=== PATIENT | male | born 1980 | race African-American/Black ===

== ENCOUNTER 2017-02-04 10:19 | Inpatient (IN) ==
[2017-02-04] MEDS ORDERED: ASPIRIN PO STA (10:29)
[2017-02-04 10:54] LABS: BASO% 0.1 % (0.0-0.8); EOS# 0.01 X1000 (0.0-0.7); EOS% 0.1 % (0.0-10.0); HEMATOCRIT 31.5 % (42.0-52.0); HEMOGLOBIN 10.9 g/dL (14.0-18.0); IMM GRAN# 0.06 X1000 (0.0-0.04); IMM GRAN% 0.3 % (0.0-0.5); LYMPH# 0.85 X1000 (1.2-3.4); LYMPH% 4.4 % (20.5-51.1); MANUAL DIFF NEEDED? NO; MCH 26.3 PG (27-31); MCHC 34.6 g/dL (33-37); MCV 75.9 FL (81-99); MONO# 1.49 X1000 (0.11-0.59); MONO% 7.7 % (1.7-9.3); MPV 9.5 FL (7.4-10.4); NEUT% 87.4 % (42.2-75.2); PLT 246 X1000 (130-400); RBC 4.15 XMIL (4.7-6.1)
[2017-02-04 10:58] LABS: INR 1.09; PROTIME 11.5 Seconds (9.2-11.7); PTT 38.2 Seconds (22.0-36.0)
[2017-02-04 11:13] LABS: ALBUMIN 1.9 g/dL (3.5-5.0); CALCIUM 7.7 mg/dL (8.8-10.2); MAGNESIUM 1.4 mg/dL (1.5-2.7); TOTAL BILIRUBIN 1.45 mg/dL (0.20-1.00)
[2017-02-04] MEDS ORDERED: NS 1,000 ML IV ONE ×2 (11:28→11:38)
[2017-02-04] MEDS ORDERED: NS 500 ML IV ONE (11:31)
[2017-02-04] MEDS ORDERED: ROCEPHIN 2 GM/NS 2 GM/50 ML IVPB IV ONE (11:39)
[2017-02-04] MEDS ORDERED: ZITHROMAX 500 MG/NS 500 MG/250 ML IVPB IV ONE (11:40)
--- NOTE | 2017-02-04 11:41 | PROVIDER DOCUMENTATION ---
HPI-Chest Pain - General Chief Complaint: Shortness of Breath Stated Complaint: SOB,CP Time Seen by Provider: 02/04/17 11:22 Source: patient Allergies/Adverse Reactions: Patient Allergies Allergy/AdvReac Type Severity Reaction Status Date / Time No Known Allergies Allergy Verified 12/08/16 18:22 Home Medications: Home Medication List Medication Instructions Recorded Confirmed Last Taken Type Aspirin 81 mg PO DAILY #60 chewtab 09/02/16 12/08/16 12/08/16 Rx Carvedilol 6.25 mg PO BID #60 tablet 09/02/16 12/08/16 12/08/16 Rx Digoxin 125 mcg PO QAM #30 tablet 09/02/16 12/08/16 12/08/16 Rx Furosemide [Lasix] 40 mg PO BID #60 tablet 09/02/16 12/08/16 Unknown Rx Insulin Humulin 70/30 [Humulin 8 unit SUBQ QPM@1700 #10 insuln.pen 09/02/16 Unknown Rx 70/30] Insulin Humulin 70/30 [Humulin 14 unit SUBQ QAM@0700 #10 09/02/16 12/08/1612/08 Rx 70/30] insuln.pen LISINOpril [Prinivil] 20 mg PO BID #120 tablet 09/02/16 12/08/16 12/08/16 Rx Spironolactone [Aldactone] 25 mg PO DAILY #120 tablet 09/02/16 12/08/16 Rx Cephalexin [Keflex] 500 mg PO BID #14 capsule 12/08/16 Unknown Rx Hydrocodone/APAP 7.5 mg/325 mg 1 each PO Q6H PRN PRN #5 tablet 12/08/16 Unknown Rx [Altus-7.5] Sulfamethoxazole/Trimethoprim 1 each PO BID #14 tablet 12/08/16 Unknown Rx [Bactrim Ds Tablet] - History of Present Illness-CP Nature of Presenting Problem: 2 days of nasal congestion, increasing cough and congestion. Last nite developed chest pain and SOB. Insulin dependent diabetic, no insulin for several days. Hx CAD, s/p CABG 10/2016 and CHF. Location: reports: central Chest Pain Radiation: reports: no radiation Quality of Pain: reports: aching Severity in ED: moderate Onset/Duration: 2 days ago Timing: still present Modifying Factors: improves with: coughing Associated Symptoms: denies: abdominal pain, back pain, diaphoresis, fatigue Nitro Today/Relief: no nitro taken today Review of Systems - Adult - REVIEW OF SYSTEMS - ADULT Constitutional: reports: see HPI, chills, fever, fatique Eyes: reports: no symptoms reported Ears, Nose, Mouth & Throat: reports: sinus problem Cardiovascular: reports: chest pain Respiratory: reports: cough, shortness of breath Gastrointestinal: reports: no symptoms reported Genitourinary: reports: no symptoms reported Musculoskeletal: reports: no symptoms reported Neurological: reports: no symptoms reported Psychiatric: reports: no symptoms reported Endocrine: reports: other (diabetic, not taking insulin several days) Hematologic/Lymphatic: reports: no symptoms reported Allergic/Immunologic: reports: no symptoms reported Past History - Adult - PAST MEDICAL HISTORY-ADULT Review of Records: reports: Old Records Reviewed, Nursing Assessment Review, Medications Reviewed Major Childhood Illnesses: reports: denies history Cardiovascular: reports: CHF, HTN, [place] Respiratory: reports: COPD Gastrointestinal: reports: GERD Obstetrical/Gynecological: reports: denies history Genitourinary: reports: denies history Musculoskeletal: reports: chronic pain Neurological: reports: denies history Psychiatric: reports: anxiety Endocrine/Immune: reports: Diabetes Other Conditions: reports: MRSA - PRIOR SURGERIES/PROCEDURES Surgical/Procedure History: reports: reviewed, not pertinent, other (abcess) - PRIOR HOSPITALIZATIONS Prior Hospitalizations: reports: none - IMMUNIZATION STATUS Childhood Immunizations: See Nurse Assessment Flu Vaccine: See Nurse Assessment - FAMILY HISTORY Family History: CAD over 55 yo Physical Exam-General - PHYSICAL EXAM-ADULT Initial Vital Signs Reviewed: Yes - CONSTITUTIONAL General Appearance: alert, no apparent distress - EYES Eyes: PERRL/EOMI - HEAD, EARS, NOSE, MOUTH & THROAT HENMT: normocephalic/atraumatic, moist mucous membranes, normal ENT inspection - NECK Neck: non-tender, full range of motion - RESPIRATORY Respiratory: chest non-tender, lungs clear, normal breath sounds - CARDIOVASCULAR Cardiovascular: no gallop, no murmur, tachycardia - GASTROINTESTINAL (ABDOMEN) Abdominal Exam: normal bowel sounds, non tender, soft, no organomegaly - LYMPHATIC Lymphatic: no adenopathy - MUSCULOSKELETAL Back Exam: other (scar from prior abscess) Extremity: non-tender, swelling (R lower leg and foot) - SKIN Integumentary: normal color, normal turgor, warm/dry - NEUROLOGIC Neurologic: grossly normal, no motor/sensory deficits Progress - PLAN OF CARE/RESULTS Progress/Plan/Lab Results: Vital Signs - 8 hr 02/04/17 12:50 02/04/17 14:49 Pulse Rate 115 H 111 H Respiratory Rate 23 Blood Pressure 185/120 150/106 O2 Sat by Pulse Oximetry 99 99 02/04/17 12:41 Influenza Screen - Final Nasopharyngeal Laboratory Results - last 24 hr 02/04/17 02/04/17 02/04/17 10:37 10:37 10:37 WBC 19.30 H RBC 4.15 L Hgb 10.9 L Hct 31.5 L MCV 75.9 L MCH 26.3 L MCHC 34.6 RDW Std Deviation 18.2 H Plt Count 246 MPV 9.5 Immature Gran % (Auto) 0.3 Neut % (Auto) 87.4 H Lymph % (Auto) 4.4 L [place] % (Auto) 7.7 Eos % (Auto) 0.1 Baso % (Auto) 0.1 Immature Gran # (Auto) 0.06 H Neut # (Auto) 16.87 H Lymph # (Auto) 0.85 L [place] # (Auto) 1.49 H Eos # (Auto) 0.01 Baso # (Auto) 0.02 PT INR PTT (Actin FS) D-Dimer 1.77 H Sodium 130 L Potassium 3.0 L Chloride 96 L Carbon Dioxide 18 L Anion Gap 16 BUN 14 Creatinine 1.7 H Estimated GFR/1.73 m2 55 BUN/Creatinine Ratio 8 Glucose 279 H Calculated Osmolality 271 Calcium 7.7 L Magnesium 1.4 L Total Bilirubin 1.45 H AST 16 ALT 7 L Alkaline Phosphatase 92 Creatine Kinase 162 Troponin T Sab-R-Xrvvgrnlqje Pept Total Protein 7.0 Albumin 1.9 L Globulin 5.1 Albumin/Globulin Ratio 0.4 Plasma Lactate 02/04/17 02/04/17 02/04/17 10:37 10:37 10:37 WBC RBC Hgb Hct MCV MCH MCHC RDW Std Deviation Plt Count MPV Immature Gran % (Auto) Neut % (Auto) Lymph % (Auto) [place] % (Auto) Eos % (Auto) Baso % (Auto) Immature Gran # (Auto) Neut # (Auto) Lymph # (Auto) [place] # (Auto) Eos # (Auto) Baso # (Auto) PT 11.5 INR 1.09 PTT (Actin FS) 38.2 H D-Dimer Sodium Potassium Chloride Carbon Dioxide Anion Gap BUN Creatinine Estimated GFR/1.73 m2 BUN/Creatinine Ratio Glucose Calculated Osmolality Calcium Magnesium Total Bilirubin AST ALT Alkaline Phosphatase Creatine Kinase Troponin T 0.090 Gmo-J-Qvddtihmxhg Pept 32962 H Total Protein Albumin Globulin Albumin/Globulin Ratio Plasma Lactate 02/04/17 12:48 WBC RBC Hgb Hct MCV MCH MCHC RDW Std Deviation Plt Count MPV Immature Gran % (Auto) Neut % (Auto) Lymph % (Auto) [place] % (Auto) Eos % (Auto) Baso % (Auto) Immature Gran # (Auto) Neut # (Auto) Lymph # (Auto) [place] # (Auto) Eos # (Auto) Baso # (Auto) PT INR PTT (Actin FS) D-Dimer Sodium Potassium Chloride Carbon Dioxide Anion Gap BUN Creatinine Estimated GFR/1.73 m2 BUN/Creatinine Ratio Glucose Calculated Osmolality Calcium Magnesium Total Bilirubin AST ALT Alkaline Phosphatase Creatine Kinase Troponin T Tde-R-Ktvbyqzkcrv Pept Total Protein Albumin Globulin Albumin/Globulin Ratio Plasma Lactate 1.5 Orders Category Date Time Status Admit - [facility] Routine AdmDCTranf 02/04/17 15:41 Ordered Activity - Up with Assistance ORDERED Care 02/04/17 15:41 Active Cardiac Monitoring DIRECTED Care 02/04/17 10:29 Completed Elevate Head of Bed DIRECTED Care 02/04/17 15:41 Active Encourage Fluids DIRECTED Care 02/04/17 15:41 Active Intake and Output-Strict Q 8-HR ASSESS Care 02/04/17 15:41 Active Nursing- Assist w/ IS as order ORDERED Care 02/04/17 15:41 Active Oxygen Therapy- ED Nursing DIRECTED Care 02/04/17 10:29 Completed Saline Loc NOW Care 02/04/17 10:29 Completed Turn, Cough and Deep Breathe Q2HR Care 02/04/17 15:41 Active Vital Signs Order Q 4-HR ASSESS Care 02/04/17 15:41 Active Diabetic Diet Diet 02/04/17 14:45 Active CHEST-2 VIEWS [RAD] DAILY Exams 02/05/17 06:00 Ordered CHEST-2 VIEWS [RAD] DAILY Exams 02/06/17 06:00 Ordered CHEST-2 VIEWS [RAD] DAILY Exams 02/07/17 06:00 Ordered CHEST-2 VIEWS [RAD] Stat Exams 02/04/17 10:29 Draft A1C HGB W EST AVG GLUCOSE [CHEM] Timed Lab 02/04/17 16:21 Completed BASIC METABOLIC PANEL [CHEM] DAILY Lab 02/05/17 06:00 Ordered BASIC METABOLIC PANEL [CHEM] DAILY Lab 02/06/17 06:00 Ordered BASIC METABOLIC PANEL [CHEM] DAILY Lab 02/07/17 06:00 Ordered BASIC METABOLIC PANEL [CHEM] Timed Lab 02/04/17 16:21 Completed BLOOD CULTURE [BLDCUL] Stat Lab 02/04/17 12:40 Results CBC WITH ELECTRONIC DIFF [HEME] Stat Lab 02/04/17 10:37 Completed CBC WITH NO DIFF [HEME] DAILY Lab 02/05/17 06:00 Ordered CBC WITH NO DIFF [HEME] DAILY Lab 02/06/17 06:00 Ordered CBC WITH NO DIFF [HEME] DAILY Lab 02/07/17 06:00 Ordered CK PROFILE [SP CHEM] Q8H Lab 02/04/17 16:21 Completed CK PROFILE [SP CHEM] Q8H Lab 02/04/17 23:41 Ordered CK PROFILE [SP CHEM] Stat Lab 02/04/17 10:37 Completed COMPREHENSIVE METABOLIC PANEL [CHEM] Stat Lab 02/04/17 10:37 Completed D-DIMER [CHEM] Stat Lab 02/04/17 10:37 Completed FERRITIN Timed Lab 02/04/17 16:21 Completed FOLATE Timed Lab 02/04/17 16:21 Completed FREE T4 Timed Lab 02/04/17 16:21 Completed INFLUENZA SCREEN A/B Stat Lab 02/04/17 12:41 Completed LACTATE, PLASMA [CHEM] Stat Lab 02/04/17 12:48 Completed LIPID PROFILE W/CALC LDL [LIPIDS] Routine Lab 02/05/17 06:00 Ordered MAGNESIUM [CHEM] DAILY Lab 02/06/17 06:00 Ordered MAGNESIUM [CHEM] DAILY Lab 02/07/17 06:00 Ordered MAGNESIUM [CHEM] DAILY Lab 02/08/17 06:00 Ordered MAGNESIUM [CHEM] Stat Lab 02/04/17 10:37 Completed MAGNESIUM [CHEM] Timed Lab 02/04/17 16:21 Completed PHOSPHORUS [CHEM] Timed Lab 02/04/17 16:21 Completed PRO B-NATRIURETIC PEPTIDE Stat Lab 02/04/17 10:37 Completed PROTIME WITH INR [COAG] Stat Lab 02/04/17 10:37 Completed PTT [COAG] Stat Lab 02/04/17 10:37 Completed RETIC COUNT [HEME] Timed Lab 02/04/17 16:21 Completed SPUTUM CULTURE WITH GRAM STAIN [RM] Routine Lab 02/04/17 18:24 Results TROPONIN T Q8HR Lab 02/04/17 21:00 Ordered TROPONIN T Q8HR Lab 02/05/17 05:00 Ordered TROPONIN T Stat Lab 02/04/17 10:37 Completed TSH Timed Lab 02/04/17 16:21 Completed UDS [URINE DRUG SCREEN] Timed Lab 02/04/17 15:41 Ordered UIBC W TOTAL IRON [CHEM] Timed Lab 02/04/17 16:21 Completed URINALYSIS W/POSS RFLX CULT [URINALYSIS] Routine Lab 02/04/17 15:41 Uncollected VITAMIN B12 Timed Lab 02/04/17 16:21 Completed 0.9% Sodium Chloride Inj [Ns] 1,000 ml Med 02/04/17 11:28 Discontinued IV 999 mls/hr 0.9% Sodium Chloride Inj [Ns] 1,000 ml Med 02/04/17 11:38 Discontinued IV 999 mls/hr 0.9% Sodium Chloride Inj [Ns] 500 ml Med 02/04/17 11:31 Discontinued IV 999 mls/hr Albuterol 2.5MG/Ipratrop 0.5MG [Duoneb (A & A)] Med 02/04/17 14:46 Active 3 ml INH Q2H PRN PRN Albuterol 2.5MG/Ipratrop 0.5MG [Duoneb (A & A)] Med 02/04/17 15:30 Active 3 ml INH RTQ4H Aspirin Med 02/04/17 10:29 Discontinued 325 mg PO STAT STA Azithromycin 500 mg/Ns [Zithromax 500 mg/Ns] Med 02/04/17 11:40 Discontinued 500 mg in 250 ml IV NOW Azithromycin 500 mg/Ns [Zithromax 500 mg/Ns] Med 02/05/17 14:00 Active 500 mg in 250 ml IV Q24H CefTRIAXONE 1 GM/NS [Rocephin 1 gm/Ns] Med 02/05/17 13:00 Active 1 gm in 50 ml IV Q24H CefTRIAXONE 2 GM/NS [Rocephin 2 gm/Ns] Med 02/04/17 11:39 Discontinued 2 gm in 50 ml IV NOW Enoxaparin [Lovenox] Med 02/04/17 15:41 Active 30 mg SUBQ Q12H Heparin Med 02/04/17 21:00 Discontinued 5,000 unit SUBQ Q12HR Insulin Lispro [Humalog] Med 02/04/17 16:00 Active See Protocol SUBQ 0700,1100,1600,2100 Piperacil/Tazobact 2.25 gm/Ns [Zosyn 2.25 gm/Ns] Med 02/04/17 15:00 Discontinued 2.25 gm in 50 ml IV Q6H Potassium Chloride E.r. [Klor-Con] Med 02/04/17 11:59 Discontinued 40 meq PO NOW ONE Aerosol Treatments Routine Ot 02/04/17 14:47 Completed Aerosol Treatments Routine Ot 02/04/17 15:41 Completed Aerosol Treatments Stat Oth 02/04/17 14:47 Completed Incentive Spirometer Routine Ot 02/04/17 15:41 Completed Oxygen Device Routine Oth 02/04/17 15:41 Completed Pulse Oximetry Routine Ot 02/04/17 15:41 Completed Telemetry [OM.EQ] Routine Oth 02/04/17 15:41 Active EKG [EKG] Stat Ther 02/04/17 10:29 Draft Transfer/Admit Order [TRANSFER] Routine Transfer 02/04/17 14:05 Completed Result Diagrams: 02/04/17 10:37 02/04/17 16:21 - XRAY 1 XRAY Study: Chest (RLL infiltrate) - CONSULTS/PCP/HOSPITALIST Notification #1 *Consult/PCP/Hospitalist*: Dr Sampson Time Discussed: 12:30 Reason/Comments: pneumonia, hypokalemia, hyperglycemia Consult Disposition: Will see in ED, Admit Departure - Departure Time of Disposition Decision: 12:46 DIAGNOSIS: Pneumonia Disposition: ADMITTED INPATIENT 09 Certified Medical Emergency: Emergent Condition: Serious
[2017-02-04] MEDS ORDERED: KLOR-CON PO ONE (11:59)
--- NOTE | 2017-02-04 12:03 | EKG Report ---
Test Performed on : 02/04/2017 10:24:50 AM Test Reason : Chest Pain Blood Pressure : / mmHG Vent. Rate : 128 BPM Atrial Rate : 128 BPM P-R Int : 140 ms QRS Dur : 098 ms QT Int : 308 ms P-R-T Axes : 053 080 143 degrees QTc Int : 449 ms Sinus tachycardia. with occasional premature ventricular complexes. Left atrial enlargement RSR' or QR pattern in V1 suggests right ventricular conduction delay Anterior infarct (cited on or before 27-MAR-2015) T wave abnormality, consider lateral ischemia Abnormal ECG When compared with ECG of 30-AUG-2016 00:32, premature ventricular complexes. are now present RSR' pattern in V1 is now present Criteria for Inferior infarct are no longer present Questionable change in initial forces of Anterior leads Unconfirmed Result
--- NOTE | 2017-02-04 13:03 | Diag Imaging Result Document ---
PROCEDURE NAME: CHEST-2 VIEWS - 02/04/2017 PA AND LATERAL RADIOGRAPH OF THE CHEST: COMPARISON: 12/08/2016. FINDINGS: There is an infiltrate at the right lower lung zone suggesting edema and/or pneumonia. There is no definite pleural fluid collection. There is stable cardiomegaly. Central vasculature is grossly unremarkable. Median sternotomy wires are stable. IMPRESSION: Right lower lung zone infiltrate as described.
[2017-02-04] MEDS ORDERED: DUONEB (A & A) INH PRN (14:46)
[2017-02-04] MEDS ORDERED: ZOSYN 2.25 GM/NS 2.25 GM/50 ML IVPB IV SCH (15:00)
[2017-02-04] MEDS ORDERED: LASIX IV ONE (15:04)
[2017-02-04] MEDS: DUONEB (A & A) INH SCH ×3 (15:25→22:55)
[2017-02-04 16:45] LABS: RETIC% 3.15 % (0.8-2.1)
[2017-02-04 16:59] LABS: HEMOGLOBIN A1C 8.4 % (4.8-6.0)
--- NOTE | 2017-02-04 16:59 | HISTORY AND PHYSICAL ---
ELECTRIC DISTRIBUTION CHECKER: Dr. Tran. CARDIOTHORACIC SURGEON: Dr. Michelle. CHIEF COMPLAINT: Shortness of breath and chest pain. HISTORY OF PRESENT ILLNESS: Mr. Coats is a 37-year-old male with a history of coronary artery disease status post 3 vessel CABG in October of this year. He also has a history of insulin-dependent diabetes, hypertension, hyperlipidemia, cardiac thrombus, CKD, medical noncompliance. He presents with 2-3 days of shortness of breath with chest pain beginning this morning. Symptoms were mostly cough which was dry in nature followed by some shortness of breath which increased daily over the past 2 days and this morning he started to have some midsternal chest pain which was nonradiating. He denies any fevers or chills. His cough has been dry. He has no lower extremity edema. No orthopnea. No abdominal pain. No nausea or vomiting. No dyspnea with exertion. No diarrhea or constipation. He came to the ER today for evaluation. Lab work shows a white count of almost 20. Chest x-ray is consistent with right lower lobe pneumonia. He has hyponatremia, hypokalemia, renal insufficiency, elevated liver function tests, and a proBNP of almost 14,000. He is also noted to be quite hypoalbuminemic. He denies any diaphoresis, fevers, or chills at home. However, we are now going to admit him for community -acquired pneumonia, as well as early sepsis. PAST MEDICAL HISTORY: 1. Coronary artery disease. 2. Systolic congestive heart failure with known EF of 20%, followed by Dr. Tran. 3. Hypertension. 4. Hyperlipidemia. 5. Diabetes mellitus. 6. Ischemic cardiomyopathy. 7. History of MRSA on his back associated with large abscess. PAST SURGICAL HISTORY: He has had abscess drainage on his back, 3 vessel CABG. SOCIAL HISTORY: Patient denies tobacco, alcohol, or drug use. FAMILY HISTORY: Significant for coronary disease. REVIEW OF SYSTEMS: A 14 point review of systems obtained and found to be negative with the exception of the HPI. ALLERGIES: No known drug allergies. HOME MEDICATIONS: Aspirin 81 mg daily, carvedilol 6.25 mg p.o. daily, digoxin 125 mcg p.o. daily, Lasix 40 mg b.i.d., [place] as needed, 70/30 insulin 14 units subcutaneously daily , 70/30 8 units subcutaneously at bedtime, lisinopril 20 mg b.i.d., Aldactone 25 mg daily. PHYSICAL EXAMINATION: VITAL SIGNS: Blood pressure is 150/106, heart rate 111, respiratory rate 20, O2 saturation 99% on room air, temperature is 98.2 degrees. GENERAL: This is a slightly overweight male, lying in hospital bed. No acute distress. NEUROLOGIC: The patient is awake, alert, oriented. He follows commands without focal deficits. HEENT: Head is atraumatic, normocephalic. His pupils are equal, round, reactive to light. Oral mucosa is moist. Trachea is midline. There is no JVD. CHEST: Diminished at the bases but clear to auscultation bilaterally. CV: Tachy but regular. S1, S2 is noted. GI: Soft, nondistended, nontender. Bowel sounds positive. EXTREMITIES: With trace edema. Pulses palpable but diminished bilaterally. DIAGNOSTIC DATA: EKG shows sinus tach without acute ST or T abnormalities. Chest x-ray shows right lower lung infiltrate. WBC 19.3, hemoglobin 10.9, hematocrit 31.5, platelet count 246,000. INR 1.09. D-dimer 1.77. Sodium 130, potassium 3.0, chloride 196, CO2 18, anion gap 16, BUN 14, creatinine 1.7, glucose 279, calcium 7.7, magnesium 1.4, bilirubin 1.45, ALT 7, alkaline phosphatase 92, CK 162. Troponin 0.090. ProBNP 13,984. Albumin 1.9. ASSESSMENT AND PLAN: 1. Sepsis: Associated with pneumonia. Blood cultures have been obtained. Lactic acid is within normal limits. Antibiotics have been initiated appropriately. We will continue antibiotics. Monitor hemodynamics closely; they are stable for now. 2. Community-acquired pneumonia: Blood cultures have been obtained. We will start Rocephin and azithromycin. Add aggressive pulmonary toilet and breathing treatments around the clock and p.r.n. 3. Elevated D-dimer: We are going to check a V/Q scan to rule out pulmonary embolus. We will also check lower extremity venous Dopplers. 4. Chronic kidney disease stage 2-3. We will continue his home medications and monitor. This is overall stable for now. 5. Hypokalemia and hypomagnesemia: These have been treated in the ER. We will recheck a BMP along with magnesium and phosphorus at 1600. 6. Anemia of chronic disease: We will check iron studies and treat accordingly. 7. Diabetes mellitus: Check a hemoglobin A1c. Add pattern sugars and sliding scale insulin. We will also continue his home insulin. 8. Systolic congestive heart failure: While his proBNP is almost 14,000, he is not overtly overloaded. He denies any significant dyspnea or chest pain. We will go ahead and recheck another echo now and trend enzymes. 9. Coronary artery disease: Chronic and stable. The patient is complaining of some chest pain but it is atypical but given his history, we are going to trend his enzymes and check an echocardiogram. We will continue his home medications which include aspirin. Further recommendations to follow. We are going to add low-dose Lovenox for DVT prophylaxis. Dictated by YFN Nelson for Grabiel Spivey MD cc: YFN Nelson MD MTDD
[2017-02-04 17:01] LABS: CALCIUM 7.6 mg/dL (8.8-10.2); IRON SATURATION 12 %; MAGNESIUM 1.6 mg/dL (1.5-2.7); POTASSIUM 3.4 mmol/L (3.5-5.1); TIBC 138 ug/dL; TOTAL IRON 16 ug/dL (53-167); UNBOUND IRON 122 ug/dL (112-346)
[2017-02-04 17:12] LABS: FREE T4 1.05 ng/dL (0.93-1.70)
--- NOTE | 2017-02-04 18:37 | Diag Imaging Result Document ---
PROCEDURE NAME: LUNG SCAN / VQ - 02/04/2017 PULMONARY VENTILATION PERFUSION SCAN: COMPARISON: Chest x-ray earlier. FINDINGS: 40.4 millicurie of DTPA was used for inhalation. 6.1 mCi of MAA was used for injection. There is normal localization pattern of both radiotracers. IMPRESSION: Negative for pulmonary embolism.
[2017-02-04] MEDS ORDERED: MORPHINE IV ONE (18:43)
[2017-02-04] MEDS ORDERED: ZOFRAN IV PRN (18:44)
[2017-02-04] MEDS: HUMALOG SUBQ SCH ×2 (18:59→21:54)
[2017-02-04] MEDS: LOVENOX SUBQ SCH (18:59)
[2017-02-04] MEDS ORDERED: HEPARIN SUBQ SCH (21:00)
[2017-02-04 21:24] LABS: UR AMPHETAMINES QUAL NONE DETECTED (NONE DETECT); UR BARBITUATES QUAL NONE DETECTED (NONE DETECT); UR BENZODIAZEPIN QUAL NONE DETECTED (NONE DETECT); UR CANNABINOIDS QUAL NONE DETECTED (NONE DETECT); UR COCAINE QUAL NONE DETECTED (NONE DETECT); UR METHADONE QUAL NONE DETECTED (NONE DETECT); UR OPIATES QUAL PRESUMPTIVE POSITIVE (NONE DETECT); UR OXYCODONE QUAL NONE DETECTED (NONE DETECT); UR PCP QUAL NONE DETECTED (NONE DETECT)
[2017-02-05] MEDS: DUONEB (A & A) INH SCH ×6 (04:01→23:11)
--- NOTE | 2017-02-05 05:19 | EKG Report ---
Test Performed on : 02/04/2017 8:06:13 PM Test Reason : c/o chest pain/discomfort Blood Pressure : / mmHG Vent. Rate : 124 BPM Atrial Rate : 124 BPM P-R Int : 112 ms QRS Dur : 094 ms QT Int : 418 ms P-R-T Axes : 000 062 092 degrees QTc Int : 600 ms Sinus tachycardia. Incomplete right bundle branch block Anterior infarct (cited on or before 27-MAR-2015) T wave abnormality, consider lateral ischemia Abnormal ECG When compared with ECG of 04-FEB-2017 10:24, (Unconfirmed) premature ventricular complexes. are no longer present T wave inversion less evident in Lateral leads Confirmed by Ravindra BENNETT, Kristofer Patel ([id number]) on 02/06/2017 2:15:36 PM
[2017-02-05] MEDS: LOVENOX SUBQ SCH ×2 (05:42→16:54)
[2017-02-05] MEDS: HUMALOG SUBQ SCH ×4 (06:27→22:52)
[2017-02-05 07:22] LABS: HEMATOCRIT 28.2 % (42.0-52.0); HEMOGLOBIN 9.6 g/dL (14.0-18.0); MCH 26.2 PG (27-31); MCV 76.8 FL (81-99); MPV 9.6 FL (7.4-10.4); RBC 3.67 XMIL (4.7-6.1)
[2017-02-05 07:48] LABS: AGAP 14; BUN 16 mg/dL (8-22); CALCIUM 7.6 mg/dL (8.8-10.2); CHLORIDE 101 mmol/L (98-107); COSMO 273; HDL 44 mg/dL (35-55); LDL 124 mg/dL; POTASSIUM 3.2 mmol/L (3.5-5.1); SODIUM 135 mmol/L (136-145); TCO2 20 mmol/L (25-35); TRIGLYCERIDES 107 mg/dL (39-160); VLDL 21 mg/dL
[2017-02-05] MEDS ORDERED: TYLENOL PO PRN (08:50)
--- NOTE | 2017-02-05 10:16 | Diag Imaging Result Document ---
PROCEDURE NAME: CHEST-2 VIEWS - 02/05/2017 FRONTAL AND LATERAL CHEST, TWO VIEWS: COMPARISON: 02/04/2017. FINDINGS: There are dense infiltrates throughout the right lung. The heart remains enlarged. Sternal wires are present. No pleural effusions. Left inferior pleural thickening has an appearance similar to the prior study. IMPRESSION: No improvement in the right-sided infiltrates or in the cardiomegaly.
[2017-02-05] MEDS ORDERED: LASIX PO PRN (10:19)
[2017-02-05] MEDS: LANOXIN PO SCH (10:43)
[2017-02-05] MEDS: ASPIRIN PO SCH (10:43)
[2017-02-05] MEDS: ALDACTONE PO SCH (10:43)
[2017-02-05] MEDS: PRINIVIL PO SCH (10:43)
[2017-02-05] MEDS: ROCEPHIN 1 GM/NS 1 GM/50 ML IVPB IV SCH (12:02)
--- NOTE | 2017-02-05 12:44 | PROGRESS NOTE ---
DATE: 02/05/2017 SUBJECTIVE: This patient states that he is feeling much better. He is complaining of mild headache. He denies nausea or vomiting. No diarrhea. No constipation. No shortness of breath. No chest pain. OBJECTIVE: Vital Signs: Temperature 99.0 degrees, pulse 118, respiratory rate 18, blood pressure 178/114, oxygen saturation 96 on 1L of nasal cannula. HEENT: Head normocephalic. No trauma. PERRLA. Neck: Supple. No JVD. No masses. Central trachea. Chest: Decreased breath sounds at the bases with rhonchi at the level of the right lower lung. Cardiovascular: RRR. No murmurs. Tachycardic. Abdomen: Soft, nontender, nondistended. No hepatosplenomegaly. Extremities: Trace lower extremity edema. No clubbing. No cyanosis. Neurological: The patient is alert and oriented x3. No focal neurological deficits. LABORATORY: WBC 12, hemoglobin 9.6, hematocrit 28.2, platelets 247,000. Sodium 135, potassium 3.2, chloride 101, bicarbonate 20, BUN 16, creatinine 1.7, glucose 130, calcium 7.6. ASSESSMENT AND PLAN: 1. Sepsis associated with pneumonia. Blood culture has been negative so far. He is feeling better. I will continue with the same antibiotics and monitoring. 2. Community-acquired pneumonia. Blood culture has been negative. We will continue with ceftriaxone and azithromycin. Will continue with also aggressive pulmonary toilet, breathing treatment. 3. Elevated D-dimer. The V/Q scan has been negative. We will continue with deep vein thrombosis prophylaxis. 4. Chronic kidney disease, stage 2-3. Continue with home medication and monitor. 5. Hypokalemia. I will replace the potassium. 6. Hypomagnesemia, resolved. 7. Anemia of chronic disease. Aware. 8. Type 2 diabetes. His hemoglobin A1c is 8.4. This patient has been highly advised about diet and diabetes treatment. 9. Systolic congestive heart failure. I will restart all his home medications today. Pending a new echocardiogram. 10. History of coronary artery disease, stable. Continue to monitor. cc: Grabiel Spivey MD
[2017-02-05] MEDS ORDERED: INSULIN PEN NEEDLES ONE (13:08)
[2017-02-05] MEDS: ZITHROMAX 500 MG/NS 500 MG/250 ML IVPB IV SCH (14:00)
--- NOTE | 2017-02-05 14:15 | Extremity Venous Study ---
PROCEDURE NAME: Venous U/S Bilateral Legs - 02/04/2017 REQUESTING PHYSICIAN: Dr. Sampson. STABLE CLEANER: Allan. TEST: Lower extremity venous study. INDICATIONS: Shortness of breath. Elevated D-dimer. PROCEDURE: Bilateral lower extremity venous duplex color-flow imaging. EQUIPMENT: [employer] E9 ultrasound System and 9 LD transducer. FINDINGS: Imaging of the bilateral lower extremity venous system obtained in both sagittal and transverse planes. Doppler was used to evaluate veins for spontaneity, phasicity, respiratory excursion, and digital augmentation. RESULTS: Normal venous compression, normal venous flow. No obvious superficial or deep venous thrombosis noted. 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 INTERPRETATION: No obvious superficial or deep venous thrombosis noted. There is suggestion of chronic arterial disease bilaterally at the right popliteal artery and left common femoral, left superficial femoral artery. Given this patient's age and bilateral aspect of this would recommend CT angiography and surgical evaluation. cc: MD Vikas Birch CRNP
[2017-02-05] MEDS: HUMULIN 70/30 SUBQ SCH (16:55)
[2017-02-05] MEDS: COREG PO SCH (22:51)
[2017-02-06] MEDS: DUONEB (A & A) INH SCH ×6 (04:10→22:43)
[2017-02-06] MEDS: HUMALOG SUBQ SCH ×4 (06:20→20:58)
[2017-02-06] MEDS: LOVENOX SUBQ SCH ×2 (06:20→18:13)
[2017-02-06] MEDS: HUMULIN 70/30 SUBQ SCH ×2 (06:21→18:12)
[2017-02-06 07:21] LABS: MANUAL DIFF NEEDED? NO
[2017-02-06 07:26] LABS: BASO% 0.2 % (0.0-0.8); EOS# 0.23 X1000 (0.0-0.7); EOS% 1.8 % (0.0-10.0); HEMATOCRIT 27.9 % (42.0-52.0); HEMOGLOBIN 9.5 g/dL (14.0-18.0); IMM GRAN# 0.02 X1000 (0.0-0.04); IMM GRAN% 0.2 % (0.0-0.5); LYMPH# 1.16 X1000 (1.2-3.4); LYMPH% 9.3 % (20.5-51.1); MCH 26.4 PG (27-31); MCHC 34.1 g/dL (33-37); MCV 77.5 FL (81-99); MONO# 0.92 X1000 (0.11-0.59); MONO% 7.3 % (1.7-9.3); MPV 10.2 FL (7.4-10.4); NEUT% 81.2 % (42.2-75.2); PLT 281 X1000 (130-400)
[2017-02-06 07:46] LABS: CALCIUM 7.7 mg/dL (8.8-10.2); POTASSIUM 3.1 mmol/L (3.5-5.1)
[2017-02-06] MEDS ORDERED: KLOR-CON PO ONE (08:23)
[2017-02-06] MEDS: PRINIVIL PO SCH (09:53)
[2017-02-06] MEDS: LANOXIN PO SCH (09:53)
[2017-02-06] MEDS: ALDACTONE PO SCH (09:53)
[2017-02-06] MEDS: COREG PO SCH ×2 (09:53→20:56)
[2017-02-06] MEDS: ASPIRIN PO SCH (09:53)
--- NOTE | 2017-02-06 10:49 | Diag Imaging Result Document ---
PROCEDURE NAME: CT THORAX W/O CONTRAST - 02/06/2017 CT CHEST WITHOUT CONTRAST: TECHNIQUE: Dose reduction protocol. COMPARISON: 09/17/2015. FINDINGS: There are small bilateral pleural effusions. The one on the left measures 13 mm posteriorly and inferiorly in the midline whereas the one on the right measures 12 mm. The heart is enlarged. No thoracic aortic aneurysm. Sternal wires are present. There are small mediastinal lymph nodes. There are infiltrates throughout the right lung. I do not identify a lung mass. No bronchiectasis. There is skin thickening with multiple subcutaneous fluid areas in the midback. These are much smaller than on the prior exam. Body wall edema is also much less pronounced. IMPRESSION: 1. Right lung pneumonia. 2. Cardiomegaly with small pleural effusions. A preliminary report was given at 9:38 a.m.
--- NOTE | 2017-02-06 15:54 | PROGRESS NOTE ---
DATE: 02/06/2017 SUBJECTIVE: Today Mr. Coats referred to be doing a little better. Still has a residual shortness of breath but much better than yesterday. OBJECTIVE: Vital signs: Blood pressure is 148/86, pulse of 107, respirations 18, temperature 97.9 degrees. General: Mr. Coats, 37-year-old male. He is in bed. Did not seem to be in any remarkable distress. HEENT: Mucosa is pink and moist. Anicteric. Acyanotic. Neck: Supple. Chest: Air entry is bilaterally reduced. There is bilateral coarse crackle in both posterior lung cornejo. Cardiovascular: Regular rate and rhythm. No murmurs, no rubs. Slightly tachycardic. Abdomen: Soft, nontender. Extremities: There is 1+ pedal edema more on the right than the left. The right lower extremity also has some dark discoloration on the dorsal aspect of it with a central area which is consistent with a previous infection. HOSPITALITY MANAGER: Patient is alert and oriented x4. There is no focal neurological deficit. LABORATORY DATA: WBC is 12.52, hemoglobin 9.5, platelet count of 281,000. Chemistry is reviewed. Sodium 135, potassium 3.1, chloride 100, bicarbonate is 20, creatinine is 1.9. The CT scan of the lungs without contrast this morning which shows right lung pneumonia, cardiomegaly with small pleural effusions. ASSESSMENT: 1. Sepsis on presentation improved. 2. Right lung pneumonia (community-acquired), patient is currently on ceftriaxone and azithromycin. 3. Chronic kidney disease stage 3B. 4. Hypokalemia. Will replace that. 5. Diabetes mellitus. 6. Acute on chronic congestive heart failure. Will continue with the current medication as well as IV Lasix. 7. History of coronary artery disease status post coronary artery bypass graft. 8. Periphery artery disease. Will get surgery to evaluate the patient on Wednesday due to the report on the Doppler by Dr. Savage. cc: Ronal Regan MD
[2017-02-06] MEDS: ROCEPHIN 1 GM/NS 1 GM/50 ML IVPB IV SCH (16:50)
[2017-02-06] MEDS: ZITHROMAX 500 MG/NS 500 MG/250 ML IVPB IV SCH (18:03)
[2017-02-06] MEDS: LASIX IV SCH (20:57)
[2017-02-07] MEDS: DUONEB (A & A) INH SCH (03:42)
[2017-02-07] MEDS: LOVENOX SUBQ SCH (06:10)
[2017-02-07] MEDS: HUMALOG SUBQ SCH ×2 (06:10→12:32)
[2017-02-07] MEDS: HUMULIN 70/30 SUBQ SCH (06:11)
[2017-02-07 07:39] LABS: HEMATOCRIT 27.7 % (42.0-52.0); HEMOGLOBIN 9.7 g/dL (14.0-18.0); MCH 26.8 PG (27-31); MCV 76.5 FL (81-99); MPV 9.5 FL (7.4-10.4); RBC 3.62 XMIL (4.7-6.1)
[2017-02-07 07:49] LABS: URINE CULTURE NEEDED? NO; URINE MICRO REVIEW NEEDED? NO; URINE SOURCE CLEAN CATCH
[2017-02-07 07:59] LABS: CALCIUM 7.8 mg/dL (8.8-10.2); POTASSIUM 3.3 mmol/L (3.5-5.1)
[2017-02-07 08:01] LABS: BILIRUBIN URINE NEGATIVE (NEGATIVE); BLOOD URINE MODERATE (NEGATIVE); COLOR YELLOW; GLUCOSE URINE 150 mg/dL (NEGATIVE); LEUKOCYTES URINE NEGATIVE (NEGATIVE); NITRITE URINE NEGATIVE (NEGATIVE); PROTEIN URINE 600 mg/dL (NEGATIVE); SP GRAVITY URINE 1.016; TURBIDITY URINE CLEAR (CLEAR); UROBILINOGEN URINE NORMAL (NORMAL)
[2017-02-07 08:02] LABS: UR EPITHELIAL CELLS <10 /HPF (<10); URINE BACTERIA NEGATIVE /HPF; URINE WBC <10 /HPF (<10)
[2017-02-07 08:08] VITALS: BP 169/102
[2017-02-07] MEDS: PRINIVIL PO SCH (09:16)
[2017-02-07] MEDS: ALDACTONE PO SCH (09:16)
[2017-02-07] MEDS: LASIX IV SCH (09:16)
[2017-02-07] MEDS: ASPIRIN PO SCH (09:16)
[2017-02-07] MEDS: COREG PO SCH (09:16)
[2017-02-07] MEDS: LANOXIN PO SCH (09:18)
--- NOTE | 2017-02-08 05:25 | DISCHARGE SUMMARY ---
ADMISSION DATE: 02/04/2017 DISCHARGE DATE: 02/07/2017 DISPOSITION: Home. FOLLOWUP: 1. Dr. Royal. 2. Dr. Barrett. 3. Dr. Benitez. CONSULTATIONS DURING THIS ADMISSION: None. IMAGING STUDIES OF SIGNIFICANCE: 1. Extremity venous studies were done, which shows no obvious DVT. However, there were some significant findings on the arteries side. 2. A V/Q lung scan was negative for PE. 3. A CT scan of the chest without contrast showed right lung pneumonia, cardiomegaly with small pleural effusions. ADMISSION DIAGNOSES: 1. Sepsis associated with pneumonia. 2. Elevated D-dimer. 3. Chronic kidney disease, stage III. 4. Hypokalemia. 5. Anemia of chronic disease. DISCHARGE DIAGNOSES: 1. Sepsis on presentation, improved. 2. Right lung pneumonia (community-acquired). 3. Chronic kidney disease, stage IIIB. 4. Diabetes mellitus. 5. Afiul-ht-savnntq congestive heart failure. 6. History of coronary artery disease, status post coronary artery bypass graft. 7. Peripheral artery disease. DISCHARGE MEDICATIONS: 1. Insulin 70/30, 40 units in the morning, 8 units in the evening. 2. Spironolactone 25 units daily. 3. Carvedilol 6.25 p.o. b.i.d. 4. Aspirin 81 mg daily. 5. Digoxin 125 mcg daily. 6. Furosemide 40 mg b.i.d. 7. Lisinopril 20 mg daily. 8. Azithromycin 250 mg daily. PRESENTING COMPLAINT: Shortness of breath and chest pain. HISTORY OF PRESENTING COMPLAINT: Mr. Coats is a 37-year-old male who recently had a CABG in October this year for 3-vessel disease. Presented to the emergency department because of acute onset of shortness of breath, with some cough. Upon presentation, the patient was evaluated. Lab works and chest x-rays were done. PE was ruled out. Patient was admitted for further medical care. HOSPITAL COURSE: The patient was started on IV antibiotics and gentle diureses. He responded very well to therapy. His shortness of breath improved and coughing improved. A CT scan of the chest was done, which confirmed a right lower lobe pneumonia. Patient was treated as a community acquired pneumonia, and he responded very well to therapy. Today, he refers to do fine. His vitals have been reviewed, completely normal. Physical exam is much better. The patient is therefore going to be discharged. Patient does not have a PCP, so he has been advised to get one, and he is also advised to follow up with Dr. Benitez for his kidney problems, and Dr. Royal for his heart issues, and also with Dr. Barrett to investigate further on his peripheral artery disease, to evaluate possibility of revascularization. At the time of discharge, there were not any pending labs or imaging studies. Time spent for discharge was 36 minutes. cc: Ronal Regan MD
[2017-02-08] MEDS ORDERED: ZITHROMAX PO SCH (09:00)
== END 2017-02-07 13:26 | disposition home or self-care (01) ==
LOC: ED 10:19 → 3N 14:56 → SUATTDRO 14:56
PROVIDERS: ATTEND Internal Medicine

== ENCOUNTER 2017-02-14 20:19 | Inpatient (IN) ==
[2017-02-14] MEDS ORDERED: ASPIRIN PO STA (20:28)
[2017-02-14 21:17] LABS: MANUAL DIFF NEEDED? NO
[2017-02-14 21:20] LABS: BASO% 0.4 % (0.0-0.8); EOS# 0.12 X1000 (0.0-0.7); EOS% 1.2 % (0.0-10.0); HEMATOCRIT 30.3 % (42.0-52.0); HEMOGLOBIN 10.5 g/dL (14.0-18.0); IMM GRAN# 0.02 X1000 (0.0-0.04); IMM GRAN% 0.2 % (0.0-0.5); LYMPH# 1.82 X1000 (1.2-3.4); LYMPH% 18.8 % (20.5-51.1); MCH 26.6 PG (27-31); MCHC 34.7 g/dL (33-37); MCV 76.7 FL (81-99); MONO% 4.1 % (1.7-9.3); MPV 10.1 FL (7.4-10.4); NEUT% 75.3 % (42.2-75.2); PLT 356 X1000 (130-400); RBC 3.95 XMIL (4.7-6.1)
[2017-02-14 21:31] LABS: INR 1.12; PROTIME 11.9 Seconds (9.2-11.7); PTT 29.2 Seconds (22.0-36.0)
[2017-02-14] MEDS ORDERED: NITROGLYCERIN TOP ONE (21:35)
[2017-02-14] MEDS ORDERED: ZOFRAN IV ONE (21:36)
[2017-02-14] MEDS ORDERED: MORPHINE IV ONE (21:36)
[2017-02-14] MEDS ORDERED: LABETALOL IV ONE (21:37)
[2017-02-14] MEDS ORDERED: DILAUDID IV ONE (22:27)
[2017-02-14] MEDS ORDERED: LOVENOX SUBQ ONE (22:40)
[2017-02-14 23:29] LABS: ALBUMIN 2.3 g/dL (3.5-5.0); CALCIUM 8.1 mg/dL (8.8-10.2); MAGNESIUM 1.8 mg/dL (1.5-2.7); POTASSIUM 3.5 mmol/L (3.5-5.1); TOTAL BILIRUBIN 0.44 mg/dL (0.20-1.00); TOTAL PROTEIN 7.1 g/dL (6.3-8.3)
[2017-02-14] MEDS ORDERED: ZOFRAN ODT PO ONE (23:42)
[2017-02-14 23:45] LABS: CK INDEX 2.2 (0.0-2.5); CK-MB 4.66 ng/mL (0.0-5.0)
[2017-02-15 00:30] LABS: UR AMPHETAMINES QUAL NONE DETECTED (NONE DETECT); UR BARBITUATES QUAL NONE DETECTED (NONE DETECT); UR BENZODIAZEPIN QUAL NONE DETECTED (NONE DETECT); UR CANNABINOIDS QUAL NONE DETECTED (NONE DETECT); UR COCAINE QUAL NONE DETECTED (NONE DETECT); UR METHADONE QUAL NONE DETECTED (NONE DETECT); UR OPIATES QUAL PRESUMPTIVE POSITIVE (NONE DETECT); UR OXYCODONE QUAL NONE DETECTED (NONE DETECT); UR PCP QUAL NONE DETECTED (NONE DETECT)
--- NOTE | 2017-02-15 01:45 | PROVIDER DOCUMENTATION ---
This chart was entered by Justin Mcintyre Scribe, acting as scribe for Robin Higgins MD. HPI-Chest Pain - General Chief Complaint: Chest Pain Stated Complaint: CHEST TIGHTING UP Time Seen by Provider: 02/14/17 20:32 Source: patient Allergies/Adverse Reactions: Patient Allergies Allergy/AdvReac Type Severity Reaction Status Date / Time No Known Allergies Allergy Verified 02/14/17 21:16 Home Medications: Home Medication List Medication Instructions Recorded Confirmed Last Taken Type Aspirin 81 mg PO DAILY #60 chewtab 09/02/16 02/14/17 02/14/17 Rx Carvedilol 6.25 mg PO BID #60 tablet 09/02/16 02/14/17 02/14/17 Rx Digoxin 125 mcg PO QAM #30 tablet 09/02/16 02/14/17 02/14/17 Rx Insulin Humulin 70/30 [Humulin 8 unit SUBQ QPM@1700 #10 insuln.pen 09/02/1602/14/17 Rx 70/30] Insulin Humulin 70/30 [Humulin 14 unit SUBQ QAM@0700 #10 09/02/16 02/14/1702/14 Rx 70/30] insuln.pen Spironolactone [Aldactone] 25 mg PO DAILY #120 tablet 09/02/16 02/14/17 Rx Furosemide [Lasix] 40 mg PO BID PRN 02/05/17 02/14/17 02/14/17 History LISINOpril [Prinivil] 20 mg PO DAILY 02/05/17 02/14/17 02/14/17 History Azithromycin [Zithromax] 250 mg PO DAILY #7 tablet 02/07/17 02/14/17 02/14/17 Rx - History of Present Illness-CP Nature of Presenting Problem: Pt is a 37 yom who presents to ER with CC of chest pain that started this morning while ptwas still in bed. Pt has hx of AK and CABG. Pt reports pain is substernal and feels like a sharp/squeezing pain that has been constant. Pt reports nausea, chest pain, diaphoretic at onset, shortness of breath, and a clear sputum productive cough. Location: reports: substernal Chest Pain Radiation: reports: no radiation Quality of Pain: reports: sharp, tightness Severity in ED: moderate Onset/Duration: this morning Timing: still present Context/Activities at Onset: reports: rest Associated Symptoms: reports: diaphoresis, nausea, shortness of breath. denies : heartburn, vomiting, weakness Aspirin Treatment Today: 81 mg x 1, provided at home Prior Chest Pain/Cardiac Workup: reports: heart attack Similar Symptoms Previously?: Yes Recently Seen Here or By Another Healthcare Provider: Yes Review of Systems - Adult - REVIEW OF SYSTEMS - ADULT Constitutional: reports: chills. denies: fever, fatique, night sweats, weight gain, weight loss Eyes: reports: no symptoms reported Ears, Nose, Mouth & Throat: reports: no symptoms reported Cardiovascular: reports: chest pain, palpitations. denies: edema, heart murmur , irregular heart rate, orthopnea, poor circulation, PND, syncope Respiratory: reports: cough, excessive sputum production, shortness of breath. denies: chronic cough, dyspnea on exertion, hemoptysis, pleurisy, wheezing Gastrointestinal: reports: nausea. denies: abdominal pain, hematemesis, constipation, diarrhea, difficulty swallowing, frequent heartburn, poor appetite , rectal bleeding, vomiting Genitourinary: reports: no symptoms reported Musculoskeletal: reports: no symptoms reported Integumentary: reports: no symptoms reported Neurological: reports: no symptoms reported Psychiatric: reports: no symptoms reported Endocrine: reports: no symptoms reported Hematologic/Lymphatic: reports: no symptoms reported Allergic/Immunologic: reports: no symptoms reported All Other Systems: Reviewed and Negative Past History - Adult - PAST MEDICAL HISTORY-ADULT Review of Records: reports: Nursing Assessment Review, Medications Reviewed Cardiovascular: reports: CHF, HTN, [place] Respiratory: reports: COPD Gastrointestinal: reports: GERD Musculoskeletal: reports: chronic pain Psychiatric: reports: anxiety Endocrine/Immune: reports: Diabetes Other Conditions: reports: MRSA - PRIOR SURGERIES/PROCEDURES Surgical/Procedure History: reports: reviewed, not pertinent, other (abcess) - PRIOR HOSPITALIZATIONS Prior Hospitalizations: reports: none - IMMUNIZATION STATUS Childhood Immunizations: See Nurse Assessment Flu Vaccine: See Nurse Assessment - FAMILY HISTORY Family History: CAD over 55 yo Physical Exam-General - PHYSICAL EXAM-ADULT Initial Vital Signs Reviewed: Yes - CONSTITUTIONAL General Appearance: appears well, alert, mild distress, obese, lethargic, slow to respond. negative: no apparent distress - EYES Eyes: PERRL/EOMI, pink conjunctivae, fundi clear, no AV nicking. negative: pale conjunctivae, photophobia, sclera injected, scleral icterus - HEAD, EARS, NOSE, MOUTH & THROAT HENMT: normocephalic/atraumatic, moist mucous membranes, normal ENT inspection, TMs normal, pharynx normal. negative: pharyngeal erythema, tonsillar exudate, TM abnormal - NECK Neck: non-tender, full range of motion, supple, normal inspection. negative: C- spine tenderness, limited range of motion, lymphadenopathy - RESPIRATORY Respiratory: chest non-tender, lungs clear, normal breath sounds, no pleuratic chest pain, no respiratory distress, no accessory muscle use. negative: wheezing - CARDIOVASCULAR Cardiovascular: normal peripheral pulses, tachycardia, other (HTN). negative: regular rate, rhythm, bradycardia - GASTROINTESTINAL (ABDOMEN) Abdominal Exam: normal bowel sounds, non tender, soft, no organomegaly, no pulsatile mass. negative: distended, guarding, rigid, rebound, tenderness - MUSCULOSKELETAL Back Exam: normal inspection, no CVA tenderness, no vertebral tenderness. negative: CVA tenderness, decreased range of motion, ecchymosis, muscle spasm, swelling, vertebral tenderness Extremity: normal range of motion, non-tender, normal gait, normal inspection, no pedal edema, no calf tenderness, normal capillary refill. negative: deformity, erythema, inflammation, swelling, tenderness - SKIN Integumentary: normal color, normal turgor, warm/dry. negative: abrasion(s), diaphoresis, ecchymosis, erythema, laceration(s), swelling, tenderness, warm - NEUROLOGIC Neurologic: flag maker II-XII nml as tested, grossly normal, no motor/sensory deficits . negative: facial droop, focal weakness, motor weakness, sensory deficit - PSYCHIATRIC Psych/Mental Status: normal thought content, normal thought process, oriented x 3, depressed affect. negative: normal mood/affect Progress - PLAN OF CARE/RESULTS Progress/Plan/Lab Results: Vital Signs - 8 hr 02/14/17 20:30 02/14/17 22:15 02/15/17 00:24 Temperature 98.0 F Pulse Rate 112 H 105 H 87 Respiratory Rate 24 19 11 L Blood Pressure 161/121 177/127 175/119 O2 Sat by Pulse Oximetry 98 98 98 Laboratory Results - last 24 hr 0402/14/17 02/14/17 20:55 20:55 20:55 WBC 9.70 RBC 3.95 L Hgb 10.5 L Hct 30.3 L MCV 76.7 L MCH 26.6 L MCHC 34.7 RDW Std Deviation 18.4 H Plt Count 356 MPV 10.1 Immature Gran % (Auto) 0.2 Neut % (Auto) 75.3 H Lymph % (Auto) 18.8 L Buchanan % (Auto) 4.1 Eos % (Auto) 1.2 Baso % (Auto) 0.4 Immature Gran # (Auto) 0.02 Neut # (Auto) 7.30 H Lymph # (Auto) 1.82 Buchanan # (Auto) 0.40 Eos # (Auto) 0.12 Baso # (Auto) 0.04 PT 11.9 H INR 1.12 PTT (Actin FS) 29.2 D-Dimer 5.08 H Sodium Potassium Chloride Carbon Dioxide Anion Gap BUN Creatinine Estimated GFR/1.73 m2 BUN/Creatinine Ratio Glucose Calculated Osmolality Calcium Magnesium Total Bilirubin AST ALT Alkaline Phosphatase Creatine Kinase Creatine Kinase Index CK-MB (CK-2) Troponin T Kkk-N-Mlwdyqccsan Pept Total Protein Albumin Globulin Albumin/Globulin Ratio Urine Opiates Screen Ur Oxycodone Screen Ur Methadone, Qual Ur Barbiturates Screen Ur Phencyclidine Scrn Ur Amphetamines Screen U Benzodiazepines Scrn Urine Cocaine Screen U Cannabinoids Screen 02/14/17 02/14/17 02/14/17 22:40 22:40 22:40 WBC RBC Hgb Hct MCV MCH MCHC RDW Std Deviation Plt Count MPV Immature Gran % (Auto) Neut % (Auto) Lymph % (Auto) Buchanan % (Auto) Eos % (Auto) Baso % (Auto) Immature Gran # (Auto) Neut # (Auto) Lymph # (Auto) Buchanan # (Auto) Eos # (Auto) Baso # (Auto) PT INR PTT (Actin FS) D-Dimer Sodium 135 L Potassium 3.5 Chloride 101 Carbon Dioxide 19 L Anion Gap 15 BUN 22 Creatinine 1.8 H Estimated GFR/1.73 m2 51 BUN/Creatinine Ratio 12 Glucose 214 H Calculated Osmolality 280 Calcium 8.1 L Magnesium 1.8 Total Bilirubin 0.44 AST 12 ALT 10 Alkaline Phosphatase 96 Creatine Kinase 211 H Creatine Kinase Index 2.2 CK-MB (CK-2) 4.66 Troponin T 0.067 Rlq-[place]-Bypschvguxw Pept 36382 H Total Protein 7.1 Albumin 2.3 L Globulin 4.8 Albumin/Globulin Ratio 0.5 Urine Opiates Screen Ur Oxycodone Screen Ur Methadone, Qual Ur Barbiturates Screen Ur Phencyclidine Scrn Ur Amphetamines Screen U Benzodiazepines Scrn Urine Cocaine Screen U Cannabinoids Screen 02/14/17 23:35 WBC RBC Hgb Hct MCV MCH MCHC RDW Std Deviation Plt Count MPV Immature Gran % (Auto) Neut % (Auto) Lymph % (Auto) Buchanan % (Auto) Eos % (Auto) Baso % (Auto) Immature Gran # (Auto) Neut # (Auto) Lymph # (Auto) Buchanan # (Auto) Eos # (Auto) Baso # (Auto) PT INR PTT (Actin FS) D-Dimer Sodium Potassium Chloride Carbon Dioxide Anion Gap BUN Creatinine Estimated GFR/1.73 m2 BUN/Creatinine Ratio Glucose Calculated Osmolality Calcium Magnesium Total Bilirubin AST ALT Alkaline Phosphatase Creatine Kinase Creatine Kinase Index CK-MB (CK-2) Troponin T Fdb-C-Atifdghrsrq Pept Total Protein Albumin Globulin Albumin/Globulin Ratio Urine Opiates Screen PRESUMPTIVE POSITIVE A Ur Oxycodone Screen NONE DETECTED Ur Methadone, Qual NONE DETECTED Ur Barbiturates Screen NONE DETECTED Ur Phencyclidine Scrn NONE DETECTED Ur Amphetamines Screen NONE DETECTED U Benzodiazepines Scrn NONE DETECTED Urine Cocaine Screen NONE DETECTED U Cannabinoids Screen NONE DETECTED Orders Category Date Time Status Cardiac Monitoring DIRECTED Care 02/14/17 20:28 Completed Oxygen Therapy- ED Nursing DIRECTED Care 02/14/17 20:28 Completed Saline Loc NOW Care 02/14/17 20:28 Completed CHEST-2 VIEWS [RAD] Stat Exams 02/14/17 20:28 Taken CBC WITH ELECTRONIC DIFF [HEME] Stat Lab 02/14/17 20:55 Completed CK PROFILE [SP CHEM] Stat Lab 02/14/17 22:40 Completed COMPREHENSIVE METABOLIC PANEL [CHEM] Stat Lab 02/14/17 22:40 Completed D-DIMER [CHEM] Stat Lab 02/14/17 20:55 Completed MAGNESIUM [CHEM] Stat Lab 02/14/17 22:40 Completed PRO B-NATRIURETIC PEPTIDE Stat Lab 02/14/17 22:40 Completed PROTIME WITH INR [COAG] Stat Lab 02/14/17 20:55 Completed PTT [COAG] Stat Lab 02/14/17 20:55 Completed TROPONIN T Stat Lab 02/14/17 22:40 Completed UDS [URINE DRUG SCREEN] Stat Lab 02/14/17 23:35 Completed Aspirin Med 02/14/17 20:28 Discontinued 325 mg PO STAT STA Enoxaparin [Lovenox] Med 02/14/17 22:40 Discontinued 120 mg SUBQ NOW ONE Hydromorphone [Dilaudid] Med 02/14/17 22:27 Discontinued 1 mg IV NOW ONE Labetalol Med 02/14/17 21:37 Discontinued 10 mg IV NOW ONE Morphine Med 02/14/17 21:36 Discontinued 4 mg IV NOW ONE Nitroglycerin Med 02/14/17 21:35 Discontinued 1 inch TOP NOW ONE Ondansetron Odt [Zofran Odt] Med 02/14/17 23:42 Discontinued 4 mg PO NOW ONE Ondansetron [Zofran] Med 02/14/17 21:36 Discontinued 4 mg IV NOW ONE EKG [EKG] Stat Ther 02/14/17 20:24 Ordered EKG [EKG] Stat Ther 02/14/17 21:38 Ordered Transfer/Admit Order [TRANSFER] Routine Transfer 02/15/17 00:56 Ordered Result Diagrams: 02/14/17 20:55 02/14/17 22:40 - REASSESSMENT Reassessment #1 Time Reassessed: 22:43 Status: improving (Pt's heart rate is resolving, but pt is still hypertensive. Discussed decision to admit pt. Pt and family at bedside verbally acknowledge and agree.) - XRAY 1 XRAY: Bilateral XRAY Study: Chest Impression: See EMR Report XRAY Interpretation: Cardiomegaly, NAD - ER Preliminary - CONSULTS/PCP/HOSPITALIST Notification #1 *Consult/PCP/Hospitalist*: Dr. Tello Time Discussed: 23:55 Consult Disposition: Admit Departure - Departure Time of Disposition Decision: 22:44 DIAGNOSIS: Chest pain at rest, CAD (coronary artery disease), Elevated d-dimer, Uncontrolled hypertension Disposition: ADMITTED INPATIENT 09 Certified Medical Emergency: Emergent Condition: Stable - Critical Care Note This patient required my direct personal management.: Yes This chart was documented by the indicated scribe, (Justin Mcintyre Scribe) and accurately reflects the services I performed and decisions made by me, Robin Higgins MD, as attested by the provider's signature.
[2017-02-15] MEDS: LASIX IV SCH ×2 (02:25→14:17)
--- NOTE | 2017-02-15 02:49 | HISTORY AND PHYSICAL ---
CHIEF COMPLAINT: Chest pain. HISTORY OF PRESENTING ILLNESS: A 37-year-old male with a history of hypertension, diabetes mellitus type 2, coronary artery disease status post coronary bypass earlier this year. Had presented to the emergency department with 2 days' history of having chest pain. He described his chest pain as a pressure and squeezing sensation, and states that he was short of breath. He was evaluated in the E.R. Due to his presenting symptoms, it was thought that he would need hospitalization for further management. At the time of my examination, he denied any headache, fever, chills, nausea, vomiting, diarrhea, hemoptysis, or any weight changes. Complained of chest pain and shortness of breath. PAST MEDICAL HISTORY: Diabetes mellitus type 2, coronary artery disease, hypertension, hyperlipidemia. PAST SURGICAL HISTORY: Coronary bypass, back cyst removal. ALLERGIES: No known drug allergies. CURRENT MEDICATIONS: As listed in the MAR. SOCIAL HISTORY: He is a former smoker. Denies any history of alcohol or illicit drug use. FAMILY HISTORY: Positive for coronary disease in father. REVIEW OF SYSTEMS: Twelve point review of systems is as listed in HPI. Other systems negative. PHYSICAL EXAMINATION: GENERAL: Cooperative, friendly male. He is resting comfortably now. VITAL SIGNS: Temperature 98.0 degrees, pulse 112, respirations 24, blood pressure 161/121. HEENT: Atraumatic, normocephalic. Extraocular movements intact. PERRLA. NECK: Supple. CHEST: Bibasilar rales. CARDIOVASCULAR: Regular rate and rhythm. ABDOMEN: Soft. Positive bowel sounds. EXTREMITIES: Trace edema. NEUROLOGIC: He is awake, alert, oriented x3. GENITOURINARY: No bladder distention. SKIN: Warm. LABORATORIES AND STUDIES: Pro BMP 12,066. Sodium 135, potassium 3.5, chloride 101, CO2 is 19, BUN is 22, creatinine 1.8, glucose is 214. WBC 9.71, hemoglobin 10.5, hematocrit 30.3, platelets 356,000. D-dimer is 5.08. ASSESSMENT: A 37-year-old male with a history of coronary artery disease, diabetes mellitus type 2, hypertension, who presented to the emergency department with 2 days' history of having shortness of breath and chest pain. He was found to be in heart failure, and he did have an elevated D-dimer. Patient will need hospitalization for further management. 1. Chest pain. 2. Congestive heart failure exacerbation, unspecified. 3. Increase in D-dimer. Would need to rule out pulmonary embolus. 4. Diabetes mellitus type 2. 5. Hypertension. PLAN: 1. We will admit patient to [facility]. 2. Continue with cardiac workup. Check EKG, serial cardiac enzymes. Have patient continue on aspirin. Use sublingual nitroglycerin p.r.n. chest pain. 3. Continue with gentle diuresis and consult polysomnography technician. 4. Schedule patient for a V/Q scan. 5. We will monitor blood glucose and put patient on sliding scale insulin regimen. 6. We will monitor blood pressure. Resume antihypertensive agent. 7. We will put patient on DVT prophylaxis with heparin. 8. We will continue to follow and reassess. cc: Kahlil Tello MD
[2017-02-15] MEDS: ZOFRAN IV PRN ×3 (03:19→14:17)
[2017-02-15] MEDS: DILAUDID IV PRN ×3 (03:19→20:07)
[2017-02-15] MEDS: HUMULIN R SUBQ SCH ×4 (06:27→20:40)
--- NOTE | 2017-02-15 07:19 | EKG Report ---
Test Performed on : 02/14/2017 10:12:19 PM Test Reason : pain Blood Pressure : / mmHG Vent. Rate : 110 BPM Atrial Rate : 110 BPM P-R Int : 146 ms QRS Dur : 100 ms QT Int : 340 ms P-R-T Axes : 044 039 170 degrees QTc Int : 460 ms Sinus tachycardia. Possible Left atrial enlargement RSR' or QR pattern in V1 suggests right ventricular conduction delay Anterior infarct (cited on or before 27-MAR-2015) T wave abnormality, consider inferolateral ischemia Abnormal ECG When compared with ECG of 14-FEB-2017 20:29, (Unconfirmed) No significant change was found Unconfirmed Result
--- NOTE | 2017-02-15 07:20 | EKG Report ---
Test Performed on : 02/14/2017 8:29:17 PM Test Reason : chest tightening Blood Pressure : / mmHG Vent. Rate : 107 BPM Atrial Rate : 107 BPM P-R Int : 146 ms QRS Dur : 100 ms QT Int : 342 ms P-R-T Axes : 047 032 171 degrees QTc Int : 456 ms Sinus tachycardia. Left atrial enlargement RSR' or QR pattern in V1 suggests right ventricular conduction delay Possible Inferior infarct , age undetermined Anterior infarct (cited on or before 27-MAR-2015) T wave abnormality, consider lateral ischemia Abnormal ECG When compared with ECG of 04-FEB-2017 20:06, Nonspecific T wave abnormality now evident in Inferior leads T wave inversion more evident in Lateral leads Unconfirmed Result
[2017-02-15 07:47] LABS: ALBUMIN 2.2 g/dL (3.5-5.0); CALCIUM 8.1 mg/dL (8.8-10.2); POTASSIUM 3.8 mmol/L (3.5-5.1)
[2017-02-15] MEDS ORDERED: ALDACTONE PO SCH (09:00)
[2017-02-15] MEDS ORDERED: PRINIVIL PO SCH (09:00)
--- NOTE | 2017-02-15 09:07 | Diag Imaging Result Document ---
PROCEDURE NAME: CHEST-2 VIEWS - 02/14/2017 CHEST 2 VIEWS: Compared with 02/05/2017. FINDINGS: There is mild cardiomegaly. There are sternal wires from previous surgery again seen. There has been substantial decrease in infiltrate on the right. There is stable small left pleural effusion. There is no pneumothorax seen. IMPRESSION: Substantial decrease in infiltrate on the right. Stable small left pleural effusion.
[2017-02-15] MEDS: ASPIRIN PO SCH (09:19)
[2017-02-15] MEDS: LANOXIN PO SCH (09:19)
[2017-02-15] MEDS: COREG PO SCH ×2 (09:19→20:40)
--- NOTE | 2017-02-15 10:25 | CONSULTATION ---
DATE OF CONSULTATION: 02/15/2017 INDICATION: Chest pain. HISTORY OF PRESENT ILLNESS: Mr. Coats is a 37-year-old, black male with a history of hypertension, diabetes, coronary artery disease with previous bypass grafting. He has had multiple recent hospitalizations. He presented for evaluation of chest discomfort that he reports started yesterday at 7 a.m. while he was lying down. This pain persisted the entire day. There was some easing of this sensation in the mid portion of the day and then again in the evening hours around 6 or 7 p.m., he again had worsening of it. He reports no exertional component. He is not sure what the provoker to this symptom was. He denies any overt orthopnea. No recent fevers. He decided to present for evaluation of this symptom. It was located in the mid chest and was thought to be squeezing in sensation. He has had chronic issues with shortness of breath. He denies any recent changes in his medications. Reports compliance with all medications and took all medications yesterday as ordered. PAST MEDICAL HISTORY: 1. Significant for type 2 diabetes. 2. History of coronary artery disease with coronary bypass grafting. This was done in October of 2016 with an WHITLEY to the left anterior descending, vein graft to the obtuse marginal, and a vein graft to the ramus. 3. Ischemic cardiomyopathy with a last EF of 20%. 4. Cardiac thrombus, maintained on Eliquis as an outpatient. 5. Hypertension. 6. Hyperlipidemia. 7. DVT. 8. History of abscess of the back with a large excision and drainage of that area. SOCIAL HISTORY: He is a former smoker. He is . No history of alcohol or illicit drug use. FAMILY HISTORY: Significant for coronary artery disease in his father. REVIEW OF SYSTEMS: A 10 system review of systems is negative except for those things mentioned in the HPI. PHYSICAL EXAMINATION: Vital Signs: He is afebrile. His heart rate is 85, blood pressure 167/107. General: No acute distress. HEENT: His oropharynx is moist. He has normal dentition. His eye examination shows pink conjunctivae and white sclerae. Neck: Examination shows no obvious thyromegaly or thyroid tenderness. Cardiovascular: He is in a regular rate and rhythm. He has no obvious murmurs. He has a JVP that does appear to be elevated around the angle of his jaw at 45 degrees. He has 1+ bilateral lower extremity edema. Chest: Examination sounds relatively clear. No increased work of breathing. Abdomen: Soft, nontender, nondistended. He has no obvious organomegaly. Skin Examination: Warm and dry throughout. Well-healed scar to the mid back area from the abscess incision and drainage. Neurological: He is moving all extremities well. Cranial nerves 2-12 are intact without any sensation deficits. Psychiatric: Alert, oriented, pleasant. He has normal mood and affect. PERTINENT DATA: His white count is 9.7, his hematocrit is 30.3, his platelet count is 356,000. INR 1.1. His D-dimer is 5.08. His sodium this morning is 135, potassium is 3.8, BUN 24, creatinine is 2. His phosphorus is 4.7. His albumin level is 2.2. His cardiac enzymes are negative times multiple sets. His proBNP is 12,066. He had a chest x-ray performed, demonstrating a substantial decrease in the right-sided infiltrate and a stable small left pleural effusion. He did have an electrocardiogram performed on presentation yesterday. This demonstrated sinus tachycardia, a rate of 107 beats per minute. No signs of ischemic changes. Small inferior Q-waves noted as well as poor anterior R-wave progression, suggesting a possible anterior infarct. Subsequent EKG at 2212 yesterday was consistent with that which I already stated. ASSESSMENT: 1. Ischemic cardiomyopathy. 2. Chest pain. PLAN: I agree with a V/Q scan as already ordered. Likely, if the V/Q scan is unremarkable, we may consider perfusion imaging in the next 24-48 hours. I would recommend an adjustment of the medications as his proBNP is elevated and seems to be out of proportion to his current renal insufficiency. I would stop the lisinopril and start Entresto at tomorrow evening as he already got his lisinopril dose today. Continue on digoxin. I have added ISDN at 10 t.i.d. We will continue him on Aldactone and his current Lasix dose. cc: Kannan Giles MD
[2017-02-15] MEDS: HEPARIN SUBQ SCH (14:17)
[2017-02-15] MEDS: ISORDIL PO SCH ×2 (14:17→17:22)
[2017-02-15 17:44] LABS: URINE SOURCE CLEAN CATCH
[2017-02-15 17:52] LABS: BILIRUBIN URINE NEGATIVE (NEGATIVE); BLOOD URINE MODERATE (NEGATIVE); COLOR YELLOW; GLUCOSE URINE 300 mg/dL (NEGATIVE); LEUKOCYTES URINE NEGATIVE (NEGATIVE); NITRITE URINE NEGATIVE (NEGATIVE); PROTEIN URINE >600 mg/dL (NEGATIVE); SP GRAVITY URINE 1.022; TURBIDITY URINE CLEAR (CLEAR); URINE MICRO REVIEW NEEDED? YES; UROBILINOGEN URINE NORMAL (NORMAL)
[2017-02-15 17:55] LABS: UR EPITHELIAL CELLS <10 /HPF (<10); URINE BACTERIA NEGATIVE /HPF; URINE RBC <10 /HPF (<10); URINE WBC <10 /HPF (<10)
[2017-02-15 18:01] LABS: URINE CASTS GRANULAR PRESENT
[2017-02-15 18:14] LABS: UR PROT RANDOM 535.1 mg/dL
[2017-02-15] MEDS ORDERED: ZOFRAN IV PRN (20:03)
[2017-02-16] MEDS: HEPARIN SUBQ SCH ×2 (02:28→12:34)
[2017-02-16] MEDS: DILAUDID IV PRN (02:28)
[2017-02-16 05:00] LABS: MANUAL DIFF NEEDED? NO
[2017-02-16 05:03] LABS: BASO% 0.6 % (0.0-0.8); EOS# 0.38 X1000 (0.0-0.7); EOS% 3.7 % (0.0-10.0); HEMATOCRIT 29.6 % (42.0-52.0); IMM GRAN# 0.03 X1000 (0.0-0.04); IMM GRAN% 0.3 % (0.0-0.5); LYMPH# 2.88 X1000 (1.2-3.4); LYMPH% 27.9 % (20.5-51.1); MCH 26.2 PG (27-31); MCHC 33.8 g/dL (33-37); MCV 77.7 FL (81-99); MONO# 0.47 X1000 (0.11-0.59); MONO% 4.5 % (1.7-9.3); PLT 346 X1000 (130-400); RBC 3.81 XMIL (4.7-6.1)
[2017-02-16 05:24] LABS: CALCIUM 8.2 mg/dL (8.8-10.2); POTASSIUM 3.9 mmol/L (3.5-5.1)
[2017-02-16] MEDS: HUMULIN R SUBQ SCH ×4 (06:29→20:02)
[2017-02-16] MEDS: LASIX IV SCH (06:32)
--- NOTE | 2017-02-16 07:35 | Diag Imaging Result Document ---
PROCEDURE NAME: CHEST-PORTABLE - 02/16/2017 PORTABLE CHEST: FINDINGS: Sternal wires are present. The heart remains enlarged. The vessels are not distended. There are no infiltrates. I believe there is a small left pleural effusion. The appearance is similar to the prior exam. IMPRESSION: Stable chest.
[2017-02-16] MEDS: ISORDIL PO SCH ×3 (08:32→17:20)
[2017-02-16] MEDS: COREG PO SCH ×2 (08:32→20:03)
[2017-02-16] MEDS: ASPIRIN PO SCH (08:32)
[2017-02-16] MEDS: LANOXIN PO SCH (08:32)
--- NOTE | 2017-02-16 12:40 | Diag Imaging Result Document ---
PROCEDURE NAME: US RENAL 2 (RETROPER) COMPLETE - 02/16/2017 RENAL ULTRASOUND: FINDINGS: The right kidney measures 10.3 x 5.4 x 5.5 cm. Normal renal echotexture and cortical thickness. No renal stone or hydronephrosis. No renal mass. The left kidney measures 11.8 x 5.3 x 5.8 cm. Normal renal echogenicity and cortical thickness. No renal stone or hydronephrosis. No renal mass. The urinary bladder is not distended. IMPRESSION: Normal renal ultrasound.
--- NOTE | 2017-02-16 13:25 | PROGRESS NOTE ---
DATE: 02/16/2017 SUBJECTIVE: Mr. villagomez reports he is feeling a little bit better today. He does not report a significant amount of urine output over the last 24 hours, despite diuretics. He has had limited input and output data recorded. PHYSICAL EXAMINATION: Vital Signs: His total output over the hospitalization appears to be relatively flat. His weight does not seem to be significantly changed; 260 on 02/14/2017, 266 on 02/15/2017, and 266 on 02/16/2017. He is afebrile. His heart rate is 73 most recently. His blood pressure is 127/94. General: He is in no acute distress. Cardiovascular: He sounds to be in a regular rate and rhythm. No obvious murmurs. He has no lower extremity edema. He has warm and well perfused lower extremities. His JVP does appear to be elevated. Chest: Clear bilaterally, except for some very minimal rales in the bilateral bases. Abdomen: Soft, nontender, and nondistended. Skin: Warm and dry throughout, without any rashes PERTINENT DATA: His white count is 10.3, his hematocrit is 29.6, his platelet count is 346,000. His sodium is 134. Potassium is 3.9. His BUN is 31 and creatinine 2.6. These are up from 24 and 2.0 on 02/15/2017, and 22 and 1.8 on 02/14/2017. His average creatinine seems to be in the mid to high 1's. His magnesium level is 2.0. ASSESSMENT: 1. Systolic heart failure. 2. Renal insufficiency. PLAN: Patient has not had a significant amount of urine output, so it would not seem that he is volume depleted and it does not seem that volume depletion would be driving his renal insufficiency. In addition, he has warm and well perfused lower extremities, so it also seems unlikely that he is in a poor perfusing state resulting in renal insufficiency. At this point, I would recommend right heart catheterization to evaluate his intracardiac and intrapulmonary pressures to evaluate his volume status. I have added in hydralazine at 12.5 t.i.d. to work on afterload reduction. I have stopped his Entresto. His diuretics have been stopped by the primary team. We will try to get the right heart catheterization done either later on this afternoon or in the morning. cc: Kannan Giles MD
[2017-02-16] MEDS ORDERED: NS 250 ML ONE (13:53)
[2017-02-16] MEDS ORDERED: HEPARIN 1000 UNITS/NS 1,000 UNIT/500 ML IV.SOLN ONE ×2 (13:53→14:21)
[2017-02-16] MEDS ORDERED: NS 1,000 ML ONE (14:10)
[2017-02-16] MEDS ORDERED: CLAVE ANES SET 100 IN 11965 ONE (14:10)
[2017-02-16] MEDS ORDERED: VERSED ONE (14:10)
--- NOTE | 2017-02-16 14:51 | CONSULTATION ---
DATE OF CONSULTATION: 02/16/2017 REASON FOR ADMISSION: Chest pain. REASON FOR CONSULTATION: Acute kidney injury. HISTORY OF PRESENT ILLNESS: Mr. Coats is a 37-year-old male who has a history of hypertension and diabetes mellitus, type 2, with coronary artery disease. Patient states that he recently had a 3-vessel bypass in October 2016 and has had medications on for 1 episode of heart failure. Patient stated that he had not been feeling well 2 days prior to admission. He described his chest pain as pressure with squeezing sensation. States that he was slightly short of breath. He denies any palpitations. No radiation. He denies any nausea, vomiting, diarrhea. No fever or chills. No increased swelling. No hematochezia or hemoptysis. PAST MEDICAL HISTORY: Diabetes mellitus, type 2; coronary artery disease; hypertension; hyperlipidemia. PREVIOUS SURGICAL HISTORY: Coronary bypass and a cyst removal off his mid back area. SOCIAL HISTORY: He is a former smoker. Denies any alcohol or illicit drug use. FAMILY HISTORY: Positive for coronary artery disease with father , mother with diabetes and coronary artery disease. He has a grandfather who has hypertension and coronary artery disease also on the father's side. CURRENT ALLERGIES: There are no known drug allergies. HOME MEDICATIONS: Insulin 70/30, both a.m. and p.m.; spironolactone; carvedilol ; aspirin; digoxin; furosemide; lisinopril; Zithromax. Patient states that he has also been on Lasix. MEDICATIONS DURING HOSPITALIZATION: Entresto; heparin; Lasix; normal saline 250 mL; Aldactone. REVIEW OF SYSTEMS: Review of systems x10 with pertinent positives listed above in the HPI. LABORATORIES: This a.m., sodium 134, potassium 3.9, chloride 97, CO2 of 23, BUN 31, creatinine 2.6, glucose 140. Anion gap 14. Calcium 8.2, phosphorus 4.8, albumin 2. White count 10.33, hemoglobin 10, hematocrit 29.6, with a platelet count of 346,000. Urine drug screen is negative. Urinalysis shows heavy proteinuria with moderate hematuria. Urine electrolytes indicate a fractionated urea score of 25.3, and a FENa score of 0.5%, indicating prerenal with fluid volume deficit. Patient's D-dimer was 5.08 on admission back on 02/14/2017, with a prothrombin time 11.9, INR 1.12, and a PTT of 29.2. His CPK was elevated at 211, CK index of 2.2 with an MB of 4.66, and a troponin of 0.67. BNP 12,066. IMAGING: Renal ultrasound done this a.m. indicates left kidney measuring 11.8, right measuring 10.3. Normal ultrasound. No hydronephrosis or mass noted. Chest x-ray completed this a.m. indicates a stable chest, no infiltrates. Small left pleural effusion. No changes from previous. PHYSICAL EXAMINATION: Vital Signs: Temperature 98.7 degrees, blood pressure 127/94, heart rate 76, respirations 14. He is on 2L nasal cannula. Last recorded saturation 99%. He has had 1142 in, with 1350 out with 300 mL of emesis. General: This is a 37-year-old male. He is resting quietly in bed. He is in no acute distress. Skin: Warm and dry. He is sitting up. He is eating his breakfast. HEENT: Normocephalic, atraumatic. Conjunctivae are pale. He has BAILEY. Mucous membranes moist. Neck: Supple. Trachea midline. No JVD. Cardiovascular: Regular rate and rhythm. Sinus rhythm on the monitor. Without murmur or gallop. Lungs: Clear to auscultation anteriorly. Equal excursion. He is on room air. Abdomen: Round, soft, nontender. Positive bowel sounds. Genitourinary: Patient is voiding. Not inspected. Adequate urine out. Extremities: He has trace pretibial edema. No clubbing or cyanosis. Integumentary: No rashes or lesions evident. Healed scar both to the anterior and posterior chest and back. Without rashes or lesions. Neurologic: Alert and oriented x3. ASSESSMENT AND PLAN: 1. Acute kidney injury. Likely prerenal related to his heart disease. I will work with Dr. Giles to formulate a plan of care. rg 2. Congestive heart failure and chest pain. This is being followed by Cardiology. Appreciate their input. Again, we will defer any fluid volume management to them at this time. His Lasix and Aldactone have been held. His lisinopril and his Entresto have currently been held. Possible schedule for a right heart catheterization. 3. Electrolytes and acid-base balance. These are stable. 4. Anemia. This is low, but stable. 5. Proteinuria. Patient has large amounts of protein loss in his urine. This may need to be followed up on a future basis. I would to thank you for allowing us to follow with this patient. Seen, data reviewed, discussed with Deb Watkins on 02/16/17. I agree with the above assessment and plan of care. rg Dictated by YFN Morgan for Remington Benitez MD cc: YFN Morgan MD [facility]
--- NOTE | 2017-02-16 15:19 | CARDIAC CATH REPORT ---
PROCEDURE NAME: - PROCEDURE PERFORMED: Right heart catheterization. INDICATIONS: Systolic heart failure and renal insufficiency. ENTRY SITE: Right femoral vein. CATHETERS USED: A 6-Gabonese thermodilution. TECHNIQUE: After intravenous sedation with Versed, local anesthesia with lidocaine was applied over the right femoral vein. Venous access was established with placement of a 6-Gabonese sheath in the right femoral vein using modified Seldinger technique. Right heart catheterization was subsequently performed. Upon completion of procedure, the sheath was removed from the right femoral vein and hemostasis facilitated with manual pressure. The patient tolerated the procedure without apparent complications. FINDINGS: Right atrial pressure mean of 18, RV pressure 55 over EDP of 19. PA pressure 59/43 with a mean of 49. Pulmonary capillary wedge pressure mean of 31 with a V-wave of 37. Thermodilution cardiac output 3.94 L/minute. Cardiac index 1.62 L/minute per sq. m. CONCLUSIONS: 1. Elevated right ventricular filling pressure and left ventricular filling pressure. 2. Moderate pulmonary hypertension. cc: Stepan Stephenson MD
[2017-02-16] MEDS: APRESOLINE PO SCH ×2 (15:23→17:20)
[2017-02-16] MEDS ORDERED: LASIX IV ONE (15:55)
--- NOTE | 2017-02-16 20:58 | PROGRESS NOTE ---
DATE: 02/16/2017 SUBJECTIVE: The patient continues to complain of intermittent chest pain. He states that his shortness of breath is better. OBJECTIVE: Vital Signs: Temperature 97.6 degrees, blood pressure 119/81, heart rate 73, respirations 14, O2 saturations 100% on 2 L nasal cannula. General: This is a morbidly obese, middle-aged male, lying in bed, in no acute distress. Head: Normocephalic, atraumatic. Heart: S1, S2 normal. Regular rate and rhythm. Lungs: Clear to auscultation bilaterally. Abdomen: Positive bowel sounds. Soft, nontender, nondistended. Extremities: +1 edema. No cyanosis. No calf tenderness. Neurologic: The patient is alert and oriented x3. LABS: White blood cell count 10, hemoglobin 10, hematocrit 29, platelets 346, 000. Sodium 134, potassium 3.9, chloride 97, CO2 23, BUN 31, creatinine 2.6, glucose 140, phosphorus 4.8, calcium 8.2, magnesium 2. ASSESSMENT/PLAN: 1. Chest pain. Further management as per the project manager retail. 2. Acute kidney injury on chronic kidney disease. Nephrology has been consulted. We will await their recommendations. 3. Diabetes mellitus type 2. Continue on sliding scale insulin. 4. Acute systolic congestive heart failure exacerbation. Management as per the project manager retail. cc: Guerline Cadena MD MTDD
[2017-02-16] MEDS ORDERED: ENTRESTO 24 MG-26 MG TABLET PO SCH (21:00)
[2017-02-17] MEDS: HEPARIN SUBQ SCH ×2 (02:00→12:45)
--- NOTE | 2017-02-17 05:25 | EKG Report ---
Test Performed on : 02/16/2017 6:17:40 PM Test Reason : post cath Blood Pressure : / mmHG Vent. Rate : 077 BPM Atrial Rate : 077 BPM P-R Int : 156 ms QRS Dur : 102 ms QT Int : 404 ms P-R-T Axes : 052 042 194 degrees QTc Int : 457 ms Normal sinus rhythm. RSR' or QR pattern in V1 suggests right ventricular conduction delay Anterior infarct (cited on or before 27-MAR-2015) T wave abnormality, consider inferolateral ischemia Abnormal ECG When compared with ECG of 14-FEB-2017 22:12, T wave inversion now evident in Anterior leads Confirmed by Nicolasa BENNETT, Clifton Patel ([id number]) on 02/18/2017 12:04:59 PM
[2017-02-17 05:38] LABS: HEMATOCRIT 26.8 % (42.0-52.0); HEMOGLOBIN 8.9 g/dL (14.0-18.0); MCH 25.9 PG (27-31); MCHC 33.2 g/dL (33-37); MCV 77.9 FL (81-99); MPV 10.2 FL (7.4-10.4); RBC 3.44 XMIL (4.7-6.1)
[2017-02-17] MEDS: HUMULIN R SUBQ SCH ×4 (06:08→21:31)
[2017-02-17 06:12] LABS: ALBUMIN 2.2 g/dL (3.5-5.0); CALCIUM 7.7 mg/dL (8.8-10.2); MAGNESIUM 1.8 mg/dL (1.5-2.7); POTASSIUM 3.7 mmol/L (3.5-5.1)
--- NOTE | 2017-02-17 07:57 | Diag Imaging Result Document ---
PROCEDURE NAME: CHEST-PORTABLE - 02/17/2017 SINGLE FRONTAL RADIOGRAPH OF THE CHEST: COMPARISON: 02/16/2017. FINDINGS: There are no new consolidations. The questionable left pleural effusion is less apparent on the current study. There is minimal linear atelectasis versus scarring in the right mid lung zone that is stable. There is stable cardiomegaly. IMPRESSION: Essentially stable chest with a questionable left basilar pleural fluid collection seen previously not as prominent on the current study.
[2017-02-17] MEDS: LANOXIN PO SCH (08:04)
[2017-02-17] MEDS: APRESOLINE PO SCH ×3 (08:04→16:05)
[2017-02-17] MEDS: ISORDIL PO SCH ×3 (08:04→16:06)
[2017-02-17] MEDS: ASPIRIN PO SCH (08:04)
[2017-02-17] MEDS: COREG PO SCH ×2 (08:04→21:33)
--- NOTE | 2017-02-17 08:13 | PROGRESS NOTE ---
DATE: 02/17/2017 SUBJECTIVE: Mr. Coats is resting quietly in bed. Head of the bed is elevated. He has oxygen on. He appears to be slightly increased work of breathing. He denies chest pain. He states that he does not feel that he has increased work of breathing at this time. OBJECTIVE: Vital Signs: His most recent vital signs are temperature 96.2 degrees, blood pressure 136/99, heart rate 107, respirations are 16. He is on 2 L nasal cannula. Last recorded saturation is 100%. He has had 120 in. He has had 800 out per void. PHYSICAL EXAMINATION: General: This is a 37-year-old male. He is currently resting in bed. He is in no acute distress. Skin: Warm and dry. HEENT: Normocephalic, atraumatic. Conjunctivae pink. He has pupils equal, round, and reactive to light. Mucous membranes moist. Neck: Supple. Trachea midline. Positive jugular venous distention. Cardiovascular: Regular rate and rhythm. He has no murmur or gallop. Lungs: Clear to auscultation anteriorly. Equal excursion. Remains on O2. Abdomen: Large, round, soft, and nontender. Positive bowel sounds. Genitourinary: Not inspected. Patient is voiding adequate amount. Extremities: Has trace pretibial edema. No clubbing or cyanosis. Integumentary: Warm and dry without rashes or lesions. Neurological: Alert and oriented x3. LABS: This a.m., sodium 133, potassium 3.7, chloride 97, CO2 22, BUN 35, creatinine 2.5. Glucose 272. Anion gap 14, calcium 7.7, phosphorus 5, albumin 2.2. White count 6.06, hemoglobin 8.9, hematocrit 26.8, with a platelet count 274,000. B-type natriuretic peptide is 3484. Patient had a right heart catheterization yesterday showing pulmonary hypertension with elevated pressures in the right ventricle and the left ventricle for filling. ASSESSMENT AND PLAN: 1. Acute kidney injury. His creatinine continues at his baseline of 1.5-1.8, though it has stabilized. Patient is making adequate urine, he was given Lasix 80 mg yesterday to assist with his fluid volume overload. 2. Systolic heart failure. Patient does have pulmonary hypertension with fluid volume overload. He continues on O2. He was treated with Lasix 80 mg yesterday after his right heart catheterization. He seems to be breathing okay with head of bed elevated. This is followed by cardiology. 3. Electrolytes. Patient has mild hyponatremia. Again, he was treated with Lasix yesterday. We will continue to monitor. Received Samsca 15mg x 1. rg 4. Acid-base balance. This is stable. 5. Anemia. This remains low, but stable. I would to thank you for allowing us to follow with this patient. Seen, data reviewed, discussed with Deb Watkins on 02/17/17. I agree with the above assessment and plan of care. rg Dictated by YFN Morgan for Remington Benitez MD cc: YFN Morgan MD [facility]
[2017-02-17] MEDS ORDERED: SAMSCA PO ONE (08:51)
[2017-02-17] MEDS ORDERED: LASIX IV ONE ×2 (08:51→16:22)
[2017-02-17] MEDS: DILAUDID IV PRN (09:43)
--- NOTE | 2017-02-17 13:34 | PROGRESS NOTE ---
DATE: 02/17/2017 SUBJECTIVE: Mr. Coats reports he is doing much better as far as his breathing goes. He has had a significant amount of urine output over the last 12-24 hours. PHYSICAL EXAMINATION: Vital Signs: He is afebrile. Heart rate is 79, blood pressure 133/85. His I's and O's are negative x3 voids, as well as -680 fluid balance over the last 24 hours. His weight does not seem to be accurate, despite his negative fluid balance, he is up 8 pounds. General: He is in no acute distress. Cardiovascular: He sounds to be in a regular rate and rhythm. He has no obvious murmurs. No S3. He has no lower extremity edema. His JVP does continued appear to be elevated. Chest Examination: Relatively clear to auscultation bilaterally. No increased work of breathing. Abdomen: Soft, nontender, nondistended. He has no obvious organomegaly. Skin Examination: Warm and dry throughout. PERTINENT DATA: White count is 6, hematocrit 26.8, platelet count is 274,000. Sodium is 133, potassium 3.7, BUN 35, creatinine 2.5. Magnesium level is 1.8. ASSESSMENT: Mr. Coats is a 37-year-old black male with an ischemic cardiomyopathy. PLAN: His right heart catheterization yesterday showed continued fluid overload with elevated wedge pressures, as well as right atrial pressures. We gave him 80 mg of IV Lasix yesterday, as well as giving an 80 mg dose this morning and Samsca. His chemistry is to be checked tomorrow. I will also add in a proBNP again. Hopefully, we can get him home in the next 24-48 hours. cc: Kannan Gilse MD
[2017-02-17] MEDS ORDERED: LACTULOSE PO ONE (13:38)
--- NOTE | 2017-02-17 13:53 | PROGRESS NOTE ---
DATE: 02/17/2017 SUBJECTIVE: The patient is resting comfortably in bed. He denies having any further chest pain and states that his shortness of breath has improved. He states that he has not had a bowel movement yet. OBJECTIVE: Vital Signs: Temperature 98 degrees, blood pressure 133/85, heart rate 79, respirations 16, O2 saturation is 100% on 2 L nasal cannula. General: This is a young male, lying in bed, in no acute distress. HEENT: Head normocephalic, atraumatic. Heart: S1, S2. Normal. Regular rate and rhythm. Lungs: Clear to auscultation bilaterally. No crackles. No rales. Abdomen: Positive bowel sounds. Soft, nontender, nondistended. Extremities: No edema. No cyanosis. No calf tenderness. Neurologic: The patient is alert and oriented x3. LABS: White blood cell count 6.0, hemoglobin 8.9, hematocrit 26, platelets 274,000. Sodium 133, potassium 3.7, chloride 97, CO2 22, BUN 35, creatinine 2.5, glucose 272, magnesium 1.8, phosphate 5.0. ASSESSMENT AND PLAN: 1. Acute systolic congestive heart failure exacerbation. Management as per the assembler body. 2. Chest pain. Improved. Continue on the current cardiac medications. 3. Acute kidney injury on chronic kidney disease. Slowly improving. Management as per the [place]ffer[employer] construction supervisor. 4. Uncontrolled diabetes mellitus type 2. We will adjust the patient's 70/30 Humulin dosage for better glycemic control. 5. Constipation. We will start the patient on scheduled laxative therapy. 6. Anemia. We will check iron studies. We will also check stool for occult blood. 7. Deep vein thrombosis prophylaxis. Continue on heparin 5000 units subcutaneous every 12 hours. cc: Guerline Cadena MD
[2017-02-17] MEDS: COLACE PO SCH (21:32)
[2017-02-17] MEDS: MIRALAX PO SCH (21:33)
[2017-02-17] MEDS: HUMULIN N SUBQ SCH (21:36)
[2017-02-18] MEDS: HEPARIN SUBQ SCH ×2 (03:14→13:43)
[2017-02-18 05:21] LABS: HEMATOCRIT 27.2 % (42.0-52.0); HEMOGLOBIN 8.9 g/dL (14.0-18.0); MCHC 32.7 g/dL (33-37); MCV 79.5 FL (81-99); RBC 3.42 XMIL (4.7-6.1)
[2017-02-18 05:39] LABS: IRON SATURATION 9 %; TIBC 232 ug/dL; TOTAL IRON 21 ug/dL (53-167); UNBOUND IRON 211 ug/dL (112-346)
[2017-02-18 05:42] LABS: ALBUMIN 2.3 g/dL (3.5-5.0); CALCIUM 7.7 mg/dL (8.8-10.2); POTASSIUM 3.9 mmol/L (3.5-5.1)
[2017-02-18 05:58] LABS: FERRITIN 95 ng/mL (30-400)
[2017-02-18] MEDS ORDERED: LASIX IV ONE (06:28)
[2017-02-18] MEDS: HUMULIN R SUBQ SCH ×4 (06:35→22:22)
--- NOTE | 2017-02-18 07:03 | PROGRESS NOTE ---
DATE: 02/18/2017 SUBJECTIVE: He has been having excellent urine output. He has no new complaints otherwise. He is lying flat and not short of breath. OBJECTIVE: Vital Signs: Blood pressure 149/90 heart rate 82, respirations 18, afebrile. Intake 1 L. Output 4 L. Physical Examination: General: Young man lying at 20 degrees, no distress. Skin: Warm and dry. HEENT: Conjunctivae are pink. Neck: Neck veins are distended. Trachea is midline. Heart: Regular with thick split S2. No S3 is audible. Lungs: Have equal breath sounds. No crackles or wheezes. Abdomen: Soft, nontender. Bowel sounds are present. Extremities: Have no edema, clubbing, or cyanosis. Laboratory Data: Sodium 139, potassium 3.9, chloride 101, bicarbonate 24, BUN 35, creatinine 2.4. IMPRESSION: 1. Acute kidney injury, prerenal secondary to cardiac disease. He is responding nicely to diuretics and I will dose him again this morning. His BUN and creatinine are at least stable and beginning to improve. 2. Electrolytes and acid-base are in target. cc: Remington Benitez MD
[2017-02-18] MEDS: APRESOLINE PO SCH ×4 (08:10→16:23)
[2017-02-18] MEDS: ASPIRIN PO SCH (08:10)
[2017-02-18] MEDS: COLACE PO SCH ×2 (08:10→22:21)
[2017-02-18] MEDS: COREG PO SCH ×2 (08:11→22:21)
[2017-02-18] MEDS: LANOXIN PO SCH (08:11)
[2017-02-18] MEDS: MIRALAX PO SCH ×2 (08:11→22:23)
[2017-02-18] MEDS: ISORDIL PO SCH ×3 (08:11→16:23)
[2017-02-18] MEDS: HUMULIN N SUBQ SCH ×2 (08:11→22:22)
[2017-02-18] MEDS ORDERED: VITAMIN D PO SCH (09:00)
--- NOTE | 2017-02-18 09:01 | PROGRESS NOTE ---
DATE: 02/18/2017 SUBJECTIVE: Mr. Coats reports he is feeling better. He has had significant urine output he says over the last 24 hours. PHYSICAL EXAMINATION: Vital Signs: He is afebrile. His heart rate is 78, blood pressure 142/91. His input and output over the last 24 hours appear to be negative, a total of around 4.5 liters. General: No acute distress. Cardiovascular: He sounds to be in a regular rate and rhythm. No obvious murmurs. He has no S3. No lower extremity edema. Warm and well perfused lower extremities. Chest: Exam sounds clear to auscultation bilaterally. He has no increased work of breathing. Abdomen: Soft, nontender. No obvious organomegaly. PERTINENT DATA: White count 6.7, his hematocrit is 27.2, his platelet count is 273,000. Sodium 139, potassium 3.9, his BUN is 35, creatinine 2.4. His magnesium level was not checked today. His proBNP is 2982, which is slightly down from 3484 the day before. ASSESSMENT: 1. Acute systolic heart failure. 2. Acute kidney injury, likely prerenal and secondary to systolic dysfunction. PLAN: We will continue with diuresis. Dr. Benitez dosed the patient yesterday afternoon as well as this morning, and he has continued to have significant urine output. His blood pressure appears to be able to tolerate a medication increase, so we will increase his hydralazine to 25 t.i.d. We will consider increasing his ISDN tomorrow if we have room with his blood pressure. Potentially, if he has improvement in his renal function, we can consider a global climate change researcher to Entresto, but I would likely do this as an outpatient, and just continue the hydralazine and Isordil for now. cc: Kannan Giles MD
[2017-02-18] MEDS: DILAUDID IV PRN ×3 (10:43→22:26)
--- NOTE | 2017-02-18 12:25 | PROGRESS NOTE ---
DATE: 02/18/2017 SUBJECTIVE: The patient is resting comfortably in bed. He states that he does get short of breath on exertion. He denies having any chest pain. OBJECTIVE: Vital Signs: Temperature 98.6 degrees, blood pressure 142/91, heart rate 78, respirations 17, O2 saturations 100% on 2 L nasal cannula. General: This is a morbidly obese male, lying in bed, in no acute distress. Head: Normocephalic atraumatic. Heart: S1, S2. Normal. Regular rate and rhythm. Lungs: Clear to auscultation bilaterally. No crackles. No rales. Abdomen: Positive bowel sounds. Soft, nontender, nondistended. Extremities: No edema. No cyanosis. Neurologic: The patient is alert and oriented x3. LABS: White blood cell count 6.7, hemoglobin 8.9, hematocrit 27, platelets 373,000. Sodium 139, potassium 3.9, chloride 101, CO2 24, BUN 35, creatinine 2.4, glucose 142, calcium 7.7. ASSESSMENT AND PLAN: 1. Acute systolic congestive heart failure exacerbation. Continue with diuresis as directed by the lead front desk agent. 2. Chest pain. Resolved. 3. Iron deficiency anemia. We will start the patient on iron supplementation and will continue to monitor the patient's hemoglobin and hematocrit closely. The stool for occult blood was noted to be negative. 4. Folate deficiency. We will start the patient on folic acid. 5. Vitamin D deficiency. Continue on vitamin D2. 6. Constipation. Improved. Continue on scheduled laxative therapy. 7. Diabetes mellitus type 2. Continue on NPH 15 units subcutaneous twice a day plus sliding scale insulin. 8. Acute kidney injury on chronic kidney disease. Slowly improving. Further management as per the hazardous material technician. 9. Deep vein thrombosis prophylaxis. Continue on heparin 5000 units subcutaneous every 12 hours. cc: Guerline Cadena MD
[2017-02-19] MEDS: HEPARIN SUBQ SCH ×3 (02:14→23:05)
[2017-02-19 05:32] LABS: ALBUMIN 2.5 g/dL (3.5-5.0); CALCIUM 7.8 mg/dL (8.8-10.2)
[2017-02-19] MEDS: HUMULIN R SUBQ SCH ×5 (06:51→21:20)
[2017-02-19] MEDS ORDERED: LASIX IV ONE (07:42)
--- NOTE | 2017-02-19 08:19 | PROGRESS NOTE ---
DATE: 02/19/2017 SUBJECTIVE: He has been out of bed. He feels much better. No chest pain, no shortness of breath. OBJECTIVE: Vital signs: Blood pressure 140/96, heart rate 78, respirations 16, afebrile. Intake 800 mL, output 3.5 L. General: In no acute distress. Skin is warm and dry. HEENT: Conjunctivae are pink. Pupils are equal. Neck: Neck veins are still distended. Heart: Regular. Lungs: Equal breath sounds, no crackles. Abdomen: Soft, nontender, bowel sounds present. Extremities: Trace edema, no clubbing or cyanosis. LABORATORY DATA: Sodium 140, potassium 4.0, chloride 101, bicarbonate 28, BUN 35, creatinine 2.0. Hemoglobin 8.9. IMPRESSION: Acute kidney injury. Prerenal secondary to cardiac issues. He is diuresing nicely, and his BUN is stable and creatinine is falling. PLAN: I will dose him with 80 mg of IV Lasix again this morning. No other recommendations. cc: Remington Benitez MD
[2017-02-19] MEDS: FOLIC ACID PO SCH (09:32)
[2017-02-19] MEDS: COLACE PO SCH ×3 (09:32→21:19)
[2017-02-19] MEDS: MIRALAX PO SCH ×3 (09:32→21:20)
[2017-02-19] MEDS: LANOXIN PO SCH (09:33)
[2017-02-19] MEDS: APRESOLINE PO SCH ×3 (09:33→16:07)
[2017-02-19] MEDS: ASPIRIN PO SCH (09:33)
[2017-02-19] MEDS: COREG PO SCH ×3 (09:34→21:19)
[2017-02-19] MEDS: HUMULIN N SUBQ SCH ×3 (09:35→21:20)
[2017-02-19] MEDS: ICAR-C PO SCH (09:38)
[2017-02-19] MEDS: DILAUDID IV PRN ×3 (09:43→23:10)
[2017-02-19] MEDS: ALDACTONE PO SCH (12:35)
[2017-02-19] MEDS: ISORDIL PO SCH ×2 (12:37→16:06)
[2017-02-19] MEDS ORDERED: LYRICA PO SCH (14:00)
--- NOTE | 2017-02-19 14:35 | PROGRESS NOTE ---
DATE: 02/19/2017 SUBJECTIVE: The patient states that he feels a lot better today. He, however, does complain of numbness and tingling in his legs that has been going on for several months. OBJECTIVE: Vital Signs: Temperature 97.9 degrees, blood pressure 134/67, heart rate 74, respirations 16, O2 saturations 100% on 2 L nasal cannula. General: This is a young male, lying in bed in no acute distress. Head: Normocephalic, atraumatic. Heart: S1, S2. Normal. Regular rate and rhythm. Lungs: Clear to auscultation bilaterally. Abdomen: Positive bowel sounds. Soft, nontender, nondistended. Extremities: No edema. No cyanosis. No calf tenderness. Neurologic: The patient is alert and oriented x3. LABORATORY DATA: Sodium 140, potassium 4, chloride 101, CO2 28. BUN 35, creatinine 2, glucose 136, calcium 7.8, magnesium 4.4, albumin 2.5. ASSESSMENT AND PLAN: 1. Acute systolic congestive heart failure exacerbation. The patient has been responding well to diuretic therapy. His shortness of breath has improved. Continue with diuretic therapy as directed by Dr. Benitez. The patient does qualify for home oxygen. We will consult [employer] to arrange for this. 2. Diabetes mellitus type 2. Continue on NPH 15 units subcutaneous twice a day. 3. Suspected diabetic neuropathy. We will start the patient on Lyrica and monitor closely. 4. Acute kidney injury. Improving daily. Further management as per the high school social science teacher. 5. Hypertension. Improved. Continue on the current antihypertensive regimen. 6. Vitamin D deficiency. Continue vitamin D2. 7. Constipation. Resolved. Continue with scheduled laxative therapy. 8. Iron-deficiency anemia. Continue on iron supplementation. 9. Continue with physical therapy. cc: Guerline Cadena MD MTDD
[2017-02-19] MEDS: LASIX PO SCH ×2 (19:57→21:20)
[2017-02-20] MEDS: DILAUDID IV PRN ×5 (03:33→22:33)
[2017-02-20 05:20] LABS: HEMATOCRIT 27.3 % (42.0-52.0); HEMOGLOBIN 9.1 g/dL (14.0-18.0); MCH 26.5 PG (27-31); MCHC 33.3 g/dL (33-37); MCV 79.4 FL (81-99); MPV 9.5 FL (7.4-10.4); RBC 3.44 XMIL (4.7-6.1)
[2017-02-20 05:30] LABS: ALBUMIN 2.3 g/dL (3.5-5.0); CALCIUM 7.9 mg/dL (8.8-10.2); POTASSIUM 4.1 mmol/L (3.5-5.1)
[2017-02-20] MEDS: HUMULIN R SUBQ SCH ×4 (06:18→19:59)
[2017-02-20] MEDS: ISORDIL PO SCH ×3 (08:26→16:46)
[2017-02-20] MEDS: ALDACTONE PO SCH (08:26)
[2017-02-20] MEDS: COLACE PO SCH ×3 (08:27→20:16)
[2017-02-20] MEDS: HUMULIN N SUBQ SCH ×2 (08:27→19:59)
[2017-02-20] MEDS: ICAR-C PO SCH (08:27)
[2017-02-20] MEDS: ASPIRIN PO SCH (08:27)
[2017-02-20] MEDS: APRESOLINE PO SCH ×3 (08:27→16:45)
[2017-02-20] MEDS: LASIX PO SCH ×3 (08:27→20:16)
[2017-02-20] MEDS: LANOXIN PO SCH (08:27)
[2017-02-20] MEDS: FOLIC ACID PO SCH (08:27)
[2017-02-20] MEDS: LYRICA PO SCH (08:31)
[2017-02-20] MEDS: HEPARIN SUBQ SCH (11:33)
[2017-02-20] MEDS: COREG PO SCH ×3 (11:36→20:16)
[2017-02-20] MEDS: MIRALAX PO SCH ×3 (11:36→20:17)
--- NOTE | 2017-02-20 12:46 | PROGRESS NOTE ---
DATE: 02/20/2017 SUBJECTIVE: The patient is resting comfortably in bed. He states that he is still having the numbness and tingling in his legs. Otherwise he has no other complaints. OBJECTIVE: Vital Signs: Temperature 97.9 degrees, blood pressure 139/98, heart rate 77, respirations 20, O2 saturations 100% on 2 L nasal cannula. The urine output 2.5 L. General: This is a young male, lying in bed, in no acute distress. Head: Normocephalic atraumatic. Heart: S1, S2. Normal. Regular rate and rhythm. Lungs: Clear to auscultation bilaterally. Abdomen: Positive bowel sounds. Soft, nontender, nondistended. Extremities: No edema. No cyanosis. Neurologic: The patient is alert and oriented x3. LABS: White blood cell count 5.5, hemoglobin 9.1, hematocrit 27, platelets 258,000. Sodium 139, potassium 4.1, chloride 102, CO2 27, BUN 31 creatinine 2. Glucose 123. Albumin 2.3. ASSESSMENT AND PLAN: 1. Acute systolic congestive heart failure exacerbation. The patient continues to respond well to diuretic therapy. His urine output is an excellent. Further diuretic therapy as directed by the battery stacker. 2. Hypertension. The patient's blood pressure is a little more elevated today. We will await further recommendations from the warp hanger. 3. Diabetes mellitus type 2. Improved control. Continue on NPH 15 units subcutaneous twice a day. 4. Diabetic neuropathy. Continue on Lyrica. 5. Acute kidney injury on chronic kidney disease. Stable. 6. Vitamin D deficiency. Continue on vitamin D2 replacement. 7. Iron-deficiency anemia. Continue on iron supplementation. 8. Continue with physical therapy. 9. Disposition. The patient will be discharged home once cleared by the warp hanger and battery stacker. The patient will require home oxygen. cc: Guerline Cadena MD
--- NOTE | 2017-02-20 14:31 | Diag Imaging Result Document ---
PROCEDURE NAME: CHEST-2 VIEWS - 02/20/2017 PA AND LATERAL RADIOGRAPHS OF THE CHEST: COMPARISON: 02/17/2017. FINDINGS: The lungs appear to be grossly clear. The questionable left basilar pleural fluid collection is not clearly identified on the current study. There is stable cardiomegaly. No new consolidations are identified. IMPRESSION: Questionable left basilar effusion not identified on the current study. Essentially stable chest, otherwise.
[2017-02-21] MEDS: HEPARIN SUBQ SCH ×2 (03:34→16:23)
[2017-02-21] MEDS: DILAUDID IV PRN ×5 (04:20→21:01)
[2017-02-21] MEDS: HUMULIN R SUBQ SCH ×4 (06:28→21:00)
[2017-02-21 07:54] LABS: ALBUMIN 2.7 g/dL (3.5-5.0); CALCIUM 8.5 mg/dL (8.8-10.2); POTASSIUM 4.4 mmol/L (3.5-5.1)
[2017-02-21] MEDS: MIRALAX PO SCH ×2 (08:36→20:59)
[2017-02-21] MEDS: ALDACTONE PO SCH (08:37)
[2017-02-21] MEDS: LYRICA PO SCH (08:37)
[2017-02-21] MEDS: FOLIC ACID PO SCH (08:37)
[2017-02-21] MEDS: LASIX PO SCH ×2 (08:37→21:00)
[2017-02-21] MEDS: COLACE PO SCH ×2 (08:37→20:59)
[2017-02-21] MEDS: ICAR-C PO SCH (08:37)
[2017-02-21] MEDS: APRESOLINE PO SCH ×3 (08:38→17:28)
[2017-02-21] MEDS: COREG PO SCH ×2 (08:38→21:00)
[2017-02-21] MEDS: ASPIRIN PO SCH (08:38)
[2017-02-21] MEDS: LANOXIN PO SCH (08:38)
[2017-02-21] MEDS: ISORDIL PO SCH ×3 (08:38→17:28)
--- NOTE | 2017-02-21 11:12 | Diag Imaging Result Document ---
PROCEDURE NAME: CHEST-2 VIEWS - 02/21/2017 PA AND LATERAL RADIOGRAPH OF THE CHEST: COMPARISON: 02/20/2017. FINDINGS: The lungs are grossly clear. There is no definite pleural fluid collection seen on this study. There is stable cardiomegaly. IMPRESSION: Stable chest with no definite acute pathology by plain radiograph.
[2017-02-21] MEDS: HUMULIN N SUBQ SCH ×2 (11:49→21:19)
--- NOTE | 2017-02-21 15:31 | PROGRESS NOTE ---
DATE: 02/21/2017 SUBJECTIVE: The patient is resting comfortably in bed. He has no complaints. No acute events noted overnight. He is having regular bowel movements. OBJECTIVE: Vital Signs: Temperature 97.8 degrees, blood pressure 149/91. Heart rate 80. Respirations 17. O2 saturations 100% on 2 L nasal cannula. General: This is a middle-aged male, lying in bed, in no acute distress. Head: Normocephalic, atraumatic. Heart: S1, S2. Normal. Regular rate and rhythm. Lungs: Clear to auscultation bilaterally. Abdomen: Positive bowel sounds. Soft, nontender, nondistended. Extremities: No edema. No cyanosis. No calf tenderness. Neurologic: The patient is alert and oriented x3. LABORATORY: Sodium 138, potassium 4.4, chloride 100, CO2 28, BUN 31, creatinine 1.9, glucose 190, phosphorus 4.6. ASSESSMENT AND PLAN: 1. Acute systolic congestive heart failure exacerbation. The patient is currently on oral Lasix. He continues to diurese well on the current diuretic regimen. Further recommendations to follow from the manager grocery. 2. Hypertension. The patient was started on hydralazine yesterday. Further titration of the patient's antihypertensives as per the manager grocery. 3. Diabetes mellitus type 2. Continue on NPH 15 units subcutaneous twice a day. 4. Diabetic neuropathy. Continue on Lyrica. 5. Chronic kidney disease. Stable. 6. Vitamin D deficiency. Continue on vitamin D replacement. 7. Iron-deficiency anemia. Continue on iron supplementation. 8. Disposition. The patient can be discharged home once cleared by the manager grocery. cc: Guerline Cadena MD
[2017-02-22] MEDS: DILAUDID IV PRN ×3 (03:55→13:46)
[2017-02-22] MEDS: HEPARIN SUBQ SCH (03:55)
[2017-02-22] MEDS: HUMULIN R SUBQ SCH ×2 (06:19→11:16)
[2017-02-22 07:55] LABS: ALBUMIN 2.6 g/dL (3.5-5.0); CALCIUM 8.7 mg/dL (8.8-10.2); POTASSIUM 4.8 mmol/L (3.5-5.1)
[2017-02-22] MEDS: LYRICA PO SCH (08:21)
[2017-02-22] MEDS: HUMULIN N SUBQ SCH (08:21)
[2017-02-22] MEDS: COREG PO SCH (08:21)
[2017-02-22] MEDS: ALDACTONE PO SCH (08:21)
[2017-02-22] MEDS: APRESOLINE PO SCH ×2 (08:21→14:18)
[2017-02-22] MEDS: LASIX PO SCH (08:21)
[2017-02-22] MEDS: FOLIC ACID PO SCH (08:21)
[2017-02-22] MEDS: MIRALAX PO SCH (08:21)
[2017-02-22] MEDS: LANOXIN PO SCH (08:21)
[2017-02-22] MEDS: ICAR-C PO SCH (08:21)
[2017-02-22] MEDS: COLACE PO SCH (08:21)
[2017-02-22] MEDS: ISORDIL PO SCH (08:22)
[2017-02-22] MEDS: ASPIRIN PO SCH (08:22)
[2017-02-22] MEDS ORDERED: ALDACTONE PO SCH (09:34)
[2017-02-22] MEDS ORDERED: ISORDIL PO SCH (09:34)
--- NOTE | 2017-02-22 10:08 | PROGRESS NOTE ---
DATE: 02/22/2017 SUBJECTIVE: Mr. Coats reports he is doing better. He continues to have some issues with edema that seem mostly sacral. PHYSICAL EXAMINATION: Vital Signs: He is afebrile. Heart rate of 85, blood pressure 149/95. His I's and O's have continued to be negative on a daily basis. He is roughly negative a liter and a half over the last 24 hours. General: He is in no acute distress. Cardiovascular: He is in a regular rate and rhythm. He has no lower extremity edema. He does have some 1+ pitting sacral edema. Chest: Examination sounds clear bilaterally. He has no increased work of breathing. Abdomen: Soft and nontender. PERTINENT DATA: His sodium is 135, potassium is 4.8, his BUN is 28, with a creatinine of 1.8. His albumin level was 2.6. His proBNP yesterday was 2136 which was down from 2982 and his admission proBNP of 12,000. ASSESSMENT: Systolic heart failure. PLAN: We have increased his Isordil to 40 t.i.d. which is the target dose for that medication. He is on good medications otherwise with his Coreg, hydralazine, digoxin, and the spironolactone. Spironolactone was increased to 25 mg daily. The patient may be discharged from a cardiovascular standpoint with followup with Dr. Tran as an outpatient. This has already been arranged for 1-2 weeks after discharge. I would again consider transitioning over to Entresto as an outpatient as well as trying to titrate up his Coreg. We could substitute the Entresto for his hydralazine and Isordil combination as an outpatient if his blood pressure will be controlled on Entresto alone. I believe he could probably get to the max dose of Entresto considering his component of hypertension. cc: Kannan Giles MD
--- NOTE | 2017-02-22 10:49 | PROGRESS NOTE ---
DATE: 02/22/2017 SUBJECTIVE: Patient currently sitting up in bed. He states that he feels significantly better. He has no chest pain. Denies any shortness of breath. Has been making excellent urine. OBJECTIVE: Vital Signs: Temperature 97.7 degrees, pulse 83, respiratory rate 21, blood pressure 149/95. Intake 760 mL. Output 1.7 L. General: Middle-aged gentleman, sitting up in bed. He is awake and alert. No acute distress. HEENT: Normocephalic, atraumatic. Oral mucosa moist. Dentition is excellent. Conjunctivae pink. Neck: Supple. He has some trace JVD. Trachea midline. Cardiovascular: Regular rate and rhythm. There is no murmur appreciated. Pulmonary: He has equal excursion. He is clear bilaterally. He has no increased work of breathing. Abdomen: Soft, with positive bowel sounds. : He is voiding. Extremities: No clubbing, cyanosis, or edema today. He is moving all extremities and is ambulatory without assistance. Integumentary: Skin is warm and dry. LAB DATA: Sodium 138, potassium 4.8, CO2 26, BUN 28, creatinine 1.8, calcium 8.7, phosphorus 4.5, and albumin 2.6. ASSESSMENT AND PLAN: Acute kidney injury, prerenal issues secondary to cardiac diuretic requirements. He has continued to diurese nicely over the last 48 hours. His creatinine has continued to improve as well. BUN is down. We have no further recommendations at this time. We will follow with this patient as an outpatient in 2 weeks after discharge. Thank you for allowing us to participate in the care of this gentleman. Seen, data reviewed, discussed with Tiffanie Muse on 02/22/17. I agree with the above assessment and plan of care. rg Dictated by YFN Tamez for Remington Benitez MD cc: Remington Benitez MD [facility]
[2017-02-22 13:54] VITALS: BP 143/88
--- NOTE | 2017-02-23 09:43 | DISCHARGE SUMMARY ---
ADMISSION DATE: 02/15/2017 DISCHARGE DATE: 02/22/2017 CONSULTATIONS: 1. Dr. Kannan Giles with cardiology. 2. Dr. Benitez with nephrology. PERTINENT PROCEDURES: 1. Chest x-ray shows substantial decrease in infiltrate on the right, stable small left pleural effusion. 2. Renal ultrasound was normal. 3. Right heart catheterization performed by Dr. Stephenson that showed elevated right ventricular filling pressures and left ventricular filling pressures. Moderate pulmonary hypertension. 4. Final chest x-ray on 02/21/2017 showed stable chest with no definite acute pathology. DISCHARGE DIAGNOSES: 1. Acute systolic congestive heart failure exacerbation. The patient diuresed well on current regimen. He will continue with spironolactone. His Isordil has been increased to 40 three times a day. He will continue on Coreg, hydralazine, and digoxin. He will follow up with Dr. Tran as an outpatient in 1-2 weeks. They will consider transitioning over to Entresto on an outpatient basis while trying to titrate up his Coreg and substitute Entresto for his hydralazine and Isordil combination. 2. Hypertension. Continue on home medications. 3. Diabetes mellitus type 2. Continue with home regimen. 4. Diabetic neuropathy. 5. Chronic kidney disease, stable. 6. Acute kidney injury, prerenal secondary to cardiac diuretic requirements. The patient has diuresed nicely. His creatinine has continue to improve as well as his BUN, and will follow up with Dr. Benitez in 2 weeks after discharge. 7. Vitamin D deficiency. 8. Iron deficiency anemia. HOSPITAL COURSE: Mr. Coats is a 37-year-old male with a history of hypertension , diabetes mellitus, coronary artery disease, status post CABG, hyperlipidemia. The patient reported to the ED with a 2 day history of chest pain described as pressure and a squeezing sensation associated with shortness of breath. In the ED, the patient had an elevated proBNP as well as an elevated D- dimer. He was set to have a CT of the chest; however, it was canceled. Patient also underwent a renal ultrasound that was normal. He was admitted to [facility] with a cardiac workup as well as a cardiac consult and sublingual nitroglycerin p.r.n. for chest pain as well as gently diuresed. The patient did undergo a right heart catheterization that showed elevated right ventricular filling pressures and left ventricular filling pressures, and moderate pulmonary hypertension, as well as followed closely by nephrology with his heart catheterization showing continued fluid overload. He was given another additional 80 mg of IV Lasix on the day of his heart catheterization as well as the following a.m. with a dose of Samsca. Patient did respond well to diuretics. His BUN and creatinine stabilized and began to improve. The patient had cardiac medication adjustments with cardiology. His Isordil was increased to 40 t.i.d. He was continued on Coreg, hydralazine, digoxin, and spironolactone. He has been cleared by cardiology as well as nephrology for discharge to follow up in 1-2 weeks, and cardiology will consider transitioning over to [facility] on an outpatient basis. Vital signs at time of his discharge, temperature is 97.6 degrees, heart rate 81, respirations 18, blood pressure 143/88, O2 is 100% on 2 L nasal cannula. Order was placed for home O2; however, the patient did qualify. DISCHARGE DIET: Diabetic. DISCHARGE MEDICATIONS: 1. Aspirin 81 mg p.o. daily. 2. Coreg 6.25 mg p.o. b.i.d. 3. Digoxin 125 mcg p.o. q.a.m. 4. Lasix 40 mg p.o. b.i.d. 5. Apresoline 50 mg p.o. t.i.d. 6. Isordil 40 mg p.o. t.i.d. 7. Prinivil 20 mg p.o. daily. 8. Aldactone 25 mg p.o. daily. FOLLOWUP: The patient is being discharged home. Again, he did not qualify for home O2. The patient will follow up with Dr. Benitez in 2 weeks as well as with his primary shuttle inspector, Dr. Tran, on 03/25/2017. The patient will need to obtain a primary care physician from a list that has been provided to him and follow up in 7-10 days. Patient to return to the ED for any worsening of symptoms. Discharge time 30 minutes. Dictated by YFN Cole for Chevy Powell MD cc: Chevy Powell MD pt examined, agree with above APENOT MTDD
== END 2017-02-22 16:05 | disposition home health service (06) ==
LOC: ED 20:19 → 3S 02-15 01:22 → SUATTDRO 02-15 01:22 → 3S 02-15 21:39 → 3N 02-20 20:51
PROVIDERS: ATTEND Internal Medicine

== ENCOUNTER 2017-02-25 11:59 | Inpatient (IN) ==
[2017-02-25] MEDS ORDERED: ASPIRIN PO STA (12:15)
--- NOTE | 2017-02-25 12:22 | PROVIDER DOCUMENTATION ---
HPI-Chest Pain - General Chief Complaint: Chest Pain Stated Complaint: Difficulty breathing, CP Time Seen by Provider: 02/25/17 12:06 Source: patient, EMS Allergies/Adverse Reactions: Patient Allergies Allergy/AdvReac Type Severity Reaction Status Date / Time No Known Allergies Allergy Verified 02/25/17 12:40 Home Medications: Home Medication List Medication Instructions Recorded Confirmed Last Taken Type Aspirin 81 mg PO DAILY #60 chewtab 09/02/16 02/25/17 02/24/17 20:00 Rx Carvedilol 6.25 mg PO BID #60 tablet 09/02/16 02/25/17 02/24/17 20:00 Rx Digoxin 125 mcg PO QAM #30 tablet 09/02/16 02/25/17 02/24/17 20:00 Rx Spironolactone [Aldactone] 25 mg PO DAILY #120 tablet 09/02/16 02/25/17 20:00 Rx Furosemide [Lasix] 40 mg PO BID 02/05/17 02/25/17 02/24/17 20:00 History LISINOpril [Prinivil] 20 mg PO DAILY 02/05/17 02/25/17 02/24/17 20:00 History Hydralazine [Apresoline] 50 mg PO TID #90 tablet 02/22/17 02/25/17 02/24/17 20: 00 Rx Isosorbide Dinitrate [Isordil] 40 mg PO TID #90 tablet 02/22/17 02/25/17 20:00 Rx - History of Present Illness-CP Nature of Presenting Problem: A 37 y/o M with extensive cardiac history who was recently discharged from hospital after being Rx for PNA presented with acute onset of substernal CP with SOB started last night getting progressively worse enroute was given ASA and nitro which helped with pain Location: reports: substernal Chest Pain Radiation: reports: no radiation Quality of Pain: reports: aching Severity in ED: moderate Onset/Duration: 4-6 hours ago Timing: still present Context/Activities at Onset: reports: none Modifying Factors: improves with: nothing Associated Symptoms: reports: shortness of breath Nitro Today/Relief: 0.4 mg x 1 Aspirin Treatment Today: 81 mg x 4 Similar Symptoms Previously?: Yes Recently Seen Here or By Another Healthcare Provider: Yes Review of Systems - Adult - REVIEW OF SYSTEMS - ADULT Constitutional: reports: no symptoms reported Eyes: reports: no symptoms reported Ears, Nose, Mouth & Throat: reports: no symptoms reported Cardiovascular: reports: see HPI, chest pain Respiratory: reports: see HPI, shortness of breath Gastrointestinal: reports: no symptoms reported Genitourinary: reports: no symptoms reported Musculoskeletal: reports: no symptoms reported Integumentary: reports: no symptoms reported Neurological: reports: no symptoms reported Psychiatric: reports: no symptoms reported Endocrine: reports: no symptoms reported Hematologic/Lymphatic: reports: no symptoms reported Allergic/Immunologic: reports: no symptoms reported All Other Systems: Reviewed and Negative Past History - Adult - PAST MEDICAL HISTORY-ADULT Review of Records: reports: Old Records Reviewed Major Childhood Illnesses: reports: denies history Cardiovascular: reports: CHF, HTN, MS Respiratory: reports: COPD Gastrointestinal: reports: GERD Obstetrical/Gynecological: reports: denies history Genitourinary: reports: denies history Musculoskeletal: reports: chronic pain Neurological: reports: denies history Psychiatric: reports: anxiety Endocrine/Immune: reports: Diabetes Other Conditions: reports: MRSA - PRIOR SURGERIES/PROCEDURES Surgical/Procedure History: reports: reviewed, not pertinent, other (abcess) - PRIOR HOSPITALIZATIONS Prior Hospitalizations: reports: none - IMMUNIZATION STATUS Childhood Immunizations: See Nurse Assessment Flu Vaccine: See Nurse Assessment - FAMILY HISTORY Family History: CAD over 55 yo Physical Exam-General - PHYSICAL EXAM-ADULT Initial Vital Signs Reviewed: Yes - CONSTITUTIONAL General Appearance: appears well - EYES Eyes: PERRL/EOMI, pink conjunctivae - HEAD, EARS, NOSE, MOUTH & THROAT HENMT: normocephalic/atraumatic, moist mucous membranes, normal ENT inspection, TMs normal, pharynx normal - NECK Neck: non-tender, full range of motion - RESPIRATORY Respiratory: chest non-tender, lungs clear, normal breath sounds - CARDIOVASCULAR Cardiovascular: normal peripheral pulses, tachycardia - GASTROINTESTINAL (ABDOMEN) Abdominal Exam: normal bowel sounds, non tender, soft - LYMPHATIC Lymphatic: no adenopathy - MUSCULOSKELETAL Back Exam: normal inspection, no CVA tenderness, no vertebral tenderness Extremity: normal range of motion, non-tender - SKIN Integumentary: normal color, normal turgor - NEUROLOGIC Neurologic: commercial technician II-XII nml as tested, grossly normal - PSYCHIATRIC Psych/Mental Status: normal mood/affect, oriented x 3 Progress - PLAN OF CARE/RESULTS Progress/Plan/Lab Results: Vital Signs - 8 hr 02/25/17 12:22 02/25/17 14:00 Temperature 97.7 F 97.6 F Pulse Rate 102 H 105 H Respiratory Rate 16 18 Blood Pressure 166/109 153/106 O2 Sat by Pulse Oximetry 100 100 Laboratory Results - last 24 hr 02/25/17 02/25/17 02/25/17 12:13 12:13 12:13 WBC 7.42 RBC 3.80 L Hgb 10.0 L Hct 29.4 L MCV 77.4 L MCH 26.3 L MCHC 34.0 RDW Std Deviation 18.4 H Plt Count 222 MPV 9.9 Immature Gran % (Auto) 0.0 Neut % (Auto) 78.0 H Lymph % (Auto) 13.1 L Taylor % (Auto) 6.6 Eos % (Auto) 2.0 Baso % (Auto) 0.3 Immature Gran # (Auto) 0.00 Neut # (Auto) 5.79 Lymph # (Auto) 0.97 L Taylor # (Auto) 0.49 Eos # (Auto) 0.15 Baso # (Auto) 0.02 PT INR PTT (Actin FS) Sodium 139 Potassium 4.4 Chloride 105 Carbon Dioxide 22 L Anion Gap 12 BUN 14 Creatinine 1.5 H Estimated GFR/1.73 m2 > 60 BUN/Creatinine Ratio 9 Glucose 156 H Calculated Osmolality 281 Calcium 8.4 L Magnesium 1.8 Total Bilirubin 0.71 AST 15 ALT 12 Alkaline Phosphatase 74 Creatine Kinase 155 Troponin T [id number] Pept 6364 H Total Protein 7.1 Albumin 2.5 L Globulin 4.6 Albumin/Globulin Ratio 0.5 02/25/17 02/25/17 12:13 12:13 WBC RBC Hgb Hct MCV MCH MCHC RDW Std Deviation Plt Count MPV Immature Gran % (Auto) Neut % (Auto) Lymph % (Auto) Taylor % (Auto) Eos % (Auto) Baso % (Auto) Immature Gran # (Auto) Neut # (Auto) Lymph # (Auto) Taylor # (Auto) Eos # (Auto) Baso # (Auto) PT 11.2 INR 1.06 PTT (Actin FS) 31.9 Sodium Potassium Chloride Carbon Dioxide Anion Gap BUN Creatinine Estimated GFR/1.73 m2 BUN/Creatinine Ratio Glucose Calculated Osmolality Calcium Magnesium Total Bilirubin AST ALT Alkaline Phosphatase Creatine Kinase Troponin T 0.055 Xam-O-Wadlvurqhyh Pept Total Protein Albumin Globulin Albumin/Globulin Ratio Orders Category Date Time Status Cardiac Monitoring DIRECTED Care 02/25/17 12:15 Active Saline Loc NOW Care 02/25/17 12:15 Active CHEST-PORTABLE [RAD] Stat Exams 02/25/17 12:15 Completed CBC WITH ELECTRONIC DIFF [HEME] Stat Lab 02/25/17 12:13 Completed CK PROFILE [SP CHEM] Stat Lab 02/25/17 12:13 Completed CK PROFILE [SP CHEM] Stat Lab 02/25/17 15:10 Received COMPREHENSIVE METABOLIC PANEL [CHEM] Stat Lab 02/25/17 12:13 Completed MAGNESIUM [CHEM] Stat Lab 02/25/17 12:13 Completed PRO B-NATRIURETIC PEPTIDE Stat Lab 02/25/17 12:13 Completed PROTIME WITH INR [COAG] Stat Lab 02/25/17 12:13 Completed PTT [COAG] Stat Lab 02/25/17 12:13 Completed TROPONIN T Stat Lab 02/25/17 12:13 Completed TROPONIN T Stat Lab 02/25/17 15:10 Received Aspirin Med 02/25/17 12:15 Discontinued 325 mg PO STAT STA Furosemide [Lasix] Med 02/25/17 13:21 Discontinued 40 mg IV NOW ONE EKG [EKG] Stat Ther 02/25/17 12:15 Draft EKG [EKG] Stat Ther 02/25/17 15:03 Ordered Result Diagrams: 02/25/17 12:13 02/25/17 12:13 - EKG 1 Time of EKG reading by physician:: 12:22 EKG Interpretation (*Must complete 3 of following elements*): Abnormal Comments: NSR, no STEMI, tachycardiaT wave inversion in I, V3-6 2 Prior EKG Comparison: unchanged from prior - XRAY 1 XRAY Study: Chest Impression: See EMR Report - CONSULTS/PCP/HOSPITALIST Notification #1 *Consult/PCP/Hospitalist*: DR Ellington Time Discussed: 15:39 Consult Disposition: Admit Departure - Departure Time of Disposition Decision: 15:34 DIAGNOSIS: Unstable angina pectoris due to coronary arteriosclerosis Disposition: ADMITTED INPATIENT 09 Certified Medical Emergency: Emergent Condition: Fair - Critical Care Note This patient required my direct & personal management of CC.: No
[2017-02-25 12:26] LABS: MANUAL DIFF NEEDED? NO
[2017-02-25 12:36] LABS: BASO% 0.3 % (0.0-0.8); EOS# 0.15 X1000 (0.0-0.7); HEMATOCRIT 29.4 % (42.0-52.0); LYMPH# 0.97 X1000 (1.2-3.4); LYMPH% 13.1 % (20.5-51.1); MCH 26.3 PG (27-31); MCV 77.4 FL (81-99); MONO# 0.49 X1000 (0.11-0.59); MONO% 6.6 % (1.7-9.3); MPV 9.9 FL (7.4-10.4); PLT 222 X1000 (130-400)
[2017-02-25 12:44] LABS: INR 1.06; PROTIME 11.2 Seconds (9.2-11.7); PTT 31.9 Seconds (22.0-36.0)
[2017-02-25 13:04] LABS: AGAP 12; ALBUMIN 2.5 g/dL (3.5-5.0); ALKALINE PHOSPHATASE 74 U/L (32-122); BUN 14 mg/dL (8-22); CALCIUM 8.4 mg/dL (8.8-10.2); CHLORIDE 105 mmol/L (98-107); CK PROFILE 155 U/L (24-204); COSMO 281; GOT 15 U/L (10-34); GPT 12 U/L (10-44); MAGNESIUM 1.8 mg/dL (1.5-2.7); POTASSIUM 4.4 mmol/L (3.5-5.1); SODIUM 139 mmol/L (136-145); TCO2 22 mmol/L (25-35); TOTAL BILIRUBIN 0.71 mg/dL (0.20-1.00); TOTAL PROTEIN 7.1 g/dL (6.3-8.3)
[2017-02-25] MEDS ORDERED: LASIX IV ONE (13:21)
--- NOTE | 2017-02-25 13:25 | Diag Imaging Result Document ---
PROCEDURE NAME: CHEST-PORTABLE - 02/25/2017 PORTABLE CHEST X-RAY: COMPARISON: 02/21/2017. FINDINGS: Stable cardiomegaly and CABG changes. There is indistinctness of the pulmonary vascularity suggesting mild pulmonary edema. No large effusions. IMPRESSION: Little change from prior. Cardiomegaly and mild pulmonary edema.
--- NOTE | 2017-02-25 14:56 | EKG Report ---
Test Performed on : 02/25/2017 12:11:18 PM Test Reason : Chest Pain Blood Pressure : / mmHG Vent. Rate : 101 BPM Atrial Rate : 101 BPM P-R Int : 144 ms QRS Dur : 096 ms QT Int : 342 ms P-R-T Axes : 069 088 149 degrees QTc Int : 443 ms Sinus tachycardia. Possible Left atrial enlargement Possible Right ventricular hypertrophy Anterior infarct (cited on or before 27-MAR-2015) T wave abnormality, consider lateral ischemia Abnormal ECG When compared with ECG of 25-FEB-2017 11:58, (Unconfirmed) No significant change was found Unconfirmed Result
[2017-02-25] MEDS ORDERED: NITROGLYCERIN SL PRN (15:57)
--- NOTE | 2017-02-25 16:06 | EKG Report ---
Test Performed on : 02/25/2017 3:02:04 PM Test Reason : SOB Blood Pressure : / mmHG Vent. Rate : 101 BPM Atrial Rate : 101 BPM P-R Int : 140 ms QRS Dur : 094 ms QT Int : 336 ms P-R-T Axes : 058 049 141 degrees QTc Int : 435 ms Sinus tachycardia. Possible Left atrial enlargement Anterior infarct (cited on or before 27-MAR-2015) T wave abnormality, consider lateral ischemia Abnormal ECG When compared with ECG of 25-FEB-2017 12:11, No significant change was found Confirmed by Caleb Powers MD ([id number]) on 03/17/2017 10:12:47 PM
[2017-02-25] MEDS: MORPHINE IV PRN ×2 (16:12→22:33)
[2017-02-25] MEDS ORDERED: TYLENOL PO PRN (16:35)
[2017-02-25] MEDS ORDERED: ZOFRAN IV PRN (16:35)
[2017-02-25] MEDS: ISORDIL PO SCH (18:06)
[2017-02-25] MEDS: APRESOLINE PO SCH (18:06)
[2017-02-25] MEDS: NORVASC PO SCH (18:13)
[2017-02-25 18:23] LABS: URINE MICRO REVIEW NEEDED? NO; URINE SOURCE VOIDED
[2017-02-25 18:30] LABS: BILIRUBIN URINE NEGATIVE (NEGATIVE); BLOOD URINE SMALL (NEGATIVE); COLOR STRAW; GLUCOSE URINE NEGATIVE (NEGATIVE); LEUKOCYTES URINE NEGATIVE (NEGATIVE); NITRITE URINE NEGATIVE (NEGATIVE); PH URINE 7.5; PROTEIN URINE 200 mg/dL (NEGATIVE); SP GRAVITY URINE 1.007; TURBIDITY URINE CLEAR (CLEAR); UROBILINOGEN URINE NORMAL (NORMAL)
[2017-02-25 18:31] LABS: UR EPITHELIAL CELLS <10 /HPF (<10); URINE BACTERIA NEGATIVE /HPF; URINE WBC <10 /HPF (<10)
--- NOTE | 2017-02-25 18:53 | HISTORY AND PHYSICAL ---
PRIMARY CARE PROVIDER: No one. TROUBLE LINEMAN: Dr. Tran, with cardiothoracic surgeon being Dr. Johan Michelle. CHIEF COMPLAINT: Shortness of breath and chest pain. HISTORY OF PRESENT ILLNESS: Mr. Coats is a 37-year-old, male with a medical history of coronary artery disease status post CABG x3, in October of this year , CKD, hyperlipidemia, hypertension, diabetes mellitus type 2, with some history of medical noncompliance. He presents with complaints of shortness of breath and chest pain. He apparently was admitted from 02/15/2017 to 02/22/2017. He was just recently discharged on Wednesday and he was admitted for pneumonia, acute on chronic systolic congestive heart failure. He states that when he was discharged he felt good. He felt good on Wednesday and Wednesday, and then yesterday, Wednesday evening, he started feeling a little winded. He did not sleep well through the night and then this morning woke up with chest pressure with continued shortness of breath. He states that he has been weighing himself daily and that it has only gone up about 1-2 pounds. He denies not taking any medications. He states he has been taking every medication as prescribed. He will be admitted to CICU and Cardiology will be re-consulted for once again acute on chronic systolic congestive heart failure. His chest x-ray revealed that he has cardiomegaly with mild pulmonary edema but little change from the prior admit. He has received IV Lasix in the ER. He still complains of chest discomfort although he has had a coronary artery bypass grafting in October. We will go ahead and do cardiac enzymes x3, nitroglycerin tabs and morphine p.r.n. for the chest pain, daily weights, and follow up with Cardiology recommendation. As for the pneumonia he was admitted with last time, he completed all antibiotics while he was in the hospital and chest x-ray has no signs of pneumonia at this time. EKG shows sinus tachycardia, no obvious ST elevations, rate was 101 and QTc was 443. Repeat EKG is still consistent with no ST elevations. There is no ST depression noted. As far as his cardiac enzymes are concerned, they are negative and are at baseline although proBNP is elevated since last check, it has gone from 2100 to 6300. PAST MEDICAL HISTORY: 1. Coronary artery disease, myocardial infarctions, CABG x3 October 2016. 2. Chronic systolic congestive heart failure. Last cardiac index which was performed with a right heart catheterization on the of this month shows a cardiac index of 1.62 and a cardiac output of 3.94 which is quite low. Also showed pulmonary artery pressures of 59/43 and a wedge of 31. His last echo showed that he had an ejection fraction of 20% which was performed August 2016. 3. Hypertension. 4. Hyperlipidemia. 5. Diabetes mellitus type 2. 6. Ischemic cardiomyopathy. 7. Pulmonary hypertension. 8. GERD. 9. Chronic pain syndrome. 10. Anxiety. 11. History of MRSA on his back associated with a large abscess. SURGICAL HISTORY: Abscess I and D on his back, 3 vessel coronary artery bypass grafting in October 2015, had a left heart cath done in February 2016. SOCIAL HISTORY: Denies tobacco, alcohol or illicit drug use. FAMILY HISTORY: Positive for coronary artery disease. REVIEW OF SYSTEMS: Fourteen point review of systems were complete and all are negative, except for those mentioned in above HPI. He did state that he has a nonproductive cough and he has had some chills. Associated with his chest pain he states that it does not radiate to the arms, the neck, or the back, or the neck. He has no diaphoresis with this chest pain, he only has shortness of breath. No nausea. ALLERGIES: No known drug allergies. HOME MEDICATIONS: Aspirin 81 mg p.o. daily, Coreg 6.25 mg p.o. twice daily, digoxin 125 mcg p.o. daily, Lasix 40 mg p.o. twice daily, hydralazine 50 mg p.o. 3 times a day, isosorbide dinitrate 40 mg p.o. 3 times daily, lisinopril 20 mg p.o. daily, spironolactone 25 mg p.o. daily. LABORATORY DATA: White blood cells 7000, hemoglobin 10, hematocrit 29, platelet count 222,000. INR is 1.06, PTT 31.9. Sodium 139, potassium 4.4, BUN 14, creatinine , glucose 156, calcium 8.4, magnesium 1.8, total bilirubin 0.71, AST 15, ALT 12. CK 148, troponin 0.047. ProBNP 6364. Albumin 2.5. IMAGING: Chest x-ray: Cardiomegaly and pulmonary edema. The last EKG, no ST elevations, sinus tachycardia, rate 101, no T-wave inversions or depressions. Actually there might be mild T-wave inversion in V4, V5, V6 and lead I and L. Rate is 101. QTc is 435. PHYSICAL EXAMINATION: VITAL SIGNS: Temperature is 97.6 degrees, heart rate 95, respiratory rate 18, blood pressure 148/110, O2 saturation 100% on 2 L nasal cannula. He is 6 feet 1 inch tall, 250 pounds. BMI 32.9. GENERAL: Mr. Tyrone Coats is a 37-year-old, male, he is in no acute distress. He is able to answer questions appropriately. HEENT: Atraumatic, normocephalic. Pupils equal, round, reactive to light. Extraocular movements intact. NECK: No JVD or carotid bruits noted. CARDIOVASCULAR: S1, S2. Tachycardic rate and rhythm. No rubs, gallops, murmurs. PULMONARY: Clear to auscultation. Bilateral breath sounds. Crackles in the bases anterior to posteriorly, currently on 2 L nasal cannula. GI: Soft, nontender, nondistended. Positive bowel sounds x4. EXTREMITIES: Trace lower extremity edema. +2 dorsalis and radial pulses. SKIN: Warm, dry, intact. NEUROLOGIC: Alert and oriented x4. Moves all extremities equally. ASSESSMENT AND PLAN: 1. Acute on chronic systolic congestive heart failure. Last ejection fraction was 20% in August 2016. We will consider repeating an echocardiogram although he has had a right heart catheterization on February 15 which showed a very low cardiac index of 1.62 with a cardiac output of 3.94 and pulmonary pressures of 59/43. We have consulted Cardiology. Will continue Lasix IV twice daily and continue cardiac medications. 2. Chest pain r/o ACS. Cardiac enzymes are at baseline. Will add nitroglycerin sublingual as needed. Morphine 2 mg every 4 hours as needed for pain. EKG shows no ST elevations. There is some inversion but no ST depressions. Will transfer to [facility] for close monitoring. 3. Chronic kidney disease stage 2, currently stable. 4. Hypertension. Continue home medications. We will consider adding an IV beta bebe x1 dose possibly given he is tachycardic and his blood pressure is up. 5. Hyperlipidemia. Continue home medications. 6. Diabetes mellitus type 2. Do sliding scale insulin, pattern blood glucoses. 7. Ischemic cardiomyopathy. Please see #1 and #2. 8. Gastroesophageal reflux disease. Continue the proton pump inhibitor. 9. Anxiety. 10. Chronic pain syndrome. 11. Pulmonary artery hypertension. Again, will be receiving IV Lasix. 12. Deep venous thrombosis prophylaxis, Lovenox. 13. Gastrointestinal prophylaxis, proton pump inhibitor. Dictated by YFN Otto for Bryan Hameed MD cc: YFN Otto MD Luis N. Villanueva, MD [facility]
--- NOTE | 2017-02-25 21:32 | CONSULTATION ---
DATE OF CONSULTATION: 02/25/2017 IMPRESSION: 1. Acute on chronic congestive heart failure, right greater than left, recurrent. 2. Severe ischemic cardiomyopathy with left ventricular ejection fraction 20%. 3. Atherosclerotic coronary artery disease with history of coronary bypass grafting in October 2016 with left internal mammary artery graft to left anterior descending coronary, saphenous vein graft to obtuse marginal, and saphenous vein graft to ramus intermedius. 4. Cardiac thrombus. Patient maintained on Eliquis. 5. Hypertension. 6. Hyperlipidemia. 7. Deep venous thrombosis. RECOMMENDATIONS: 1. Diuresis with intravenous Lasix. 2. Transition to angiotensin receptor blocking agent, as tolerated, with ultimate plan to consider use of Entresto. 3. Maintain anticoagulation. HISTORY: This 37-year-old, male with past history of congestive heart failure, severe ischemic cardiomyopathy, previous coronary bypass grafting in October of this year, hypertension, hyperlipidemia, presented to the emergency room with increasing dyspnea as well as recent orthopnea and is now readmitted for further management of recurrent acute exacerbation of chronic congestive heart failure. He was hospitalized here earlier this month with acute on chronic congestive heart failure. He had a predominance of right-sided heart failure. He demonstrated prerenal azotemia and further investigation with right heart catheterization was performed which demonstrated elevated right ventricular filling pressure and elevated left ventricular filling pressure as well as moderate pulmonary hypertension. PA pressure was 59/43 with a mean of 49. Pulmonary capillary wedge pressure was 31. Cardiac index was 1.62. He was diuresed further, thereafter. Since discharge, he relates he felt considerably better. He did some walking without any exertional dyspnea. He has been monitoring his weights daily and had not noticed much of an increase. He denies any dietary indiscretion with respect to sodium intake. He does relate that his diuretic effect with his Lasix seemed to be rather modest. Over the last couple of days, he started having increasing exertional dyspnea and overnight last night was having orthopnea. This prompted come to come to the emergency room for evaluation. PAST MEDICAL HISTORY: 1. Chronic congestive heart failure. 2. Severe ischemic cardiomyopathy. 3. Atherosclerotic coronary artery disease with history of previous coronary bypass graft in October of this year as outlined above. 4. Hypertension. 5. Hyperlipidemia. 6. DVT. 7. History of abscess of the back with a large excision and drainage of that area. 8. Cardiac thrombus. Patient has been maintained on Eliquis. MEDICATIONS PRIOR TO ADMISSION: As listed. SOCIAL HISTORY: He is a former smoker. He is . He does not use alcohol or illicit drugs. FAMILY HISTORY: Positive for coronary artery disease. REVIEW OF SYSTEMS: Pulmonary: Noteworthy for dyspnea and orthopnea, but negative for cough. Gastrointestinal: Noteworthy for some anorexia. Constitutional: Negative. The remainder of review of systems negative beyond history present illness with 14 total systems reviewed. PHYSICAL EXAMINATION: General: Reveals an adult male in no distress. Vital signs: Blood pressure 148/110, heart rate 95 and regular. HEENT: Extraocular movements appear intact. Mucous membranes are moist. Neck: Supple without jugular venous distention. Mucous membranes are moist. Neck: Supple. There is jugular venous distention evident to 6 cm above the clavicle with patient inclined to 45 degrees. Carotid bruits cannot be appreciated. Chest: Auscultation of the chest reveals diminished breath sounds at bases bilaterally. Cardiac: Reveals a regular rate and rhythm without appreciable murmur or gallop. Abdomen: Soft, nontender. Extremities: Demonstrate mild pretibial edema. Neurologic: Reveals him to be alert and fully oriented. Speech is fluent. Moves all 4 extremities equally well. Skin: Warm and dry. Psychiatric: Reveals mood to be appropriate. LABORATORY DATA: Hematocrit 29.4, potassium 4.4, BUN 14, creatinine 1.5. B-type natriuretic peptide level 6364. DIAGNOSTICS: EKG demonstrates sinus rhythm, right axis deviation, biatrial enlargement. Possible right ventricular hypertrophy. Anterior infarct of undetermined age and T-wave abnormality, consider lateral ischemia. Occasional premature ventricular complex also demonstrated. cc: Stepan Stephenson MD
[2017-02-25] MEDS: LASIX IV SCH (22:32)
[2017-02-25] MEDS: COREG PO SCH (22:32)
[2017-02-25] MEDS: HUMULIN R SUBQ SCH (22:32)
[2017-02-26] MEDS: MORPHINE IV PRN ×4 (03:02→20:51)
[2017-02-26 05:36] LABS: MANUAL DIFF NEEDED? NO
[2017-02-26 05:43] LABS: BASO% 0.5 % (0.0-0.8); EOS# 0.23 X1000 (0.0-0.7); EOS% 4.1 % (0.0-10.0); HEMATOCRIT 27.6 % (42.0-52.0); HEMOGLOBIN 9.2 g/dL (14.0-18.0); LYMPH# 1.37 X1000 (1.2-3.4); LYMPH% 24.4 % (20.5-51.1); MCHC 33.3 g/dL (33-37); MONO# 0.44 X1000 (0.11-0.59); MONO% 7.8 % (1.7-9.3); MPV 10.1 FL (7.4-10.4); NEUT% 63.2 % (42.2-75.2); PLT 204 X1000 (130-400); RBC 3.54 XMIL (4.7-6.1)
[2017-02-26 06:02] LABS: CALCIUM 8.3 mg/dL (8.8-10.2); MAGNESIUM 1.7 mg/dL (1.5-2.7); POTASSIUM 4.3 mmol/L (3.5-5.1)
[2017-02-26] MEDS: HUMULIN R SUBQ SCH ×4 (06:11→20:51)
--- NOTE | 2017-02-26 06:51 | EKG Report ---
Test Performed on : 02/26/2017 06:32:20 AM Test Reason : Heart Failure Admission Blood Pressure : / mmHG Vent. Rate : 082 BPM Atrial Rate : 082 BPM P-R Int : 150 ms QRS Dur : 098 ms QT Int : 366 ms P-R-T Axes : 044 029 154 degrees QTc Int : 427 ms Normal sinus rhythm. Possible Left atrial enlargement RSR' or QR pattern in V1 suggests right ventricular conduction delay Anterior infarct (cited on or before 27-MAR-2015) T wave abnormality, consider lateral ischemia Abnormal ECG When compared with ECG of 25-FEB-2017 15:02, (Unconfirmed) T wave inversion now evident in Anterior leads Confirmed by Nicolasa BENNETT, Clifton Patel ([id number]) on 02/26/2017 7:16:47 AM
--- NOTE | 2017-02-26 08:32 | Diag Imaging Result Document ---
PROCEDURE NAME: CHEST-2 VIEWS - 02/26/2017 TWO VIEWS OF THE CHEST: FINDINGS: There are sternotomy wires. There is focal pleural thickening versus loculated effusion in the left costophrenic angle laterally. This is not visible on the study of 02/25/2017,however, it was on 02/21/2017. Otherwise, there has been no significant change in the appearance of the chest. IMPRESSION: Stable chest.
[2017-02-26] MEDS: DIOVAN PO SCH (08:42)
[2017-02-26] MEDS: ALDACTONE PO SCH (08:42)
[2017-02-26] MEDS: LANOXIN PO SCH (08:42)
[2017-02-26] MEDS: APRESOLINE PO SCH ×3 (08:42→17:14)
[2017-02-26] MEDS: ASPIRIN PO SCH (08:42)
[2017-02-26] MEDS: COREG PO SCH ×2 (08:42→20:51)
[2017-02-26] MEDS: ISORDIL PO SCH ×3 (08:43→17:14)
[2017-02-26] MEDS: LASIX IV SCH ×2 (08:43→20:51)
[2017-02-26] MEDS: LOVENOX SUBQ SCH (08:43)
[2017-02-26] MEDS ORDERED: PRINIVIL PO SCH (09:00)
--- NOTE | 2017-02-26 09:47 | PROGRESS NOTE ---
DATE: 02/26/2017 SUBJECTIVE: The patient reports breathing a little bit better in comparing with yesterday. No fever or chills reported. OBJECTIVE: Vital signs: Temperature is 97.7, heart rate 92, respiratory rate 26, blood pressure 154/108, O2 saturation is 100% on room air. General: This is a 37-year-old obese and chronically ill-looking male lying in bed, no acute distress. HEENT: Head is normocephalic and atraumatic. Anicteric sclerae. Pale conjunctivae. Mucous membranes are moist. Neck: Supple. No JVD. noted. No carotid bruit. No lymphadenopathy. No thyromegaly. Cardiovascular: S1 and S2 heard. No murmurs, gallops or rubs. Regular rate and rhythm. Respiratory: Clear bilaterally to auscultation. There are just a few crackles in both bases. The patient is not using any accessory muscles or having work of breathing. Abdomen: Soft, nontender to palpation, nondistended. Bowel sounds present. No organomegaly. Extremities: Trace lower extremity edema. Peripheral pulses present in both legs. Neurologic: The patient is alert and oriented x3, able to move all 4 extremities. DIAGNOSTIC DATA: White cell count is 5.61, hemoglobin 9.2, hematocrit 27.6, platelets 204. BMP is unremarkable except for creatinine 1.7. ASSESSMENT: 1. Acute on chronic systolic congestive heart failure. 2. Severe ischemic cardiomyopathy with ejection fraction of 20%. 3. Coronary artery disease, status post coronary artery bypass grafting. 4. Cardiac thrombus. 5. Hypertension. 6. Hyperlipidemia. 7. Chronic kidney disease stage 2. 8. Diabetes mellitus type 2. 9. Gastroesophageal reflux disease. 10.Chronic pain syndrome. 11.Pulmonary arterial hypertension. PLAN: 1. The patient was admitted to the hospital after 3 days of being discharged from the hospital for chest pain and difficulty breathing. The patient has been evaluated by Cardiology. They think that this patient looks to be in CHF exacerbation, so Lasix has been restarted. Currently this patient is receiving 40 mg q.12 hours. Regarding beta bebe therapy, he is on carvedilol 6.25 mg p.o. b.i.d. as well. At this point, we are going to continue with the same management. The patient has been started on valsartan 80 mg as per Cardiology, and we will follow recommendations. Clinically the patient reports feeling less short of breath. 2. Hypertension. We are going to continue with the same management. Actually blood pressure is ranging between 150s and 170. 3. Chronic kidney disease. Creatinine around baseline. 4. Hyperlipidemia. We will continue with home medications. 5. Diabetes mellitus type 2. We will continue with sliding scale insulin. 6. Ischemic cardiomyopathy. We will continue with home medications, and we have added, as mentioned before, valsartan 80 mg daily. cc: Bryan Hameed MD
--- NOTE | 2017-02-26 11:44 | PROGRESS NOTE ---
DATE: 02/26/2017 SUBJECTIVE: The patient denies shortness of breath or chest discomfort on supplemental oxygen per nasal cannula. OBJECTIVE: Vital signs: Blood pressure 154/108, heart rate 92 and regular with ECG monitor showing sinus rhythm. Oxygen saturation 100% on nasal cannula oxygen at 2 L. Neck: Jugular venous distention is evident consistent with an elevated central venous pressure. Chest: Clear to auscultation. Cardiac: Regular rate and rhythm without appreciable murmur or gallop. Extremities: Demonstrate trace edema. LABORATORY DATA: Remarkable for a hematocrit of 27.6 with an MCV of 78. BUN 1, creatinine 1.7. Troponin T is 0.064. IMPRESSION: 1. Acute on chronic systolic heart failure, right greater than left. 2. Severe ischemic cardiomyopathy with previous left ventricular ejection fraction 20%. Repeat echocardiography pending. 3. Atherosclerotic coronary disease with a history of previous coronary bypass grafting October 2016. 4. History of cardiac thrombus. Patient previously treated with Eliquis but has been off this medication for over a month. 5. Anemia. Microcytic. Etiology not clear. This potentially may be exacerbating tendency for congestive heart failure. 6. Hypertension with current blood pressure elevated. 7. Hyperlipidemia. RECOMMENDATIONS: 1. Continue diuresis. 2. Increase angiotensin receptor bebe agent as tolerated. Alternatively, it may be reasonable to further increase amlodipine. Ultimately, would consider use of Entresto. 3. Consider further evaluation of anemia. cc: Stepan Stephenson MD
[2017-02-26] MEDS ORDERED: TYLENOL PO PRN (15:30)
--- NOTE | 2017-02-26 16:30 | ECHO REPORT ---
ORDER DATE: 02/26/2017 ECHOCARDIOGRAPHIC MEASUREMENTS: 1. Interventricular septum 1.1. 2. Left ventricular posterior wall 1.1. 3. Diastolic diameter 6.3. 4. Left atrium 4.8. 5. Aorta 3.5. SUMMARY OF 2-DIMENSIONAL IMAGIN. Dilated left ventricle with severely reduced systolic function. There is estimated ejection fraction of 20% to 25%. There is dyskinesia of the left ventricular apex associated with layered thrombus. 2. Aortic valve leaflets are trileaflet. Mitral valve was normal. Tricuspid valve was normal. There is moderate mitral regurgitation, mild to moderate tricuspid regurgitation. Peak velocity across the tricuspid valve was 3.4 m/sec. Pulmonary artery systolic pressure of 56 mmHg. There is no aortic stenosis or regurgitation. There is mild pulmonary regurgitation. 3. There is mild left atrial enlargement. 4. There is no pericardial effusion. cc: MD Iris Witt CRNP
[2017-02-26] MEDS: NORVASC PO SCH (17:14)
[2017-02-27] MEDS: MORPHINE IV PRN ×4 (02:26→20:54)
[2017-02-27] MEDS: HUMULIN R SUBQ SCH ×4 (07:53→20:55)
[2017-02-27 07:57] LABS: MANUAL DIFF NEEDED? NO
[2017-02-27 08:21] LABS: BASO% 0.6 % (0.0-0.8); EOS# 0.23 X1000 (0.0-0.7); EOS% 4.6 % (0.0-10.0); HEMATOCRIT 29.5 % (42.0-52.0); LYMPH# 1.27 X1000 (1.2-3.4); LYMPH% 25.6 % (20.5-51.1); MCH 26.2 PG (27-31); MCHC 33.9 g/dL (33-37); MCV 77.2 FL (81-99); MONO# 0.69 X1000 (0.11-0.59); MONO% 13.9 % (1.7-9.3); MPV 10.3 FL (7.4-10.4); NEUT% 55.3 % (42.2-75.2); PLT 220 X1000 (130-400); RBC 3.82 XMIL (4.7-6.1)
[2017-02-27] MEDS: COREG PO SCH ×2 (08:36→20:54)
[2017-02-27] MEDS: LASIX IV SCH ×2 (08:36→20:54)
[2017-02-27] MEDS: ASPIRIN PO SCH (08:36)
[2017-02-27] MEDS: DIOVAN PO SCH ×2 (08:36→09:28)
[2017-02-27] MEDS: LOVENOX SUBQ SCH (08:36)
[2017-02-27] MEDS: LANOXIN PO SCH (08:36)
[2017-02-27] MEDS: ALDACTONE PO SCH (08:36)
[2017-02-27] MEDS: ISORDIL PO SCH ×3 (08:36→17:27)
[2017-02-27] MEDS: APRESOLINE PO SCH ×3 (08:36→17:27)
[2017-02-27 08:54] LABS: CALCIUM 8.5 mg/dL (8.8-10.2); MAGNESIUM 1.9 mg/dL (1.5-2.7); POTASSIUM 4.3 mmol/L (3.5-5.1)
--- NOTE | 2017-02-27 10:58 | PROGRESS NOTE ---
DATE: 02/27/2017 CHIEF COMPLAINT: Shortness of breath, swelling. SUBJECTIVE: Mr. Coats is feeling somewhat better today. He is not as short of breath as he was. He is still having some intermittent fleeting chest discomfort. He had one run of 3 beats of ventricular tachycardia noted on his telemetry. Otherwise he is in sinus rhythm. OBJECTIVE: Blood pressure today is 144/91, temperature 98.6, pulse 90, respirations 16. He is awake, alert, oriented, no distress. HEENT is unremarkable. Chest: Clear to auscultation and percussion. Heart sounds are regular and rhythmic. I do not hear a gallop or murmur. Abdomen is nontender. No masses. No hepatomegaly. Extremities showed trace edema. Pulses are diminished. Neurologic: He follows commands and moves all 4 extremities. DIAGNOSTIC DATA: Blood work showed hemoglobin 10, hematocrit 29.5. His MCV is 77.2. His platelet count is 220,000. Sodium is 137, potassium 4.3, BUN is 22, creatinine 1.8. His troponins were checked, a total of 5, and they were 0.055, 0.047, 0.059, 0.052 and 0.064. All of his CPKs were normal. The ProBNP was checked also and initially was 6300 and subsequently is 4788. His initial chest x-ray showed cardiomegaly with mild pulmonary edema, dated 02/25/2017. Then on 02/26/2017, chest x-ray shows stable chest. IMPRESSION: 1. The patient presented with decompensated chronic systolic heart failure with pulmonary edema. There is acute on chronic systolic heart failure. 2. History of severe multivessel coronary artery disease status post recent coronary bypass procedure. 3. Hypertension. 4. Mild chronic kidney disease. 5. Microcytic anemia. RECOMMENDATIONS: We will continue present regimen that includes valsartan, digoxin, spironolactone, isosorbide dinitrate, hydralazine and beta blockers. They have added amlodipine. Consideration may be given at doubling up on the isosorbide dinitrate and discontinuing amlodipine. The other issue is his anemia. I may want to check and see if he has evidence of iron deficiency and if he does, we should probably go ahead and give him some IV iron supplementation. Further advice will be forthcoming. Thank you for the opportunity to participate in his evaluation. cc: Reggie Tran MD
--- NOTE | 2017-02-27 11:37 | PROGRESS NOTE ---
DATE: 02/27/2017 SUBJECTIVE: Patient reports breathing better. He reports some chest discomfort. OBJECTIVE: Vital Signs: Temperature 98.6 degrees, heart rate 89, respiratory 16, blood pressure 144/91, O2 saturation 100% 2 L nasal cannula. General Examination: This is a 37-year-old obese and chronically ill-looking, male, lying in bed, in no acute distress. HEENT: Head is normocephalic, atraumatic. Anicteric sclerae and pale conjunctivae. Mucous membranes moist. Neck: Supple. No JVD noted. No carotid bruits. No lymphadenopathy. No thyromegaly. Cardiovascular: S1, S2 heard. No murmurs, gallops, or rubs. Regular rate and rhythm. Respiratory: Clear bilaterally to auscultation. A few crackles in both bases. Patient not using any accessory muscles or having work of breathing. Abdomen: Soft, nontender to palpation. Bowel sounds present. No organomegaly. Extremities: Lower extremity edema. Peripheral pulses present in both legs. Neurological: Patient is alert and oriented x3. Moves 4 extremities. LABORATORY DATA: Reviewed. ASSESSMENT AND PLAN: 1. Acute on chronic systolic heart failure. 2. Ischemic cardiomyopathy with ejection fraction of 20%. 3. Coronary artery disease, status post coronary artery bypass graft. 4. Hypertension. 5. Hyperlipidemia. 6. Chronic kidney disease stage 2. 7. Diabetes mellitus type 2. 8. Gastroesophageal disease. 9. Chronic pain syndrome. 10. Pulmonary hypertension. PLAN: The patient has been evaluated here in the hospital and continues to improve. Less difficulty in breathing. We will continue with diuresis with Lasix. The doses of losartan has been increased and at this time, we will continue following recommendations from Cardiology. For hypertension blood pressure is fine so that allows us to readjust the doses of losartan. For the rest of medical conditions we are going to continue with the same management. cc: Bryan Hameed MD
[2017-02-27 11:40] LABS: IRON SATURATION 11 %; TIBC 222 ug/dL; TOTAL IRON 25 ug/dL (53-167); UNBOUND IRON 197 ug/dL (112-346)
[2017-02-27] MEDS: VENOFER IV SCH (11:58)
[2017-02-27] MEDS: THERA M PLUS PO SCH (11:58)
[2017-02-27] MEDS: NORVASC PO SCH (17:27)
[2017-02-28] MEDS: MORPHINE IV PRN ×4 (01:34→21:16)
[2017-02-28 05:15] LABS: MANUAL DIFF NEEDED? NO
[2017-02-28 05:20] LABS: BASO% 0.6 % (0.0-0.8); EOS% 4.3 % (0.0-10.0); HEMATOCRIT 28.5 % (42.0-52.0); HEMOGLOBIN 9.8 g/dL (14.0-18.0); LYMPH# 1.25 X1000 (1.2-3.4); LYMPH% 26.8 % (20.5-51.1); MCH 26.5 PG (27-31); MCHC 34.4 g/dL (33-37); MONO# 0.51 X1000 (0.11-0.59); MONO% 10.9 % (1.7-9.3); MPV 9.9 FL (7.4-10.4); NEUT% 57.4 % (42.2-75.2); PLT 225 X1000 (130-400)
[2017-02-28 05:35] LABS: CALCIUM 8.5 mg/dL (8.8-10.2); POTASSIUM 4.7 mmol/L (3.5-5.1)
[2017-02-28] MEDS: HUMULIN R SUBQ SCH ×4 (06:26→21:16)
--- NOTE | 2017-02-28 07:38 | PROGRESS NOTE ---
DATE: 02/28/2017 SUBJECTIVE: Patient reports breathing better. No chest discomfort today. OBJECTIVE: Vital Signs: Temperature 98 degrees, heart rate 82, blood pressure 148/83, O2 saturation 100% on 2 L nasal cannula. General Examination: This is a 37-year-old, obese, and chronically ill-looking, male, lying in bed, in no acute distress. HEENT: Head is normocephalic and atraumatic. Anicteric sclerae and pale conjunctivae. Mucous membranes are moist. Neck: Supple. No JVD noted. No carotid bruits. No lymphadenopathy. No thyromegaly. Cardiovascular Examination: S1 and S2 heard. No murmurs, gallops, or rubs. Regular rate and rhythm. Respiratory Examination: Clear bilaterally to auscultation. No crackles today on physical examination. Patient is not using any accessory muscles or having work of breathing. Abdomen: Soft, nontender to palpation. Bowel sounds present. No organomegaly. Extremities: Mild lower extremity edema. Peripheral pulses present in both legs. Neurological Examination: Patient is alert and oriented x3. Moves 4 extremities. Laboratory Data: Reviewed. ASSESSMENT AND PLAN: 1. Acute on chronic systolic heart failure. 2. Ischemic cardiomyopathy with ejection fraction of 20%. 3. Coronary artery disease, status post coronary artery bypass graft. 4. Hypertension. 5. Hyperlipidemia. 6. Chronic kidney disease stage II. 7. Diabetes mellitus type 2. 8. Gastroesophageal reflux disease. 9. Chronic pain syndrome. 10. Pulmonary hypertension. PLAN: The patient is responding to the medications for heart failure. We have increased the dose of losartan to 160 and blood pressure is definitely good. Further recommendations regarding changing in medication for heart failure will be left for cardiology. The labs revealed iron deficiency anemia yesterday so he was started on Venofer IV. I think this patient overall is doing fine and almost back to baseline. If the patient continues to improve like today and can if okay with cardiology, we can discharge him tomorrow. cc: Bryan Hameed MD
[2017-02-28] MEDS: ALDACTONE PO SCH (08:22)
[2017-02-28] MEDS: LANOXIN PO SCH (08:22)
[2017-02-28] MEDS: ISORDIL PO SCH ×3 (08:22→16:58)
[2017-02-28] MEDS: ASPIRIN PO SCH (08:22)
[2017-02-28] MEDS: COREG PO SCH ×2 (08:22→21:15)
[2017-02-28] MEDS: APRESOLINE PO SCH ×3 (08:23→16:58)
[2017-02-28] MEDS: THERA M PLUS PO SCH (08:23)
[2017-02-28] MEDS: DIOVAN PO SCH (08:23)
[2017-02-28] MEDS: LASIX IV SCH ×2 (08:23→21:15)
[2017-02-28] MEDS: LOVENOX SUBQ SCH (08:23)
[2017-02-28] MEDS: VENOFER IV SCH (08:23)
--- NOTE | 2017-02-28 14:32 | PROGRESS NOTE ---
DATE: 02/28/2017 CHIEF COMPLAINT: Chest discomfort and shortness of breath. SUBJECTIVE: Mr. Coats is breathing much more comfortably today. He is not having any pains. He has been up and about. He definitely feels like he is making progress. OBJECTIVE: Blood pressure is 107/55, temperature 98.2, pulse 78, respirations 18. He is awake, alert, oriented, no distress. HEENT is unremarkable. Chest: Clear to auscultation and percussion. Heart sounds regular and rhythmic. No gallop or murmur. Abdomen: Nontender. Extremities showed no edema. Neurologic: He follows commands and moves all 4 extremities. DIAGNOSTIC DATA: Blood work shows sodium 134, potassium 4.7, BUN is 24, creatinine 2.2. White count is 4670, hemoglobin 9.8. IMPRESSION: 1. The patient presented with decompensated congestive heart failure secondary to ischemic cardiomyopathy and previous coronary bypass surgery. He has acute on chronic systolic heart failure. 2. History of hypertension. 3. Chronic kidney disease, mild degree. 4. Iron deficiency anemia. RECOMMENDATIONS: At this point in time, we will continue present therapy. We have initiated iron replacement for iron deficiency anemia. Symptomatically he is improving. We will follow. cc: Reggie Tran MD
[2017-02-28] MEDS: NORVASC PO SCH (18:58)
[2017-03-01] MEDS: MORPHINE IV PRN ×2 (05:18→09:53)
[2017-03-01 05:23] LABS: MANUAL DIFF NEEDED? NO
[2017-03-01 05:48] LABS: EOS# 0.27 X1000 (0.0-0.7); EOS% 5.3 % (0.0-10.0); HEMATOCRIT 29.5 % (42.0-52.0); HEMOGLOBIN 10.1 g/dL (14.0-18.0); LYMPH# 1.38 X1000 (1.2-3.4); LYMPH% 26.9 % (20.5-51.1); MCH 26.4 PG (27-31); MCHC 34.2 g/dL (33-37); MCV 77.2 FL (81-99); MONO# 0.61 X1000 (0.11-0.59); MONO% 11.9 % (1.7-9.3); MPV 10.4 FL (7.4-10.4); NEUT% 54.9 % (42.2-75.2); PLT 227 X1000 (130-400); RBC 3.82 XMIL (4.7-6.1)
[2017-03-01 05:52] LABS: CALCIUM 8.5 mg/dL (8.8-10.2); MAGNESIUM 2.1 mg/dL (1.5-2.7); POTASSIUM 4.7 mmol/L (3.5-5.1)
[2017-03-01] MEDS: HUMULIN R SUBQ SCH ×2 (06:27→11:10)
[2017-03-01] MEDS: ISORDIL PO SCH ×2 (08:02→12:30)
[2017-03-01] MEDS: LASIX IV SCH (08:02)
[2017-03-01] MEDS: VENOFER IV SCH (08:02)
[2017-03-01] MEDS: APRESOLINE PO SCH ×2 (08:03→12:30)
[2017-03-01] MEDS: COREG PO SCH (08:03)
[2017-03-01] MEDS: ASPIRIN PO SCH (08:03)
[2017-03-01] MEDS: LANOXIN PO SCH (08:03)
[2017-03-01] MEDS: THERA M PLUS PO SCH (08:03)
[2017-03-01] MEDS: ALDACTONE PO SCH (08:03)
[2017-03-01] MEDS: LOVENOX SUBQ SCH (08:04)
[2017-03-01] MEDS: DIOVAN PO SCH (09:44)
[2017-03-01 12:08] VITALS: BP 96/58
--- NOTE | 2017-03-02 05:57 | DISCHARGE SUMMARY ---
ADMISSION DATE: 02/25/2017 DISCHARGE DATE: 03/01/2017 CONSULTATIONS: Dr. Stepan Stephenson with cardiology. PERTINENT PROCEDURES: 1. Chest x-ray showed little change from prior cardiomegaly with mild pulmonary edema. Follow up chest x-ray showed no significant change in the appearance of the chest since last exam. 2. Echocardiogram showed dilated left ventricle with severely reduced systolic function. The EF is 20-25%, dyskinesis of the left ventricle apex associated with layered thrombus. DISCHARGE DIAGNOSES: 1. Acute on chronic systolic heart failure, improved. 2. Ischemic cardiomyopathy with an ejection fraction of 20%. 3. Coronary artery disease status post coronary artery bypass graft. 4. Hypertension. Continue home medicines. 5. Hyperlipidemia. 6. Chronic kidney disease stage 2, stable. 7. Diabetes mellitus type 2. 8. Gastroesophageal reflux disease. Continue proton pump inhibitors. 9. Chronic pain syndrome. 10. Pulmonary hypertension, aware. HOSPITAL COURSE: Mr. Coats is an unfortunate 37-year-old -[place] male with a medical history of coronary artery disease status post CABG x 3 in October,, chronic kidney disease, hyperlipidemia, hypertension, diabetes mellitus type 2 and medical noncompliance. The patient presented to the ED with shortness of breath and chest pain. He was recently admitted on 02/15/2017 through 02/22/2017. He was at that time admitted for pneumonia and acute on chronic systolic congestive heart failure. He did state at time of his discharge he felt good, but on that Wednesday evening following his discharge. He started feeling winded he had not slept well through the night. In the morning he woke up with chest pressure and continued shortness of breath. He was weighing himself daily and he had gone down 1-2 pounds. He denies not taking any medications, but that he has been taking all his medications as prescribed. He was admitted to [facility] with cardiology consult. Chest x-ray did reveal cardiomegaly and mild pulmonary edema with little change from prior admits. He did receive IV Lasix in the ED. He did have 3 sets of cardiac enzymes related to continued chest pain. Dr. Stephenson recommended to continue with diuresis with IV Lasix and transition to an Jhon as tolerated with an ultimate plan to consider use of Entresto and maintain anticoagulation, and also initiated on iron replacement for his iron deficiency anemia. The patient's losartan has been increased to 160. His blood pressures have remained. He did receive a dose of IV Venofer. Symptomatically the patient has improved. Dr. Ellington has discharged the patient today. PHYSICAL EXAMINATION: Vital signs at the time of his discharge, temperature was 99.1 degrees, heart rate 85, respirations 14, blood pressure was 137/88, O2 is 100% on 2 L nasal cannula. Aviation [employer]dnance Officer was consulted. They have made a referral to the [place] program for medication help. DISCHARGE MEDICATIONS: As per Dr. Ellington: 1. Norvasc 5 mg p.o. daily. 2. Aspirin 81 mg p.o. daily. 3. Carvedilol 6.25 mg p.o. b.i.d. 4. Digoxin 125 mcg p.o. q.a.m. 5. Lasix 40 mg p.o. b.i.d. 6. Apresoline 50 mg p.o. t.i.d. 7. Isordil 40 mg p.o. t.i.d. 8. Prinivil 20 mg p.o. daily. 9. Aldactone 25 mg p.o. daily. 10. Valsartan 160 mg p.o. daily. FOLLOW-UP: The patient is being discharged back home. He will need to follow up with Dr. Tran. The patient already has a time schedule. He can return to the ED for any worsening of symptoms. DISCHARGE TIME: 30 minutes. Dictated by YFN Cole for Bryan Hameed MD cc: Bryan Hameed MD
== END 2017-03-01 15:35 | disposition home or self-care (01) ==
LOC: ED 11:59 → 3S 16:13
PROVIDERS: ATTEND Internal Medicine

== ENCOUNTER 2017-03-22 11:16 | Inpatient (IN) ==
[2017-03-22] MEDS ORDERED: ZOFRAN IV PRN (12:47)
[2017-03-22] MEDS ORDERED: TYLENOL PO PRN (12:47)
[2017-03-22 13:15] LABS: ALLEN TEST YES; BE -0.4 mmoll (-3.0-3.0); BLOOD TYPE ARTERIAL; DRAW SITE R RADIAL; METHB 0.9 % (0.0-1.5); O2(CT) 13.8 mL/dL (15.0-23.0); PCO2(98.6) 38 mmHg (35-45); PO2(98.6) 90 mmHg (60-100); SAMPLE BLOOD; SAO2 98.5 % (95.0-100.0); THB 10.1 g/dL (11.5-17.4); pH(98.6) 7.41 (7.35-7.45)
[2017-03-22 13:16] LABS: MODALITY ROOM AIR
[2017-03-22] MEDS: NORCO-7.5 PO PRN (14:09)
[2017-03-22] MEDS ORDERED: MUCOMYST 20% PO ONE (14:12)
[2017-03-22 14:24] LABS: MANUAL DIFF NEEDED? NO
[2017-03-22 14:26] LABS: BASO% 0.4 % (0.0-0.8); EOS% 1.2 % (0.0-10.0); HEMOGLOBIN 9.7 g/dL (14.0-18.0); LYMPH# 1.03 X1000 (1.2-3.4); LYMPH% 12.6 % (20.5-51.1); MCH 26.6 PG (27-31); MCHC 34.6 g/dL (33-37); MCV 76.7 FL (81-99); MONO# 0.73 X1000 (0.11-0.59); MONO% 8.9 % (1.7-9.3); MPV 9.7 FL (7.4-10.4); NEUT% 76.9 % (42.2-75.2); PLT 291 X1000 (130-400); RBC 3.65 XMIL (4.7-6.1)
[2017-03-22 14:38] LABS: PROTIME 10.5 Seconds (9.2-11.7); PTT 31.8 Seconds (22.0-36.0)
[2017-03-22 14:46] LABS: ALBUMIN 3.2 g/dL (3.5-5.0); CALCIUM 8.8 mg/dL (8.8-10.2); MAGNESIUM 1.9 mg/dL (1.5-2.7); POTASSIUM 3.9 mmol/L (3.5-5.1); TOTAL BILIRUBIN 0.27 mg/dL (0.20-1.00); TOTAL PROTEIN 8.6 g/dL (6.3-8.3)
--- NOTE | 2017-03-22 14:57 | EKG Report ---
Test Performed on : 03/22/2017 12:55:45 PM Test Reason : chest pain Blood Pressure : / mmHG Vent. Rate : 075 BPM Atrial Rate : 075 BPM P-R Int : 164 ms QRS Dur : 102 ms QT Int : 342 ms P-R-T Axes : 029 010 145 degrees QTc Int : 381 ms Normal sinus rhythm. Possible Left atrial enlargement Incomplete right bundle branch block Left ventricular hypertrophy with repolarization abnormality Anterior infarct (cited on or before 27-MAR-2015) Abnormal ECG When compared with ECG of 26-FEB-2017 06:32, T wave inversion less evident in Anterior leads Confirmed by Jeff BENNETT, Michael Callejas ([id number]) on 03/23/2017 6:21:51 PM
--- NOTE | 2017-03-22 15:55 | Diag Imaging Result Doc PS360 ---
EXAM: CHEST-2 VIEWS HISTORY: sob TECHNIQUE: COMPARISON: 02/26/2017 FINDINGS: The lungs are well expanded. The heart is not enlarged. The vessels are not distended. There are no infiltrates. No pleural effusions. Sternal wires are present. IMPRESSION: No acute abnormality. Electronically signed by Simone Avendano 03/22/2017 3:53 PM
--- NOTE | 2017-03-22 16:02 | Diag Imaging Result Doc PS360 ---
EXAM: FOOT COMPLETE RIGHT HISTORY: right toe ulcer TECHNIQUE: Three views COMPARISON: None. FINDINGS: There is a lucent area to the proximal portion of the proximal phalanx of the second toe. The cortex is thinned. Questionable tiny lucent area to the proximal third toe as well. Moderate atherosclerosis. IMPRESSION: Findings suspicious for osteomyelitis to the proximal second toe although the appearance could be due to a transverse fracture. Questionable tiny area of bone destruction to the proximal third toe. An MRI may be beneficial. Electronically signed by Simone Avendano 03/22/2017 4:00 PM
[2017-03-22] MEDS: NEURONTIN PO SCH (17:27)
[2017-03-22] MEDS: NORVASC PO SCH (17:28)
[2017-03-22] MEDS: ROCEPHIN 1 GM/NS 1 GM/50 ML IVPB IV SCH (17:28)
[2017-03-22] MEDS: APRESOLINE PO SCH (17:28)
[2017-03-22] MEDS: ISORDIL PO SCH (17:28)
[2017-03-22] MEDS: HUMULIN R SUBQ SCH ×2 (17:29→21:35)
[2017-03-22] MEDS: MORPHINE IV PRN ×2 (17:30→21:40)
[2017-03-22] MEDS ORDERED: NS 1,000 ML IV SCH (18:27)
--- NOTE | 2017-03-22 19:58 | HISTORY AND PHYSICAL ---
PRIMARY CARE PROVIDER: No one. CHIEF COMPLAINT: Pain in the right 2nd toe for 2 weeks. HISTORY OF PRESENT ILLNESS: Mr. Tyrnoe Coats is a 37-year-old male with a medical history of coronary artery disease, status post myocardial infarction and CABG, systolic congestive heart failure with an ejection fraction of 20-25%, hypertension, diabetes mellitus type 2, chronic leg pain, CKD stage 2 and MRSA on his back who apparently presented on 03/16/2017 with complaints of right foot pain and tingling in that leg. He states he has been having this pain on the right foot for about 5 months, but that over the past 2 weeks he noticed a blister that had come up on the inside of his right 2nd toe. The blister had opened and started draining and causing severe pain and throbbing. When he presented on 03/16/2017, he was prescribed Augmentin and Septra DS. The patient states that he has been taken this medication as prescribed. During this visit they also did a culture of his wound on the toe, which revealed it is positive for serratia marcescens. He presented today to Dr. Ta who then felt it was appropriate to direct admit Mr. Coats for further workup. He wants to have him started on IV antibiotics and hydrate him and his kidneys for a CTA tomorrow. We will reconsult Dr. Ta, start him on Mucomyst for kidney protection and start on Rocephin as his Serratia sensitive to Rocephin. We will repeat an x-ray of the right foot to rule out osteomyelitis. We will re-swab the wound. He has a normal white blood cell count and he is afebrile, although he does complain of chills that started yesterday. PAST MEDICAL HISTORY: 1. Coronary artery disease with myocardial infarction, status post CABG. 2. Chronic systolic congestive heart failure with an ejection fraction of 20-25% from an echo on 02/26/2017. 3. Hypertension. 4. Hyperlipidemia. 5. Diabetes mellitus type 2 with hemoglobin A1c of 8.4% on 02/04/2017. 6. Iron deficiency anemia with an iron level of 25 on 02/27/2017. 7. Ischemic cardiomyopathy. 8. Pulmonary hypertension, last pulmonary artery pressure on 02/26/2017 being 56 mmHg. 9. Chronic leg pain. 10. History of MRSA on his back. 11. CKD stage 2 with a creatinine baseline running anywhere from 1.5 to 2.6 this year. SURGICAL HISTORY: Incision and drainage of his back October 2016, had a CABG x3 and a left heart catheterization in February 2016. SOCIAL HISTORY: Quit smoking last year. Apparently smoked for 18 years. Denies alcohol. States that he stopped drinking last year. Denies illicit drug use. FAMILY HISTORY: Positive for coronary artery disease. REVIEW OF SYSTEMS: 14 point review of systems were completed and all were negative except for those mentioned above HPI. He states his pain in that toe is 9 to 10/10 and throbbing. ALLERGIES: No known drug allergies. HOME MEDICATIONS: Norvasc 5 mg p.o. daily. Aspirin 81 mg p.o. daily. Coreg 6.25 mg p.o. twice daily. Digoxin 125 mcg p.o. daily. Lasix 40 mg p.o. twice daily. Neurontin 300 mg p.o. 3 times a day. Insulin 70/30. Hydralazine 50 mg p.o. t.i.d. Joppa 5, 1 tab p.o. as needed. Isosorbide dinitrate 40 mg p.o. t.i.d. Lisinopril 20 mg p.o. daily. Spironolactone 25 mg p.o. daily. Valsartan 160 mg p.o. daily. PHYSICAL EXAMINATION: VITAL SIGNS: Temperature is 98.7 degrees, heart rate 84, respiratory rate 20, blood pressure 137/85, O2 saturation 99% on room air. He is 6 feet 1 inch tall, 250 pounds. BMI is 33. GENERAL: Mr. Coats is a 37-year-old, male, he is in no acute distress. He is able answer questions appropriately. HEENT: Atraumatic, normocephalic. Pupils equal, round, reactive to light. Extraocular movements intact. Mucous membranes moist. NECK: No JVD or carotid bruits noted. CARDIOVASCULAR: S1, S2. Regular rate and rhythm. No rubs, gallops, murmurs. PULMONARY: Clear to auscultation. Bilateral breath sounds. No accessory muscle use or work of breathing noted. GI: Soft, nontender, nondistended. Positive bowel sounds x4. EXTREMITIES: Positive Doppler pulses bilateral dorsalis pedal, +1 posterior tibial. Lower extremities are warm to touch with 1+ edema. Right 2nd toe on the inside with different stages of wound ulcerations noted with purulent drainage. NEUROLOGIC: Alert and oriented x4. Moves all extremities equally. SKIN: Warm, dry, intact, except for ulceration of the 2nd toe on the right foot. LABORATORY DATA: White blood cells 8000, hemoglobin 9, hematocrit 28, platelet count 291,000. INR is 1. PTT 31.8. Arterial blood gases: PH 7.41, pCO2 38, PO2 90, bicarb 24, base excess - 0.4, saturation 94%. Lactate 0.8. This is on room air. Sodium 133, potassium 3.9, BUN 35, creatinine is 2, glucose 214, calcium 8.8, magnesium 1.9. Bilirubin 0.27, AST 13, ALT 11, CK 183, troponin 0.051, total protein is 8.6, albumin 3.2. Urinalysis pending. Urine studies pending. Wound culture pending. Blood cultures pending. IMAGING: Chest x-ray not available yet. Right foot x-ray not available yet. EKG normal sinus rhythm, possible left atrial enlargement. Incomplete right bundle branch block, left ventricular hypertrophy, rate is 75, QTc is 381. ASSESSMENT/PLAN: 1. Right 2nd toe diabetic foot ulcer that is positive for serratia marcescens that was cultured on 03/16/2017 which is also sensitive to ceftriaxone, which we will start. He is afebrile. His white count is normal. We will follow up with x-ray of the right foot. Dr. Ta has been reconsulted for further evaluation. 2. Left superficial femoral arterial occlusion with some popliteal tibial disease on the right, but adequate flow for right foot healing. Again, he is on aspirin. We will consult Dr. Ta. His arterial study was from 12/08/2016. He had a venous ultrasound of the lower extremities on 02/04/2017 which showed no deep venous thrombosis at that time, but at that time continued to show disease bilaterally at the right popliteal artery, left common femoral, left superficial femoral artery. 3. Coronary artery disease with history of ischemic cardiomyopathy, myocardial infarction and coronary artery bypass graft. Continue with aspirin, Coreg, digoxin, Lasix. 4. Ischemic cardiomyopathy with chronic systolic congestive heart failure. No acute exacerbation noted. Ejection fraction was 20-25% last month. Continue with valsartan, spironolactone, lisinopril, Lasix, digoxin, Coreg, aspirin, currently no statin noted. 5. Pulmonary hypertension. Continue with isosorbide dinitrate. 6. Diabetes mellitus type 2. Uncontrolled. We will continue with sliding scale insulin and pattern blood glucoses. 7. Chronic pain in the legs. We will continue with Joppa. 8. Chronic kidney disease stage 2. Continue medications. We will do Mucomyst per Dr. Ta. We will hold on Lasix for now and may possibly give IV fluids, but there is high risk for fluid volume overload given poor ejection fraction. 9. Deep venous thrombosis prophylaxis. Sequential Compression Devices. Dictated by YFN Otto for Ronal Regan MD cc: YFN Otto MD
[2017-03-22 21:07] LABS: URINE CULTURE NEEDED? NO; URINE MICRO REVIEW NEEDED? NO; URINE SOURCE CLEAN CATCH
[2017-03-22 21:09] LABS: BILIRUBIN URINE NEGATIVE (NEGATIVE); BLOOD URINE SMALL (NEGATIVE); COLOR YELLOW; GLUCOSE URINE TRACE mg/dL (NEGATIVE); LEUKOCYTES URINE NEGATIVE (NEGATIVE); NITRITE URINE NEGATIVE (NEGATIVE); PROTEIN URINE 300 mg/dL (NEGATIVE); SP GRAVITY URINE 1.015; TURBIDITY URINE CLEAR (CLEAR); UROBILINOGEN URINE NORMAL (NORMAL)
[2017-03-22 21:10] LABS: UR EPITHELIAL CELLS <10 /HPF (<10); URINE BACTERIA NEGATIVE /HPF; URINE RBC <10 /HPF (<10); URINE WBC <10 /HPF (<10)
[2017-03-22] MEDS: NS 1,000 ML IV SCH (21:34)
[2017-03-22] MEDS: SODIUM BICARBONATE PO SCH (21:34)
[2017-03-22] MEDS: COREG PO SCH (21:35)
[2017-03-23] MEDS: MORPHINE IV PRN ×5 (01:40→20:42)
[2017-03-23] MEDS: HUMULIN R SUBQ SCH ×4 (06:03→20:41)
[2017-03-23 06:31] LABS: MANUAL DIFF NEEDED? NO
[2017-03-23 06:46] LABS: BASO% 0.3 % (0.0-0.8); EOS# 0.17 X1000 (0.0-0.7); EOS% 2.2 % (0.0-10.0); HEMATOCRIT 27.8 % (42.0-52.0); HEMOGLOBIN 9.5 g/dL (14.0-18.0); IMM GRAN# 0.02 X1000 (0.0-0.04); IMM GRAN% 0.3 % (0.0-0.5); LYMPH# 1.44 X1000 (1.2-3.4); LYMPH% 18.8 % (20.5-51.1); MCH 26.4 PG (27-31); MCHC 34.2 g/dL (33-37); MCV 77.2 FL (81-99); MONO# 0.78 X1000 (0.11-0.59); MONO% 10.2 % (1.7-9.3); MPV 9.6 FL (7.4-10.4); NEUT% 68.2 % (42.2-75.2); PLT 277 X1000 (130-400)
[2017-03-23 06:47] LABS: INR 1.02; PROTIME 10.7 Seconds (9.2-11.7); PTT 31.5 Seconds (22.0-36.0)
[2017-03-23 07:08] LABS: CALCIUM 8.6 mg/dL (8.8-10.2); MAGNESIUM 1.8 mg/dL (1.5-2.7); POTASSIUM 4.3 mmol/L (3.5-5.1); TOTAL BILIRUBIN 0.24 mg/dL (0.20-1.00); TOTAL PROTEIN 7.4 g/dL (6.3-8.3)
[2017-03-23] MEDS: LANOXIN PO SCH (09:00)
[2017-03-23] MEDS: ASPIRIN PO SCH (09:00)
[2017-03-23] MEDS: COREG PO SCH ×2 (09:00→20:41)
[2017-03-23] MEDS: NEURONTIN PO SCH ×3 (09:00→17:03)
[2017-03-23] MEDS ORDERED: PRINIVIL PO SCH (09:00)
[2017-03-23] MEDS: APRESOLINE PO SCH ×3 (09:00→17:03)
[2017-03-23] MEDS: MUCOMYST 20% PO SCH (09:00)
[2017-03-23] MEDS: SODIUM BICARBONATE PO SCH ×2 (09:00→20:41)
[2017-03-23] MEDS: ALDACTONE PO SCH (09:00)
--- NOTE | 2017-03-23 09:41 | Diag Imaging Result Doc PS360 ---
EXAM: ANGIOGRAM/AORTA W/RUNOFF INDICATION: peripheral vascular disease COMPARISON: Conventional CT of the abdomen and pelvis dated 03/27/2015 FINDINGS: There is no significant aortic atherosclerotic disease. There is no evidence of aneurysm. There is fairly mild common iliac artery atherosclerotic disease with only minimal narrowing. There is more significant internal iliac artery atherosclerotic disease. There is trace calcification involving the distal external iliac artery. Both external iliac arteries remain patent. The celiac trunk, mesenteric arteries, and renal arteries are all widely patent. There is stable dense calcification in the left renal vein. There is no evidence of acute abdominal or pelvic pathology. Right lower extremity: There is no significant atherosclerotic disease involving the common femoral artery or the deep femoral artery. There is only mild atherosclerotic disease involving the superficial femoral artery, mainly distally. It remains patent. However, at the proximal popliteal artery there are couple short segments where there is significant stenosis. There is actually subtotal occlusion at a short segment of the proximal popliteal artery. However, it does remain patent. Distally, the popliteal artery does become totally occluded. The anterior tibial artery is totally occluded throughout its course. The proximal portions of the posterior tibial artery and peroneal artery are occluded. However, both of these arteries appear to become reconstituted via collateralization at the proximal to mid calf. They appear to be providing limited two-vessel runoff to the foot. Left lower extremity: There is no significant atherosclerotic disease involving the common femoral artery. The superficial femoral artery is totally occluded throughout its entire course. Flow is maintained in the deep femoral artery. Flow is reconstituted at the popliteal artery via collateralization. The popliteal artery remains patent thereafter. The anterior tibial artery is entirely occluded throughout its course. There is at least subtotal occlusion of the tibioperoneal trunk. Throughout a majority of its course, the posterior tibial artery is occluded. It appears to be reconstituted near the level of the ankle and provides limited runoff to the foot. There is patchy atherosclerotic disease involving the peroneal artery with at least subtotal occlusion proximally. However, it appears to remain patent and provide runoff to the foot. IMPRESSION: Extensive atherosclerotic disease involving both lower extremities as described that is far advanced for the age of the patient. Electronically signed by Raymond Colon 03/23/2017 9:38 AM
[2017-03-23] MEDS: PRILOSEC PO SCH (11:06)
[2017-03-23] MEDS: ISORDIL PO SCH ×3 (11:07→17:03)
[2017-03-23] MEDS: DIOVAN PO SCH (11:08)
--- NOTE | 2017-03-23 11:25 | PROGRESS NOTE ---
DATE: 03/23/2017 SUBJECTIVE: Had some pain in his right foot. He was admitted. He was hydrated and started on renal protection protocol overnight. Otherwise, no issues. PHYSICAL EXAMINATION: Vital Signs: Temperature is 98.5, pulse 78, blood pressure 156/98, oxygen saturation is 98% on room air. General: He is alert, in no acute distress. Cardiovascular: Normal rate, regular rhythm. Extremities: His right foot is warm. The 2nd toe has an ulcer at the base with some purulent drainage here. There is a small ulcer on the dorsal aspect overlying the third metatarsal area. There is some mild chronic appearing skin changes to his foot but I do not see a significant amount of edema or cellulitis extending up the leg. Left foot is warm and adequately perfused. LABS: White count 7, hematocrit is 27. Creatinine is 1.8 this morning. ASSESSMENT AND PLAN: This is a 37-year-old, male with severe coronary and peripheral vascular disease. I have admitted him. Gently hydrated him. He has had Mucomyst and oral bicarbonate in the name of renal protection so we can obtain an angiogram to evaluate for his known arterial occlusions that he has in his lower extremities. His AMANDA on the right 0.7 and left 0.6. He has got a known superficial femoral artery occlusion on the left. We need to find and ensure that he does not have any aortoiliac disease that is progressing. A long discussion. His plain films of his foot showed osteomyelitis with pathologic fracture of the 2nd toe as well as some possible osteomyelitic changes of the proximal third toe. I suspect that these are both involved, given the examination of his foot. Discussed with the patient that he needs to have amputation of his 2nd and 3rd toes with debridement of foot likely back to the transmetatarsal level. We will also obtain a CT angiogram today and plan for possible combined vascular procedure versus delayed in the future to facilitate wound healing. I suspect he has bilateral disease. Has at least claudication, if not occasional rest pain in his left lower extremity but we will pursue the right at this point, given his wound here, and monitor the left over the next couple of weeks. I would continue his broad-spectrum antibiotics. I appreciate the hospitalist's help with this patient. cc: Rach Ta MD
--- NOTE | 2017-03-23 15:01 | PROGRESS NOTE ---
DATE: 03/23/2017 SUBJECTIVE: Today Mr. Coats refers to be doing fine. Complains of some pain in the legs. Patient had a CTA done this morning. He denies any chest pain or shortness of breath. OBJECTIVE: Vitals: Blood pressure is 167/84, pulse of 77, respiration is 16, temperature is 98.6 degrees. General Exam: Mr. Coats is a 34-year-old male. He is in bed. He does not seem to be in any distress. HEENT: Mucosa is pink and moist. Anicteric. Acyanotic. Neck: Supple. Chest: Clear. Cardiovascular: Regular rate and rhythm. Abdomen: Soft. Mildly distended. Extremities: In the right lower extremity the 2nd toe has some ulcerations and there is some discoloration on top of the foot itself. Pulses are extremely poor to palpate. MUSIC PUBLICIST: Patient is alert and oriented. There is no focal neurological deficit. LABORATORY DATA: WBC is 7.67, hemoglobin is 9.5, platelet count of 277. Chemistry is reviewed. Creatinine is down to 1.8. All the rest of chemistry is fine. The patient does have a baseline creatinine that ranges anywhere between 1.3 to 2.6. IMAGING STUDIES: An aorta runoff CTA was done today which shows extensive atherosclerotic disease involving both lower extremities. ASSESSMENT: 1. Right 2nd toe with ulceration. Previous culture shows Serratia marcescens. Patient is on antibiotics now and being evaluated by Surgery for possible amputation and revascularization. 2. Severe atherosclerotic burden noted. 3. Severe peripheral vascular disease. 4. Coronary artery disease status post bypass graft. 5. Ischemic cardiomyopathy with congestive heart failure. Ejection fraction of 20%-25%. 6. Chronic kidney disease stage 3b. cc: Ronal Regan MD
[2017-03-23] MEDS: NS 1,000 ML IV SCH (15:17)
[2017-03-23] MEDS: LOVENOX SUBQ SCH (15:17)
--- NOTE | 2017-03-23 15:27 | CONSULTATION ---
DATE OF CONSULTATION: 03/23/2017 CHIEF COMPLAINT: Significant vascular disease with a right diabetic foot infection. HISTORY: A 37-year-old, black male, who is admitted with a right foot infection. He underwent a CT angiogram revealing popliteal occlusion and probable peroneal and posterior tibial and anterior tibial occlusions. He does have what appears to be peroneal and posterior tibial runoff with the posterior tibia going all the way to his foot. In view of his foot infection, I have been asked to evaluate him for possible revascularization to help heal his wounds. He is scheduled for amputation of 2 toes and debridement of the foot for 03/24/2017. OTHER MEDICAL PROBLEMS: Coronary disease, post coronary bypass, for which both leg veins were harvested. He has chronic systolic congestive heart failure with an EF of 20%-25% and a history of hypertension, hyperlipidemia, type 2 diabetes, pulmonary hypertension, chronic kidney disease stage 2 with his baseline creatinine running between 1.5 and the low 2s. SOCIAL HISTORY: He apparently has quit smoking now. FAMILY HISTORY: Pertinent for coronary disease. REVIEW OF SYSTEMS: As noted above. PHYSICAL EXAMINATION: Vital Signs: Afebrile. Heart rate 76, respiratory rate 16, blood pressure 167/84. Chest: Bilateral breath sounds. Heart: Regular rate and rhythm. Abdomen: Soft. Extremities: Femoral pulses are present. No popliteal or pedal pulses are present. There is swelling in the right foot. There is ulceration present and purulent drainage. LABORATORY DATA: White count is 7600, hemoglobin 9.5, hematocrit 27.8. BUN 31, creatinine 1.8. ASSESSMENT: 1. Severe peripheral vascular disease with occluded popliteal, occluded branch vessels as well. 2. Diabetic foot infection. RECOMMENDATION: I do think that revascularization is indicated in order to try to salvage his right foot. Since his greater saphenous veins have been harvested, it may be best to try to use an endovascular approach with an atherectomy catheter. He has a distal SFA stenosis, probable right popliteal occlusion, and proximal posterior tibial and peroneal occlusions. I think we can treat these with the endovascular approach and re-establish inline flow down his posterior tibial artery which should significantly improve his chance to heal his foot wounds. The risk, however, is his renal insufficiency. Certainly contrast will be required. We will provide renal protection as best we can, but I did discuss with him the possibility that his renal function could deteriorate. I also discussed that it is possible that we will not be successful in reestablishing in-line flow. He understands these things, and we will proceed at the same time Dr. Ta plans his amputation. Thanks for the opportunity to see him. cc: Dylan Barrett MD
[2017-03-23] MEDS: NORVASC PO SCH (17:03)
[2017-03-23] MEDS: ROCEPHIN 1 GM/NS 1 GM/50 ML IVPB IV SCH (17:03)
[2017-03-23] MEDS: NORCO-7.5 PO PRN (19:34)
[2017-03-24] MEDS: MORPHINE IV PRN ×4 (03:27→20:34)
[2017-03-24] MEDS: HUMULIN R SUBQ SCH ×4 (06:00→20:34)
[2017-03-24] MEDS ORDERED: HEPARIN ONE ×3 (06:13→10:50)
[2017-03-24] MEDS ORDERED: NS 2,000 ML ONE (06:14)
[2017-03-24] MEDS ORDERED: MARCAINE 0.25% PF/EPI 1:200,000 ONE (06:27)
[2017-03-24 07:10] LABS: CALCIUM 8.6 mg/dL (8.8-10.2); POTASSIUM 4.4 mmol/L (3.5-5.1)
--- NOTE | 2017-03-24 08:24 | OPERATIVE NOTE ---
PROCEDURE DATE: 03/24/2017 PREOPERATIVE DIAGNOSES: 1. Right 2nd and 3rd toe osteomyelitis, related to diabetic foot wound. 2. Peripheral vascular disease. POSTOPERATIVE DIAGNOSES: 1. Right 2nd and 3rd toe osteomyelitis, related to diabetic foot wound. 2. Peripheral vascular disease. PROCEDURES PERFORMED: Right second and third toe transmetatarsal amputation. COMPLICATIONS: None. ESTIMATED BLOOD LOSS: Less than 10 mL. SPECIMENS: 1. Right second and third toe. 2. Metatarsal bone for culture. COMPLICATIONS: None. INDICATIONS: A 37-year-old male with extensive coronary and peripheral vascular disease. He has already had quadruple bypass with an EF 25% and bilateral SFA occlusions, who presented to my office with a new wound on his right foot and x-ray changes consistent with osteomyelitis. FINDINGS: There is pus extending from the metatarsophalangeal joints at the second and third location. There was a sinus draining to the skin chronically with granulation tissue in it lateral to the third toe on the dorsal aspect. OPERATIVE NOTE: Risks, benefits, and alternatives discussed with the patient and he consented to the procedure. He was seen preoperatively and surgical site was marked. He was taken to the operating room, placed in supine position. General anesthesia was induced without complication. Right foot was prepped with Betadine solution in the usual fashion. After time- out was performed, we identified the 2nd and 3rd digits and made an elliptical incision around these. Excised this down to the metatarsal joint and removed the specimen en block with the 2nd and 3rd toe. There was obvious moth-eaten bone and fracture of the 2nd and 3rd proximal toes. Then took the rongeur forceps and resected back the metatarsal bone back to healthy bleeding bone. The distal aspect was moth eaten and soft. We irrigated the wound, obtained hemostasis. We then opened the tract to drain more laterally. This is likely draining sinus from the chronic osteomyelitis of his toes and debrided this. There is no remaining necrotic purulent tissue, but there is very poor bleeding noted in the tissues. Counts correct x2. We dressed it with a vache gauze Kerlix and Jhon wrap loosely. At this point, Dr. Barrett took over the case to perform atherectomy of the right lower extremity to facilitate perfusion to the foot and wound healing. For details of his portion, there will be a separate operative note. cc: Rach Ta MD [facility]
[2017-03-24 09:13] LABS: URINE MICRO REVIEW NEEDED? NO; URINE SOURCE CATH
[2017-03-24] MEDS: DILAUDID ONE ×4 (09:13→09:37)
[2017-03-24] MEDS ORDERED: DIPRIVAN 1% ONE (09:18)
[2017-03-24] MEDS ORDERED: FENTANYL ONE (09:18)
[2017-03-24 09:19] LABS: BILIRUBIN URINE NEGATIVE (NEGATIVE); BLOOD URINE SMALL (NEGATIVE); COLOR YELLOW; GLUCOSE URINE NEGATIVE (NEGATIVE); LEUKOCYTES URINE NEGATIVE (NEGATIVE); NITRITE URINE NEGATIVE (NEGATIVE); PROTEIN URINE 300 mg/dL (NEGATIVE); SP GRAVITY URINE 1.015; TURBIDITY URINE CLEAR (CLEAR); UROBILINOGEN URINE NORMAL (NORMAL)
[2017-03-24 09:20] LABS: UR EPITHELIAL CELLS <10 /HPF (<10); URINE BACTERIA NEGATIVE /HPF; URINE WBC <10 /HPF (<10)
[2017-03-24] MEDS ORDERED: DILAUDID ONE (09:46)
--- NOTE | 2017-03-24 09:49 | OPERATIVE NOTE ---
PROCEDURE DATE: 03/24/2017 PREOPERATIVE DIAGNOSES: 1. Right femoral artery stenosis. 2. Right popliteal occlusion. 3. Right diabetic foot infection. POSTOPERATIVE DIAGNOSES: 1. Right femoral artery stenosis. 2. Right popliteal occlusion. 3. Right diabetic foot infection. 4. Trifurcation occlusion. 5. Single vessel runoff via the posterior tibial artery distally. PROCEDURE PERFORMED: Right superficial femoral artery atherectomy with a drug-coated balloon angioplasty of the superficial femoral artery. SURGEON: Dylan Barrett MD SPECIALTY PERSON: PRITESH Hammer DESCRIPTION OF PROCEDURE: The patient had undergone amputation of the toes and debridement of the foot by Dr. Ta. We then reprepped and draped both groins and the right leg. With ultrasound guidance, I accessed the right common femoral artery. In an antegrade approach, we passed the wire into the SFA. We then followed the 7-[place] sheath. We gave the patient 10,000 units of heparin systemically. We passed the Glidewire down to the first obstruction in the distal SFA. We were able to traverse it with manipulation of the catheter and then passed the wire on down into the popliteal and proximal calf. However, on shooting an arteriogram, there was no patent popliteal present. The wire was going down a collateral, and there was no reconstitution of the popliteal or the tibioperoneal trunk. In fact, a distal arteriogram showed no reconstitution until the posterior tibial artery was reconstituted in the distal calf just above the ankle. So, we felt there was no opportunity for treatment in the popliteal or tibioperoneal trunk region, but the distal SFA could be treated. We then used a trailblazer to go across the stenosis, exchanged for a 0.014 Nitrex wire. We then passed the [employer] LS atherectomy catheter down to the SFA lesion. We then treated it in every quadrant. Completion arteriography showed significant improvement, but not complete resolution. We then obtained a 6 x 60 IN.PACT Admiral drug-coated balloon, passed it across the lesion and expanded it for 2-1/2 minutes. We then shot a completion arteriogram, and again this one showed essentially complete resolution of the stenosis in the distal SFA. We then removed our wires and then used a Mynx closure catheter of the common femoral artery. A pressure dressing was then applied. Hemostasis was satisfactory. He tolerated the procedure satisfactorily. ESTIMATED BLOOD LOSS: About 10 mL. CONTRAST USED: 72 mL. cc: Dylan Barrett MD
[2017-03-24] MEDS ORDERED: SODIUM CHLORIDE 0.9% 10 ML ONE (10:50)
[2017-03-24] MEDS ORDERED: XYLOCAINE-MPF 2% ONE (10:51)
[2017-03-24] MEDS ORDERED: LR 1,000 ML ONE (10:51)
[2017-03-24] MEDS ORDERED: AMIDATE ONE (10:51)
[2017-03-24] MEDS ORDERED: ZOFRAN ONE (10:51)
[2017-03-24] MEDS ORDERED: NEO-SYNEPHRINE ONE (10:51)
[2017-03-24] MEDS ORDERED: NS 250 ML ONE (10:51)
[2017-03-24] MEDS: NS 1,000 ML IV SCH (12:17)
[2017-03-24] MEDS: APRESOLINE PO SCH ×3 (12:18→16:17)
[2017-03-24] MEDS: ALDACTONE PO SCH (12:18)
[2017-03-24] MEDS: ASPIRIN PO SCH (12:19)
[2017-03-24] MEDS: COREG PO SCH ×2 (12:19→20:34)
[2017-03-24] MEDS: DIOVAN PO SCH (12:20)
[2017-03-24] MEDS: ISORDIL PO SCH ×3 (12:20→16:17)
[2017-03-24] MEDS: NEURONTIN PO SCH ×3 (12:21→16:17)
[2017-03-24] MEDS: LANOXIN PO SCH (12:21)
[2017-03-24] MEDS: PRILOSEC PO SCH (12:21)
[2017-03-24] MEDS: SODIUM BICARBONATE PO SCH ×2 (12:22→20:34)
[2017-03-24] MEDS: LOVENOX SUBQ SCH (12:26)
--- NOTE | 2017-03-24 15:57 | PROGRESS NOTE ---
DATE: 03/24/2017 SUBJECTIVE: Patient was seen this morning on rounds in the preoperative area. He is doing well. He has no questions about surgery. No events overnight. OBJECTIVE: No fevers overnight. No tachycardia. Blood pressure has been okay for him 140s-150s. Reviewed his labs. Creatinine is down to 1.7. Glucose 171. No changes in his wound on the 2nd and 3rd toes. ASSESSMENT AND PLAN: A 37-year-old male with severe peripheral vascular disease bilaterally and new 2nd and 3rd toe wound changes consistent with osteomyelitis. Long discussions regarding amputation. Dr. richards also plans to revascularize his leg endovascularly today. Creatinine seems to have tolerated the contrast well. We will continue gentle hydration and renal protection as he gets another contrast load today and antibiotics per Dr. Washington from the hospitalist service. We will continue to follow along. cc: Rach Ta MD
--- NOTE | 2017-03-24 16:00 | PROGRESS NOTE ---
DATE: 03/24/2017 Today Mr. Coats referred to be doing fine. He had a very early surgery this morning with Dr. Ta. OBJECTIVE: Vital Signs: Stable. Blood pressure is 138/104, respirations 16, temperature 97.9 degrees. General: Mr. Coats is a 37-year-old male. He is in bed, no distress. HEENT: Mucosa is pink and moist. Anicteric. Acyanotic. Neck: Supple. Chest: Clear. Cardiovascular: Regular rate and rhythm. Abdomen: Distended. Extremities: The right lower extremity is now in sterile dressing. The left lower extremity has very poor imperceptible pulse. LABORATORY DATA: No CBC today. Chemistry is reviewed. Sodium is 136, potassium 4.4, chloride is 101, bicarb is 21, creatinine is down to 1.7. Is review of surgical note, Dr. Ta early this morning did amputation of right 2nd and 3rd toe transmetatarsal amputation. During the same surgery Dr. Barrett did a right superficial femoral arthrectomy with drug coated balloon angioplasty of the superficial femoral artery. ASSESSMENT: 1. Right 2nd and 3rd toe osteomyelitis status post amputation with arthrectomy and balloon angioplasty of the superficial femoral artery to allow perfusion to the foot. 2. Severe atherosclerotic burden. 3. Severe peripheral vascular disease. 4. Coronary artery disease status post bypass. 5. Ischemic cardiomyopathy with congestive heart failure. Ejection fraction is 20-25%. 6. Chronic CKD, stage 3B. CURRENT MEDICATIONS INCLUDE: 1. Carvedilol 6.25. 2. Ceftriaxone 1 g daily. 3. Gabapentin. 4. Insulin. 5. Sodium bicarb. 6. Spironolactone. 7. Valsartan. So, I think in general Mr. Coats is doing a lot better. Had an amputation of the 2nd and 3rd toe done today and also a right femoral arthrectomy with balloon angioplasty. Will be continuing the current antibiotics and all his other medications and follow up closely with Surgery's further recommendations. cc: Ronal Regan MD
[2017-03-24] MEDS: ROCEPHIN 1 GM/NS 1 GM/50 ML IVPB IV SCH (16:14)
[2017-03-24] MEDS: NORVASC PO SCH ×2 (16:17→17:18)
[2017-03-24] MEDS: MUCOMYST 20% PO SCH ×2 (17:19→20:33)
[2017-03-24] MEDS: PERIDEX MT SCH (20:33)
[2017-03-25] MEDS: MORPHINE IV PRN ×5 (01:12→20:53)
[2017-03-25] MEDS: NS 1,000 ML IV SCH ×3 (05:47→16:53)
[2017-03-25] MEDS: HUMULIN R SUBQ SCH ×4 (06:04→20:53)
[2017-03-25 06:37] LABS: CALCIUM 8.3 mg/dL (8.8-10.2); POTASSIUM 4.4 mmol/L (3.5-5.1)
[2017-03-25] MEDS: NEURONTIN PO SCH ×3 (09:00→16:46)
[2017-03-25] MEDS: LOVENOX SUBQ SCH (09:00)
[2017-03-25] MEDS: PRILOSEC PO SCH (09:00)
[2017-03-25] MEDS: SODIUM BICARBONATE PO SCH ×2 (09:00→20:45)
[2017-03-25] MEDS: DIOVAN PO SCH (09:00)
[2017-03-25] MEDS: ASPIRIN PO SCH (09:00)
[2017-03-25] MEDS: PERIDEX MT SCH ×2 (09:00→20:45)
[2017-03-25] MEDS: COREG PO SCH ×2 (09:00→20:45)
[2017-03-25] MEDS: APRESOLINE PO SCH ×3 (09:00→16:46)
[2017-03-25] MEDS: LANOXIN PO SCH (09:01)
[2017-03-25] MEDS: ALDACTONE PO SCH (09:01)
[2017-03-25] MEDS: ISORDIL PO SCH ×3 (09:01→16:46)
[2017-03-25] MEDS: MUCOMYST 20% PO SCH ×3 (13:35→22:01)
--- NOTE | 2017-03-25 15:01 | PROGRESS NOTE ---
DATE: 03/25/2017 SUBJECTIVE: Patient reports feeling fine. No complaints at this time. OBJECTIVE: Vital Signs: Temperature 98.4 degrees, heart rate 78, respiratory rate 20, blood pressure 145/78, O2 saturation 96% on room air. General examination: This is a 37-year-old male, lying in bed, in no acute distress. HEENT: Head is normocephalic, atraumatic. Anicteric sclerae. Pale conjunctivae. Mucous membranes moist. Neck: Supple. No JVD noted. No carotid bruits. No lymphadenopathy. No thyromegaly. Cardiovascular: S1, S2 heard. No murmurs, gallops, or rubs. Regular rate and rhythm. Respiratory: Clear bilaterally to auscultation. No work of breathing or using accessory muscles. Abdomen: Soft. A little bit distended but nontender to palpation. Extremities: Right lower extremity covered by dressing. Left lower extremity has a very faint pulse. Neurologic: Patient is alert and oriented x3. Moves 4 extremities. LABORATORY DATA: Reviewed. ASSESSMENT: 1. Right 2nd and 3rd toe osteomyelitis, status post amputation. 2. Severe peripheral vascular disease. 3. Coronary artery disease, status post bypass. 4. Ischemic cardiomyopathy with congestive heart failure with ejection fraction of 20 to 25%. 5. Chronic kidney disease stage 3B. PLAN: Patient had an amputation of the 2nd and 3rd toe yesterday morning. Dr. Ta from general surgery is following this patient. Also for management of IV antibiotics, we are going to continue with ceftriaxone. We will continue keeping this patient in the hospital until he is cleared by general surgery. cc: Bryan Hameed MD
[2017-03-25] MEDS: NORVASC PO SCH ×2 (16:46→20:20)
[2017-03-25] MEDS: ROCEPHIN 1 GM/NS 1 GM/50 ML IVPB IV SCH (16:47)
--- NOTE | 2017-03-25 19:57 | PROGRESS NOTE ---
DATE: 03/25/2017 SUBJECTIVE: Feels okay, some soreness in his foot. OBJECTIVE: Vital signs: No fevers overnight. Temperature 99.2 degrees, blood pressure 148/59, pulse 83. General: He is alert, in no acute distress. His right 2nd and 3rd toe amputation sites with healthy beefy tissue in the bed. No further necrosis or purulence. Foot is otherwise warm to the level of the toes and normal capillary refill. I do not see any hematoma in his groin. I have removed his pressure dressing. I reviewed his labs. ASSESSMENT/PLAN: A 37-year-old male with severe peripheral vascular disease status post right distal superficial femoral artery above knee popliteal atherectomy. He is going to need a femoral to posterior tibial bypass by Dr. Barrett. He is going to examine his vein and schedule this as an outpatient. Meanwhile, we will continue local wound care, dressing changes with wet to dries and plan for wound VAC changes in the future. Needs aspirin as far as atherectomy goes. He is on antibiotics per the hospitalist service. We will continue to follow along. He has had renal protection. His creatinine did bump slightly to 2.2, but is not far from his baseline. We will continue to monitor this with his now 2 episodes of contrast. cc: Rach Ta MD
[2017-03-26] MEDS: MORPHINE IV PRN ×5 (03:17→22:35)
[2017-03-26] MEDS: HUMULIN R SUBQ SCH ×4 (06:18→21:29)
[2017-03-26 06:44] LABS: CALCIUM 8.3 mg/dL (8.8-10.2); POTASSIUM 4.6 mmol/L (3.5-5.1)
[2017-03-26] MEDS: ASPIRIN PO SCH (09:56)
[2017-03-26] MEDS: PRILOSEC PO SCH (09:56)
[2017-03-26] MEDS: PERIDEX MT SCH ×2 (09:56→22:36)
[2017-03-26] MEDS: LOVENOX SUBQ SCH (09:56)
[2017-03-26] MEDS: SODIUM BICARBONATE PO SCH ×2 (09:57→22:36)
[2017-03-26] MEDS: COREG PO SCH ×2 (09:57→22:36)
[2017-03-26] MEDS: LANOXIN PO SCH (09:57)
[2017-03-26] MEDS: ALDACTONE PO SCH (09:57)
[2017-03-26] MEDS: ISORDIL PO SCH ×3 (09:57→16:15)
[2017-03-26] MEDS: NEURONTIN PO SCH ×3 (09:57→16:15)
[2017-03-26] MEDS: DIOVAN PO SCH (09:57)
[2017-03-26] MEDS: APRESOLINE PO SCH ×3 (10:05→16:15)
--- NOTE | 2017-03-26 12:53 | PROGRESS NOTE ---
DATE: 03/26/2017 SUBJECTIVE: Patient reports pain around the right foot. No nausea or vomiting. OBJECTIVE: Vital Signs: Temperature 98.5 degrees, heart rate 80, respiratory rate 16, blood pressure 167/87, and O2 saturation 98% on room air. General: This is a 37-year-old male, lying in bed in no acute distress. HEENT: Head is normocephalic and atraumatic. Anicteric sclerae and pale conjunctivae. Mucous membranes moist. Neck: Supple. No JVD noted. No carotid bruits. No lymphadenopathy. No thyromegaly. Cardiovascular: S1 and S2 heard. No murmurs, gallops, or rubs. Regular rate and rhythm. Respiratory: Clear bilaterally to auscultation. No work of breathing or use of accessory muscles. Abdomen: Soft, nontender to palpation. Bowel sounds present. No organomegaly. Extremities: No clubbing, cyanosis, or edema. Peripheral pulses present in both legs. Neurological: Patient alert and oriented x3. Moves all 4 extremities. LABORATORY DATA: Reviewed. ASSESSMENT AND PLAN: 1. Right 2nd and 3rd toe osteomyelitis, status post amputation. 2. Severe peripheral vascular disease. 3. Coronary artery disease, status post bypass. 4. Ischemic cardiomyopathy with ejection fraction 20% to 25%. 5. Chronic kidney disease, stage 3B. Patient had amputation of both the 2nd and 3rd toe for osteomyelitis. Dr. Ta is following this patient. Planning to place a wound VAC soon. Also, as an antibiotic he is receiving ceftriaxone 1 g IV q.24 hours. For ischemic cardiomyopathy, we will continue with home medications. For chronic kidney disease, the creatinine is stable, so we are going to continue basically with the same management. cc: Bryan Hameed MD
[2017-03-26] MEDS: NS 1,000 ML IV SCH ×2 (13:24→13:25)
[2017-03-26] MEDS: MUCOMYST 20% PO SCH ×2 (13:30→23:08)
[2017-03-26] MEDS: NORCO-7.5 PO PRN ×2 (14:58→19:27)
[2017-03-26] MEDS: ROCEPHIN 1 GM/NS 1 GM/50 ML IVPB IV SCH (16:15)
--- NOTE | 2017-03-26 17:24 | PROGRESS NOTE ---
DATE: 03/26/2017 SUBJECTIVE: Feels okay. No events, no fevers, no tachycardia. OBJECTIVE: PHYSICAL EXAM: His right foot dressing is clean, dry, intact. I do not see any drainage here. His foot is otherwise warm. LABS: , creatinine is up to 2.7. ASSESSMENT/PLAN: A 37-year-old male with peripheral vascular disease and nonhealing diabetic wound and osteomyelitis status post amputation and atherectomy. He is going to need a femoral to distal posterior tibial bypass with Dr. Barrett. We will continue monitoring. We plan for wound VAC placement on Wednesday, and depending on how his wound looks we will plan for bypass next week or two with Dr. Barrett. Otherwise continue antibiotics for osteomyelitis of the foot. cc: Rach Ta MD MTDD
[2017-03-26] MEDS: NORVASC PO SCH (17:44)
[2017-03-27] MEDS: NS 1,000 ML IV SCH ×3 (00:12→18:26)
[2017-03-27] MEDS: NORCO-7.5 PO PRN ×2 (00:22→08:33)
[2017-03-27] MEDS: MORPHINE IV PRN ×6 (02:39→22:48)
--- NOTE | 2017-03-27 06:27 | PROGRESS NOTE ---
DATE: 03/27/2017 SUBJECTIVE: Patient doing okay. No major issues. OBJECTIVE: Vital Signs: Patient is currently afebrile. His vital signs are stable. General: No acute distress. Resting comfortably in bed. Cardiovascular: Regular rate and rhythm. Lungs: Grossly clear. Abdomen: Soft, nontender, nondistended. Extremities: Amputation site with dressing in place. No active bleeding. No drainage. No erythema noted around the wound. ASSESSMENT/PLAN: A 37-year-old, male with peripheral vascular disease and nonhealing diabetic ulcers status post amputation and arthrectomy. At this time, he is likely going to need a bypass but will do this at a later date. Potential plan for wound VAC placement on Wednesday. If he does get a wound vacuum-assisted closure, he might be able to be discharged home and follow up with Dr. Barrett for further intervention. We will continue current treatment and local wound care. cc: Cecilio Savage MD
[2017-03-27] MEDS: HUMULIN R SUBQ SCH ×4 (06:37→21:59)
[2017-03-27] MEDS: PRILOSEC PO SCH (08:20)
[2017-03-27] MEDS: ALDACTONE PO SCH (08:20)
[2017-03-27] MEDS: NEURONTIN PO SCH ×3 (08:20→16:46)
[2017-03-27] MEDS: APRESOLINE PO SCH ×3 (08:20→16:47)
[2017-03-27] MEDS: LANOXIN PO SCH (08:20)
[2017-03-27] MEDS: DIOVAN PO SCH (08:20)
[2017-03-27] MEDS: SODIUM BICARBONATE PO SCH ×2 (08:20→22:00)
[2017-03-27] MEDS: ASPIRIN PO SCH (08:20)
[2017-03-27] MEDS: ISORDIL PO SCH ×3 (08:21→16:46)
[2017-03-27] MEDS: MUCOMYST 20% PO SCH (08:21)
[2017-03-27] MEDS: COREG PO SCH ×2 (08:21→22:00)
[2017-03-27] MEDS: PERIDEX MT SCH ×2 (08:21→22:00)
[2017-03-27] MEDS: LOVENOX SUBQ SCH (08:22)
[2017-03-27] MEDS: PERCOCET-5 PO PRN ×3 (12:41→21:00)
[2017-03-27] MEDS: ROCEPHIN 1 GM/NS 1 GM/50 ML IVPB IV SCH (16:46)
[2017-03-27] MEDS: NORVASC PO SCH (18:26)
--- NOTE | 2017-03-27 18:58 | PROGRESS NOTE ---
DATE: 03/27/2017 SUBJECTIVE: The patient reports mild pain around the right foot. No nausea, vomiting, no chest pain, no shortness of breath. OBJECTIVE: Vital Signs: Temperature 98.7, heart rate 83, respiratory rate 18, blood pressure 167/92, O2 saturation 96% on room air. General Examination: This is a 37-year-old male lying in bed in no acute distress. HEENT: Head is normocephalic, atraumatic. Neck: Supple. No JVD noted. No carotid bruits. No lymphadenopathy. Cardiovascular: S1, S2 heard. No murmurs, gallops or rubs. Regular rate and rhythm. Respiratory: Clear bilaterally to auscultation. No work of breathing or using accessory muscles. Abdomen: Soft, nontender to palpation. Bowel sounds present. No organomegaly. Extremities: No clubbing, cyanosis, edema. Peripheral pulses present both legs. Right leg covered by dressing clean and dry. Neuro exam: Patient alert, oriented x3. LABORATORY DATA: Reviewed. ASSESSMENT AND PLAN: 1. Right 2nd and 3rd toe osteomyelitis status post amputation. 2. Severe peripheral vascular disease. 3. Coronary artery disease status post bypass. 4. Ischemic cardiomyopathy with ejection fraction 20-25%. 5. Chronic kidney disease stage 3. Patient had amputation of both 2nd and 3rd toe for myelitis. General surgery is following this patient and apparently a wound VAC will be placed on Wednesday and patient can be discharged from surgical standpoint. Will continue with antibiotics by now. For the rest medical conditions will continue home medications as well. cc: Bryan Hamede MD
[2017-03-28] MEDS: PERCOCET-5 PO PRN ×5 (01:16→20:31)
[2017-03-28] MEDS: MORPHINE IV PRN ×5 (03:50→22:11)
--- NOTE | 2017-03-28 06:37 | PROGRESS NOTE ---
DATE: 03/28/2017 SUBJECTIVE: Patient doing okay. No major issues. OBJECTIVE: Vital Signs: Patient is currently afebrile. His vital signs are stable. General Examination: No acute distress. Resting comfortably. Cardiovascular: Regular rate and rhythm. Lungs: Grossly clear. Abdomen: Soft, nontender, nondistended. Extremities: Amputation site with dressing in place. No active bleeding. Dressing appears to be intact. No drainage. No erythema noted around the wound. ASSESSMENT/PLAN: A 37-year-old, male with peripheral vascular disease and nonhealing diabetic foot ulcer, status post amputation arthrectomy. At this time, patient will likely need a bypass but we will do it likely at later date. There is a potential plan for a wound VAC placed Wednesday. Dr. Ta will be back on Wednesday to see the patient. cc: Cecilio Savage MD
[2017-03-28] MEDS: HUMULIN R SUBQ SCH ×4 (06:40→20:31)
[2017-03-28] MEDS: MUCOMYST 20% PO SCH ×2 (07:50→09:34)
[2017-03-28] MEDS: NS 1,000 ML IV SCH ×2 (08:25→15:24)
[2017-03-28] MEDS: ASPIRIN PO SCH (09:33)
[2017-03-28] MEDS: NEURONTIN PO SCH ×3 (09:33→17:04)
[2017-03-28] MEDS: PRILOSEC PO SCH (09:33)
[2017-03-28] MEDS: ISORDIL PO SCH ×3 (09:34→17:04)
[2017-03-28] MEDS: LANOXIN PO SCH (09:34)
[2017-03-28] MEDS: PERIDEX MT SCH ×2 (09:34→20:31)
[2017-03-28] MEDS: COREG PO SCH ×2 (09:34→20:31)
[2017-03-28] MEDS: DIOVAN PO SCH (09:34)
[2017-03-28] MEDS: SODIUM BICARBONATE PO SCH ×2 (09:34→20:31)
[2017-03-28] MEDS: APRESOLINE PO SCH ×3 (09:34→17:04)
[2017-03-28] MEDS: LOVENOX SUBQ SCH (09:35)
[2017-03-28] MEDS: ALDACTONE PO SCH (09:35)
--- NOTE | 2017-03-28 14:58 | PROGRESS NOTE ---
DATE: 03/28/2017 SUBJECTIVE: Patient reports feeling fine. No complaints today. OBJECTIVE: Vital Signs: Temperature 98.1 degrees, heart rate 74, respiratory rate 18, blood pressure 160/90, O2 saturation 97% on room air. General Examination: This is a 37-year-old male, lying in bed, in no acute distress. HEENT: Head is normocephalic, atraumatic. Anicteric sclerae. Pale conjunctivae. Mucous membranes moist. Neck: Supple. No JVD noted. No carotid bruits. No lymphadenopathy. No thyromegaly. Cardiovascular: S1, S2 heard. No murmurs, gallops, or rubs. Regular rate and rhythm. Respiratory: Clear bilaterally to auscultation. No work of breathing or using accessory muscles. Abdomen: Soft, nontender to palpation. Bowel sounds present. No organomegaly. Extremities: No clubbing, cyanosis, or edema. Peripheral pulses present in both legs with right leg covered by a dressing, clean and dry Neurologic Exam: Patient is alert and oriented x3. Moves 4 extremities. LABORATORY DATA: Reviewed. ASSESSMENT: 1. Right 2nd and 3rd toe osteomyelitis status post amputation. 2. Severe peripheral vascular disease. 3. Coronary artery disease, status post bypass. 4. Ischemic cardiomyopathy with ejection fraction of 20 to 25%. 5. Chronic kidney disease stage 3. PLAN: The patient, as we mentioned before, had an amputation of both the 2nd and 3rd toe for osteomyelitis. Surgery is following this patient. Apparently there is a plan to place a wound VAC tomorrow and then patient can be discharged from a surgical standpoint. From medical standpoint, he is not complaining of any chest pain, he is not having any acute CHF exacerbation, and renal function is stable with creatinine around baseline. We are following the lead from general surgery and will discharge when he is cleared by them. cc: Bryan Hameed MD
[2017-03-28] MEDS: ROCEPHIN 1 GM/NS 1 GM/50 ML IVPB IV SCH (17:00)
[2017-03-28] MEDS: NORVASC PO SCH (17:04)
[2017-03-29] MEDS: PERCOCET-5 PO PRN ×4 (00:41→12:58)
[2017-03-29] MEDS: MORPHINE IV PRN ×3 (02:27→10:50)
[2017-03-29] MEDS: NS 1,000 ML IV SCH ×2 (02:28→11:07)
[2017-03-29 05:39] LABS: MANUAL DIFF NEEDED? NO
[2017-03-29 05:45] LABS: BASO% 0.2 % (0.0-0.8); EOS% 4.7 % (0.0-10.0); HEMOGLOBIN 8.9 g/dL (14.0-18.0); LYMPH# 1.15 X1000 (1.2-3.4); LYMPH% 17.9 % (20.5-51.1); MCH 26.4 PG (27-31); MCHC 34.2 g/dL (33-37); MCV 77.2 FL (81-99); MONO# 0.57 X1000 (0.11-0.59); MONO% 8.9 % (1.7-9.3); MPV 9.1 FL (7.4-10.4); NEUT% 68.3 % (42.2-75.2); PLT 264 X1000 (130-400); RBC 3.37 XMIL (4.7-6.1)
[2017-03-29 06:04] LABS: CALCIUM 8.7 mg/dL (8.8-10.2)
[2017-03-29] MEDS: HUMULIN R SUBQ SCH ×2 (06:24→11:08)
[2017-03-29] MEDS: APRESOLINE PO SCH ×2 (08:30→12:58)
[2017-03-29] MEDS: COREG PO SCH (08:30)
[2017-03-29] MEDS: ASPIRIN PO SCH (08:30)
[2017-03-29] MEDS: ALDACTONE PO SCH (08:30)
[2017-03-29] MEDS: LANOXIN PO SCH (08:30)
[2017-03-29] MEDS: NEURONTIN PO SCH ×2 (08:31→12:59)
[2017-03-29] MEDS: ISORDIL PO SCH ×2 (08:31→12:59)
[2017-03-29] MEDS: DIOVAN PO SCH (08:31)
[2017-03-29] MEDS: SODIUM BICARBONATE PO SCH (08:32)
[2017-03-29] MEDS: PRILOSEC PO SCH (08:32)
[2017-03-29] MEDS: LOVENOX SUBQ SCH (08:32)
[2017-03-29] MEDS: PERIDEX MT SCH (08:32)
--- NOTE | 2017-03-29 08:38 | Extremity Venous Study ---
PROCEDURE NAME: Vein Mapping Right GSV - 03/25/2017 PROCEDURE: Bilateral lower extremity small saphenous vein mapping for preoperative exam. REQUESTING PHYSICIAN: Dylan Barrett MD. INTERPRETING PHYSICIAN: Rach Ta MD. CREDIT RISK SPECIALIST: Allan. INDICATION: The patient has a history of bilateral greater saphenous vein harvest. FINDINGS: The small saphenous veins are visualized in bilateral lower extremities. Beginning at zone 4 on the right, the diameter is 2.6 mm, zone 5 at the level of the knees 2.1 mm, proximal calf zone 6 is 2.1, mid calf zone 7 is 2.3, distal leg at zone 8 is 2.3 mm. On the left side, beginning at zone 4 it is 1.8 mm, at the knee 1.9 mm, proximal in the calf is 1.6 mm, mid 0.9 mm, distal on the left at zone 8 is 1.4 mm. SUMMARY: There appears to be marginal conduit in the small saphenous vein on the right. Suspect the vessel on the left will be quite small, although it does appear patent starting from zone 4 through zone 8. Of note, there are multiple branches at the level of the mid to distal leg on the right. cc: MD Dylan Mackenzie MD
[2017-03-29 12:18] VITALS: BP 160/90
--- NOTE | 2017-03-29 13:33 | PROGRESS NOTE ---
DATE: 03/29/2017 SUBJECTIVE: Patient is feeling fine. Denies any complaints. OBJECTIVE: Vital Signs: Temperature 98.3 degrees, heart rate 79, respiratory 14, blood pressure 160/90, O2 saturation 99% on room air. General: This is a chronically ill-looking and frail, 37-year-old male, lying in bed, in no acute distress. HEENT: Head is normocephalic, atraumatic. Anicteric sclerae. Pale conjunctivae. Mucous membranes moist. Neck: Supple. No JVD noted. No carotid bruits. No lymphadenopathy. No thyromegaly. Cardiovascular: S1, S2 heard. No murmurs, gallops, or rubs. Regular rate and rhythm. Respiratory: Clear bilaterally to auscultation. No work of breathing or using accessory muscles. Abdomen: Soft. Nontender to palpation. Bowel sounds present. No organomegaly. Extremities: No clubbing, cyanosis, or edema. Peripheral pulses present in both legs. Neurological: Patient is alert and oriented x3. Able to move 4 extremities. Neurologic: Cranial nerves 2 through 12 grossly normal. LABORATORY DATA: Reviewed. ASSESSMENT: 1. Right 2nd and 3rd toe osteomyelitis, status post amputation. 2. Severe peripheral vascular disease. 3. Coronary artery disease, status post bypass. 4. Ischemic cardiomyopathy with ejection fraction of 20 to 25%. 5. Chronic kidney disease stage 3. PLAN: At this time the patient is doing fine. Patient had an amputation of both 2nd and 3rd toe. Surgery informed this patient they are planning to place a wound VAC today and after that according to them the patient can be discharged. At the time of my dictation the patient has not had any wound VAC placed. We will follow recommendations from general surgery. For the other medical conditions, regarding ischemic cardiomyopathy and chronic kidney disease, we are going to continue with the same management. cc: Bryan Hameed MD
--- NOTE | 2017-03-29 14:16 | PROGRESS NOTE ---
DATE: 03/29/2017 SUBJECTIVE: Feels okay, no real pain. No wound issues. Dressing changes going well. OBJECTIVE: Vital signs: No fevers overnight. Pulse is in 80s, blood pressure 160/77. His right foot amputation site is granulating well, healthy beefy tissue here with no evidence of infection. No cellulitis in the foot. LABORATORY: White count 6, hematocrit 26, creatinine is down to 1.9. Glucose 148. ASSESSMENT/PLAN: A 37-year-old male, status diabetic foot wound and osteomyelitis, status post amputation 2nd and 3rd toes with atherectomy by Dr. Barrett. He will ultimately need a femoral distal popliteal bypass to promote wound healing, but we will monitor him over the next 1-2 weeks. He has marginal conduit on the right and Dr. Barrett is following him. He can see Dr. Barrett in the next 1-2 weeks in our office and I will continue to follow his wound. I discussed this with the hospitalist. Zoey, our wound nurse is placing a wound VAC on his foot today. cc: Rach Ta MD
--- NOTE | 2017-03-30 08:56 | DISCHARGE SUMMARY ---
ADMISSION DATE: 03/22/2017 DISCHARGE DATE: 03/29/2017 CONSULTATIONS: Dr. Dylan Barrett, with general surgery. PERTINENT PROCEDURES: 1. Right foot x-ray: Findings were suspicious for osteomyelitis of the proximal 2nd toe, although the appearance could be due to transverse fracture. A questionable tiny area of bone destruction in the proximal 3rd toe. 2. Aorta with runoff CTA showed extensive atherosclerotic disease involving both the lower extremities; is advanced for the patient's age. 3. Right 2nd and 3rd toe transmetatarsal amputation performed by Dr. Kamlesh Ta. 4. Right superficial femoral artery atherectomy with a drug coated balloon angioplasty of the superficial femoral artery performed by Dr. Barrett. 5. Saphenous vein mapping. Appears to be marginal conduit in the small saphenous vein on the right. Suspect the vessel on the left will be quite small, though it does appear patent starting from zone 4 through 8. Of note, there are multiple branches at the level of the mid to distal leg on the right. DISCHARGE DIAGNOSES: 1. Right second and third toe osteomyelitis status post amputation. 2. Right superficial femoral artery atherectomy with a drug coated balloon angioplasty of the superficial femoral artery performed by Dr. Barrett for right femoral artery stenosis, right popliteal occlusion, and right diabetic foot infection. 3. Severe atherosclerotic burden. The patient will need a bypass at some point on an outpatient basis. 4. Severe peripheral vascular disease. 5. Coronary artery disease status post coronary artery bypass graft. 6. Ischemic cardiomyopathy with congestive heart failure. Ejection fraction is 20 to 25%. Stable. 7. Chronic kidney disease stage 3B. Stable. HOSPITAL COURSE: Mr. Coats is a 37-year-old male, well known to our service, with a past medical history of coronary artery disease status post AR and CABG, systolic congestive heart failure with an EF of 20 to 25%, hypertension, diabetes mellitus type 2, chronic leg pain, chronic kidney disease stage 3B, MRSA on his back, reported on 03/16/2017 with complaints of right foot pain and tingling in that leg. He states he has been having pain in that right foot for about 5 months. Over the past 2 weeks he noticed a blister had come up on the side of his right 2nd toe. The blister opened and started draining, causing severe pain and throbbing. When he presented on 03/16/2017 he was prescribed Augmentin and Septra DS. The patient took the medication as prescribed. During the visit they also did a culture of that wound on the toe which revealed positive for Serratia marcescens. He presented to Dr. Kamlesh Ta's office who felt it appropriate to direct admit for further workup. He was admitted and started on IV antibiotics as well as IV hydration for his kidneys for a CTA. He was also started on Mucomyst for kidney protection as well as IV Rocephin for his Serratia, with a repeat x-ray of the right foot and the wound was re-swabbed. The patient did have a normal white count. He was afebrile. The patient did undergo a right 2nd and 3rd toe transmetatarsal amputation secondary to osteomyelitis related to a diabetic foot wound, as well as a right superficial femoral artery atherectomy with a drug coated balloon angioplasty of the superficial femoral artery secondary to patient's right femoral artery stenosis, right popliteal occlusion, and his right diabetic foot infection with Dr. Barrett. The patient will likely need a bypass but that will be done in the later date. There was talk and plan of a wound VAC for the patient today. instructional services specialist has consulted the wound care clinic to set up an appointment for wound VAC changes per the wound center. The patient will need to contact them to make financial arrangements and then they will provide him with an appointment. The phone number was given to the patient and manager social media is following up with the appointment time. The patient is going to be discharged home today with a wound VAC and to continue with p.o. antibiotics. VITAL SIGNS: Temperature is 98.3 degrees, heart rate 79, respirations 14, blood pressure is 160/90, O2 is 99% on room air. DISCHARGE DIET: Diabetic. DISCHARGE MEDICATIONS: 1. Norvasc 5 mg p.o. daily. 2. Augmentin 875/125 one each p.o. b.i.d. 3. Aspirin 81 mg p.o. daily. 4. Carvedilol 6.25 mg p.o. b.i.d. 5. Cipro 500 mg p.o. b.i.d. 6. Digoxin 125 mcg p.o. q.a.m. 7. Lasix 40 mg p.o. b.i.d. 8. Gabapentin 300 mg p.o. t.i.d. 9. Novolin 70/30. Patient will take this subcutaneously as directed. 10. Apresoline 50 mg p.o. t.i.d. 11. Isordil 40 mg p.o. t.i.d. 12. Prinivil 20 mg p.o. daily. 13. Percocet 5 one each p.o. q.4 hours p.r.n. 14. Aldactone 25 mg p.o. daily. 15. Valsartan 160 mg p.o. daily. FOLLOW UP: The patient is being discharged home with p.o. antibiotics. He will follow up in the wound care center for wound VAC changes. The patient will need to take all medications as instructed. He will follow up with Dr. Kamlesh Ta as instructed. Patient will need to find a primary care physician as noted on several past previous admissions to follow up with in the next 7-10 days. The patient can return to the ED for any worsening of symptoms. DISCHARGE TIME: Greater than 30 minutes. Dictated by YFN Cole for Bryan Hameed MD cc: Bryan Hameed MD
== END 2017-03-29 15:30 | disposition home health service (06) ==
LOC: DIRADM 11:16 → SUATTDRO 11:16 → 4N 12:32
PROVIDERS: ATTEND Internal Medicine

== ENCOUNTER 2017-07-13 17:06 | Inpatient (IN) ==
--- NOTE | 2017-07-13 19:56 | Diag Imaging Result Doc PS360 ---
EXAM: CHEST-2 VIEWS - 07/13/2017 HISTORY: shortness of breath TECHNIQUE: Chest two views COMPARISON: 07/01/2017 FINDINGS: There is stable mild cardiomegaly. There are sternal wires from previous surgery again seen. There is mild prominence of central vascular markings. There is a small left pleural effusion. There is no consolidation or pneumothorax identified. Central venous catheter remains in place. IMPRESSION: Stable mild cardiomegaly. Mild prominence of central vascular markings. Small left pleural effusion. Electronically signed by Srikanth Diaz 07/13/2017 7:53 PM
[2017-07-13 21:35] LABS: MANUAL DIFF NEEDED? NO
[2017-07-13 21:38] LABS: BASO% 0.6 % (0.0-0.8); EOS# 0.21 X1000 (0.0-0.7); EOS% 2.7 % (0.0-10.0); HEMATOCRIT 30.5 % (42.0-52.0); HEMOGLOBIN 10.8 g/dL (14.0-18.0); LYMPH# 1.67 X1000 (1.2-3.4); LYMPH% 21.2 % (20.5-51.1); MCH 28.5 PG (27-31); MCHC 35.4 g/dL (33-37); MCV 80.5 FL (81-99); MONO% 5.1 % (1.7-9.3); MPV 9.8 FL (7.4-10.4); NEUT% 70.4 % (42.2-75.2); PLT 269 X1000 (130-400); RBC 3.79 XMIL (4.7-6.1)
[2017-07-13 21:41] LABS: URINE CULTURE NEEDED? NO; URINE MICRO REVIEW NEEDED? NO
[2017-07-13 21:44] LABS: INR 1.05; PROTIME 11.1 Seconds (9.2-11.7); PTT 30.6 Seconds (22.0-36.0)
[2017-07-13 21:55] LABS: UR AMPHETAMINES QUAL NONE DETECTED (NONE DETECT); UR BARBITUATES QUAL NONE DETECTED (NONE DETECT); UR BENZODIAZEPIN QUAL NONE DETECTED (NONE DETECT); UR CANNABINOIDS QUAL NONE DETECTED (NONE DETECT); UR COCAINE QUAL NONE DETECTED (NONE DETECT); UR METHADONE QUAL NONE DETECTED (NONE DETECT); UR OPIATES QUAL NONE DETECTED (NONE DETECT); UR OXYCODONE QUAL NONE DETECTED (NONE DETECT); UR PCP QUAL NONE DETECTED (NONE DETECT)
[2017-07-13 21:57] LABS: BILIRUBIN URINE NEGATIVE (NEGATIVE); BLOOD URINE MODERATE (NEGATIVE); COLOR YELLOW; GLUCOSE URINE 150 mg/dL (NEGATIVE); LEUKOCYTES URINE NEGATIVE (NEGATIVE); NITRITE URINE NEGATIVE (NEGATIVE); PH URINE 6.5; PROTEIN URINE >600 mg/dL (NEGATIVE); SP GRAVITY URINE 1.033; TURBIDITY URINE CLEAR (CLEAR); UR EPITHELIAL CELLS <10 /HPF (<10); URINE BACTERIA NEGATIVE /HPF; URINE RBC 20-40 /HPF (<10); URINE WBC <10 /HPF (<10); UROBILINOGEN URINE NORMAL (NORMAL)
[2017-07-13 22:01] LABS: ALBUMIN 2.6 g/dL (3.5-5.0); CALCIUM 8.5 mg/dL (8.8-10.2); MAGNESIUM 1.7 mg/dL (1.5-2.7); POTASSIUM 4.1 mmol/L (3.5-5.1); TOTAL BILIRUBIN 0.68 mg/dL (0.20-1.00); TOTAL PROTEIN 7.2 g/dL (6.3-8.3)
[2017-07-13 22:01] LABS: URINE SOURCE CATH
[2017-07-13] MEDS ORDERED: MORPHINE IV ONE (22:09)
[2017-07-13] MEDS ORDERED: ZOFRAN IV ONE (22:47)
[2017-07-13] MEDS ORDERED: LABETALOL IV ONE (23:57)
[2017-07-14] MEDS ORDERED: NITROGLYCERIN TOP ONE (00:46)
[2017-07-14] MEDS ORDERED: LASIX IV ONE (00:46)
[2017-07-14] MEDS ORDERED: ZOSYN 3.375 GM in NS 50 ML IV ONE (00:47)
[2017-07-14 02:11] LABS: FERRITIN 223 ng/mL (30-400)
[2017-07-14] MEDS ORDERED: HUMALOG SUBQ ONE (03:45)
[2017-07-14] MEDS ORDERED: COREG PO ONE (03:45)
[2017-07-14] MEDS: ZOFRAN IV PRN (04:00)
[2017-07-14] MEDS: MORPHINE IV PRN ×5 (04:01→23:15)
[2017-07-14 04:24] LABS: HEMOGLOBIN A1C 6.5 % (4.8-6.0)
[2017-07-14] MEDS: LOVENOX SUBQ SCH (04:50)
--- NOTE | 2017-07-14 05:12 | EKG Report ---
Test Performed on : 07/13/2017 8:21:44 PM Test Reason : shortness of breath Blood Pressure : / mmHG Vent. Rate : 108 BPM Atrial Rate : 108 BPM P-R Int : 150 ms QRS Dur : 098 ms QT Int : 340 ms P-R-T Axes : 046 034 141 degrees QTc Int : 455 ms Sinus tachycardia. Possible Left atrial enlargement RSR' or QR pattern in V1 suggests right ventricular conduction delay Anterior infarct (cited on or before 27-MAR-2015) T wave abnormality, consider lateral ischemia Abnormal ECG When compared with ECG of 01-JUL-2017 23:41, No significant change was found Unconfirmed Result
[2017-07-14 05:54] LABS: MANUAL DIFF NEEDED? NO
[2017-07-14 05:58] LABS: BASO% 0.7 % (0.0-0.8); EOS# 0.28 X1000 (0.0-0.7); EOS% 4.8 % (0.0-10.0); HEMATOCRIT 27.7 % (42.0-52.0); HEMOGLOBIN 9.6 g/dL (14.0-18.0); IMM GRAN# 0.02 X1000 (0.0-0.04); IMM GRAN% 0.3 % (0.0-0.5); LYMPH# 1.78 X1000 (1.2-3.4); LYMPH% 30.7 % (20.5-51.1); MCH 28.2 PG (27-31); MCHC 34.7 g/dL (33-37); MCV 81.5 FL (81-99); MONO# 0.33 X1000 (0.11-0.59); MONO% 5.7 % (1.7-9.3); MPV 9.7 FL (7.4-10.4); NEUT% 57.8 % (42.2-75.2); PLT 247 X1000 (130-400)
[2017-07-14 06:18] LABS: CALCIUM 8.2 mg/dL (8.8-10.2); POTASSIUM 3.6 mmol/L (3.5-5.1)
[2017-07-14] MEDS: ZOSYN 3.375 GM in NS 50 ML IV SCH ×3 (08:09→23:14)
[2017-07-14] MEDS: ASPIRIN PO SCH (08:12)
[2017-07-14] MEDS: APRESOLINE PO SCH ×3 (08:12→17:01)
[2017-07-14] MEDS: ALDACTONE PO SCH (08:12)
[2017-07-14] MEDS: COREG PO SCH ×2 (08:13→21:29)
[2017-07-14] MEDS: ISORDIL PO SCH ×3 (08:13→17:02)
[2017-07-14] MEDS: NEURONTIN PO SCH ×3 (08:14→17:01)
[2017-07-14] MEDS: PRINIVIL PO SCH ×2 (08:14→21:29)
[2017-07-14] MEDS: LANOXIN PO SCH (08:14)
[2017-07-14] MEDS ORDERED: INSULIN PEN NEEDLES ONE (08:48)
[2017-07-14] MEDS: LANTUS SUBQ SCH (08:50)
[2017-07-14] MEDS: DUONEB (A & A) INH SCH ×3 (09:59→21:35)
[2017-07-14] MEDS: LASIX IV SCH (13:17)
[2017-07-14] MEDS: CUBICIN 500 MG in NS 100 ML IV SCH (17:00)
[2017-07-14] MEDS: CATAPRES PO PRN (17:01)
[2017-07-14] MEDS: NORVASC PO SCH (17:58)
[2017-07-15] MEDS: LASIX IV SCH ×2 (01:56→12:59)
[2017-07-15] MEDS: LOVENOX SUBQ SCH (03:44)
[2017-07-15] MEDS: DUONEB (A & A) INH SCH ×4 (04:05→22:22)
[2017-07-15] MEDS: MORPHINE IV PRN ×4 (06:10→22:26)
[2017-07-15] MEDS: ZOSYN 3.375 GM in NS 50 ML IV SCH ×2 (07:50→16:11)
[2017-07-15] MEDS: LANOXIN PO SCH (08:35)
[2017-07-15] MEDS: APRESOLINE PO SCH ×3 (08:35→21:17)
[2017-07-15] MEDS: NEURONTIN PO SCH ×3 (08:35→21:17)
[2017-07-15] MEDS: COREG PO SCH ×2 (08:35→21:17)
[2017-07-15] MEDS: PRINIVIL PO SCH ×2 (08:35→21:17)
[2017-07-15] MEDS: ALDACTONE PO SCH (08:35)
[2017-07-15] MEDS: ISORDIL PO SCH ×3 (08:35→16:58)
[2017-07-15] MEDS: ASPIRIN PO SCH (08:35)
[2017-07-15] MEDS: LANTUS SUBQ SCH (08:36)
[2017-07-15] MEDS: CUBICIN 500 MG in NS 100 ML IV SCH (16:57)
[2017-07-15] MEDS: NORVASC PO SCH (17:38)
[2017-07-15] MEDS: ZAROXOLYN PO SCH (21:17)
[2017-07-15] MEDS: KEFZOL 2 GM/D5W 2 GM/50 ML IVPB IV SCH (21:17)
[2017-07-16] MEDS: DUONEB (A & A) INH SCH ×4 (03:08→22:14)
[2017-07-16] MEDS: KEFZOL 2 GM/D5W 2 GM/50 ML IVPB IV SCH ×3 (04:17→20:32)
[2017-07-16] MEDS: LASIX IV SCH ×2 (04:17→14:46)
[2017-07-16] MEDS: LOVENOX SUBQ SCH (04:17)
[2017-07-16] MEDS: MORPHINE IV PRN ×3 (06:13→20:17)
[2017-07-16 06:20] LABS: MANUAL DIFF NEEDED? NO
[2017-07-16 06:24] LABS: BASO% 0.9 % (0.0-0.8); EOS# 0.48 X1000 (0.0-0.7); EOS% 8.5 % (0.0-10.0); HEMATOCRIT 28.4 % (42.0-52.0); HEMOGLOBIN 9.9 g/dL (14.0-18.0); IMM GRAN# 0.06 X1000 (0.0-0.04); IMM GRAN% 1.1 % (0.0-0.5); LYMPH# 1.78 X1000 (1.2-3.4); LYMPH% 31.4 % (20.5-51.1); MCH 28.6 PG (27-31); MCHC 34.9 g/dL (33-37); MCV 82.1 FL (81-99); MONO# 0.44 X1000 (0.11-0.59); MONO% 7.8 % (1.7-9.3); MPV 9.7 FL (7.4-10.4); NEUT% 50.3 % (42.2-75.2); PLT 272 X1000 (130-400); RBC 3.46 XMIL (4.7-6.1)
[2017-07-16 06:39] LABS: CALCIUM 8.9 mg/dL (8.8-10.2); POTASSIUM 4.1 mmol/L (3.5-5.1)
--- NOTE | 2017-07-16 06:48 | EKG Report ---
Test Performed on : 07/16/2017 05:14:47 AM Test Reason : chest pain Blood Pressure : / mmHG Vent. Rate : 076 BPM Atrial Rate : 076 BPM P-R Int : 152 ms QRS Dur : 104 ms QT Int : 406 ms P-R-T Axes : 053 021 163 degrees QTc Int : 456 ms Normal sinus rhythm. RSR' or QR pattern in V1 suggests right ventricular conduction delay Anterolateral infarct (cited on or before 27-MAR-2015) T wave abnormality, consider inferolateral ischemia Abnormal ECG When compared with ECG of 13-JUL-2017 20:21, No significant change was found Confirmed by Isidro Whatley MD ([id number]) on 07/17/2017 3:19:13 PM
--- NOTE | 2017-07-16 08:16 | Diag Imaging Result Doc PS360 ---
CHEST-2 VIEWS - 07/16/2017 INDICATION: pulmonary edema TECHNIQUE: COMPARISON: 07/13/2017 FINDINGS: Stable right tunneled central line. Stable sternotomy wires. Stable cardiomegaly. Pulmonary vascularity is top normal. There is decrease in the small left pleural effusion. No new abnormalities. IMPRESSION: Decrease in the small left pleural effusion. Electronically signed by Shimon Yan 07/16/2017 8:14 AM
[2017-07-16] MEDS: APRESOLINE PO SCH ×3 (08:40→20:16)
[2017-07-16] MEDS: LANOXIN PO SCH (08:40)
[2017-07-16] MEDS: ALDACTONE PO SCH (08:40)
[2017-07-16] MEDS: ISORDIL PO SCH ×3 (08:40→20:17)
[2017-07-16] MEDS: ZAROXOLYN PO SCH (08:41)
[2017-07-16] MEDS: LANTUS SUBQ SCH (08:41)
[2017-07-16] MEDS: ASPIRIN PO SCH (08:41)
[2017-07-16] MEDS: PRINIVIL PO SCH ×2 (08:41→20:17)
[2017-07-16] MEDS: COREG PO SCH ×2 (08:41→20:17)
[2017-07-16] MEDS: NEURONTIN PO SCH ×3 (08:41→20:17)
[2017-07-16] MEDS: MIRALAX PO SCH ×2 (13:22→20:16)
--- NOTE | 2017-07-16 14:19 | Diag Imaging Result Doc PS360 ---
EXAM: CT THORAX W/O CONTRAST INDICATION: pna TECHNIQUE: Dose reduction protocol was used. COMPARISON: 02/06/2017 FINDINGS: There is subtle groundglass consolidation in the right upper lobe mainly near the apex. It is in the same place as the consolidation in the right upper lobe seen on the previous study but it is much less prominent. There is a 4.5 mm noncalcified nodule in the right lower lobe and a 5 mm noncalcified nodule in the left lower lobe that are stable and probably represent small noncalcified granulomata. There is trace pleural fluid on the left but the volume is less than the previous study. There is minimal left basilar atelectasis. There is cardiomegaly similar to the previous study. There are shotty nonspecific small mediastinal lymph nodes that are stable. There are a few calcified left hilar lymph nodes indicating prior granulomatous disease. There is mild body wall edema and there are a couple small cystic subcutaneous lesions posteriorly at and just to the left of midline that appear stable. There is stable gynecomastia. IMPRESSION: 1.Very vague right upper lobe groundglass consolidation that is much less prominent than on the previous study performed several months before. 2.Trace left pleural effusion. 3.Cardiomegaly. 4.Body wall edema and a couple small subcutaneous fluid collections posteriorly that appear stable. 5.Other incidental/nonacute findings detailed above. Electronically signed by Raymond Colon 07/16/2017 2:17 PM
[2017-07-16] MEDS ORDERED: DOBUTAMINE 500/D5W 500 MG/250 ML IV.SOLN IV SCH (14:23)
[2017-07-16] MEDS: NORVASC PO SCH (17:43)
[2017-07-16] MEDS: DOBUTAMINE 500/D5W 500 MG/250 ML IV.SOLN IV SCH (17:43)
[2017-07-16 18:28] LABS: URINE MICRO REVIEW NEEDED? NO; URINE SOURCE VOIDED
[2017-07-16 18:39] LABS: BILIRUBIN URINE NEGATIVE (NEGATIVE); BLOOD URINE NEGATIVE (NEGATIVE); COLOR STRAW; GLUCOSE URINE NEGATIVE (NEGATIVE); LEUKOCYTES URINE NEGATIVE (NEGATIVE); NITRITE URINE NEGATIVE (NEGATIVE); PH URINE 5.5; PROTEIN URINE 100 mg/dL (NEGATIVE); SP GRAVITY URINE 1.005; TURBIDITY URINE CLEAR (CLEAR); UROBILINOGEN URINE NORMAL (NORMAL)
[2017-07-16 18:40] LABS: UR EPITHELIAL CELLS <10 /HPF (<10); URINE BACTERIA NEGATIVE /HPF; URINE RBC <10 /HPF (<10); URINE WBC <10 /HPF (<10)
[2017-07-16 18:53] LABS: UR CREAT RANDOM 44.7 mg/dL (14-26); UR PROT RANDOM 106.3 mg/dL
[2017-07-17] MEDS: LOVENOX SUBQ SCH (03:46)
[2017-07-17] MEDS: LASIX IV SCH ×2 (03:46→15:01)
[2017-07-17] MEDS: KEFZOL 2 GM/D5W 2 GM/50 ML IVPB IV SCH ×5 (03:47→23:39)
[2017-07-17] MEDS: MORPHINE IV PRN ×4 (03:59→21:30)
[2017-07-17] MEDS: DUONEB (A & A) INH SCH (04:14)
[2017-07-17 05:05] LABS: MANUAL DIFF NEEDED? NO
[2017-07-17 05:10] LABS: EOS# 0.46 X1000 (0.0-0.7); EOS% 9.3 % (0.0-10.0); HEMATOCRIT 29.3 % (42.0-52.0); HEMOGLOBIN 10.2 g/dL (14.0-18.0); LYMPH# 1.48 X1000 (1.2-3.4); LYMPH% 29.8 % (20.5-51.1); MCH 28.5 PG (27-31); MCHC 34.8 g/dL (33-37); MCV 81.8 FL (81-99); MONO# 0.43 X1000 (0.11-0.59); MONO% 8.7 % (1.7-9.3); MPV 9.9 FL (7.4-10.4); NEUT% 51.2 % (42.2-75.2); PLT 277 X1000 (130-400); RBC 3.58 XMIL (4.7-6.1)
[2017-07-17 05:25] LABS: ALBUMIN 3.1 g/dL (3.5-5.0); CALCIUM 8.1 mg/dL (8.8-10.2); POTASSIUM 3.9 mmol/L (3.5-5.1)
[2017-07-17] MEDS: ISORDIL PO SCH ×3 (09:01→23:30)
[2017-07-17] MEDS: LANTUS SUBQ SCH (09:02)
[2017-07-17] MEDS: PRINIVIL PO SCH ×2 (09:02→21:30)
[2017-07-17] MEDS: LANOXIN PO SCH (09:02)
[2017-07-17] MEDS: ASPIRIN PO SCH (09:02)
[2017-07-17] MEDS: ALDACTONE PO SCH (09:02)
[2017-07-17] MEDS: NEURONTIN PO SCH ×3 (09:02→21:34)
[2017-07-17] MEDS: APRESOLINE PO SCH ×3 (09:02→21:34)
[2017-07-17] MEDS: COREG PO SCH ×2 (09:02→21:30)
[2017-07-17] MEDS: MIRALAX PO SCH ×2 (09:02→21:31)
[2017-07-17] MEDS: NORVASC PO SCH (17:21)
[2017-07-17] MEDS: DOBUTAMINE 500/D5W 500 MG/250 ML IV.SOLN IV SCH (17:21)
[2017-07-18] MEDS: MORPHINE IV PRN ×3 (01:31→18:30)
[2017-07-18 05:03] LABS: MANUAL DIFF NEEDED? NO
[2017-07-18 05:09] LABS: BASO% 0.4 % (0.0-0.8); EOS# 0.46 X1000 (0.0-0.7); EOS% 9.4 % (0.0-10.0); HEMATOCRIT 25.9 % (42.0-52.0); HEMOGLOBIN 8.9 g/dL (14.0-18.0); LYMPH# 1.16 X1000 (1.2-3.4); LYMPH% 23.8 % (20.5-51.1); MCH 28.3 PG (27-31); MCHC 34.4 g/dL (33-37); MCV 82.2 FL (81-99); MONO# 0.59 X1000 (0.11-0.59); MONO% 12.1 % (1.7-9.3); MPV 9.1 FL (7.4-10.4); NEUT% 54.3 % (42.2-75.2); PLT 228 X1000 (130-400); RBC 3.15 XMIL (4.7-6.1)
[2017-07-18 05:23] LABS: ALBUMIN 2.7 g/dL (3.5-5.0); CALCIUM 8.1 mg/dL (8.8-10.2); POTASSIUM 3.9 mmol/L (3.5-5.1)
[2017-07-18] MEDS: LASIX IV SCH ×2 (06:09→17:08)
[2017-07-18] MEDS: LOVENOX SUBQ SCH (06:09)
[2017-07-18] MEDS: MIRALAX PO SCH ×3 (08:18→22:44)
[2017-07-18] MEDS: ASPIRIN PO SCH (08:18)
[2017-07-18] MEDS: LANOXIN PO SCH (08:18)
[2017-07-18] MEDS: COREG PO SCH ×2 (08:18→20:36)
[2017-07-18] MEDS: APRESOLINE PO SCH ×3 (08:18→20:36)
[2017-07-18] MEDS: ISORDIL PO SCH ×3 (08:18→20:36)
[2017-07-18] MEDS: PRINIVIL PO SCH ×2 (08:19→20:36)
[2017-07-18] MEDS: ALDACTONE PO SCH (08:19)
[2017-07-18] MEDS: LANTUS SUBQ SCH (08:19)
[2017-07-18] MEDS: NEURONTIN PO SCH ×3 (08:19→20:36)
[2017-07-18] MEDS: KEFZOL 2 GM/D5W 2 GM/50 ML IVPB IV SCH ×2 (08:19→15:04)
[2017-07-18] MEDS: ZOFRAN IV PRN (09:39)
[2017-07-18] MEDS: CARAFATE LIQUID PO SCH ×3 (10:48→19:37)
[2017-07-18] MEDS: PERICOLACE PO SCH ×2 (10:48→20:36)
[2017-07-18] MEDS: DUONEB (A & A) INH SCH ×3 (15:46→22:02)
[2017-07-18] MEDS: DOBUTAMINE 500/D5W 500 MG/250 ML IV.SOLN IV SCH (17:08)
[2017-07-18] MEDS: NORVASC PO SCH (17:08)
[2017-07-19] MEDS: CARAFATE LIQUID PO SCH ×4 (01:20→21:21)
[2017-07-19] MEDS: KEFZOL 2 GM/D5W 2 GM/50 ML IVPB IV SCH ×3 (01:20→17:16)
[2017-07-19] MEDS: MORPHINE IV PRN ×4 (01:21→23:00)
[2017-07-19] MEDS: DUONEB (A & A) INH SCH ×4 (03:39→22:07)
[2017-07-19 05:11] LABS: HEMATOCRIT 27.1 % (42.0-52.0); HEMOGLOBIN 9.2 g/dL (14.0-18.0); MCH 28.7 PG (27-31); MCHC 33.9 g/dL (33-37); MCV 84.4 FL (81-99); MPV 9.8 FL (7.4-10.4); RBC 3.21 XMIL (4.7-6.1)
[2017-07-19 05:36] LABS: ALBUMIN 2.8 g/dL (3.5-5.0); CALCIUM 7.9 mg/dL (8.8-10.2); DIGOXIN 0.3 ng/mL (0.9-2.0); POTASSIUM 4.2 mmol/L (3.5-5.1)
[2017-07-19] MEDS: LASIX IV SCH ×2 (05:38→17:16)
[2017-07-19] MEDS: LOVENOX SUBQ SCH (05:39)
[2017-07-19] MEDS ORDERED: GOLYTELY PO ONE (08:19)
--- NOTE | 2017-07-19 08:47 | Diag Imaging Result Doc PS360 ---
US RENAL 2 (RETROPER) COMPLETE - 07/19/2017 INDICATION: elevated creatinine TECHNIQUE: COMPARISON: 06/17/2017 FINDINGS: The kidneys are normal in echotexture and unchanged from prior. No hydronephrosis or mass. The urinary bladder is filled with clear urine. The right kidney measures 11.9 x 6.1 x 6.5 cm. The left kidney measures 12.9 x 6.2 x 7.2 cm. IMPRESSION: Negative exam. Electronically signed by Shimon Yan 07/19/2017 8:44 AM
[2017-07-19] MEDS: ISORDIL PO SCH ×3 (09:26→17:16)
[2017-07-19] MEDS: ASPIRIN PO SCH (09:27)
[2017-07-19] MEDS: NEURONTIN PO SCH ×3 (09:27→17:15)
[2017-07-19] MEDS: ALDACTONE PO SCH (09:27)
[2017-07-19] MEDS: APRESOLINE PO SCH ×3 (09:27→17:15)
[2017-07-19] MEDS: CATAPRES PO PRN ×2 (09:27→14:08)
[2017-07-19] MEDS: PERICOLACE PO SCH ×2 (09:27→21:21)
[2017-07-19] MEDS: COREG PO SCH ×2 (09:27→21:21)
[2017-07-19] MEDS: LANTUS SUBQ SCH (09:27)
[2017-07-19] MEDS: MIRALAX PO SCH ×2 (09:29→21:21)
[2017-07-19] MEDS: LANOXIN PO SCH (09:46)
[2017-07-19] MEDS: NORVASC PO SCH (17:16)
[2017-07-20] MEDS: CARAFATE LIQUID PO SCH ×4 (02:30→19:44)
[2017-07-20] MEDS: KEFZOL 2 GM/D5W 2 GM/50 ML IVPB IV SCH ×3 (02:30→17:16)
[2017-07-20] MEDS: DUONEB (A & A) INH SCH ×4 (03:38→20:00)
[2017-07-20 04:59] LABS: HEMATOCRIT 25.8 % (42.0-52.0); HEMOGLOBIN 8.8 g/dL (14.0-18.0); MCH 28.1 PG (27-31); MCHC 34.1 g/dL (33-37); MCV 82.4 FL (81-99); MPV 9.1 FL (7.4-10.4); RBC 3.13 XMIL (4.7-6.1)
[2017-07-20 05:31] LABS: CALCIUM 8.2 mg/dL (8.8-10.2); POTASSIUM 4.6 mmol/L (3.5-5.1)
[2017-07-20] MEDS: LOVENOX SUBQ SCH (06:14)
[2017-07-20] MEDS: LASIX IV SCH ×2 (06:14→17:15)
[2017-07-20] MEDS: MORPHINE IV PRN ×3 (07:28→22:35)
[2017-07-20] MEDS: MIRALAX PO SCH ×3 (08:40→20:07)
[2017-07-20] MEDS: LANOXIN PO SCH (08:40)
[2017-07-20] MEDS: NEURONTIN PO SCH ×3 (08:40→17:15)
[2017-07-20] MEDS: COREG PO SCH ×3 (08:40→20:07)
[2017-07-20] MEDS: ISORDIL PO SCH ×3 (08:40→17:16)
[2017-07-20] MEDS: ASPIRIN PO SCH (08:41)
[2017-07-20] MEDS: CATAPRES PO PRN (08:41)
[2017-07-20] MEDS: LANTUS SUBQ SCH (08:41)
[2017-07-20] MEDS: PERICOLACE PO SCH ×3 (08:41→20:07)
[2017-07-20] MEDS: ALDACTONE PO SCH (08:41)
[2017-07-20] MEDS: APRESOLINE PO SCH ×3 (08:41→17:16)
[2017-07-20] MEDS ORDERED: MYLICON PO ONE (13:56)
[2017-07-20] MEDS: NORVASC PO SCH (17:16)
[2017-07-21] MEDS: CARAFATE LIQUID PO SCH ×4 (01:27→20:57)
[2017-07-21] MEDS: KEFZOL 2 GM/D5W 2 GM/50 ML IVPB IV SCH ×3 (01:27→17:46)
[2017-07-21] MEDS: MORPHINE IV PRN ×4 (02:37→21:04)
[2017-07-21] MEDS: DUONEB (A & A) INH SCH ×4 (03:10→20:18)
[2017-07-21 05:31] LABS: HEMATOCRIT 25.7 % (42.0-52.0); HEMOGLOBIN 8.8 g/dL (14.0-18.0); MCH 28.9 PG (27-31); MCHC 34.2 g/dL (33-37); MCV 84.3 FL (81-99); RBC 3.05 XMIL (4.7-6.1)
[2017-07-21] MEDS: LOVENOX SUBQ SCH (05:49)
[2017-07-21] MEDS: LASIX IV SCH (05:49)
[2017-07-21 05:56] LABS: ALBUMIN 3.1 g/dL (3.5-5.0); CALCIUM 8.3 mg/dL (8.8-10.2)
[2017-07-21] MEDS: APRESOLINE PO SCH ×3 (08:32→17:46)
[2017-07-21] MEDS: ISORDIL PO SCH ×3 (08:32→17:46)
[2017-07-21] MEDS: LANOXIN PO SCH (08:32)
[2017-07-21] MEDS: ALDACTONE PO SCH (08:33)
[2017-07-21] MEDS: COREG PO SCH ×2 (08:33→20:58)
[2017-07-21] MEDS: NEURONTIN PO SCH ×3 (08:33→17:46)
[2017-07-21] MEDS: PERICOLACE PO SCH ×2 (08:33→20:58)
[2017-07-21] MEDS: MIRALAX PO SCH ×2 (08:33→20:58)
[2017-07-21] MEDS: ASPIRIN PO SCH (08:33)
[2017-07-21] MEDS: LANTUS SUBQ SCH (08:33)
--- NOTE | 2017-07-21 09:09 | Diag Imaging Result Doc PS360 ---
EXAM: CHEST-2 VIEWS HISTORY: chf TECHNIQUE: Two views COMPARISON: 07/16/2017 FINDINGS: Sternal wires are present. The heart is mildly enlarged. No change in the right jugular line. No pneumothorax. No pleural effusions. Minimal vascular distention. IMPRESSION: Mild cardiomegaly with minimal vascular distention. Electronically signed by Simone Avendano 07/21/2017 9:07 AM
[2017-07-21] MEDS: NORVASC PO SCH (17:46)
[2017-07-22] MEDS: CARAFATE LIQUID PO SCH ×4 (01:19→20:20)
[2017-07-22] MEDS: KEFZOL 2 GM/D5W 2 GM/50 ML IVPB IV SCH ×2 (01:19→09:18)
[2017-07-22] MEDS: MORPHINE IV PRN ×4 (01:22→20:21)
[2017-07-22] MEDS: DUONEB (A & A) INH SCH ×4 (03:54→22:00)
[2017-07-22] MEDS: LOVENOX SUBQ SCH (05:35)
[2017-07-22 06:26] LABS: CALCIUM 8.8 mg/dL (8.8-10.2); POTASSIUM 5.4 mmol/L (3.5-5.1)
[2017-07-22] MEDS: COREG PO SCH ×2 (08:58→20:21)
[2017-07-22] MEDS: PERICOLACE PO SCH ×2 (08:59→20:20)
[2017-07-22] MEDS: NEURONTIN PO SCH ×3 (08:59→20:20)
[2017-07-22] MEDS: ISORDIL PO SCH ×3 (09:00→20:21)
[2017-07-22] MEDS: APRESOLINE PO SCH ×3 (09:01→20:21)
[2017-07-22] MEDS: ASPIRIN PO SCH (09:01)
[2017-07-22] MEDS: LASIX IV SCH (09:01)
[2017-07-22] MEDS: ALDACTONE PO SCH (09:01)
[2017-07-22] MEDS: MIRALAX PO SCH ×2 (09:01→20:21)
[2017-07-22] MEDS: LANTUS SUBQ SCH (09:02)
[2017-07-22] MEDS: LANOXIN PO SCH (09:02)
[2017-07-22] MEDS ORDERED: INSULIN PEN NEEDLES ONE (10:18)
[2017-07-22] MEDS ORDERED: SAMSCA PO ONE (16:03)
[2017-07-22] MEDS: NORVASC PO SCH (17:56)
[2017-07-23] MEDS: DUONEB (A & A) INH SCH ×4 (03:12→22:00)
[2017-07-23] MEDS: MORPHINE IV PRN ×4 (03:42→21:35)
[2017-07-23] MEDS: CARAFATE LIQUID PO SCH ×4 (03:42→21:54)
[2017-07-23 05:54] LABS: CALCIUM 9.1 mg/dL (8.8-10.2)
[2017-07-23] MEDS: LOVENOX SUBQ SCH (06:09)
[2017-07-23] MEDS: MIRALAX PO SCH ×2 (08:26→21:32)
[2017-07-23] MEDS: LANTUS SUBQ SCH (08:26)
[2017-07-23] MEDS: LASIX IV SCH (08:27)
[2017-07-23] MEDS: ALDACTONE PO SCH (08:28)
[2017-07-23] MEDS: LANOXIN PO SCH (08:28)
[2017-07-23] MEDS: APRESOLINE PO SCH ×3 (08:28→21:33)
[2017-07-23] MEDS: COREG PO SCH ×2 (08:28→21:38)
[2017-07-23] MEDS: PERICOLACE PO SCH ×2 (08:28→21:34)
[2017-07-23] MEDS: ASPIRIN PO SCH (08:28)
[2017-07-23] MEDS: NEURONTIN PO SCH ×3 (08:29→21:38)
[2017-07-23] MEDS: ISORDIL PO SCH ×3 (08:29→21:33)
[2017-07-23] MEDS: KEFZOL 1 GM/D5W 1 GM/50 ML IVPB IV SCH ×2 (08:29→21:38)
[2017-07-23] MEDS: VELTASSA PO SCH (11:33)
[2017-07-23] MEDS: NORVASC PO SCH (18:09)
[2017-07-24] MEDS: DUONEB (A & A) INH SCH ×5 (02:56→22:00)
[2017-07-24] MEDS: CARAFATE LIQUID PO SCH ×4 (04:05→20:14)
[2017-07-24] MEDS: MORPHINE IV PRN ×3 (05:05→20:16)
[2017-07-24] MEDS: LOVENOX SUBQ SCH (05:05)
[2017-07-24] MEDS: VELTASSA PO SCH (05:06)
[2017-07-24 05:09] LABS: HEMATOCRIT 26.4 % (42.0-52.0); MCH 28.8 PG (27-31); MCHC 34.1 g/dL (33-37); MCV 84.3 FL (81-99); MPV 10.7 FL (7.4-10.4); RBC 3.13 XMIL (4.7-6.1)
[2017-07-24 05:24] LABS: IRON SATURATION 17 %; TIBC 242 ug/dL; TOTAL IRON 42 ug/dL (53-167); UNBOUND IRON 200 ug/dL (112-346)
[2017-07-24 06:00] LABS: POTASSIUM 5.9 mmol/L (3.5-5.1)
[2017-07-24 06:30] LABS: ALBUMIN 3.3 g/dL (3.5-5.0); CALCIUM 9.4 mg/dL (8.8-10.2)
--- NOTE | 2017-07-24 07:58 | Diag Imaging Result Doc PS360 ---
CHEST-PORTABLE - 07/24/2017 INDICATION: dyspnea TECHNIQUE: COMPARISON: 07/21/2017 FINDINGS: Stable tunneled right central catheter in good position. Stable sternotomy wires. Stable cardiomegaly and pulmonary vascular congestion. No focal infiltrates, pneumothorax, or pleural effusion. IMPRESSION: No change from prior. Electronically signed by Shimon Yan 07/24/2017 7:56 AM
[2017-07-24] MEDS: LANOXIN PO SCH (08:10)
[2017-07-24] MEDS: ASPIRIN PO SCH (08:10)
[2017-07-24] MEDS: LASIX IV SCH (08:10)
[2017-07-24] MEDS: PERICOLACE PO SCH ×2 (08:10→20:15)
[2017-07-24] MEDS: APRESOLINE PO SCH ×3 (08:10→20:16)
[2017-07-24] MEDS: NEURONTIN PO SCH ×3 (08:10→20:16)
[2017-07-24] MEDS: LANTUS SUBQ SCH (08:10)
[2017-07-24] MEDS: MIRALAX PO SCH ×2 (08:10→20:14)
[2017-07-24] MEDS: COREG PO SCH ×2 (08:10→20:15)
[2017-07-24] MEDS: ISORDIL PO SCH ×3 (08:10→20:15)
[2017-07-24] MEDS: KEFZOL 1 GM/D5W 1 GM/50 ML IVPB IV SCH ×2 (08:11→20:18)
[2017-07-24] MEDS: NORVASC PO SCH (17:16)
[2017-07-25] MEDS: DUONEB (A & A) INH SCH ×4 (03:05→22:00)
[2017-07-25] MEDS: MORPHINE IV PRN ×4 (03:36→19:46)
[2017-07-25] MEDS: CARAFATE LIQUID PO SCH ×4 (03:37→19:46)
[2017-07-25] MEDS: VELTASSA PO SCH (05:25)
[2017-07-25] MEDS: LOVENOX SUBQ SCH (05:25)
[2017-07-25 06:04] LABS: HEMATOCRIT 26.7 % (42.0-52.0); HEMOGLOBIN 9.1 g/dL (14.0-18.0); MCH 28.7 PG (27-31); MCHC 34.1 g/dL (33-37); MCV 84.2 FL (81-99); MPV 10.9 FL (7.4-10.4); RBC 3.17 XMIL (4.7-6.1)
[2017-07-25 06:30] LABS: ALBUMIN 3.3 g/dL (3.5-5.0); CALCIUM 9.2 mg/dL (8.8-10.2); POTASSIUM 5.5 mmol/L (3.5-5.1)
[2017-07-25] MEDS: ASPIRIN PO SCH (08:07)
[2017-07-25] MEDS: MIRALAX PO SCH ×2 (08:07→19:46)
[2017-07-25] MEDS: ISORDIL PO SCH ×3 (08:07→19:47)
[2017-07-25] MEDS: PERICOLACE PO SCH ×2 (08:07→19:51)
[2017-07-25] MEDS: LASIX IV SCH (08:08)
[2017-07-25] MEDS: APRESOLINE PO SCH ×3 (08:08→19:47)
[2017-07-25] MEDS: KEFZOL 1 GM/D5W 1 GM/50 ML IVPB IV SCH ×2 (08:08→19:50)
[2017-07-25] MEDS: NEURONTIN PO SCH ×3 (08:08→19:47)
[2017-07-25] MEDS: LANOXIN PO SCH (08:08)
[2017-07-25] MEDS: COREG PO SCH ×2 (08:08→19:48)
[2017-07-25] MEDS: LANTUS SUBQ SCH (08:08)
[2017-07-25] MEDS: NORVASC PO SCH (17:26)
[2017-07-26] MEDS: MORPHINE IV PRN ×4 (01:56→17:46)
[2017-07-26] MEDS: CARAFATE LIQUID PO SCH ×4 (01:56→20:21)
[2017-07-26] MEDS: KEFZOL 1 GM/D5W 1 GM/50 ML IVPB IV SCH ×3 (02:09→20:22)
[2017-07-26] MEDS: PERICOLACE PO SCH ×3 (02:09→20:21)
[2017-07-26] MEDS: APRESOLINE PO SCH ×4 (02:09→20:21)
[2017-07-26] MEDS: NEURONTIN PO SCH ×4 (02:09→20:21)
[2017-07-26] MEDS: COREG PO SCH ×3 (02:10→20:21)
[2017-07-26] MEDS: MIRALAX PO SCH ×3 (02:10→20:22)
[2017-07-26] MEDS: ISORDIL PO SCH ×4 (02:10→20:21)
[2017-07-26] MEDS: DUONEB (A & A) INH SCH ×4 (03:00→21:24)
[2017-07-26 05:20] LABS: HEMATOCRIT 27.1 % (42.0-52.0); HEMOGLOBIN 9.3 g/dL (14.0-18.0); MCHC 34.3 g/dL (33-37); MCV 81.6 FL (81-99); MPV 10.2 FL (7.4-10.4); RBC 3.32 XMIL (4.7-6.1)
[2017-07-26] MEDS: LOVENOX SUBQ SCH (06:31)
[2017-07-26] MEDS: VELTASSA PO SCH (06:31)
[2017-07-26 06:37] LABS: ALBUMIN 3.1 g/dL (3.5-5.0); CALCIUM 8.8 mg/dL (8.8-10.2); POTASSIUM 5.2 mmol/L (3.5-5.1)
[2017-07-26] MEDS: LANTUS SUBQ SCH (08:16)
[2017-07-26] MEDS: LASIX IV SCH (08:17)
[2017-07-26] MEDS: ASPIRIN PO SCH (08:18)
[2017-07-26] MEDS: LANOXIN PO SCH (08:18)
[2017-07-26] MEDS: NORVASC PO SCH (17:46)
[2017-07-27] MEDS: CARAFATE LIQUID PO SCH ×4 (02:24→20:39)
[2017-07-27] MEDS: DUONEB (A & A) INH SCH ×4 (03:16→21:20)
[2017-07-27 05:05] LABS: HEMOGLOBIN 8.8 g/dL (14.0-18.0); MCH 28.3 PG (27-31); MCHC 33.8 g/dL (33-37); MCV 83.6 FL (81-99); MPV 10.2 FL (7.4-10.4); RBC 3.11 XMIL (4.7-6.1)
[2017-07-27 05:30] LABS: POTASSIUM 5.2 mmol/L (3.5-5.1)
[2017-07-27] MEDS: VELTASSA PO SCH (05:43)
[2017-07-27] MEDS: LOVENOX SUBQ SCH (05:43)
[2017-07-27] MEDS ORDERED: INSULIN PEN NEEDLES ONE (08:49)
[2017-07-27] MEDS: COREG PO SCH ×2 (08:51→20:39)
[2017-07-27] MEDS: NEURONTIN PO SCH ×3 (08:51→20:39)
[2017-07-27] MEDS: LANOXIN PO SCH (08:51)
[2017-07-27] MEDS: PERICOLACE PO SCH ×2 (08:51→20:39)
[2017-07-27] MEDS: ASPIRIN PO SCH (08:51)
[2017-07-27] MEDS: KEFZOL 1 GM/D5W 1 GM/50 ML IVPB IV SCH ×2 (08:52→20:39)
[2017-07-27] MEDS: ISORDIL PO SCH ×3 (08:52→20:39)
[2017-07-27] MEDS: APRESOLINE PO SCH ×3 (08:52→20:39)
[2017-07-27] MEDS: LANTUS SUBQ SCH (08:52)
[2017-07-27] MEDS: LASIX IV SCH (08:52)
[2017-07-27] MEDS: MIRALAX PO SCH ×2 (08:53→20:39)
--- NOTE | 2017-07-27 09:16 | Diag Imaging Result Doc PS360 ---
EXAM: CHEST-2 VIEWS HISTORY: pulmonary edema TECHNIQUE: Two views COMPARISON: 07/24/2017 FINDINGS: No change in the right jugular line. No pneumothorax. Sternal wires are present. The lungs are well expanded. Heart is not enlarged. The vessels are not distended. No pleural effusions. IMPRESSION: No pulmonary edema. Electronically signed by Simone Avendano 07/27/2017 9:14 AM
[2017-07-27] MEDS: MORPHINE IV PRN ×2 (11:54→20:39)
[2017-07-27] MEDS: NORVASC PO SCH (18:57)
[2017-07-28] MEDS: MORPHINE IV PRN ×3 (00:32→09:00)
[2017-07-28] MEDS: CARAFATE LIQUID PO SCH ×3 (01:59→14:02)
[2017-07-28] MEDS: DUONEB (A & A) INH SCH ×3 (03:33→16:03)
[2017-07-28 05:08] LABS: HEMATOCRIT 24.4 % (42.0-52.0); HEMOGLOBIN 8.3 g/dL (14.0-18.0); MCH 28.4 PG (27-31); MCV 83.6 FL (81-99); MPV 10.4 FL (7.4-10.4); RBC 2.92 XMIL (4.7-6.1)
[2017-07-28 05:29] LABS: ALBUMIN 2.9 g/dL (3.5-5.0); CALCIUM 8.1 mg/dL (8.8-10.2); POTASSIUM 4.9 mmol/L (3.5-5.1)
[2017-07-28] MEDS: LOVENOX SUBQ SCH (06:12)
[2017-07-28] MEDS: VELTASSA PO SCH (06:12)
[2017-07-28] MEDS: MIRALAX PO SCH (08:53)
[2017-07-28] MEDS: APRESOLINE PO SCH ×2 (08:54→16:36)
[2017-07-28] MEDS: NEURONTIN PO SCH ×2 (08:54→16:36)
[2017-07-28] MEDS: PERICOLACE PO SCH (08:54)
[2017-07-28] MEDS: ISORDIL PO SCH ×2 (08:54→16:36)
[2017-07-28] MEDS: KEFZOL 1 GM/D5W 1 GM/50 ML IVPB IV SCH (08:55)
[2017-07-28] MEDS: COREG PO SCH (08:55)
[2017-07-28] MEDS: ASPIRIN PO SCH (08:55)
[2017-07-28] MEDS: LANTUS SUBQ SCH (08:55)
[2017-07-28] MEDS: LANOXIN PO SCH (08:56)
[2017-07-28] MEDS ORDERED: LASIX PO SCH (09:00)
[2017-07-28] MEDS ORDERED: XYLOCAINE 1% INJ ONE (13:51)
[2017-07-28] MEDS ORDERED: XYLOCAINE 1% ONE (14:23)
[2017-07-28 17:49] VITALS: BP 133/76
== END 2017-07-28 18:15 | disposition home or self-care (01) ==
LOC: ED 17:06 → EDIPHOLD 07-14 04:39 → SUATTDRO 07-14 04:39 → 3N 07-14 14:53 → 3S 07-16 17:00
PROVIDERS: ATTEND Internal Medicine

== ENCOUNTER 2019-02-11 21:17 | Inpatient (IN) ==
[2019-02-11] MEDS ORDERED: ASPIRIN PO ONE (22:05)
[2019-02-11] MEDS ORDERED: MORPHINE IV ONE (22:34)
[2019-02-11] MEDS ORDERED: NITROGLYCERIN SL ONE (22:34)
[2019-02-11 22:47] LABS: BASO# 0.02 X1000 (0.0-0.2); BASO% 0.3 % (0.0-0.8); EOS% 1.5 % (0.0-10.0); HEMATOCRIT 26.8 % (42.0-52.0); HEMOGLOBIN 9.8 g/dL (14.0-18.0); LYMPH# 0.93 X1000 (1.2-3.4); LYMPH% 14.2 % (20.5-51.1); MCH 32.2 PG (27-31); MCHC 36.6 g/dL (33-37); MCV 88.2 FL (81-99); MONO# 0.51 X1000 (0.11-0.59); MONO% 7.8 % (1.7-9.3); NEUT# 4.98 X1000 (1.4-6.5); NEUT% 76.2 % (42.2-75.2); PLT 164 X1000 (130-400); RBC 3.04 XMIL (4.7-6.1); RDW 12.5 % (11.5-14.5); WBC 6.54 X1000 (4.8-10.8)
[2019-02-11 22:48] LABS: INR 1.11; PROTIME 15.2 Seconds (11.0-16.0)
[2019-02-11 22:49] LABS: PTT 37.4 Seconds (22.3-41.8)
[2019-02-11] MEDS ORDERED: LASIX IV ONE (23:41)
[2019-02-12 00:15] LABS: ALB/GLOB RATIO 1.3; CALCIUM 7.2 mg/dL (8.8-10.2); POTASSIUM 3.6 mmol/L (3.5-5.1); TOTAL BILIRUBIN 1.18 mg/dL (0.20-1.00); TOTAL PROTEIN 7.2 g/dL (6.3-8.3)
[2019-02-12 00:42] LABS: CK INDEX 3.5 (0.0-2.5); CK-MB 10.12 ng/mL (0.0-5.0)
[2019-02-12] MEDS ORDERED: LABETALOL IV ONE (01:18)
--- NOTE | 2019-02-12 01:40 | PROVIDER DOCUMENTATION ---
This chart was entered by Sana King Scribe, acting as scribe for Ana Amin MD. HPI-Chest Pain - General Chief Complaint: Chest Pain Stated Complaint: cp Time Seen by Provider: 02/11/19 22:28 Source: patient Allergies/Adverse Reactions: Patient Allergies Allergy/AdvReac Type Severity Reaction Status Date / Time No Known Allergies Allergy Verified 08/08/18 09:00 Home Medications: Home Medication List Medication Instructions Recorded Confirmed Last Taken Type ATORVAstatin [Lipitor] 40 mg PO DAILY #30 tab 03/29/18 08/08/18 08/06/18 Rx Aspirin 81 mg PO DAILY #60 chewtab 03/29/18 08/08/18 08/07/18 09:00 Rx Carvedilol [Coreg] 12.5 mg PO BID #60 tab 03/29/18 08/08/18 08/07/18 09:00 Rx Gabapentin [Neurontin] 100 mg PO TID #180 cap 03/29/18 08/08/18 08/06/18 Rx Hydralazine HCl 100 mg PO TID #90 tab 03/29/18 08/08/18 08/07/18 09:00 Rx Insulin Glargine [Lantus] 35 unit SUBQ QAM #5 insuln.pen 03/29/18 08/08/18 08/07/18 06:00 Rx units Isosorbide Dinitrate [Isordil] 80 mg PO TID #180 tab 03/29/18 08/08/18 08/06/18 Rx Furosemide [Lasix] 80 mg PO PRN PRN 06/29/18 08/08/18 Unknown History Hydrocodone/APAP 7.5 mg/325 mg 1 ea PO Q6H PRN PRN #25 tab 08/08/18 Unknown Rx [[place]-7.5] - History of Present Illness-CP Nature of Presenting Problem: Pt sts that he has had substernal chest pain starting yesterday at 8p, it stopped and then restarted around 8pm tonight while he was laying in bed. Pt sts that the quality was sharp and pressured. Pt was m-w-f dialysis pt , but recently stopped going. sts that he feels as though he has gained some weight recently, but is unsure of how much. Location: reports: substernal Chest Pain Radiation: reports: no radiation Quality of Pain: reports: pressure, sharp Severity in ED: moderate Onset/Duration: 4-6 hours ago Timing: still present Context/Activities at Onset: reports: none Modifying Factors: improves with: nothing Associated Symptoms: reports: denies symptoms, shortness of breath. denies: nausea Nitro Today/Relief: no nitro taken today Aspirin Treatment Today: no aspirin today Similar Symptoms Previously?: No Recently Seen Here or By Another Healthcare Provider: No Review of Systems - Adult - REVIEW OF SYSTEMS - ADULT Constitutional: reports: no symptoms reported. denies: chills, fever Eyes: reports: no symptoms reported Ears, Nose, Mouth & Throat: reports: no symptoms reported Cardiovascular: reports: chest pain. denies: edema Respiratory: reports: shortness of breath. denies: cough, wheezing Gastrointestinal: reports: no symptoms reported. denies: abdominal pain, diarrhea, nausea, vomiting Genitourinary: reports: no symptoms reported Musculoskeletal: reports: no symptoms reported Integumentary: reports: no symptoms reported Neurological: reports: no symptoms reported. denies: dizziness/vertigo, headache/migraines Psychiatric: reports: no symptoms reported Endocrine: reports: no symptoms reported Hematologic/Lymphatic: reports: no symptoms reported Allergic/Immunologic: reports: no symptoms reported All Other Systems: Reviewed and Negative Past History - Adult - PAST MEDICAL HISTORY-ADULT Review of Records: reports: Old Records Reviewed, Nursing Assessment Review, Medications Reviewed, Social history reviewed & non-contributory. Major Childhood Illnesses: reports: denies history Cardiovascular: reports: cardiac disease, CAD, CHF, HTN, CA Respiratory: reports: COPD Gastrointestinal: reports: GERD Obstetrical/Gynecological: reports: denies history Genitourinary: reports: denies history Musculoskeletal: reports: chronic pain Neurological: reports: denies history Psychiatric: reports: anxiety Endocrine/Immune: reports: Diabetes Other Conditions: reports: MRSA - PRIOR SURGERIES/PROCEDURES Surgical/Procedure History: reports: reviewed, not pertinent, other (abcess) - PRIOR HOSPITALIZATIONS Prior Hospitalizations: reports: none - IMMUNIZATION STATUS Childhood Immunizations: See Nurse Assessment Flu Vaccine: See Nurse Assessment - FAMILY HISTORY Family History: CAD over 55 yo - SOCIAL HISTORY Smoking: quit greater than 1 year Substance Use: none/never Alcohol Use Frequency: never Living Situation: family Physical Exam-General - PHYSICAL EXAM-ADULT Initial Vital Signs Reviewed: Yes - CONSTITUTIONAL General Appearance: appears well, alert, no apparent distress - EYES Eyes: PERRL/EOMI, pink conjunctivae - HEAD, EARS, NOSE, MOUTH & THROAT HENMT: normocephalic/atraumatic, moist mucous membranes, normal ENT inspection, TMs normal, pharynx normal - NECK Neck: non-tender, full range of motion, supple, normal inspection - RESPIRATORY Respiratory: lungs clear - CARDIOVASCULAR Cardiovascular: regular rate, rhythm - GASTROINTESTINAL (ABDOMEN) Abdominal Exam: normal bowel sounds, non tender, soft - LYMPHATIC Lymphatic: no adenopathy - MUSCULOSKELETAL Back Exam: normal inspection, no CVA tenderness, no vertebral tenderness Extremity: normal range of motion, non-tender, normal gait, normal inspection - SKIN Integumentary: normal color, warm/dry - NEUROLOGIC Neurologic: grossly normal - PSYCHIATRIC Psych/Mental Status: normal mood/affect, normal thought content, normal thought process, oriented x 3 Progress - PLAN OF CARE/RESULTS Progress/Plan/Lab Results: Vital Signs - 8 hr 02/11/19 21:47 02/11/19 22:34 Temperature 99 F Pulse Rate 109 H 110 H Respiratory Rate 24 33 H Blood Pressure 176/120 212/128 O2 Sat by Pulse Oximetry 96 96 Laboratory Results - last 24 hr 02/11/19 02/11/19 02/11/19 22:24 22:24 22:24 WBC 6.54 RBC 3.04 L Hgb 9.8 L Hct 26.8 L MCV 88.2 MCH 32.2 H MCHC 36.6 RDW Std Deviation 12.5 Plt Count 164 MPV 10.0 Immature Gran % (Auto) 0.0 Neut % (Auto) 76.2 H Lymph % (Auto) 14.2 L Anderson % (Auto) 7.8 Eos % (Auto) 1.5 Baso % (Auto) 0.3 Immature Gran # (Auto) 0.00 Neut # (Auto) 4.98 Lymph # (Auto) 0.93 L Anderson # (Auto) 0.51 Eos # (Auto) 0.10 Baso # (Auto) 0.02 PT INR PTT (Actin FS) Sodium 138 Potassium 3.6 Chloride 107 Carbon Dioxide 15 L Anion Gap 16 BUN 56 H Creatinine 8.0 H Estimated GFR/1.73 m2 9 BUN/Creatinine Ratio 7 Glucose 177 H Calculated Osmolality 296 Calcium 7.2 L Total Bilirubin 1.18 H AST 12 ALT 9 L Alkaline Phosphatase 62 Creatine Kinase 292 H Creatine Kinase Index 3.5 H CK-MB (CK-2) 10.12 H Troponin T Vug-B-Dlzxndaghps Pept > 19037 H Total Protein 7.2 Albumin 4.0 Globulin 3.2 Albumin/Globulin Ratio 1.3 02/11/19 02/11/19 22:24 22:24 WBC RBC Hgb Hct MCV MCH MCHC RDW Std Deviation Plt Count MPV Immature Gran % (Auto) Neut % (Auto) Lymph % (Auto) Anderson % (Auto) Eos % (Auto) Baso % (Auto) Immature Gran # (Auto) Neut # (Auto) Lymph # (Auto) Anderson # (Auto) Eos # (Auto) Baso # (Auto) PT 15.2 INR 1.11 PTT (Actin FS) 37.4 Sodium Potassium Chloride Carbon Dioxide Anion Gap BUN Creatinine Estimated GFR/1.73 m2 BUN/Creatinine Ratio Glucose Calculated Osmolality Calcium Total Bilirubin AST ALT Alkaline Phosphatase Creatine Kinase Creatine Kinase Index CK-MB (CK-2) Troponin T 0.232 H Egy-S-Tnjhfvrahxf Pept Total Protein Albumin Globulin Albumin/Globulin Ratio Orders Category Date Time Status Cardiac Monitoring DIRECTED Care 02/11/19 22:06 Active Oxygen Therapy- ED Nursing DIRECTED Care 02/11/19 22:06 Active Saline Loc NOW Care 02/11/19 22:06 Active CHEST-PORTABLE [RAD] Stat Exams 02/11/19 22:47 Taken CBC WITH ELECTRONIC DIFF [HEME] Stat Lab 02/11/19 22:24 Completed CK PROFILE [SP CHEM] Stat Lab 02/11/19 22:24 Completed COMPREHENSIVE METABOLIC PANEL [CHEM] Stat Lab 02/11/19 22:24 Completed PRO B-NATRIURETIC PEPTIDE Stat Lab 02/11/19 22:24 Completed PROTIME WITH INR [COAG] Stat Lab 02/11/19 22:24 Completed PTT [COAG] Stat Lab 02/11/19 22:24 Completed TROPONIN T Stat Lab 02/11/19 22:24 Completed Aspirin Med 02/11/19 22:05 Discontinued 325 mg PO NOW ONE Furosemide [Lasix] Med 02/11/19 23:41 Discontinued 40 mg IV NOW ONE Labetalol Med 02/12/19 01:18 Discontinued 20 mg IV NOW ONE Morphine Med 02/11/19 22:34 Discontinued 4 mg IV NOW ONE Nitroglycerin Sl [Nitroglycerin] Med 02/11/19 22:34 Discontinued 0.4 mg SL NOW ONE CP/SOB/Palp >45 yrs of Age Stat Oth 02/11/19 22:05 Ordered EKG [EKG] Stat Ther 02/11/19 21:25 Ordered Result Diagrams: 02/11/19 22:24 02/11/19 22:24 - EKG 1 Time of EKG reading by physician:: 21:24 EKG Read and Signed by:: Ethan Dey EKG Interpretation (*Must complete 3 of following elements*): Abnormal (Sinus tachycardia, Possible Left atrial enlargement. RSR or QR pattern in V1 suggests right ventricular conduction delay. Anteroseptal infarct, age undetermined. ST and T wave abnormality, consider inerolateral ischemia, abnormal ecg) Rate: 108 Rhythm: sinus tachycardia [place]: normal QRS: normal OK Interval: normal ST Wave: normal 2 Time of EKG reading by physician:: 22:39 EKG Read and Signed by:: Ethan Dey EKG Interpretation (*Must complete 3 of following elements*): Abnormal (sinus tachycardia with ocacsional premature ventricular complexes, left atrial enlargement, RSR or QR pattern in V1 suggests right ventricular conduction delay Anteroseptal infarct, age undetermined. St and T wave abnormality, consider inferolateral ischemia. Abnormal ECG) Rate: 107 Rhythm: sinus tachycardia OK Interval: normal Departure - Departure Date of Disposition Decision: 02/12/19 Time of Disposition Decision: 01:39 DIAGNOSIS: CHF exacerbation, Hypertensive emergency, ESRD (end stage renal disease) Disposition: HOME 01 Certified Medical Emergency: Emergent Condition: Stable Referrals and Follow-Ups: None,PCP [Primary Care Provider] - - Critical Care Note This patient required my direct & personal management of CC.: No Attestation - Physician/ DAVID Attestation The physician spent face to face time with patient:: Yes Advanced Practice Provider documentation review:: Supervising physician onsite and consulted in the evaluation and care of this patient. The physician did have a face to face encounter with the patient. This chart was documented by the indicated scribe, (Sana King, Guadalupeibhina) and accurately reflects the services I performed and decisions made by me, Ana Amin MD, as attested by the provider's signature.
[2019-02-12] MEDS ORDERED: CATAPRES PO ONE (03:45)
[2019-02-12] MEDS ORDERED: TYLENOL PO PRN (03:45)
[2019-02-12] MEDS ORDERED: ZOFRAN IV PRN (03:45)
--- NOTE | 2019-02-12 03:57 | HISTORY AND PHYSICAL ---
PRIMARY CARE PROVIDER: None. TRACTOR TRAILER MOVING VAN DRIVER: Initially was with Dr. Benitez; however, he moved to [place] and underwent hemodialysis, then moved back to [place]. CHIEF COMPLAINT: Chest pain, shortness of breath. HISTORY OF PRESENT ILLNESS: Mr. Coats is a 39-year-old male well known to our service with a past medical history of end-stage renal disease who is on scheduled dialysis. However, he states it has been greater than 2 weeks since his last hemodialysis treatment. He initially was set up in [place], then moved to [place], then moved back to [place] and was having issues with transportation. He has not been taking his medications as well. Others, diabetes mellitus type 2, hypertension, hyperlipidemia, coronary artery disease status post CABG. He reported yesterday he started having chest pain with shortness of breath that eased, and then again at 8 p.m. on 02/11 his chest pain increased. He describes it as a constant pressure that does not radiate. Nothing makes it better, nothing makes it worse. He did say he had some diaphoresis right before he had some nausea and vomiting. He has been having yellow bile come up as he has had no appetite for 2 days and has not really eaten anything. He does complain of a productive cough with greenish sputum. He denies any headache, fever, chills, palpitations. He did report being awoken in the night with shortness of breath. He had to put a fan on his face. He is not able to lie down flat, and again, he has not been going to his hemodialysis session secondary to transport issues, and has not been taking his regular medications, as he felt that he had improved and did not need them any longer. He will be admitted to the ICU. His blood pressure was 200s/120s. He did receive IV Lasix. He does not, despite being on dialysis or medications, look overly fluid volume overloaded. His lungs are actually clear. He does not have any JVD or lower extremity edema. We will continue in the ICU for further evaluation and treatment by Nephrology and Cardiology. PAST MEDICAL HISTORY: 1. End-stage renal disease, supposed to be on hemodialysis, however, he has not had in several weeks. 2. Diabetes mellitus type 2. 3. Coronary artery disease status post CABG. 4. Hypertension. 5. Hyperlipidemia. 6. Restless leg syndrome. PAST SURGICAL HISTORY: 1. Coronary artery bypass. 2. Toe amputations. 3. Left wrist radiocephalic AV fistula back in July 2018. ALLERGIES: No known drug allergies. HOME MEDICATIONS: Have not been verified, however, patient confirmed that he has not been taking his home medicines in quite some time. SOCIAL HISTORY: He lives back in [place]. He denies any alcohol, tobacco, or illicit drug use. FAMILY HISTORY: Renal disease, coronary artery disease in father. Father is now . REVIEW OF SYSTEMS: Completely negative except for those mentioned in HPI. PHYSICAL EXAMINATION: VITAL SIGNS: Temperature is 99 degrees, heart rate 110, respirations 33, blood pressure was 212/128, O2 is 96% on room air. GENERAL: Mr. Coats is a 39-year-old male who is sitting up on the stretcher. He is dyspneic but in no acute distress. HEENT: Atraumatic, normocephalic, PERRL. NECK: Supple. Trachea midline. CARDIOVASCULAR: S1, S2 appreciated. No JVD. No lower extremity edema. Bilateral pedal pulses were weak. CHEST: Lung sounds were clear bilaterally. ABDOMEN: Soft, nontender, nondistended. Positive bowel sounds. EXTREMITIES: Negative for edema. Pedal pulses are weak. No signs of clubbing or cyanosis. SKIN: Dry, intact. NEUROLOGIC: He is awake, alert, oriented. Follows commands. Moves all extremities. Answers all questions appropriately. LABORATORY DATA: White count 6, hemoglobin and hematocrit 9 and 26, platelet count is 164,000. Sodium 138, potassium 3.6, BUN 56, creatinine 8. Blood glucose is 177. CK 292, CKI 3.5, CK-MB 10.12, troponin 0.232. ProBNP is greater than 35,000. Albumin is 4. IMAGING: Chest x-ray is currently pending read, however, it does appear to have some pulmonary edema, cardiomegaly. Again, awaiting official over-read. EKG was not available for review. ASSESSMENT AND PLAN: 1. Chest pain in a patient with known coronary artery disease. He does not appear to be overtly fluid volume overload. We will continue treatment with nitroglycerin and morphine. Continue to trend his cardiac enzymes, although he does have chronically elevated cardiac enzymes secondary to his end-stage renal disease. He has been off all his home medications. We will initiate them back as soon as they are verified. Consult Cardiology. 2. Hypertensive urgency. The patient will be given IV labetalol as well as p.o. clonidine. We will initiate Coreg and Norvasc, and continue with nitroglycerin paste. 3. End-stage renal disease, on hemodialysis. However, patient has not been receiving hemodialysis in several weeks as he has not felt the need as well as transportation issues. He has also been off all medications for weeks now. He is not overtly fluid volume overloaded. His proBNP is greater than 35,000. He was given 40 of IV Lasix. He states he has been making adequate urine. We will consult Dr. Benitez for help with medical management. 4. Diabetes mellitus type 2. We will do pattern blood sugars and sliding scale. Check hemoglobin A1c. 5. Hyperlipidemia. 6. Chronic systolic heart failure with severe left ventricular dysfunction. His last EF of 20 to 25 percent. We will recheck an echocardiogram. Again, he does not look from fluid volume overload. 7. Recent skin infections in the past with Staphylococcus aureus. Further recommendation to follow physician evaluation, laboratory and diagnostic data. Dictated by YFN Cole for Kristi Cleary MD cc: MD Remington Zavala MD William D. Denney, MD Independent exam and assessment performed by me at bedside. Pt will need further eval. to assess risk stratification using GXT and or echo. Optimization of risk modifying factors. MTDD
[2019-02-12] MEDS: COREG PO SCH ×3 (04:19→20:50)
[2019-02-12] MEDS: NITROGLYCERIN TOP SCH ×4 (04:19→20:51)
[2019-02-12] MEDS: PROTONIX IV SCH ×2 (04:19→16:44)
[2019-02-12] MEDS: MORPHINE IV PRN ×4 (04:20→21:08)
[2019-02-12] MEDS: HUMALOG SUBQ SCH ×4 (06:16→20:51)
[2019-02-12] MEDS: PRILOSEC PO SCH (06:17)
--- NOTE | 2019-02-12 06:32 | Diag Imaging Result Doc PS360 ---
EXAM: CHEST-PORTABLE HISTORY: Chest Pain TECHNIQUE: Portable chest single view COMPARISON: 02/11/2019 FINDINGS: The lungs are well expanded. Heart is enlarged. Sternal wires are present. No change in the right jugular line. No pneumothorax. No pleural effusions identified. No consolidation. IMPRESSION: Stable chest. Electronically signed by Simone Avendano 02/12/2019 6:29 AM
--- NOTE | 2019-02-12 06:35 | Diag Imaging Result Doc PS360 ---
EXAM: CHEST-PORTABLE HISTORY: cp TECHNIQUE: Upright chest COMPARISON: 04/02/2018 FINDINGS: The lungs are well expanded. Heart is mildly enlarged. Sternal wires are present. No change in the right jugular line. Small left effusion versus pleural thickening. No consolidation. IMPRESSION: Stable chest Electronically signed by Simone Avendano 02/12/2019 6:32 AM
[2019-02-12 07:11] LABS: HEMOGLOBIN A1C 4.9 % (4.8-6.0)
[2019-02-12] MEDS: ASPIRIN PO SCH (07:59)
[2019-02-12] MEDS: NORVASC PO SCH (07:59)
--- NOTE | 2019-02-12 12:42 | CONSULTATION ---
DATE OF CONSULTATION: 02/12/2019 IMPRESSION: 1. Chest discomfort with shortness of breath characterized as a dull discomfort that occurs when he lies flat. Suspect related to volume overload in setting of noncompliance with hemodialysis. 2. Volume overload, predominantly right-sided clinically. 3. Nonspecific elevation in troponin. 4. Severe coronary atherosclerosis with previous coronary bypass grafting and severe ischemic cardiomyopathy. 5. End-stage renal disease, requiring chronic hemodialysis. 6. Hypertension. 7. Hyperlipidemia. 8. Recurrent noncompliance with medical care, medications, and dietary restrictions. RECOMMENDATIONS: 1. Repeat laboratories as this morning's labs appeared to be spurious. 2. Limited echocardiography to further define volume status and screen for possible pericardial effusion that may have developed in setting of uremia. 3. Nephrology consultation for hemodialysis. 4. Continue medical management of patient's cardiomyopathy and atherosclerotic coronary disease. HISTORY: This 39-year-old, -[place] Islander male with past history of end-stage renal disease requiring chronic hemodialysis, coronary atherosclerosis, previous coronary bypass surgery, ischemic cardiomyopathy, type 2 diabetes mellitus, hypertension, and hyperlipidemia was admitted after presenting with symptoms of chest discomfort provoked by lying down and associated with shortness of breath. He also reports exertional shortness of breath. He has a long history of congestive heart failure related to severe ischemic cardiomyopathy and deteriorating renal function. He has been on dialysis three times a week, but has not had dialysis in about 2 weeks nor has he taken any of his medications. He has demonstrated in the past recurrent tendency for noncompliance with dietary restriction and health management. He relates that he could have chest pressure lasting several hours accompanied by shortness of breath if he was lying down. PAST MEDICAL HISTORY: 1. Severe atherosclerotic coronary disease with previous coronary bypass surgery and severe ischemic cardiomyopathy. 2. End-stage renal disease requiring chronic hemodialysis. 3. Noncompliance with health care, medications, dietary restrictions. 4. Hypertension. 5. Hyperlipidemia. 6. Restless legs syndrome. PAST SURGICAL HISTORY: Coronary bypass surgery, toe amputations and left wrist radiocephalic AV fistula in July 2010. ALLERGIES: No known drug allergies. MEDICATIONS PRIOR TO ADMISSION: As listed. SOCIAL HISTORY: He lives in [place] presently. He does not smoke or use alcohol. FAMILY HISTORY: Positive for coronary disease and kidney disease. REVIEW OF SYSTEMS: Pulmonary: Noteworthy for shortness of breath with exertion and when lying down. Gastrointestinal: Negative. Constitutional: Noncontributory. Remainder of review of systems negative/noncontributory with 14 total systems reviewed. PHYSICAL EXAMINATION: General: This is an adult overweight male, in no distress. Vital signs: Blood pressure 126/84, heart rate 68, oxygen saturation 100% on nasal cannula oxygen at 2 L/minute. HEENT: Extraocular movements appear intact. Mucous membranes are moist. Neck: Supple. Jugular venous distention appears to be present consistent with elevated central venous pressure. There are no carotid bruits. Chest: Fairly clear to auscultation. Cardiac: Reveals a regular rate and rhythm without appreciable murmur or gallop. Abdomen: Soft. Bowel sounds are normal. Extremities: Without edema. Neurologic: Reveals him to be alert and fully oriented. Speech is fluent. Moves all 4 extremities equally well. Skin: Warm, dry. Psychiatric: Reveals mood to be appropriate. LABORATORY DATA: White blood cell count 6.54, hematocrit 26.8, hemoglobin 9.8, platelet count 164,000. Sodium 138, potassium 3.6, chloride 107, carbon dioxide 15, BUN 56, creatinine 8, glucose 177, bilirubin 1.18, AST 12, ALT 9, CPK 292, troponin T 0.232, gjr-B-gtraxpozfut peptide level greater than 35,000. Albumin 4. PERTINENT DATA: Twelve lead EKG demonstrates sinus tachycardia with occasional premature ventricular complex, left atrial abnormality, anteroseptal infarct of undetermined age and ST and T-wave abnormality, consider inferolateral ischemia. cc: Stepan Stephenson MD
[2019-02-12 12:51] LABS: AGAP 17; ALBUMIN 3.5 g/dL (3.5-5.0); ALKALINE PHOSPHATASE 53 U/L (32-122); BUN 56 mg/dL (8-22); CALCIUM 7.1 mg/dL (8.8-10.2); CHLORIDE 109 mmol/L (98-107); COSMO 296; CREATININE 8.9 mg/dL (0.7-1.2); GLUCOSE 113 mg/dL (70-104); GOT 14 U/L (10-34); GPT 6 U/L (10-44); POTASSIUM 4.1 mmol/L (3.5-5.1); SODIUM 140 mmol/L (136-145); TCO2 14 mmol/L (25-35); TOTAL BILIRUBIN 0.88 mg/dL (0.20-1.00)
--- NOTE | 2019-02-12 13:42 | PROGRESS NOTE ---
DATE: 02/12/2019 SUBJECTIVE: Patient has no major complaints. OBJECTIVE: Blood pressure is 135/89, heart rate 73, respiratory rate of 16, 97.8 degrees, 95% on 2 L. Cardiovascular: Regular rate and rhythm. Pulmonary: Some rales at bases. Gastrointestinal: Soft, nontender, nondistended. 1+ pitting edema. DIAGNOSTIC STUDIES: Troponins have been elevated 0.32, 0.242, 0.267, MBs too, his CPK was elevated, and the repeats were negative and the MB, we only checked one and it was positive. PROBLEM LIST: 1. Chest pain with elevated troponins which may be related to renal failure. He has had chronically elevated, although they are a bit more elevated. Cardiology is currently evaluating him. He has dilated cardiomyopathy. I am not sure if he has had catheterization. I cannot see where he has had stress test. He had an echocardiogram in 2016, which showed an EF of 20% to 25%. He may have had one since then. It looks like he had an echocardiogram in October of last year. We do not have another one, and his EF will was 20% to 25% then. We will continue. 2. He still makes urine, so I do not think it is unreasonable to give him some Lasix and maybe see if that does anything, but he may need dialysis. 3. Accelerated hypertension, malignant hypertension which may be the mechanism of elevated troponins. We will continue his regular medications, adjust accordingly. Right now, they seem to be under pretty good control. 4. End-stage renal. He is a dialysis patient. Dr. Benitez will evaluate. He is going to start getting care at in the [facility]. DISPOSITION: Pending clinical status. Cardiology will decide if he needs any other imaging, noninvasive, invasive. He has severe CAD, and he has had a CABG, it looks like, so we will continue to follow. I think he is stable for step-down at this point. cc: Chevy Powell MD MTDD
[2019-02-12] MEDS: LASIX IV SCH (13:53)
--- NOTE | 2019-02-12 22:01 | ECHO REPORT ---
ORDER DATE: 02/12/2019 MEASUREMENTS: Left ventricular end-diastolic diameter 5.9, septal thickness 1.5, posterior wall thickness 1.5, aortic root 3.6, left atrium 3.0. SUMMARY: 1. Technically difficult study due to limited acoustic window quality. Intravenous echo contrast agent Optison was utilized to enhance endocardial definition. 2. Aortic valve is trileaflet and opens normally on 2-dimensional images. Peak gradient across aortic valve is less than 5 mmHg. Mitral, tricuspid and pulmonic valves are without evidence of structural abnormality with mild mitral regurgitation, mild tricuspid regurgitation, and mild pulmonic insufficiency. The estimated systolic PA pressure by Doppler is 60 to 65 mmHg suggesting moderate to severe pulmonary hypertension. Aortic root is normal in size. 3. Borderline left ventricular enlargement with moderate concentric left hypertrophy is demonstrated. Estimated left ejection fraction approximately 35 to 40 percent in setting of mild global hypokinesis and akinesis of the apex and apical septum. Left atrium is mildly enlarged on 2-dimensional images. Right atrium and right ventricle are normal in size with grossly preserved right ventricular systolic function. 4. No pericardial effusion. 5. Appearance of inferior vena cava suggests elevated central venous pressure. cc: Stepan Stephenson MD
[2019-02-13] MEDS: LASIX IV SCH ×3 (00:42→20:09)
[2019-02-13] MEDS: NITROGLYCERIN TOP SCH ×2 (03:17→08:57)
[2019-02-13] MEDS: PROTONIX IV SCH ×3 (03:17→20:15)
[2019-02-13] MEDS: SODIUM CHLORIDE 0.9% INJ SCH (03:17)
[2019-02-13] MEDS: MORPHINE IV PRN ×4 (03:17→21:46)
[2019-02-13] MEDS ORDERED: TIGHT: 0.2 ML/HR FOR DIALYSIS MISC PRN (06:36)
[2019-02-13] MEDS ORDERED: HEPARIN IV PRN (06:36)
[2019-02-13] MEDS ORDERED: NS 2,000 ML MISC PRN (06:36)
[2019-02-13] MEDS: PRILOSEC PO SCH (07:02)
[2019-02-13] MEDS: HUMALOG SUBQ SCH ×4 (07:05→20:10)
--- NOTE | 2019-02-13 07:59 | EKG Report ---
Test Performed on : 02/12/2019 05:18:15 AM Test Reason : chest pain follow up Blood Pressure : / mmHG Vent. Rate : 073 BPM Atrial Rate : 073 BPM P-R Int : 182 ms QRS Dur : 094 ms QT Int : 488 ms P-R-T Axes : 044 063 171 degrees QTc Int : 537 ms Normal sinus rhythm. Possible Left atrial enlargement Anteroseptal infarct (cited on or before 11-FEB-2019) ST & T wave abnormality, consider inferolateral ischemia Prolonged QT Abnormal ECG When compared with ECG of 11-FEB-2019 22:39, (Unconfirmed) premature ventricular complexes. are no longer present Serial changes of evolving Anteroseptal infarct present Confirmed by Mckayla BENNETT, Tunde ([id number]) on 02/13/2019 9:17:01 AM
[2019-02-13] MEDS: ASPIRIN PO SCH (08:57)
[2019-02-13] MEDS: NORVASC PO SCH (08:57)
[2019-02-13] MEDS: COREG PO SCH ×2 (08:57→20:10)
[2019-02-13 09:40] LABS: CHOLESTEROL 143 mg/dL (0-200); HDL 28 mg/dL (35-55); LDL 94 mg/dL; TRIGLYCERIDES 104 mg/dL (39-160); VLDL 21 mg/dL
[2019-02-13 09:57] LABS: BASO# 0.03 X1000 (0.0-0.2); BASO% 0.6 % (0.0-0.8); EOS# 0.18 X1000 (0.0-0.7); EOS% 3.4 % (0.0-10.0); HEMATOCRIT 25.5 % (42.0-52.0); HEMOGLOBIN 9.1 g/dL (14.0-18.0); LYMPH# 0.87 X1000 (1.2-3.4); LYMPH% 16.5 % (20.5-51.1); MCH 31.9 PG (27-31); MCHC 35.7 g/dL (33-37); MCV 89.5 FL (81-99); MONO# 0.42 X1000 (0.11-0.59); MPV 10.4 FL (7.4-10.4); NEUT# 3.77 X1000 (1.4-6.5); NEUT% 71.5 % (42.2-75.2); PLT 154 X1000 (130-400); RBC 2.85 XMIL (4.7-6.1); RDW 12.6 % (11.5-14.5); WBC 5.27 X1000 (4.8-10.8)
[2019-02-13] MEDS ORDERED: NORCO-7.5 PO PRN (10:11)
[2019-02-13] MEDS ORDERED: LABETALOL IV PRN (10:12)
--- NOTE | 2019-02-13 10:45 | NEPHROLOGY CONSULTATION ---
DATE: 02/13/2019 REASON FOR ADMISSION: Increased work of breathing associated with chest pain. REASON FOR CONSULTATION: End-stage renal disease with assistance with medical management. HISTORY OF PRESENT ILLNESS: Mr. Coats is a 39-year-old male who is known to our outpatient services up until approximately 1 month ago, at which time the patient had moved to [place] and was to dialyze at the [facility]. The patient states that he has not dialyzed in a month. He had transferred back to [facility] approximately 2 weeks ago, and has been unable to go to any outpatient treatments. He has known heart failure with cardiomegaly, cardiomyopathy, known diastolic and systolic heart failure. The patient states that he has been nauseated, diaphoretic with nausea and emesis of yellow bile, loss of appetite, unable to eat for the last 2 to 3 days. He does have a productive cough of greenish sputum. He states that he still urinates, and felt that because he was not having any urinary difficulties, was still able to eat and drink, that maybe his kidney function had improved. Due to the findings in the emergency room, the patient was admitted to ICU. Blood pressure was 200/120s. He had been given some Lasix and labetalol. He currently denies any chest pain. No increased work of breathing. No nausea, vomiting. States that he has been able to keep liquids down. No headache. No hematochezia, hemoptysis, or hematuria. Breathing has improved since receiving Lasix. Blood pressure has improved with current medications. Cardiology is now on board. PAST MEDICAL HISTORY: End-stage renal disease (no dialysis in approximately 1 month according to the patient; we will set him up for dialysis today), diabetes mellitus type 2, coronary artery disease status post CABG, hypertension, hyperlipidemia, restless legs syndrome, cardiomegaly with cardiomyopathy. PAST SURGICAL HISTORY: Coronary artery bypass graft, toe amputation, left wrist AV fistula in 2009 (nonfunctioning). He has a tunnel catheter to the right chest wall. FAMILY HISTORY: Noncontributory to end-stage renal disease. Positive for heart disease. ALLERGIES: Listed as no known drug allergies. HOME MEDICATIONS: Listed as low-dose enteric aspirin, Lipitor, Coreg, Neurontin, hydralazine, Lantus, Isordil, Lasix, and hydrocodone. REVIEW OF SYSTEMS: Times 10 with pertinent positives listed above in the HPI. IMAGING AND LABORATORY DATA: Labs are currently pending this a.m. Yesterday evening's labs indicate a potassium of 3.6, BUN of 56, creatinine of 8, glucose of 177. CPK of 292. BNP greater than 35,000. Chest x-ray was pending, indicating some pulmonary edema with cardiomegaly. PHYSICAL EXAMINATION: Vital Signs: Temperature 98.1, blood pressure 135/95, heart rate 74, respirations 20. He is on 2 L nasal cannula. Last recorded saturation was 98%. He has had 720 in, 450 out to Hale catheter. General: This is a 39-year-old male, resting quietly in bed. He appears chronically ill, though no acute distress. Skin: Warm and dry. HEENT: Normocephalic, atraumatic. Conjunctivae pale pink. He has BAILEY. Mucous membranes are dry. Neck: Supple. Trachea midline. No evidence of JVD. Cardiovascular: Regular rate and rhythm. No appreciable murmur or gallop. Lungs: Clear to auscultation anteriorly. Equal excursion on O2. Abdomen: Soft, nontender. Positive bowel sounds. Genitourinary: Not inspected. The patient has been voiding, adequate amount recorded, with Hale catheter. Integumentary: Tunnel catheter is to the right chest wall. Previous fistula placement nonpalpable to the right wrist. Neurological: Alert and oriented x3. ASSESSMENT AND PLAN: 1. Chronic kidney disease stage 5D. The patient is in need of dialysis for fluid volume control and assistance with serum waste management. Will place him on dialysis. He is to be on a 2- potassium bath. Will dialyze him for 3.5 hours. We will attempt to pull the patient to his outpatient dry weight. 2. Electrolytes and acid-base balance with correction on dialysis. 3. Anemia. This remains low with labs currently pending this morning. 4. Fluid volume overload. The patient is receiving Lasix 80 mg every 12 hours with dialysis assist. 5. Hypertensive urgency. The patient has received intravenous labetalol. He is on oral clonidine, Coreg, Norvasc with nitroglycerin paste with assistance with fluid volume overload. Cardiology remains on board. I would like to thank you for allowing us to follow with this patient. Dictated by YFN Morgan for Remington Benitez MD Face to face encounter, data reviewed, discussed with Deb Watkins on 02/13/19. I agree with the above assessment and plan of care. cc: YFN Morgan MD [facility]
[2019-02-13 10:49] LABS: AGAP 19; ALBUMIN 3.8 g/dL (3.5-5.0); BUN 60 mg/dL (8-22); CALCIUM 7.1 mg/dL (8.8-10.2); CHLORIDE 112 mmol/L (98-107); COSMO 306; CREATININE 9.3 mg/dL (0.7-1.2); GLUCOSE 145 mg/dL (70-104); PHOSPHORUS 6.3 mg/dL (2.7-4.5); POTASSIUM 4.3 mmol/L (3.5-5.1); SODIUM 144 mmol/L (136-145); TCO2 13 mmol/L (25-35)
--- NOTE | 2019-02-13 11:34 | PROGRESS NOTE ---
DATE: 02/13/2019 SUBJECTIVE: Patient has no major complaints. His breathing is a bit better. OBJECTIVE: Blood pressure is 135/95, heart rate of 76, respiratory rate of 20, temperature was 97.8 degrees. He is 96 on 2 L. Cardiovascular: Regular rate and rhythm. Pulmonary: Bilateral breath sounds clear to auscultation. GI: Soft, nontender, nondistended. Bowel sounds were positive. Extremity Examination: No clubbing or cyanosis. Lymphatic Examination: No peripheral edema. Neurological: Examination was nonfocal. Hemoglobin and hematocrit were 9 and 25, which is pretty stable. BUN and creatinine of 60 and 9.3. A1c was only 4.9. ProBNP of 31,752. PROBLEM LIST: 1. Chest pain, elevated troponins. Cardiology is following. At this point, I feel like it is not an ST-elevation myocardial infarction. Continue medical management. I do not think there are plans to do any other things. Ejection fraction is 35 to 40 percent, which he has known congestive heart failure. 2. End-stage renal. He is on dialysis. I think we will plan to dialyze him today for volume control. 3. Hypertensive urgency. He have resumed all of his home medications. This is his usual dose of Coreg. His blood pressure is under pretty good control. He is on Isordil, hydralazine, Coreg, and Lasix as needed. He is not on an RAQUEL. He does have renal failure but there may be concerns over hyperkalemia. It does not look like he is on Entresto but I am not entirely sure if that has been tried and not been affective before, but we will continue to follow. I think he is stable to go to the floor. cc: Chevy Powell MD
--- NOTE | 2019-02-13 11:42 | EKG Report ---
Test Performed on : 02/11/2019 9:24:09 PM Test Reason : cp Blood Pressure : / mmHG Vent. Rate : 108 BPM Atrial Rate : 108 BPM P-R Int : 164 ms QRS Dur : 096 ms QT Int : 364 ms P-R-T Axes : 053 054 152 degrees QTc Int : 487 ms Sinus tachycardia. Possible Left atrial enlargement RSR' or QR pattern in V1 suggests right ventricular conduction delay Anteroseptal infarct (cited on or before 27-MAR-2015) ST & T wave abnormality, consider inferolateral ischemia Abnormal ECG When compared with ECG of 01-APR-2018 09:45, Significant changes have occurred Unconfirmed Result
[2019-02-13] MEDS: LANTUS INSULIN SUBQ SCH ×2 (11:55→20:12)
[2019-02-13] MEDS: COZAAR PO SCH (12:59)
[2019-02-13] MEDS: ISORDIL PO SCH ×3 (12:59→20:10)
[2019-02-13] MEDS: NEURONTIN PO SCH ×2 (13:57→20:10)
--- NOTE | 2019-02-13 18:08 | PROGRESS NOTE ---
DATE: 02/13/2019 SUBJECTIVE: Patient reports feeling better after dialysis today. He denies chest discomfort or shortness of breath. OBJECTIVE: Vital Signs: Blood pressure 121/86, heart rate 74, oxygen saturation 100%. Neck: There is no significant jugular distention. Chest: Clear to auscultation. Cardiac: Regular rate and rhythm without appreciable murmur or gallop. There is no evidence of peripheral edema. ECHOCARDIOGRAPHY: Indicates left ventricular ejection fraction 35% in the setting of mild global hypokinesis and akinesis of the apex and apical septum, consistent with previous infarction. There is evidence of elevated central venous pressure on this study performed prior to dialysis. LABORATORY DATA: Includes sodium 144, potassium 4.3, chloride 112, carbon dioxide 13, BUN 60, creatinine 9.3, glucose 145. Initial troponin 0.232, followup troponin 0.242. IMPRESSION: 1. Chest discomfort, probably related to congestive heart failure/volume overload in the setting of end-stage renal disease and noncompliance with dialysis. 2. Nonspecific mild elevation in troponin. I suspect this is also likely related to volume overload and end-stage renal disease. 3. Severe coronary atherosclerosis with previous ischemic cardiomyopathy and previous coronary bypass grafting. Left ventricular ejection fraction actually appears better than on previous echocardiographic studies, and I suspect this may be related to the beneficial effects of staying out of congestive heart failure on a more consistent basis until recently. 4. End-stage renal disease, requiring chronic hemodialysis. 5. Hypertension. 6. Hyperlipidemia. 7. Recurrent noncompliance with medical care, medications, and dietary restrictions. RECOMMENDATIONS: 1. Continue medical management of patient's coronary atherosclerosis. 2. Importance of compliance with medical care, medications, and dietary restrictions stressed to the patient. cc: Stepan Stephenson MD
[2019-02-14] MEDS: MORPHINE IV PRN ×3 (02:01→22:03)
[2019-02-14] MEDS: HUMALOG SUBQ SCH ×4 (06:08→22:06)
[2019-02-14 07:26] LABS: BASO# 0.01 X1000 (0.0-0.2); BASO% 0.3 % (0.0-0.8); EOS# 0.09 X1000 (0.0-0.7); EOS% 2.3 % (0.0-10.0); HEMATOCRIT 23.8 % (42.0-52.0); HEMOGLOBIN 8.5 g/dL (14.0-18.0); LYMPH% 20.9 % (20.5-51.1); MCH 32.1 PG (27-31); MCHC 35.7 g/dL (33-37); MCV 89.8 FL (81-99); MONO# 0.41 X1000 (0.11-0.59); MONO% 10.7 % (1.7-9.3); MPV 9.9 FL (7.4-10.4); NEUT# 2.52 X1000 (1.4-6.5); NEUT% 65.8 % (42.2-75.2); PLT 140 X1000 (130-400); RBC 2.65 XMIL (4.7-6.1); RDW 12.5 % (11.5-14.5); WBC 3.83 X1000 (4.8-10.8)
[2019-02-14 07:52] LABS: ALBUMIN 3.4 g/dL (3.5-5.0); POTASSIUM 3.4 mmol/L (3.5-5.1)
[2019-02-14 08:13] LABS: CALCIUM 6.9 mg/dL (8.8-10.2)
--- NOTE | 2019-02-14 09:04 | NEPHROLOGY PROGRESS NOTE ---
DATE: 02/14/2019 TIME SEEN: 0700. SUBJECTIVE: Mr. Coats is resting quietly in bed. He denies any pain or increased work of breathing. OBJECTIVE: Vitals: His most recent vital signs, temperature 97.9, blood pressure 138/86, heart rate 69, respirations 18. He is on 2 L nasal cannula. General: This is a 39-year-old male. He is currently resting quietly in bed. He appears in no acute distress, though chronically ill. Skin: Warm and dry. HEENT: Normocephalic, atraumatic. Conjunctiva is pale. He has BAILEY. Mucous membranes are dry. He has facial edema. Neck: Supple. Trachea midline. No evidence of JVD. Cardiovascular: He is regular rate and rhythm. S4 is present. Lungs: Clear to auscultation bilaterally. Equal excursion on O2. Abdomen: Soft, nontender, positive bowel sounds. Genitourinary: Not inspected. Patient has adequate urine out with assist with dialysis. Extremities: No edema, no clubbing or cyanosis. Integumentary: Tunnel catheter to the right chest wall. Neurological: Alert and oriented x3. INPUT AND OUTPUT: Last recorded saturation 100%. He has had 265 in. He has had 3 L removed on dialysis. LABORATORY DATA: Sodium is 139, potassium is 3.4, chloride 103, CO2 24, BUN 35, creatinine 7, glucose is 72. Anion gap of 12. Calcium is still pending. Phosphorus 5. Albumin 3.4. White count 3.83, hemoglobin 8.5, hematocrit 23.8 with a platelet count of 140,000. ASSESSMENT AND PLAN: 1. Chronic kidney disease stage 5D. Patient is due for his routine dialysis treatment in the a.m. We have discussed outpatient plan. We will attempt to get him at his last clinic at [facility] on Wednesday, Wednesday and Wednesday at 6:30 am. We will request [employer] to help with travel vouchers to get the patient back and forth to his dialysis treatments. We will also discuss this with our social sciences research scientist at the outpatient clinic in evaluation to attempt to get patient with some kind of transportation assistance. 2. Electrolytes and acid-base balance. These remain stable with correction on dialysis. 3. Anemia. This is low, but stable. We will give patient some Epogen today to be continued on Wednesday, Wednesday, Wednesday while he is in the hospital and will continue this after discharge. 4. Chest pain. This has resolved. 5. Fluid volume overload with dialysis assist. I would like to thank you for allowing us to follow with this patient. Dictated by YFN Morgan for Remington Benitez MD Face to face encounter, data reviewed, discussed with Deb Watkins on 02/14/19. I agree with the above assessment and plan of care. cc: YFN Morgan MD [facility]
[2019-02-14] MEDS: PROTONIX IV SCH ×2 (09:14→22:05)
[2019-02-14] MEDS: LASIX IV SCH (09:14)
[2019-02-14] MEDS: ISORDIL PO SCH ×3 (09:15→22:06)
[2019-02-14] MEDS: NORVASC PO SCH (09:15)
[2019-02-14] MEDS: COREG PO SCH ×2 (09:15→22:05)
[2019-02-14] MEDS: LIPITOR PO SCH (09:15)
[2019-02-14] MEDS: ASPIRIN PO SCH (09:15)
[2019-02-14] MEDS: SODIUM CHLORIDE 0.9% INJ SCH ×2 (09:15→22:05)
[2019-02-14] MEDS: NEURONTIN PO SCH ×3 (09:16→17:07)
[2019-02-14] MEDS: COZAAR PO SCH (09:16)
[2019-02-14] MEDS ORDERED: CALCIUM GLUCONATE 1 GM in NS 50 ML IV ONE (09:32)
[2019-02-14 12:59] LABS: HEPATITIS PROFILE ACUTE SEE COMMENTS
[2019-02-14] MEDS ORDERED: EPOGEN SUBQ ONE (13:45)
--- NOTE | 2019-02-14 14:53 | PROGRESS NOTE ---
DATE: 02/14/2019 SUBJECTIVE: Patient has no major complaints. OBJECTIVE: Vital Signs: Blood pressure 121/77, heart rate of 69, respiratory rate 18, temperature 97.6 degrees, satting 100% on 2 L. Cardiovascular: Regular rate and rhythm. Pulmonary: Bilateral breath sounds. Clear to auscultation. GI: Soft, nontender, nondistended. Bowel sounds are positive. LABORATORY DATA: White count 3, hemoglobin and hematocrit 8 and 23, platelets 140. Potassium 3.4, calcium 6.9. PROBLEM LIST: 1. Acute systolic heart failure exacerbation associated with chronic renal failure. We will continue dialysis. He seems to be doing okay. 2. Uncontrolled hypertension. We will continue to follow. He is on Isordil, hydralazine Coreg, Lasix, and continue to follow. I am not quite sure why he is not on Entresto or any of those medications, maybe because he has got heart failure, but he may benefit from an ARB. I did start losartan yesterday, which he is not usually on, but his blood pressure is pretty well controlled again, and he tends to do pretty well in the hospital because he is compliant in the hospital. 3. End-stage renal. He is on dialysis. Seems to be doing okay. 4. Elevated troponins felt to be related to his renal failure. DISPOSITION: From my standpoint, I think he could probably go home. However, I do not know what Dr. Stephenson has planned, so I think if Cardiology clears him he should be able to go home, but that will be at their discretion. cc: Chevy Powell MD
[2019-02-14] MEDS: LANTUS INSULIN SUBQ SCH (17:07)
[2019-02-15] MEDS ORDERED: TIGHT: 0.2 ML/HR FOR DIALYSIS MISC PRN (05:37)
[2019-02-15] MEDS ORDERED: NS 2,000 ML MISC PRN (05:37)
[2019-02-15] MEDS ORDERED: HEPARIN IV PRN (05:37)
[2019-02-15] MEDS: HUMALOG SUBQ SCH ×2 (06:42→12:47)
[2019-02-15 07:54] LABS: ALBUMIN 3.6 g/dL (3.5-5.0); CREATININE 8.5 mg/dL (0.7-1.2); PHOSPHORUS 6.5 mg/dL (2.7-4.5); POTASSIUM 3.9 mmol/L (3.5-5.1)
[2019-02-15 08:09] LABS: CALCIUM 6.2 mg/dL (8.8-10.2)
--- NOTE | 2019-02-15 08:30 | NEPHROLOGY PROGRESS NOTE ---
DATE: 02/15/2019 DATE SEEN: 02/15/2019. TIME SEEN: 0620 hours. SUBJECTIVE: Mr. Coats is resting quietly in bed; head of the bed is elevated. States that he is ready to go home. He is to go after his dialysis treatment today. He also states that he was given some travel voucher for transportation to and from dialysis once discharged from Correspondence Clerk. OBJECTIVE: His most recent vital signs: Last temperature 97.5 degrees, blood pressure 113/70, heart rate 74, respirations are 14. He remains on room air. His last recorded saturation is 100%. He has had 570 in and 450 mL out to void. General: This is a 39-year-old male. He is resting quietly in bed. He appears chronically ill, though no acute distress. Skin: Warm and dry. HEENT: Normocephalic, atraumatic. Conjunctivae pale. He has BAILEY. Mucous membranes are dry. Facial edema remains. Neck: Supple. Trachea midline. No evidence of JVD. Cardiovascular: Regular rate and rhythm. He has an S4. Lungs: Clear to auscultation bilaterally. Equal excursion on O2. Abdomen: Soft, nontender. Positive bowel sounds. Genitourinary: Not inspected. Patient has minimal void with dialysis assist. Extremities: Have no edema. No clubbing or cyanosis. Integumentary: Tunnel catheter remains to the right chest wall. Neurological: Alert and oriented x3. LABS: These are all currently pending. His last hemoglobin was 8.5. We started him on Epogen yesterday. Previous potassium of 3.4, calcium of 6.9. ASSESSMENT AND PLAN: 1. Chronic kidney disease stage 5 D. The patient is due for his routine dialysis treatment today. We will place him on a 2 potassium bath. He is to dialyze for 3-1/2 hours. We will pull him to his outpatient dialysis last weight. The patient has been scheduled for dialysis on an outpatient basis at [facility] on [facility]. He is to report at 6:30 on Wednesday morning. He has been given travel vouchers per Correspondence Clerk with understanding that he will need to call today to set up his appointment for transfer on Wednesday. If this time is not good, we have indicated that he is to call the dialysis clinic and discuss this with the nurse utilization manager. 2. Electrolytes, acid-base balance. These are acceptable with correction on dialysis. 3. Anemia. This has been low. The patient was given an Epogen injection yesterday times 1 to follow up on an outpatient basis at the [facility] per protocol. 4. Chest pain. This has resolved. 5. Fluid volume overload, again with dialysis assist. I would like to thank you for allowing us to follow with this patient. Dictated by YFN Morgan for Remington Benitez MD Face to face encounter, data reviewed, discussed with Deb Watkins on 02/15/19. I agree with the above assessment and plan of care. cc: YFN Morgan MD [facility]
[2019-02-15] MEDS ORDERED: LASIX PO SCH (09:00)
[2019-02-15] MEDS ORDERED: PROTONIX PO SCH (10:00)
[2019-02-15] MEDS: LANTUS INSULIN SUBQ SCH ×2 (12:44→12:48)
[2019-02-15] MEDS: NEURONTIN PO SCH ×2 (12:44→15:27)
[2019-02-15] MEDS: NORVASC PO SCH (12:44)
[2019-02-15] MEDS: ASPIRIN PO SCH (12:44)
[2019-02-15] MEDS: COZAAR PO SCH (12:44)
[2019-02-15] MEDS: LIPITOR PO SCH (12:45)
[2019-02-15] MEDS: COREG PO SCH (12:45)
[2019-02-15] MEDS: ISORDIL PO SCH ×2 (12:45→15:27)
[2019-02-15 12:50] VITALS: BP 131/89
--- NOTE | 2019-02-16 02:08 | DISCHARGE SUMMARY ---
ADMISSION DATE: 02/12/2019 DISCHARGE DATE: 02/15/2019 CONSULTS: Nephrology, Dr. Benitez. Cardiology, Dr. Hoskins. IMAGIN. Echocardiogram technically limited but estimated EF 35 to 40 with mild global hypokinesis, elevated right-sided pressures 60-65. No major valvular abnormalities. DISCHARGE DIAGNOSES: 1. End-stage renal disease. 2. Volume overload. 3. Chronic systolic congestive heart failure. 4. Hypertension. 5. Medical noncompliance. 6. Coronary artery disease. 7. Diabetes. 8. Hyperlipidemia. 9. Chest pain. HOSPITAL COURSE: Patient is a 39-year-old male with history of congestive heart failure, diabetes, coronary artery disease, end-stage renal disease. The patient had been off of most of his medications and without dialysis for at least 2 weeks. He presented with pressure-like midsternal chest pain without aggravating or alleviating factors. Complained of some diaphoresis and cough productive of green sputum. He also reported some nocturnal dyspnea. On initial evaluation, he was found to have marked hypertension but was not grossly volume overloaded. He did not have any pulmonary edema. He was evaluated for acute coronary syndrome. Troponins were mildly elevated and so Cardiology was consulted but troponins remained only mildly elevated and pretty flat, so it was thought that this was related to patient's end-stage renal disease and possibly some demand ischemia. An echocardiogram was performed which showed similar to possibly slightly improved systolic function, EF 35 to 40. His BNP was markedly elevated, but again never had gross volume overload. His regular medications were restarted and Nephrology was consulted to arrange dialysis with marked improvement in his hypertension. He was found to be anemic and given Epogen. No evidence of infection was identified. After dialysis and cardiac of evaluation, he was discharged in stable condition to follow up at his usual dialysis. The patient was strongly encouraged to be compliant with his home medications. DISCHARGE VITALS: Temperature 98.7 degrees, pulse 75, respirations 20, blood pressure 131/89. O2 saturation is 100% on room air. DISCHARGE DIET: Cardiac and renal restrictions. DISCHARGE MEDICATIONS: Aspirin 81 mg p.o. daily, Coreg 12.5 mg p.o. b.i.d., losartan 25 mg p.o. daily, hydralazine 100 mg p.o. t.i.d., isosorbide mononitrate extended release 60 mg p.o. daily, Lantus 35 units subcutaneous daily, atorvastatin 40 mg p.o. daily, Neurontin 100 mg p.o. t.i.d., [place] 7.5 one tab q.6 hours p.r.n., Norvasc 10 mg p.o. daily. FOLLOW UP PLAN: Patient discharging home to follow up with PCP and Cardiology. Patient to attend regular dialysis at [facility] on at 6:30 on Wednesday, Wednesday, Fridays. TIME: Greater than 30 minutes spent arranging discharge and counseling patient.
== END 2019-02-15 16:42 | disposition home or self-care (01) | DRG 291 ==
LOC: ED 21:17 → SUATTDRO 02-12 03:12 → ICU 02-12 03:12 → 3S 02-13 08:23 → 3N 02-14
PROVIDERS: ATTEND Internal Medicine
CPT/HCPCS: 71010; 71045; 80048; 80053; 80061; 80069; 80074; 80076; 82550; 82553; 82948; 83036; 83735; 83880; 84484; 85025; 85610; 85730; 93005; 93010; 93306; 93308; 94761; 96374; 96375; 99285; A9270; C8929; C9113; J0610; J0885; J1644; J1815; J1940; J2270; J7030; Q9957; S0164; XXXXX

== ENCOUNTER 2019-03-14 19:45 | Inpatient (IN) ==
[2019-03-14] MEDS ORDERED: MORPHINE IV ONE (21:12)
[2019-03-14] MEDS ORDERED: ASPIRIN PO ONE (21:13)
[2019-03-14] MEDS ORDERED: LOPRESSOR IV ONE (21:13)
[2019-03-14] MEDS ORDERED: ZOFRAN IV ONE (21:24)
[2019-03-14 21:25] LABS: BASO# 0.02 X1000 (0.0-0.2); BASO% 0.2 % (0.0-0.8); EOS# 0.02 X1000 (0.0-0.7); EOS% 0.2 % (0.0-10.0); HEMATOCRIT 25.5 % (42.0-52.0); HEMOGLOBIN 9.1 g/dL (14.0-18.0); IMM GRAN# 0.08 X1000 (0.0-0.04); IMM GRAN% 0.9 % (0.0-0.5); LYMPH# 0.98 X1000 (1.2-3.4); LYMPH% 11.2 % (20.5-51.1); MCH 32.5 PG (27-31); MCHC 35.7 g/dL (33-37); MCV 91.1 FL (81-99); MONO# 0.32 X1000 (0.11-0.59); MONO% 3.7 % (1.7-9.3); MPV 10.5 FL (7.4-10.4); NEUT% 83.8 % (42.2-75.2); PLT 181 X1000 (130-400); RDW 15.5 % (11.5-14.5); WBC 8.72 X1000 (4.8-10.8)
[2019-03-14 21:26] LABS: INR 1.22; PROTIME 16.4 Seconds (11.0-16.0); PTT 36.4 Seconds (22.3-41.8)
[2019-03-14 21:33] LABS: D-DIMER 2.75 ug/mLFEU (0.0-0.52)
--- NOTE | 2019-03-14 21:40 | Diag Imaging Result Doc PS360 ---
CHEST-2 VIEWS - 03/14/2019 INDICATION: CP COMPARISON: 02/12/2019 FINDINGS: Stable right-sided dialysis catheter. Stable sternotomy wires. Stable cardiomegaly and pulmonary vascular congestion. No infiltrates or definite edema. IMPRESSION: Cardiomegaly and pulmonary vascular congestion. No change from prior. Electronically signed by Shimon Yan 03/14/2019 9:37 PM
[2019-03-14 22:01] LABS: ALB/GLOB RATIO 0.9; ALBUMIN 4.1 g/dL (3.5-5.0); CALCIUM 8.2 mg/dL (8.8-10.2); CREATININE 10.1 mg/dL (0.7-1.2); POTASSIUM 4.7 mmol/L (3.5-5.1); TOTAL BILIRUBIN 1.48 mg/dL (0.20-1.00); TOTAL PROTEIN 8.5 g/dL (6.3-8.3)
--- NOTE | 2019-03-14 23:02 | PROVIDER DOCUMENTATION ---
This chart was entered by Diandra Colon Scribe, acting as scribe for Ana Amin MD. HPI-Chest Pain - General Chief Complaint: Chest Pain Stated Complaint: Chest Pain with heart history Time Seen by Provider: 03/14/19 21:00 Source: patient Allergies/Adverse Reactions: Patient Allergies Allergy/AdvReac Type Severity Reaction Status Date / Time No Known Allergies Allergy Verified 08/08/18 09:00 Home Medications: Home Medication List Medication Instructions Recorded Confirmed Last Taken Type Aspirin 81 mg PO DAILY #60 chewtab 03/29/18 02/12/19 08/14/18 Rx Gabapentin [Neurontin] 100 mg PO TID #180 cap 03/29/18 02/12/19 08/14/18 Rx Hydralazine HCl 100 mg PO TID #90 tab 03/29/18 02/12/19 08/14/18 Rx Insulin Glargine [Lantus] 35 unit SUBQ QAM #5 insuln.pen 03/29/18 02/12/19 08/14/18 Rx Hydrocodone/APAP 7.5 mg/325 mg 1 ea PO Q6H PRN PRN #25 tab 08/08/18 02/12/19 08/14/18 Rx [Allen-7.5] ATORVAstatin [Lipitor] 40 mg PO DAILY #30 tab 02/14/19 Unknown Rx Amlodipine Besylate [Norvasc] 10 mg PO DAILY #30 tab 02/14/19 Unknown Rx Carvedilol [Coreg] 12.5 mg PO BID #60 tab 02/14/19 Unknown Rx Isosorbide Mononitrate [Isosorbide 60 mg PO DAILY #30 tab.er.24h 02/14/19 Unknown Rx Mononitrate ER] Losartan [Cozaar] 25 mg PO DAILY #30 tab 02/14/19 Unknown Rx - History of Present Illness-CP Nature of Presenting Problem: 39 yobm c/o substernal cp starting at 2200 last night. pt sts feels like "someone sitting on chest." pt sts pain became worse bc he vomited. pt has sob and elv bp, 201/131. rn sts pt missed dialysis yest. pt denies diaphoresis, chills, abd pain. pt has cardiac hx. Review of Systems - Adult - REVIEW OF SYSTEMS - ADULT Constitutional: reports: no symptoms reported. denies: chills, fever, fatique Eyes: reports: no symptoms reported Ears, Nose, Mouth & Throat: reports: no symptoms reported Cardiovascular: reports: see HPI, chest pain, other (elv bp). denies: edema, orthopnea, palpitations Respiratory: reports: see HPI, shortness of breath. denies: cough, pleurisy, wheezing Gastrointestinal: reports: see HPI, vomiting. denies: abdominal pain, constipation, diarrhea Genitourinary: reports: no symptoms reported Musculoskeletal: reports: no symptoms reported Integumentary: reports: no symptoms reported Neurological: reports: no symptoms reported. denies: dizziness/vertigo, headache/migraines, loss of balance Psychiatric: reports: no symptoms reported Endocrine: reports: no symptoms reported Hematologic/Lymphatic: reports: no symptoms reported Allergic/Immunologic: reports: no symptoms reported All Other Systems: Reviewed and Negative Past History - Adult - PAST MEDICAL HISTORY-ADULT Review of Records: reports: Old Records Reviewed, Nursing Assessment Review, Medications Reviewed, Social history reviewed & non-contributory. Major Childhood Illnesses: reports: denies history Cardiovascular: reports: cardiac disease, CAD, CHF, HTN, NH Respiratory: reports: COPD Gastrointestinal: reports: GERD Obstetrical/Gynecological: reports: denies history Genitourinary: reports: kidney disease Musculoskeletal: reports: chronic pain Neurological: reports: denies history Psychiatric: reports: anxiety, bipolar Endocrine/Immune: reports: Diabetes Other Conditions: reports: MRSA - PRIOR SURGERIES/PROCEDURES Surgical/Procedure History: reports: orthopedic (extremity), other (abcess) - PRIOR HOSPITALIZATIONS Prior Hospitalizations: reports: none - IMMUNIZATION STATUS Childhood Immunizations: See Nurse Assessment Flu Vaccine: See Nurse Assessment - FAMILY HISTORY Family History: CAD over 55 yo - SOCIAL HISTORY Smoking: other (former) Substance Use: none/never Physical Exam-General - PHYSICAL EXAM-ADULT Initial Vital Signs Reviewed: Yes - CONSTITUTIONAL General Appearance: alert, mild distress. negative: lethargic, obtunded, combative - EYES Eyes: PERRL/EOMI, pink conjunctivae - HEAD, EARS, NOSE, MOUTH & THROAT HENMT: normocephalic/atraumatic, moist mucous membranes, normal ENT inspection - NECK Neck: non-tender, full range of motion, supple, normal inspection - RESPIRATORY Respiratory: chest non-tender, lungs clear, normal breath sounds - CARDIOVASCULAR Cardiovascular: normal peripheral pulses, no edema, no gallop, no JVD, no murmur , tachycardia, other (elv bp 201/131 1955). negative: regular rate, rhythm, JVD, bradycardia - GASTROINTESTINAL (ABDOMEN) Abdominal Exam: normal bowel sounds, non tender, soft - LYMPHATIC Lymphatic: no adenopathy - MUSCULOSKELETAL Back Exam: normal inspection, no CVA tenderness, no vertebral tenderness Extremity: normal range of motion, non-tender, normal inspection Peripheral Pulses: radial (R): 2+, radial (L): 2+ - SKIN Integumentary: normal color, normal turgor, warm/dry - NEUROLOGIC Neurologic: pediatric radiologist II-XII nml as tested, grossly normal, no motor/sensory deficits - PSYCHIATRIC Psych/Mental Status: normal mood/affect, normal thought content, normal thought process, oriented x 3 - HEART Score HEART Score: History: Slightly Suspicious HEART Score: ECG: Significant ST-Deviation HEART Score: Age: < or = 45 Years HEART Score: Risk Factors for Atherosclerotic Disease: 1 or 2 Risk Factors HEART Score: Troponin: 1-3x Normal Limit Total HEART Score:: 4 Progress - PLAN OF CARE/RESULTS Progress/Plan/Lab Results: Vital Signs - 8 hr 03/14/19 19:55 03/14/19 20:02 03/14/19 20:04 Temperature 97.8 F Pulse Rate 113 H 114 H Respiratory Rate 24 20 Blood Pressure 201/131 201/131 O2 Sat by Pulse Oximetry 97 98 95 03/14/19 20:10 03/14/19 20:20 03/14/19 20:30 Temperature Pulse Rate 110 H 112 H 111 H Respiratory Rate 36 H 35 H 13 Blood Pressure O2 Sat by Pulse Oximetry 99 97 99 03/14/19 20:40 03/14/19 20:50 03/14/19 21:00 Temperature Pulse Rate 114 H 112 H 110 H Respiratory Rate 13 19 19 Blood Pressure O2 Sat by Pulse Oximetry 97 95 94 L 03/14/19 21:10 03/14/19 21:20 03/14/19 21:34 Temperature Pulse Rate 113 H 113 H 122 H Respiratory Rate 25 H 28 H 21 Blood Pressure O2 Sat by Pulse Oximetry 97 100 97 03/14/19 21:35 03/14/19 21:38 03/14/19 21:40 Temperature Pulse Rate 119 H 99 H 99 H Respiratory Rate 3 L 15 13 Blood Pressure 195/149 180/132 O2 Sat by Pulse Oximetry 95 95 95 03/14/19 21:47 03/14/19 21:50 03/14/19 22:00 Temperature Pulse Rate 97 H 99 H 97 H Respiratory Rate 0 L 17 20 Blood Pressure 165/122 O2 Sat by Pulse Oximetry 95 96 94 L 03/14/19 22:03 03/14/19 22:10 03/14/19 22:18 Temperature Pulse Rate 96 H 95 H 97 H Respiratory Rate 34 H 33 H 32 H Blood Pressure 164/116 138/100 O2 Sat by Pulse Oximetry 92 L 92 L 92 L 03/14/19 22:20 03/14/19 22:30 03/14/19 22:32 Temperature Pulse Rate 97 H 96 H 97 H Respiratory Rate 34 H 26 H 34 H Blood Pressure 159/118 O2 Sat by Pulse Oximetry 91 L 95 92 L 03/14/19 22:40 Temperature Pulse Rate 94 H Respiratory Rate 30 H Blood Pressure O2 Sat by Pulse Oximetry 92 L Laboratory Results - last 24 hr 03/14/19 03/14/19 03/14/19 20:25 20:25 20:25 WBC 8.72 RBC 2.80 L Hgb 9.1 L Hct 25.5 L MCV 91.1 MCH 32.5 H MCHC 35.7 RDW Std Deviation 15.5 H Plt Count 181 MPV 10.5 H Immature Gran % (Auto) 0.9 H Neut % (Auto) 83.8 H Lymph % (Auto) 11.2 L [place] % (Auto) 3.7 Eos % (Auto) 0.2 Baso % (Auto) 0.2 Immature Gran # (Auto) 0.08 H Neut # (Auto) 7.30 H Lymph # (Auto) 0.98 L [place] # (Auto) 0.32 Eos # (Auto) 0.02 Baso # (Auto) 0.02 PT 16.4 H INR 1.22 PTT (Actin FS) 36.4 D-Dimer, Quantitative 2.75 H Sodium 140 Potassium 4.7 Chloride 101 Carbon Dioxide 15 L Anion Gap 24 BUN 52 H Creatinine 10.1 H* Estimated GFR/1.73 m2 7 BUN/Creatinine Ratio 5 Glucose 110 H Calculated Osmolality 294 Calcium 8.2 L Total Bilirubin 1.48 H AST 23 ALT 17 Alkaline Phosphatase 54 Creatine Kinase Troponin T Total Protein 8.5 H Albumin 4.1 Globulin 4.4 Albumin/Globulin Ratio 0.9 03/14/19 03/14/19 20:25 20:25 WBC RBC Hgb Hct MCV MCH MCHC RDW Std Deviation Plt Count MPV Immature Gran % (Auto) Neut % (Auto) Lymph % (Auto) [place] % (Auto) Eos % (Auto) Baso % (Auto) Immature Gran # (Auto) Neut # (Auto) Lymph # (Auto) [place] # (Auto) Eos # (Auto) Baso # (Auto) PT INR PTT (Actin FS) D-Dimer, Quantitative Sodium Potassium Chloride Carbon Dioxide Anion Gap BUN Creatinine Estimated GFR/1.73 m2 BUN/Creatinine Ratio Glucose Calculated Osmolality Calcium Total Bilirubin AST ALT Alkaline Phosphatase Creatine Kinase 182 Troponin T 0.276 H Total Protein Albumin Globulin Albumin/Globulin Ratio Orders Category Date Time Status cxr [CHEST-2 VIEWS] [RAD] Stat Exams 03/14/19 21:14 Completed CBC WITH DIFF [HEME] Stat Lab 03/14/19 20:25 Completed CK PROFILE [SP CHEM] Stat Lab 03/14/19 20:25 Completed COMPREHENSIVE METABOLIC PANEL [CHEM] Stat Lab 03/14/19 20:25 Completed D-DIMER [COAG] Stat Lab 03/14/19 20:25 Completed PROTIME WITH INR [COAG] Stat Lab 03/14/19 20:25 Completed PTT [COAG] Stat Lab 03/14/19 20:25 Completed TROPONIN T Stat Lab 03/14/19 20:25 Completed pro-bnp [PRO B-NATRIURETIC PEPTIDE] Stat Lab 03/14/19 23:03 Received Aspirin Med 03/14/19 21:13 Discontinued 325 mg PO NOW ONE Metoprolol [Lopressor] Med 03/14/19 21:13 Discontinued 5 mg IV NOW ONE Morphine Med 03/14/19 21:12 Discontinued 4 mg IV NOW ONE Ondansetron [Zofran] Med 03/14/19 21:24 Discontinued 4 mg IV NOW ONE EKG [EKG] Stat Ther 03/14/19 21:01 Ordered [facility] [address], [address], [place] [address] Department of Imaging Patient: JOHNIE BERGERON ADM Date: 03/14/19 MR#: [id number] : 1980 ADM Status: PRE ER Age/Sex: 39/M Room/Bed: Loc: ED Ordering Physician: Ana Amin MD Family Physician: None,PCP Reason for Procedure: CP Signed CHEST-2 VIEWS - 03/14/2019 INDICATION: CP COMPARISON: 02/12/2019 FINDINGS: Stable right-sided dialysis catheter. Stable sternotomy wires. Stable cardiomegaly and pulmonary vascular congestion. No infiltrates or definite edema. IMPRESSION: Cardiomegaly and pulmonary vascular congestion. No change from prior. Electronically signed by Shimon Yan 03/14/2019 9:37 PM 03/14/192136 Interpreting Physician: Shimon Yan MD Dictated Date/Time: 03/14/192135 cc: Ana Amin MD; None,PCP Result Diagrams: 03/14/19 20:25 03/14/19 20:25 - REASSESSMENT Reassessment #1 Time Reassessed: 23:05 Status: improving - EKG 1 Time of EKG reading by physician:: 20:05 EKG Read and Signed by:: Michelle Suarez EKG Interpretation (*Must complete 3 of following elements*): Abnormal Rate: 114 (poss left atrial enlargement) Rhythm: ST w/1st degree av block [place]: normal QRS: normal SD Interval: prolonged ST Wave: normal Prior EKG Comparison: unchanged from prior (unchanged from 02-11-19) Comments: anterolateral infarct, age undetermined - CONSULTS/PCP/HOSPITALIST Notification #1 *Consult/PCP/Hospitalist*: DR. IGLESIAS Time Discussed: 23:32 Consult Disposition: Admit (FLUID OVERLOAD) #2 Consult: DR. BUCKNER Time Discussed: 23:32 (DESAT AND FLUID OVERLOAD) Consult Disposition: Admit Departure - Departure Date of Disposition Decision: 03/14/19 Time of Disposition Decision: 23:03 DIAGNOSIS: CHF (congestive heart failure), Hypertensive emergency, ESRD (end stage renal disease), Elevated troponin, Fluid overload Disposition: ADMITTED INPATIENT 09 Certified Medical Emergency: Emergent Condition: Stable Referrals and Follow-Ups: None,PCP [Primary Care Provider] - - Critical Care Note This patient required my direct & personal management of CC.: No Attestation - Physician/ DAVID Attestation Patient care was provided by Advanced Practice Provider:: No The physician spent face to face time with patient:: Yes Advanced Practice Provider documentation review:: Supervising physician onsite and consulted in the evaluation and care of this patient. The physician did have a face to face encounter with the patient. This chart was documented by the indicated scribe, (Diandra Colon Scribe) and accurately reflects the services I performed and decisions made by me, Ana Amin MD, as attested by the provider's signature.
--- NOTE | 2019-03-15 01:18 | HISTORY AND PHYSICAL ---
PRIMARY CARE PHYSICIAN: None. CHIEF COMPLAINT: Shortness of breath, missed dialysis. HISTORY OF PRESENTING ILLNESS: The patient is a 39-year-old male with a history of end-stage renal disease on renal dialysis Wednesday, Wednesday and Wednesday, hypertension, diabetes mellitus type 2 and coronary disease, who apparently missed his dialysis session on Wednesday. He thought that due to the holiday that the dialysis center was closed. He states that he began having more shortness of breath and subsequently had come to the emergency department. In the ED he was evaluated and he was put on supplemental oxygen, and due to his presenting condition it was thought that we will place him for observation for further evaluation and to have dialysis in the morning. At the time of my examination the patient denied any headache, fever, chills, chest pain, hemoptysis, melena or any weight changes, but complained of shortness of breath. PAST MEDICAL HISTORY: Includes end-stage renal disease, hypertension, diabetes mellitus type 2, hyperlipidemia, coronary artery disease. PAST SURGICAL HISTORY: Coronary artery bypass, right toes amputation. ALLERGIES: No known drug allergies. CURRENT MEDICATIONS: Include Norvasc 10 mg p.o. daily, aspirin 81 mg p.o. daily, Lipitor 40 mg p.o. daily, Coreg 12.5 mg p.o. daily, gabapentin 100 mg p.o. t.i.d. hydralazine 100 mg p.o. t.i.d., [place] 7.5 one p.o. q.6 hours, Lantus 35 units subcutaneous q.a.m., isosorbide mononitrate 60 mg p.o. daily, losartan 25 mg p.o. daily. SOCIAL HISTORY: No history of smoking, alcohol or illicit drug use. FAMILY HISTORY: No history of coronary disease. REVIEW OF SYSTEMS: Fourteen point review of systems is as in the HPI. Other systems are negative. PHYSICAL EXAMINATION: GENERAL: Cooperative friendly male. He is resting more comfortably now. VITAL SIGNS: Temperature 97.8 degrees, pulse 113, respiration 24, blood pressure 201/131, oxygen saturation is 97% on 2 L. HEENT: Atraumatic and normocephalic. Extraocular movements are intact. PERRLA. NECK: No masses. CHEST: Bibasilar rales. CARDIOVASCULAR: Regular rate and rhythm. ABDOMEN: Soft. Positive bowel sounds. EXTREMITIES: With +1 edema. NEUROLOGIC: He is awake, alert and oriented x3. GENITOURINARY: No bladder distention. SKIN: Warm. LABORATORIES AND STUDIES: ProBNP is greater than 35,000, sodium 140, potassium 4.7, chloride 101, CO2 is 15, BUN is 52, creatinine is 10.1, glucose 110. WBC is 8.72, hemoglobin 9.1, hematocrit 25.5, platelets 181,000. Troponin is 0.276. Chest x-ray shows vascular congestion. ASSESSMENT: The patient is a 39-year-old male with a history of end-stage renal disease, hypertension, diabetes mellitus type 2 and coronary disease who presented to the emergency department due to worsening shortness of breath. He had missed his dialysis session on Wednesday. He was evaluated in the emergency department and I suspect he was volume overloaded and subsequently he will require admission for further management. 1. Volume overload/missed dialysis session. 2. End-stage renal disease. 3. Elevated troponin in the setting of renal failure. 4. Hypertension, uncontrolled. 5. Diabetes mellitus type 2. PLAN: 1. We will admit the patient to medical floor with telemetry. 2. We will consult Nephrology for dialysis. 3. We will continue to trend his troponins. 4. We will monitor blood pressure and resume antihypertensive agent. 5. We will put the patient on glycemic protocol with sliding scale insulin regimen. 6. We will continue the patient on DVT prophylaxis with heparin. 7. We will continue to follow, reassess and make further recommendation based on the patient's clinical course. cc: Kahlil Tello MD
[2019-03-15] MEDS ORDERED: NORCO-7.5 PO PRN (04:35)
[2019-03-15] MEDS: HEPARIN SUBQ SCH ×2 (06:16→17:24)
[2019-03-15] MEDS ORDERED: NS 2,000 ML MISC PRN (06:20)
[2019-03-15] MEDS ORDERED: HEPARIN IV PRN (06:20)
[2019-03-15] MEDS ORDERED: TIGHT: 0.2 ML/HR FOR DIALYSIS MISC PRN (06:20)
[2019-03-15] MEDS: HUMULIN R SUBQ SCH ×4 (07:00→22:17)
--- NOTE | 2019-03-15 07:09 | EKG Report ---
Test Performed on : 03/14/2019 7:57:34 PM Test Reason : cp Blood Pressure : / mmHG Vent. Rate : 114 BPM Atrial Rate : 114 BPM P-R Int : 228 ms QRS Dur : 086 ms QT Int : 342 ms P-R-T Axes : 002 073 145 degrees QTc Int : 471 ms Sinus tachycardia. with 1st degree AV block. Possible Left atrial enlargement Anteroseptal infarct (cited on or before 27-MAR-2015) Abnormal ECG When compared with ECG of 12-FEB-2019 05:18, NC interval has increased Vent. rate has increased BY 41 BPM T wave inversion less evident in Anterior leads Unconfirmed Result
[2019-03-15] MEDS ORDERED: NITROGLYCERIN TOP ONE ×2 (08:39→13:45)
[2019-03-15] MEDS ORDERED: COREG PO SCH (09:00)
[2019-03-15] MEDS ORDERED: COZAAR PO SCH (09:00)
--- NOTE | 2019-03-15 10:20 | NEPHROLOGY CONSULTATION ---
DATE: 03/15/2019 REASON FOR CONSULTATION: Volume overload and ESRD. HISTORY OF PRESENT ILLNESS: Mr. Coats is a 39-year-old man who is well known to me. He has diabetes, hypertension, ischemic cardiomyopathy, hyperlipidemia, etc., coronary artery disease with bypass grafting, peripheral vascular disease. He missed his dialysis on Wednesday, stating "I thought it was closed." He states he was well until yesterday afternoon when he had rather abrupt onset of shortness of breath that became progressively worsening and caused anxiety and distress, and so he had himself transported to the emergency room. Symptoms were immediately better with supplemental oxygen. He was also treated with nitrates as his blood pressure was markedly elevated. Blood pressures remained rather uncontrolled since arrival. He states that they took his oxygen off and ambulated him in the hallway, but he had immediate desaturation and recrudescence of symptoms, so he had plans for admission. No other new symptoms. No chest pain. No sputum, chills, fevers, etc. PAST MEDICAL HISTORY: As above. HOME MEDICATIONS: Include amlodipine, aspirin, gabapentin, hydralazine, insulin, losartan, carvedilol, isosorbide, atorvastatin. SOCIAL HISTORY: He is . Lives in [place]. No alcohol or tobacco. FAMILY HISTORY: Otherwise noncontributory. REVIEW OF SYSTEMS: Otherwise noncontributory. PHYSICAL EXAMINATION: Vital Signs: Blood pressure 173/137, heart rate 93, respirations 27, afebrile. General: No acute distress. Resting comfortably. Eyes closed. On 4 L nasal cannula. Skin: Warm and dry. Conjunctivae are pink. Pupils are equal. Oropharynx is clear. Normal tongue. Normal teeth. Neck: Supple. Trachea is midline. Jugular venous distention is present. Heart: Regular with a gallop. Lungs: Equal with bilateral crackles. Abdomen: Soft, obese, nontender. Bowel sounds present. Extremities: With 1+ edema. No clubbing or cyanosis. IMPRESSION: Acute heart failure, likely secondary to volume overload and severe hypertension. Chest x-ray certainly supports pulmonary edema. He has a large cardiac silhouette, which is chronic. His severe hypertension is likely severely exacerbating his symptoms. I will focus on his blood pressure management, and he will have dialysis this morning to address his volume status. His electrolytes are acceptable, though he does have a moderate metabolic acidosis, presumably secondary to his renal failure. Anemia is below target, but does not meet criteria for transfusion. If he responds well to dialysis, then I would support his discharge. cc: Remington Benitez MD
[2019-03-15] MEDS: APRESOLINE PO SCH ×4 (13:14→22:16)
[2019-03-15] MEDS: ASPIRIN PO SCH (13:15)
[2019-03-15] MEDS: LIPITOR PO SCH (13:17)
[2019-03-15] MEDS: IMDUR PO SCH (13:17)
[2019-03-15] MEDS: NEURONTIN PO SCH ×3 (13:18→22:13)
[2019-03-15] MEDS: COZAAR PO SCH (13:19)
[2019-03-15] MEDS: NORVASC PO SCH (13:19)
[2019-03-15] MEDS: COREG PO SCH ×3 (13:39→22:15)
[2019-03-15] MEDS: DILAUDID IV PRN ×2 (18:20→22:18)
[2019-03-15] MEDS: BENADRYL PO PRN ×2 (22:13→22:16)
[2019-03-16] MEDS: DILAUDID IV PRN ×2 (04:43→12:50)
[2019-03-16] MEDS: HEPARIN SUBQ SCH ×2 (04:46→17:28)
[2019-03-16] MEDS: HUMULIN R SUBQ SCH ×4 (06:16→23:16)
--- NOTE | 2019-03-16 07:25 | Diag Imaging Result Doc PS360 ---
EXAM: CHEST-PORTABLE 03/16/2019 HISTORY: pulmonary edema TECHNIQUE: AP portable at 0555 COMMENT: There is a double-lumen catheter in the internal jugular on the right with its tip in the right atrium. There are sternotomy wires. There is cardiomegaly. The inspiration is less optimal than on 03/14/2019 but otherwise are has been no significant change. IMPRESSION: Cardiomegaly. Mild pulmonary edema. Electronically signed by Jonathon Gates 03/16/2019 7:23 AM
[2019-03-16 07:56] LABS: BASO# 0.03 X1000 (0.0-0.2); BASO% 0.4 % (0.0-0.8); EOS# 0.23 X1000 (0.0-0.7); EOS% 3.4 % (0.0-10.0); HEMATOCRIT 25.1 % (42.0-52.0); HEMOGLOBIN 8.7 g/dL (14.0-18.0); IMM GRAN# 0.02 X1000 (0.0-0.04); IMM GRAN% 0.3 % (0.0-0.5); LYMPH# 1.19 X1000 (1.2-3.4); LYMPH% 17.3 % (20.5-51.1); MCHC 34.7 g/dL (33-37); MCV 92.3 FL (81-99); MONO# 0.41 X1000 (0.11-0.59); NEUT# 4.98 X1000 (1.4-6.5); NEUT% 72.6 % (42.2-75.2); PLT 147 X1000 (130-400); RBC 2.72 XMIL (4.7-6.1); WBC 6.86 X1000 (4.8-10.8)
[2019-03-16 08:16] LABS: CALCIUM 7.9 mg/dL (8.8-10.2); POTASSIUM 4.2 mmol/L (3.5-5.1)
[2019-03-16 08:17] LABS: CREATININE 8.3 mg/dL (0.7-1.2)
[2019-03-16] MEDS: APRESOLINE PO SCH ×3 (09:38→23:08)
[2019-03-16] MEDS: COZAAR PO SCH (09:38)
[2019-03-16] MEDS: NEURONTIN PO SCH ×3 (09:38→23:07)
[2019-03-16] MEDS: IMDUR PO SCH (09:38)
[2019-03-16] MEDS: COREG PO SCH ×2 (09:38→23:07)
[2019-03-16] MEDS: NORVASC PO SCH (09:38)
[2019-03-16] MEDS: ASPIRIN PO SCH (09:38)
[2019-03-16] MEDS: LIPITOR PO SCH (09:39)
[2019-03-16] MEDS: ZOFRAN IV PRN (12:50)
--- NOTE | 2019-03-16 12:58 | PROGRESS NOTE ---
DATE: 03/16/2019 SUBJECTIVE: The patient was complaining of some substernal chest pain that started on Wednesday, and has improved since his dialysis. OBJECTIVE: Vital Signs: Temperature is 97.9 degrees, heart rate 94, respirations 15, blood pressure 124/81, O2 is 100% on 2 L nasal cannula. General: Mr. Coats is a 39-year-old male who is sitting up in the bed in no acute distress. HEENT: Atraumatic, normocephalic. PERRL. Neck: Supple. Trachea midline. Cardiovascular: S1, S2 appreciated. No murmurs, gallops, or rubs noted. Lungs: Lung sounds relatively clear bilaterally decreased in the bases. Abdomen: Obese, soft, nontender. Positive bowel sounds 4 quadrants. Extremities: Trace edema. No clubbing, no cyanosis. Neurologic: No focal deficits noted. LABORATORY DATA: White count 6, hemoglobin and hematocrit 8 and 25, platelet count 147,000. Sodium 143, potassium 4.2, BUN 39, creatinine 8.3, blood glucose is 128. ASSESSMENT/PLAN: 1. Presumed acute heart failure secondary to fluid volume overload from skipping dialysis session on Wednesday. He has been followed by Nephrology, and he had hemodialysis on Wednesday. Electrolytes are currently stable. 2. Hypertension. Improved. Continue on the current regimen. 3. Elevated troponin in the setting of renal failure. However, patient continues to complain of chest pain that is substernal, nonradiating, described as pressure like, pushing on his chest, intermittent in nature. It is worse when he coughs. It does cause nausea and vomiting as well as diaphoresis. There was no associated dizziness or palpitations though he states again, it has improved since Wednesday. We will go ahead and recheck his cardiac enzymes as well as recheck an EKG and consult Cardiology. 4. Diabetes mellitus type 2. Continue pattern sugars with sliding scale. 5. Coronary artery disease status post coronary artery bypass graft. 6. Hyperlipidemia. 7. Restless leg syndrome. Further recommendations to follow physician evaluation, laboratory and diagnostic data. Dictated by YFN Cole for Guerline Cadena MD cc: MD Kannan Villalobos MD Reginald D. Gladish, MD MTDD
--- NOTE | 2019-03-16 13:39 | EKG Report ---
Test Performed on : 03/16/2019 12:34:32 PM Test Reason : chest pain Blood Pressure : / mmHG Vent. Rate : 068 BPM Atrial Rate : 068 BPM P-R Int : 180 ms QRS Dur : 090 ms QT Int : 462 ms P-R-T Axes : 049 035 159 degrees QTc Int : 491 ms Normal sinus rhythm. Possible Left atrial enlargement Anteroseptal infarct (cited on or before 27-MAR-2015) ST & T wave abnormality, consider inferolateral ischemia Abnormal ECG When compared with ECG of 14-MAR-2019 19:57, (Unconfirmed) CA interval has decreased Vent. rate has decreased BY 46 BPM Confirmed by Jeff BENNETT, Michael Callejas ([id number]) on 03/16/2019 6:39:52 PM
--- NOTE | 2019-03-16 14:52 | GENERAL SURGERY CONSULTATION ---
DATE: 03/16/2019 REASON FOR CONSULTATION: Dialysis access planning. HISTORY OF PRESENT ILLNESS: This is a 39-year-old male with multiple medical problems including diabetes, hypertension, cardiomyopathy, hyperlipidemia, heart failure, coronary artery disease and peripheral vascular disease, as well as end-stage renal disease. He previously had a left wrist AV fistula by me that has not been usable. He is currently dialyzing with a dialysis catheter. He was admitted yesterday with acute onset of shortness of breath, thought to be due to volume overload, acute heart failure and severe hypertension. He is undergoing dialysis today and blood pressure management and I have been asked to see him to plan his long-term dialysis access. He has missed several appointments in my office for this purpose. PAST MEDICAL HISTORY: As above in HPI. HOME MEDICATIONS: Amlodipine, aspirin, gabapentin, hydralazine, insulin, losartan, carvedilol, isosorbide, atorvastatin. PAST SURGICAL HISTORY: Multiple debridement's and incision and drainage procedures for cysts on his back, left wrist AV fistula, coronary artery bypass grafting, toe amputations. SOCIAL HISTORY: No alcohol, tobacco, or illicit drug use. He is and lives in [place]. FAMILY HISTORY: Reviewed and noncontributory. REVIEW OF SYSTEMS: Ten systems reviewed and negative except as noted above. PHYSICAL EXAMINATION: Vital Signs: Temperature 97.5 degrees, pulse 67, respirations 16, blood pressure 116/74, O2 saturation 99%. General: He is a well-developed, well-nourished male who is in no acute distress. HEENT: Normocephalic, atraumatic. Extraocular muscles intact. Pupils equal, round, reactive to light. Sclerae anicteric. Neck: Supple no thyromegaly. CV: Regular rate and rhythm. Respiratory: Bilateral breath sounds. Mild wheeze. No increased work of breathing. GI: GI soft, nontender, nondistended. No mass. Extremities: He has palpable brachial and radial pulse in both wrists and arms. Musculoskeletal: Moves all extremities equally and well. Skin: Warm and dry. No rash. LABORATORY: White cell count 6, hemoglobin 8.7, hematocrit 25, platelet count 147,000. Sodium 133, potassium 4.2, BUN 39, creatinine 8.3, glucose 128. His BNP is greater than 35,000. IMAGING: Chest x-ray this morning shows cardiomegaly and mild pulmonary edema. ASSESSMENT/PLAN: 39-year-old male with multiple medical problems with acute heart failure and end- stage renal disease. We are planning a future dialysis access. We will get venous mapping study while he is here and he will follow up with me next week to make further plans. cc: Tyrone Sweeney MD
--- NOTE | 2019-03-16 15:06 | NEPHROLOGY PROGRESS NOTE ---
DATE: 03/16/2019 TIME SEEN: 06:45. SUBJECTIVE: Mr. Coats is resting quietly in bed, states that he has had difficulty with breathing. He has continued on his oxygen, though he does not wear home O2. No complaints of chest pain. OBJECTIVE: His most recent vital signs, his last temperature 97.3, blood pressure 126/80, heart rate 74, respirations are 12. He is currently on 4 L nasal cannula. Last recorded saturation 98%. He has had zero recorded in, 2.2 L removed on dialysis. LABS: Sodium 133, potassium 4.2, chloride 94, CO2 of 26, BUN 39, creatinine 8.3, glucose 128. Anion gap 13, calcium 7.9. White count 6.86, hemoglobin 8.7, hematocrit 25.1 with a platelet count of 147. The patient had a chest x-ray completed this a.m. indicating cardiomegaly with mild pulmonary edema. PHYSICAL EXAMINATION: General: This is a 39-year-old, male, resting quietly in bed. He appears in no acute distress. Skin: Warm and dry. HEENT: Normocephalic, atraumatic. Conjunctiva is pale pink. He has BAILEY. Mucous membranes are dry. Neck: Supple. Trachea midline. No evidence of JVD. Cardiovascular: He is regular rate and rhythm. He has an S4. Lungs: Clear to auscultation bilaterally. Equal excursion on O2. Abdomen: Soft, large, round, nontender. Positive bowel sounds. Genitourinary: Not inspected. Minimal void with dialysis assist. Extremities: Have trace pretibial edema. No clubbing or cyanosis. Integumentary: No rashes or lesions evident. He does have a tunnel catheter to the right chest wall. Neurological: Alert and oriented x3. ASSESSMENT AND PLAN: 1. Chronic kidney disease stage 5D. The patient is due for his routine dialysis treatment in the a.m. 2. Fluid volume overload with severe hypertension. Blood pressure has improved. We will plan for assistance with dialysis in the a.m. 3. Electrolytes and acid-base balance, these are stable. 4. Anemia. This is low, but stable. I would like to thank you for allowing us to follow with this patient. Dictated by YFN Morgan for Remington Benitez MD Face to face encounter, data reviewed, discussed with Deb Watkins on 03/16/19. I agree with the above assessment and plan of care. cc: YFN Morgan MD MTDD
--- NOTE | 2019-03-16 16:48 | CARDIOLOGY CONSULTATION ---
DATE: 03/16/2019 CHIEF COMPLAINT ON PRESENTATION: Shortness of breath, chest pain, nausea. HISTORY OF PRESENT ILLNESS: Mr. Coats is a 39-year-old black male with a history of coronary bypass grafting who presents for evaluation of the above named symptoms. Those occurred Wednesday evening. They woke him from sleep. He dialyzes Wednesday, Wednesday, Wednesday, and thought the dialysis center was closed on Wednesday secondary to the holiday; however, it was not. He had not been his medications for a month. In addition, he had an oral sodium load on Wednesday, having eaten baked beans and barbecue chicken. He presented with markedly elevated blood pressures. His chest discomfort occurred after he had the onset of vomiting and lasted for a few minutes at home. It was not exertional. He did experience some orthopnea with that episode. PAST MEDICAL HISTORY: 1. Significant for end-stage renal disease, Wednesday, Wednesday, Wednesday hemodialysis, with limited compliance with that. 2. Coronary artery disease with ischemic cardiomyopathy and a history of coronary bypass grafting. His last cardiac catheterization was performed in February of 2016. This demonstrated normal left main. His LAD was occluded proximally. It was seen extensively via [id number] collateralization. The ramus was large and had a focal 80% lesion in the mid vessel. The circumflex was nondominant and gave off a moderate-sized first obtuse and a larger second. There is a 70 to 80% lesion in the first obtuse and a 70% in the distal second obtuse marginal. The right coronary had diffuse 20 to 30% disease. He had coronary bypass grafting in October 2016 with an WHITLEY to the LAD, vein graft to an OM, and a vein graft to the ramus. His most recent ejection fraction by echocardiogram at the end of January was 35 to 40%. Pulmonary hypertension was demonstrated. 3. Hypertension. 4. Hyperlipidemia. 5. Diabetes. 6. Significant chronic history of noncompliance with medications. SOCIAL HISTORY: No tobacco, alcohol, or illicit drugs. FAMILY HISTORY: Significant for hypertension. REVIEW OF SYSTEMS: A 10 system review of systems is negative except for those things mentioned in the HPI. PHYSICAL EXAMINATION: Vital signs: Patient is afebrile. Heart rate is 70, blood pressure 117/75. Notably his presenting blood pressure was 201/131. General: No acute distress. HEENT: Oropharynx is moist. Normocephalic, atraumatic. Eye examination shows pink conjunctivae, white sclerae. Neck: Shows no obvious thyromegaly or thyroid tenderness. Cardiovascular: He sounds to be in a regular rate and rhythm. He has no obvious murmurs. He has no S3. He has no lower extremity edema. Chest: Exam sounds clear bilaterally. He has no increased work of breathing. Abdomen: Soft, nontender, nondistended. He has no obvious organomegaly. Skin: Warm and dry throughout without any rashes. Neurological: He is moving all extremities well. He has no lateralizing deficits. PERTINENT DATA: His chest x-ray demonstrated cardiomegaly with pulmonary vascular congestion on the . His EKG originally checked on the at 1956 shows mild sinus tachycardia. He has T- wave inversions in the high lateral limb leads. Otherwise, relatively unremarkable. Possible anterior septal infarct. Subsequent EKG March 16 at 12:34 continued to show T-wave inversions in the high lateral leads with suggestion of anterior septal infarct, sinus rhythm on that study. His white count is 6.8, hematocrit 25, platelet count is 147,000. Sodium 133, potassium 4.2, BUN 39, creatinine is 8.3. Cardiac enzymes are elevated with a troponin of 0.344. ASSESSMENT: Mr. Coats is a 39-year-old black male with a history of ischemic cardiomyopathy and end-stage renal disease who presents for evaluation of shortness of breath and chest discomfort. PLAN: I believe his most likely etiology of the discomfort and shortness of breath is related to volume overload and markedly elevated blood pressures due to noncompliance with his sodium restricted diet, noncompliance with dialysis, as well as noncompliance with medications. He initiated medications, his chest discomfort has gone away, and his blood pressure is controlled. Notably he has had elevated troponins consistently on nearly every lab draw since October of 2017. Given his repetitive history of noncompliance with medications, I would be very hesitant to take this patient to the catheterization laboratory because he would likely not comply with his antiplatelet regimen. He is on high-intensity statin therapy, an aspirin, as well as a beta- bebe and an ARB. I do not have any further recommendations on this patient. Please contact us if we can be of further assistance. cc: Kannan Giles MD
--- NOTE | 2019-03-16 17:58 | Diag Imaging Result Doc PS360 ---
EXAM: ABDOMEN FLAT/UPRIGHT HISTORY: constipation TECHNIQUE: Flat and upright, two views COMPARISON: 06/29/2015 FINDINGS: No bowel obstruction. There is stool in the proximal colon. No organomegaly. No foreign body. No abnormal calcifications. IMPRESSION: No significant constipation Electronically signed by Simone Avendano 03/16/2019 5:55 PM
[2019-03-16] MEDS: MIRALAX PO SCH (23:10)
[2019-03-16] MEDS: LACTULOSE PO SCH (23:10)
[2019-03-17] MEDS: HEPARIN SUBQ SCH ×2 (04:22→20:07)
[2019-03-17] MEDS: ZOFRAN IV PRN ×2 (04:23→19:01)
[2019-03-17] MEDS: DILAUDID IV PRN ×2 (04:24→19:01)
[2019-03-17] MEDS: HUMULIN R SUBQ SCH ×4 (06:23→21:21)
--- NOTE | 2019-03-17 06:42 | EKG Report ---
Test Performed on : 03/16/2019 10:55:23 PM Test Reason : chest pain Blood Pressure : / mmHG Vent. Rate : 078 BPM Atrial Rate : 078 BPM P-R Int : 170 ms QRS Dur : 090 ms QT Int : 410 ms P-R-T Axes : 048 028 171 degrees QTc Int : 467 ms Normal sinus rhythm. Possible Left atrial enlargement Anteroseptal infarct (cited on or before 27-MAR-2015) ST & T wave abnormality, consider inferolateral ischemia Abnormal ECG When compared with ECG of 16-MAR-2019 12:34, No significant change was found Confirmed by Jeff BENNETT, Michael Callejas ([id number]) on 03/20/2019 11:28:52 AM
[2019-03-17] MEDS ORDERED: HEPARIN IV PRN (06:53)
[2019-03-17] MEDS ORDERED: NS 2,000 ML MISC PRN (06:53)
[2019-03-17] MEDS ORDERED: TIGHT: 0.2 ML/HR FOR DIALYSIS MISC PRN (06:53)
--- NOTE | 2019-03-17 07:02 | EKG Report ---
Test Performed on : 03/17/2019 06:45:48 AM Test Reason : chest pain Blood Pressure : / mmHG Vent. Rate : 067 BPM Atrial Rate : 067 BPM P-R Int : 188 ms QRS Dur : 096 ms QT Int : 452 ms P-R-T Axes : 042 027 163 degrees QTc Int : 477 ms Normal sinus rhythm. Possible Left atrial enlargement RSR' or QR pattern in V1 suggests right ventricular conduction delay Anteroseptal infarct (cited on or before 27-MAR-2015) T wave abnormality, consider inferolateral ischemia Abnormal ECG When compared with ECG of 16-MAR-2019 22:55, (Unconfirmed) T wave inversion now evident in Anterior leads Confirmed by Jeff BENNETT, Michael Callejas ([id number]) on 03/20/2019 11:29:13 AM
--- NOTE | 2019-03-17 07:20 | Diag Imaging Result Doc PS360 ---
EXAM: CHEST-PORTABLE 03/17/2019 HISTORY: dyspnea TECHNIQUE: AP portable at 0558 COMMENT: There is cardiomegaly. There is a double-lumen internal jugular catheter on the right with its tip in the right atrium. There are sternotomy wires. Lungs are better expanded and clearer than on 03/16/2019. IMPRESSION: Cardiomegaly. Electronically signed by Jonathon Gates 03/17/2019 7:18 AM
[2019-03-17 07:56] LABS: HEMATOCRIT 26.4 % (42.0-52.0); HEMOGLOBIN 9.1 g/dL (14.0-18.0); MCH 32.7 PG (27-31); MCHC 34.5 g/dL (33-37); MPV 10.4 FL (7.4-10.4); RBC 2.78 XMIL (4.7-6.1); RDW 16.4 % (11.5-14.5); WBC 6.12 X1000 (4.8-10.8)
[2019-03-17 07:59] LABS: ALBUMIN 3.6 g/dL (3.5-5.0); CALCIUM 7.2 mg/dL (8.8-10.2); PHOSPHORUS 6.9 mg/dL (2.7-4.5); POTASSIUM 4.6 mmol/L (3.5-5.1)
[2019-03-17] MEDS: IMDUR PO SCH (08:03)
[2019-03-17] MEDS: LIPITOR PO SCH (08:03)
[2019-03-17] MEDS: COREG PO SCH ×2 (08:03→21:20)
[2019-03-17] MEDS: NEURONTIN PO SCH ×3 (08:03→21:19)
[2019-03-17] MEDS: COZAAR PO SCH (08:04)
[2019-03-17] MEDS: ASPIRIN PO SCH (08:04)
[2019-03-17] MEDS: NORVASC PO SCH (08:04)
[2019-03-17] MEDS: APRESOLINE PO SCH ×3 (08:04→21:21)
[2019-03-17] MEDS: LACTULOSE PO SCH ×2 (08:05→21:20)
[2019-03-17] MEDS: MIRALAX PO SCH ×2 (08:05→21:19)
[2019-03-17 08:09] LABS: CREATININE 9.9 mg/dL (0.7-1.2)
[2019-03-17] MEDS ORDERED: DULCOLAX PR ONE (09:15)
--- NOTE | 2019-03-17 16:14 | CARDIOLOGY PROGRESS NOTE ---
DATE: 03/17/2019 SUBJECTIVE: Mr. Coats has no complaints today. He is currently on dialysis. PHYSICAL EXAMINATION: Vital signs: He is afebrile. Heart rate 70, blood pressure 110/71. Generally: No acute distress. Cardiovascular: He sounds to be in a regular rate and rhythm. He has no murmurs, no lower extremity edema. Chest: Sounds clear. He has no increased work of breathing. Abdomen: Soft, nontender. PERTINENT DATA: White count 6.1, hematocrit 26, platelet count 148,000. Sodium 135, potassium 4.6, BUN 46, creatinine is 9.9. ASSESSMENT: Mr. Coats is a 39-year-old male with a well known history of ischemic cardiomyopathy as well as end-stage renal disease. PLAN: The most likely etiology of his chest discomfort and significant hypertension was related to not getting dialyzed on his usual schedule as well as noncompliance with his medications. He did have a troponin elevation which has been a chronic issue with him for around a year and a half. I would not do an ischemia evaluation given the likely etiology of this being his lack of blood pressure control due to the above of factors. In addition, he has an extremely poor record of medical compliance. I would not proceed with an invasive ischemia evaluation at this time. From my standpoint, he is stable for discharge from a cardiovascular standpoint. Please contact us if we can be of further assistance. cc: Kannan Giles MD
--- NOTE | 2019-03-17 16:58 | NEPHROLOGY PROGRESS NOTE ---
DATE: 03/17/2019 SUBJECTIVE: He is sitting up in bed. He is still requiring oxygen. He denies shortness of breath, chest discomfort, nausea, vomiting etc. OBJECTIVE: Vital Signs: Blood pressure 110/71, heart rate 70, respiration 18, afebrile. General: No acute distress. Skin: Warm and dry. Conjunctivae are pink. Neck: Neck veins are not distended. Heart: Regular with murmur and a gallop. Lungs: Have equal breath sounds. No crackles or wheezes. Abdomen: Soft, nontender. Bowel sounds present. Extremities: No edema, clubbing or cyanosis. IMPRESSION: 1. Chronic kidney disease 5D with volume overload. Today is his routine dialysis day. We will target 4 L ultrafiltration. Electrolytes/acid base/anemia. Acceptable. No treatment changes are required. 2. Hypertension in target. 3. Okay for discharge from my perspective when he is able to come off of his oxygen. cc: Remington Benitez MD
--- NOTE | 2019-03-17 17:38 | PROGRESS NOTE ---
DATE: 03/17/2019 SUBJECTIVE: The patient states that he is still having some intermittent chest and back pain. He also complains of constipation. OBJECTIVE: Vital Signs: Temperature 97.6 degrees, blood pressure 110/71, heart rate 70, respirations 18, O2 saturation is 100% on 3 L nasal cannula. General: This is a chronically ill- appearing, middle-aged male sitting up in bed in no acute distress. Heart: S1, S2. Normal. Lungs: Equal air entry bilaterally. Abdomen: Positive bowel sounds. Soft, nontender, nondistended. Extremities: No edema. No cyanosis. Neurologic: The patient is alert and oriented x4. LABORATORY DATA: White blood cell count 6.1, hemoglobin 9.1, hematocrit 26, platelets 148,000. Sodium 135, potassium 4.6, chloride 94, CO2 25, BUN 46, creatinine 9.9, glucose 143, calcium 7.2, phosphorus 6.9. Chest x-ray shows cardiomegaly. ASSESSMENT AND PLAN: 1. Volume overload. Management as per the tax audit manager. 2. Recurrent chest pain. Continue to manage the patient's volume status. Continue with p.r.n. pain medication. 3. Constipation. Will start the patient on scheduled laxative therapy. 4. End stage renal disease. Management as per the tax audit manager. 5. Hypertension. Stable. Continue on the current antihypertensive regimen. 6. Diabetes mellitus type 2. Continue on Lantus and sliding scale insulin. 7. Anemia. Stable. 8. Deep vein thrombosis prophylaxis. Will start the patient on heparin. cc: Guerline Cadena MD MTDD
--- NOTE | 2019-03-17 20:23 | Extremity Venous Study ---
PROCEDURE NAME: Vein Map/Hemodialysis [facility] - 03/16/2019 REQUESTING PHYSICIAN: Dr. Sweeney PATIENT SCHEDULER: Alexandra INDICATIONS: 1. Evaluation for new dialysis access. 2. History of left-sided radiocephalic fistula. EQUIPMENT: [employer] Vivid E9 ultrasound system and a 9 L-D transducer. FINDINGS: Images of the bilateral upper extremity venous systems were obtained to evaluate veins for size. On the right side, the cephalic vein at the wrist is 1.3, increases to 3 at the level of the antecubital fossa and stays around 3 for the remainder of the course. The basilic vein is 2.2 at the wrist and decreases down to 1.8 right before the antecubital fossa, but then increases back up to 3 the remainder of its course. On the left side, the cephalic vein is 1.9 at the wrist, increases to 3.7 at the antecubital fossa and remains above 3 essentially for the entirety of the course. The basilic vein is 2.1 at the wrist, but decreases down to 1.9 at the antecubital fossa, but there is a large branch of the median cubital vein that measures 3, and the basilic vein remains above 3 after that point. INTERPRETATION: Likely able to do a left brachiocephalic fistula on the left side. If not, other options include potentially using the median cubital vein on the left side or brachiocephalic on the right side or brachiobasilic on the right side. cc: MD Tyroen Birch MD
[2019-03-17] MEDS ORDERED: LACTULOSE PO SCH (21:00)
[2019-03-17] MEDS: COLACE PO SCH (21:20)
[2019-03-17] MEDS: SENOKOT PO SCH (22:13)
[2019-03-18] MEDS: HEPARIN SUBQ SCH ×2 (06:35→20:22)
[2019-03-18] MEDS: HUMULIN R SUBQ SCH ×4 (06:55→20:23)
[2019-03-18 08:24] LABS: HEMATOCRIT 26.8 % (42.0-52.0); HEMOGLOBIN 9.3 g/dL (14.0-18.0); MCH 33.2 PG (27-31); MCHC 34.7 g/dL (33-37); MCV 95.7 FL (81-99); MPV 10.7 FL (7.4-10.4); RBC 2.8 XMIL (4.7-6.1); RDW 16.9 % (11.5-14.5); WBC 8.23 X1000 (4.8-10.8)
[2019-03-18 08:34] LABS: ALBUMIN 3.6 g/dL (3.5-5.0); CALCIUM 7.6 mg/dL (8.8-10.2); PHOSPHORUS 5.3 mg/dL (2.7-4.5); POTASSIUM 4.4 mmol/L (3.5-5.1)
[2019-03-18 08:45] LABS: CREATININE 7.6 mg/dL (0.7-1.2)
[2019-03-18] MEDS ORDERED: LANTUS INSULIN SUBQ SCH (09:00)
[2019-03-18] MEDS: SENOKOT PO SCH ×2 (10:07→20:25)
[2019-03-18] MEDS: LACTULOSE PO SCH ×2 (10:08→20:23)
[2019-03-18] MEDS: LIPITOR PO SCH (10:08)
[2019-03-18] MEDS: COLACE PO SCH ×2 (10:08→20:22)
[2019-03-18] MEDS: ASPIRIN PO SCH (10:08)
[2019-03-18] MEDS: MIRALAX PO SCH ×2 (10:08→20:23)
[2019-03-18] MEDS: NEURONTIN PO SCH ×3 (10:08→20:22)
--- NOTE | 2019-03-18 11:21 | Diag Imaging Result Doc PS360 ---
CHEST-2 VIEWS - 03/18/2019 INDICATION: hypoxia/pulmonary edema COMPARISON: 03/17/2019 FINDINGS: Stable right-sided dialysis catheter. Stable sternotomy wires. Stable cardiomegaly. Pulmonary vascularity is top normal. No infiltrates or edema. No pneumothorax or pleural effusion. IMPRESSION: Cardiomegaly. Electronically signed by Shimon Yan 03/18/2019 11:19 AM
[2019-03-18] MEDS: DILAUDID IV PRN ×2 (15:39→19:57)
[2019-03-18] MEDS: APRESOLINE PO SCH ×3 (15:41→20:24)
[2019-03-18] MEDS: NORVASC PO SCH (15:43)
[2019-03-18] MEDS: COZAAR PO SCH (15:43)
[2019-03-18] MEDS: COREG PO SCH ×2 (15:44→20:24)
[2019-03-18] MEDS: IMDUR PO SCH (15:44)
--- NOTE | 2019-03-18 19:46 | PROGRESS NOTE ---
DATE: 03/18/2019 SUBJECTIVE: The patient is resting comfortably in bed. He has no complaints at this time. OBJECTIVE: Vital Signs: Temperature 98.5 degrees, blood pressure 111/67, heart rate 80, respirations 16, O2 saturation is 100% on 3 L nasal cannula. General: This is a middle-aged male sitting in bed, in no acute distress. Heart: S1, S2 normal. Lungs: Equal air entry bilaterally. No crackles. No rales. Abdomen: Positive bowel sounds. Soft, nontender, nondistended. Extremities: No edema. No cyanosis. Neurologic: The patient is alert and oriented x4. LABORATORIES: White blood cell count 8.2, hemoglobin 9.3, hematocrit 26, platelets 147,000. Sodium 135, potassium 4.4, chloride 96, CO2 of 20, BUN 31, creatinine 7.6, glucose 118. Phosphorus 5.3. IMAGING STUDIES: Chest x-ray shows cardiomegaly. IMPRESSION: 1. Volume overload. This will be addressed during the patient's dialysis sessions. 2. Chest pain. Stable. Continue on the current cardiac medication regimen. 3. Constipation. Improved. Continue with laxative therapy. 4. Hypertension. Stable. 5. End stage renal disease. Management as per the preparing box tender. 6. Diabetes mellitus type 2. Stable. Continue on sliding scale insulin. 7. Deep vein thrombosis prophylaxis. Continue on heparin. cc: Guerline Cadena MD MTDD
--- NOTE | 2019-03-18 22:23 | NEPHROLOGY PROGRESS NOTE ---
DATE: 03/18/2019 SUBJECTIVE: He is about the same. He is still on oxygen but he states he is eating and ambulatory. OBJECTIVE: Vital Signs: Blood pressure 116/69, heart rate 79, respirations 20, afebrile. General: No acute distress. Skin: Warm and dry. Neck: Neck veins are not appreciated. Heart: Regular. Lungs: Equal. No crackles. Abdomen: Soft, nontender. Bowel sounds present. Extremities: No edema, clubbing or cyanosis. IMPRESSION: Chronic kidney disease 5D. He appears euvolemic on exam but he is still requiring 2 L nasal cannula oxygen. Continue to wean this. Electrolytes and acid-base are in target. Anemia is below target but acceptable. No treatment. cc: Remington Benitez MD
[2019-03-19] MEDS: DILAUDID IV PRN ×5 (00:35→20:26)
[2019-03-19] MEDS: HUMULIN R SUBQ SCH ×4 (06:47→20:28)
[2019-03-19 08:16] LABS: ALBUMIN 3.9 g/dL (3.5-5.0); CALCIUM 7.5 mg/dL (8.8-10.2); PHOSPHORUS 6.4 mg/dL (2.7-4.5); POTASSIUM 4.4 mmol/L (3.5-5.1)
[2019-03-19] MEDS: NEURONTIN PO SCH ×3 (08:54→20:25)
[2019-03-19] MEDS: ASPIRIN PO SCH (08:55)
[2019-03-19] MEDS: LIPITOR PO SCH (08:55)
[2019-03-19] MEDS: HEPARIN SUBQ SCH ×2 (08:56→20:25)
[2019-03-19] MEDS: NORVASC PO SCH (11:33)
[2019-03-19] MEDS: IMDUR PO SCH (11:33)
[2019-03-19] MEDS: SENOKOT PO SCH ×2 (11:33→22:51)
[2019-03-19] MEDS: LACTULOSE PO SCH ×2 (11:33→22:52)
[2019-03-19] MEDS: MIRALAX PO SCH ×2 (11:33→22:52)
[2019-03-19] MEDS: COZAAR PO SCH (11:34)
[2019-03-19] MEDS: COREG PO SCH ×2 (11:34→22:52)
[2019-03-19] MEDS: COLACE PO SCH ×2 (11:35→22:52)
[2019-03-19] MEDS: APRESOLINE PO SCH ×3 (11:35→22:51)
[2019-03-19] MEDS ORDERED: PERCOCET-5 PO PRN ×2 (11:55→12:18)
--- NOTE | 2019-03-19 17:33 | PROGRESS NOTE ---
DATE: 03/19/2019 SUBJECTIVE: The patient is resting comfortably in bed, he states that he feels a lot better today. He is now off of supplemental oxygen on room air with normal oxygen saturations. OBJECTIVE: Vital Signs: Temperature 98.2 degrees, blood pressure 146/83, heart rate 88, respirations 18, O2 saturation 95% on room air. General: This is middle-aged male sitting up in bed in no acute distress. Heart: S1, S2 normal. Regular rate and rhythm. Lungs: Clear to auscultation bilaterally. Abdomen: Positive bowel sounds. Soft, nontender, nondistended. Extremities: No edema, no cyanosis. Neuro: The patient is alert and oriented x4. LABS: Reviewed. ASSESSMENT AND PLAN: 1. Volume overload. Resolved. 2. Ischemic cardiomyopathy. Aware. 3. End stage renal disease. The patient is due for dialysis tomorrow. 4. Hypertension. Stable. 5. Diabetes mellitus type 2. Continue with sliding scale insulin. 6. Diabetic neuropathy. Continue on Neurontin. 7. Chronic systolic CHF. Stable. 8. Disposition. Will plan to discharge the patient home tomorrow after dialysis. The patient reports that he needs more travel vouchers to go to his outpatient dialysis sessions. Will notify Finance Manager. cc: Guerline Cadena MD MTDD
[2019-03-20] MEDS: DILAUDID IV PRN ×3 (00:27→14:00)
[2019-03-20] MEDS: ZOFRAN IV PRN ×2 (00:27→05:30)
[2019-03-20] MEDS: HUMULIN R SUBQ SCH ×2 (05:24→14:10)
[2019-03-20] MEDS ORDERED: TIGHT: 0.2 ML/HR FOR DIALYSIS MISC PRN (07:28)
[2019-03-20] MEDS ORDERED: NS 2,000 ML MISC PRN (07:28)
[2019-03-20] MEDS ORDERED: HEPARIN IV PRN (07:28)
[2019-03-20 07:45] VITALS: BP 155/103
[2019-03-20 08:11] LABS: CALCIUM 8.1 mg/dL (8.8-10.2); CREATININE 9.8 mg/dL (0.7-1.2); PHOSPHORUS 6.7 mg/dL (2.7-4.5); POTASSIUM 4.7 mmol/L (3.5-5.1)
[2019-03-20] MEDS: MIRALAX PO SCH (14:03)
[2019-03-20] MEDS: NEURONTIN PO SCH (14:03)
[2019-03-20] MEDS: LIPITOR PO SCH (14:04)
[2019-03-20] MEDS: IMDUR PO SCH (14:05)
[2019-03-20] MEDS: COLACE PO SCH (14:06)
[2019-03-20] MEDS: COZAAR PO SCH (14:06)
[2019-03-20] MEDS: COREG PO SCH (14:06)
[2019-03-20] MEDS: LACTULOSE PO SCH (14:06)
[2019-03-20] MEDS: ASPIRIN PO SCH (14:06)
[2019-03-20] MEDS: NORVASC PO SCH (14:07)
[2019-03-20] MEDS: APRESOLINE PO SCH (14:07)
[2019-03-20] MEDS: HEPARIN SUBQ SCH (14:07)
[2019-03-20] MEDS: SENOKOT PO SCH (14:08)
--- NOTE | 2019-03-20 18:29 | NEPHROLOGY PROGRESS NOTE ---
DATE: 03/20/2019 SUBJECTIVE: Patient currently undergoing hemodialysis when I see him. OBJECTIVE: Vital Signs: Temperature 98.4 degrees, pulse 116, respiratory rate 20, blood pressure 155/103. This was predialysis. His diastolic has come down into the 90s during dialysis. Intake 580 mL. Output 700 mL. General: Middle-aged gentleman sitting up in bed, awake and alert, in no acute distress. HEENT: Normocephalic, atraumatic. PERRL. Neck: Supple. Positive trace JVD. Cardiovascular: Regular. Pulmonary: Clear. Abdomen: Soft. Positive bowel sounds. : Not inspected. Extremities: No clubbing, cyanosis. 1+ edema. Integumentary: Skin warm and dry. LAB DATA: Sodium 134, potassium 4.7, CO2 24, creatinine 9.8. ASSESSMENT AND PLAN: Chronic kidney disease 5D with fluid volume overload. Dialyze the patient today. We will try to pull 5 L. I have discussed with the patient if he remains in the hospital tomorrow, we would plan to ultrafiltrate only if he still had fluid on. If we were able to achieve lower than his documented dry weight, we would change that to his outpatient dry weight. Dictated by YFN Tamez for Remington Benitez MD Face to face encounter, data reviewed, discussed with Tiffanie Muse on 03/20/19. I agree with the above assessment and plan of care. cc: Remington Benitez MD [facility]
--- NOTE | 2019-03-25 19:27 | DISCHARGE SUMMARY ---
ADMISSION DATE: 03/15/2019 DISCHARGE DATE: 03/20/2019 FINAL DISCHARGE DIAGNOSES: 1. Fluid volume overload. 2. Recurrent chest pain. 3. End-stage renal disease on hemodialysis. 4. Chronic constipation. 5. Hypertension. 6. Diabetes mellitus type 2. 7. Morbid obesity. 8. Anemia of chronic disease. 9. Ischemic cardiomyopathy. 10. Coronary artery disease. CONSULTATIONS: 1. Nephrology consultation with Dr. Benitez. 2. Cardiology consultation with Dr. Giles. HOSPITAL COURSE: Mr. Coats is a 39-year-old male with a history of multiple medical problems who initially presented to the ER with a chief complaint of chest pain and shortness of breath. The patient stated that he had missed his dialysis session on because he thought the center was closed. On admission a chest x-ray was done that revealed cardiomegaly with pulmonary vascular congestion. Also, the patient's blood pressure was markedly elevated. The patient was admitted to the hospitalist service and Nephrology and Cardiology were consulted. The patient was taken for dialysis, and his antihypertensives were restarted. With the initiation of his antihypertensives and dialysis, the patient's blood pressure improved. The patient was again counseled about the importance of compliance with his dialysis sessions. The patient was treated with dialysis throughout the hospital stay and his volume status improved. Also, the patient was counseled about weight loss and proper diet. The patient was also seen by the general surgeon to undergo mapping for new dialysis access. The patient continued to improve clinically and was cleared for discharge home on 03/20/2019. DISCHARGE MEDICATIONS: 1. Colace 100 mg p.o. twice a day. 2. Aspirin 81 mg p.o. daily. 3. Gabapentin 100 mg oral 3 times a day. 4. Lantus 35 units subcutaneous every morning. 5. Cozaar 25 mg oral daily. 6. Norvasc 10 mg p.o. daily. 7. Percocet 7.5/325 one tab oral every 6 hours p.r.n. for pain. 8. Coreg 12.5 mg oral twice a day. 9. Isosorbide mononitrate 60 mg p.o. daily. 10. Lipitor 40 mg p.o. daily. DISCHARGE DIET: 1800 ADA diet. ACTIVITY: As tolerated. FOLLOW-UP INSTRUCTIONS: The patient has been advised to follow up for his routine dialysis sessions this week. cc: Guerline Cadena MD
== END 2019-03-20 15:21 | disposition home or self-care (01) | DRG 291 ==
LOC: SUPCPDRO → ED 19:45 → SUATTDRO 03-15 04:34 → EDIPHOLD 03-15 04:34 → 3N 03-15 14:49
PROVIDERS: ATTEND Internal Medicine
CPT/HCPCS: 71010; 71020; 71045; 71046; 74019; 74020; 80048; 80053; 80069; 82550; 82948; 83880; 84484; 85025; 85027; 85379; 85610; 85730; 93005; 93010; 93970; 94761; 96372; 96374; 96375; 99285; A9270; G0365; J1170; J1644; J2270; J2405; J7030; XXXXX

== ENCOUNTER 2019-08-09 16:29 | Inpatient (IN) ==
--- NOTE | 2019-08-09 18:38 | Diag Imaging Result Doc PS360 ---
FOOT COMPLETE RIGHT - 08/09/2019 INDICATION: possible infection TECHNIQUE: Three views COMPARISON: 07/11/2019 FINDINGS: There is worsening soft tissue swelling over the base of the great toe. There is worsening ill-defined erosion at the first metatarsophalangeal joint. There is new soft tissue gas at the plantar surface of the fourth and fifth toes. There is new bony erosion at the fourth metatarsophalangeal joint. No radiodense foreign body. There is significant dorsal pedal edema that has worsened since prior. IMPRESSION: Worsening cellulitis with osteomyelitis at the base of the first and fourth toes. Electronically signed by Shimon Yan 08/09/2019 6:36 PM
[2019-08-09] MEDS ORDERED: ZOSYN 3.375 GM in NS 50 ML IV ONE (19:51)
[2019-08-09] MEDS ORDERED: VANCOMYCIN 1 GM/NS 1 GM/250 ML IVPB IV ONE (19:51)
[2019-08-09] MEDS ORDERED: MORPHINE IV ONE (19:58)
[2019-08-09] MEDS ORDERED: ZOFRAN IV ONE (19:58)
[2019-08-09 20:35] LABS: BASO# 0.03 X1000 (0.0-0.2); BASO% 0.1 % (0.0-0.8); EOS# 0.16 X1000 (0.0-0.7); EOS% 0.7 % (0.0-10.0); HEMATOCRIT 33.1 % (42.0-52.0); HEMOGLOBIN 11.5 g/dL (14.0-18.0); IMM GRAN% 0.5 % (0.0-0.5); LYMPH% 5.1 % (20.5-51.1); MCH 31.8 PG (27-31); MCHC 34.7 g/dL (33-37); MCV 91.4 FL (81-99); MONO# 1.69 X1000 (0.11-0.59); MONO% 7.9 % (1.7-9.3); MPV 9.3 FL (7.4-10.4); NEUT% 85.7 % (42.2-75.2); PLT 236 X1000 (130-400); RBC 3.62 XMIL (4.7-6.1); RDW 14.5 % (11.5-14.5); WBC 21.48 X1000 (4.8-10.8)
--- NOTE | 2019-08-09 20:55 | PROVIDER DOCUMENTATION ---
This chart was entered by Danyelle Dwyer Scribe, acting as scribe for Maday Hurd MD. HPI-Rash/Wound/ReCheck - General Chief Complaint: Sores/Lesions Stated Complaint: SORE ON FOOT Time Seen by Provider: 08/09/19 19:20 Source: patient Allergies/Adverse Reactions: Allergies Allergy/AdvReac Type Severity Reaction Status Date / Time No Known Allergies Allergy Verified 08/01/19 04:08 Home Medications: Home Medication List Medication Instructions Recorded Confirmed Last Taken Type Aspirin 81 mg PO DAILY #60 chewtab 03/29/18 08/01/19 04/12/19 Rx Gabapentin [Neurontin] 100 mg PO TID #180 cap 03/29/18 08/01/19 04/17/19 Rx Insulin Glargine [Lantus] 35 unit SUBQ QAM #5 insuln.pen 03/29/18 08/01/19 04/17/19 Rx Amlodipine Besylate [Norvasc] 10 mg PO DAILY #30 tab 02/14/19 08/01/19 04/17/19 Rx Carvedilol [Coreg] 12.5 mg PO BID #60 tab 02/14/19 08/01/19 04/17/19 Rx Isosorbide Mononitrate [Isosorbide 60 mg PO DAILY #30 tab.er.24h 02/14/1908/0104/17/19 Rx Mononitrate ER] Losartan [Cozaar] 25 mg PO DAILY #30 tab 02/14/19 08/01/19 04/17/19 Rx Oxycodone HCl/Acetaminophen 1 - 2 ea PO Q6-8H PRN PRN #10 tab 08/01/19 Unknown Rx [Percocet 5-325 mg Tablet] - History of Present Illness-Dermatology Nature of Presenting Problem: pt is a 39 yr old male presenting with wound to right foot, pt reports wound present x 2 weeks, is being followed by Dr Sweeney, has had debridement x 2, last was 1 day ago. pt reports fever today while at dialysis, Tmax 100. pt reports increased pain/drainage at wound site. no other complaints Location: reports: feet (right foot) Quality: reports: painful Severity: reports: moderate Onset/Duration: reports: other (2weeks) Timing: reports: changing over time, getting worse Context/Associated Symptoms: reports: fever, lesion, tender area Identifiable cause?: No Exposure: reports: unknown cause Modifying Factors: improves with: other (debridement x 2 since onset) Locality of Occurance: Home Similar Symptoms Previously?: Yes Recently seen or treated by another doctor?: Yes Review of Systems - Adult - REVIEW OF SYSTEMS - ADULT Constitutional: reports: chills, fever Eyes: reports: no symptoms reported Ears, Nose, Mouth & Throat: reports: no symptoms reported Cardiovascular: reports: no symptoms reported Respiratory: reports: no symptoms reported Gastrointestinal: reports: no symptoms reported Genitourinary: reports: no symptoms reported Musculoskeletal: reports: bone pain, joint pain Integumentary: reports: skin sores/ulcer Neurological: reports: no symptoms reported Psychiatric: reports: no symptoms reported Endocrine: reports: no symptoms reported Hematologic/Lymphatic: reports: no symptoms reported Allergic/Immunologic: reports: no symptoms reported All Other Systems: Reviewed and Negative Past History - Adult - PAST MEDICAL HISTORY-ADULT Review of Records: reports: Old Records Reviewed, Nursing Assessment Review, Medications Reviewed, Social history reviewed & non-contributory. Major Childhood Illnesses: reports: denies history Cardiovascular: reports: cardiac disease, CAD, CHF, HTN, NM Respiratory: reports: COPD Gastrointestinal: reports: GERD Obstetrical/Gynecological: reports: denies history Genitourinary: reports: denies history Musculoskeletal: reports: chronic pain Neurological: reports: denies history Psychiatric: reports: anxiety Endocrine/Immune: reports: Diabetes Other Conditions: reports: MRSA - PRIOR SURGERIES/PROCEDURES Surgical/Procedure History: reports: reviewed, not pertinent, other (abcess) - PRIOR HOSPITALIZATIONS Prior Hospitalizations: reports: none - IMMUNIZATION STATUS Childhood Immunizations: See Nurse Assessment Flu Vaccine: See Nurse Assessment - FAMILY HISTORY Family History: CAD over 55 yo - SOCIAL HISTORY Smoking: quit less than 1 year Living Situation: family Physical Exam-General - PHYSICAL EXAM-ADULT Initial Vital Signs Reviewed: Yes - CONSTITUTIONAL General Appearance: appears well, alert, no apparent distress, obese - EYES Eyes: PERRL/EOMI - HEAD, EARS, NOSE, MOUTH & THROAT HENMT: normocephalic/atraumatic, moist mucous membranes - NECK Neck: non-tender, full range of motion, supple, normal inspection - RESPIRATORY Respiratory: chest non-tender, lungs clear, normal breath sounds, no respiratory distress, no accessory muscle use - CARDIOVASCULAR Cardiovascular: normal peripheral pulses, no edema, tachycardia - GASTROINTESTINAL (ABDOMEN) Abdominal Exam: normal bowel sounds, non tender, soft - MUSCULOSKELETAL Back Exam: normal inspection Extremity: no pedal edema, other (open wound on the bottom side of his foot, foul smelling with wet discharge) - SKIN Integumentary: normal color, warm/dry - NEUROLOGIC Neurologic: grossly normal - PSYCHIATRIC Psych/Mental Status: normal mood/affect, normal thought process, oriented x 3 Progress - PLAN OF CARE/RESULTS Progress/Plan/Lab Results: Vital Signs - 8 hr 08/09/19 16:47 Temperature 98.7 F Pulse Rate 121 H Respiratory Rate 18 Blood Pressure 142/88 O2 Sat by Pulse Oximetry 96 Laboratory Results - last 24 hr 08/09/19 08/09/19 08/09/19 20:21 20:21 20:21 WBC 21.48 H RBC 3.62 L Hgb 11.5 L Hct 33.1 L MCV 91.4 MCH 31.8 H MCHC 34.7 RDW Std Deviation 14.5 Plt Count 236 MPV 9.3 Immature Gran % (Auto) 0.5 Neut % (Auto) 85.7 H Lymph % (Auto) 5.1 L [place] % (Auto) 7.9 Eos % (Auto) 0.7 Baso % (Auto) 0.1 Immature Gran # (Auto) 0.10 H Neut # (Auto) 18.40 H Lymph # (Auto) 1.10 L [place] # (Auto) 1.69 H Eos # (Auto) 0.16 Baso # (Auto) 0.03 ESR 127 H Sodium 132 L Potassium 3.6 Chloride 89 L Carbon Dioxide 23 L Anion Gap 20 BUN 26 H Creatinine 6.5 H Estimated GFR/1.73 m2 11 BUN/Creatinine Ratio 4 Glucose 113 H Calculated Osmolality 270 Calcium 8.3 L Total Bilirubin 1.48 H AST 20 ALT 18 Alkaline Phosphatase 100 C-React Prot High Sens > 10.000 Total Protein 9.2 H Albumin 3.9 Globulin 5.3 Albumin/Globulin Ratio 0.7 Plasma Lactate 08/09/19 20:50 WBC RBC Hgb Hct MCV MCH MCHC RDW Std Deviation Plt Count MPV Immature Gran % (Auto) Neut % (Auto) Lymph % (Auto) [place] % (Auto) Eos % (Auto) Baso % (Auto) Immature Gran # (Auto) Neut # (Auto) Lymph # (Auto) [place] # (Auto) Eos # (Auto) Baso # (Auto) ESR Sodium Potassium Chloride Carbon Dioxide Anion Gap BUN Creatinine Estimated GFR/1.73 m2 BUN/Creatinine Ratio Glucose Calculated Osmolality Calcium Total Bilirubin AST ALT Alkaline Phosphatase C-React Prot High Sens Total Protein Albumin Globulin Albumin/Globulin Ratio Plasma Lactate 2.2 Orders Category Date Time Status Admit - [facility] Routine AdmDCTranf 08/09/19 22:53 Active Activity - Up with Assistance ORDERED Care 08/09/19 22:53 Active FSBS/Accucheck Result AC + HS Care 08/09/19 22:53 Active Intake and Output-Strict ORDERED Care 08/09/19 22:53 Active Nursing- MD Consult Request ROUTINE Care 08/09/19 22:53 Active Saline Loc NOW Care 08/09/19 19:51 Active Update & Confirm Home Medicati ROUTINE Care 08/09/19 22:53 Active Vital Signs Order Q 8-HR ASSESS Care 08/09/19 22:53 Active Z-Document. for Tele Applied ORDERED Care 08/09/19 22:53 Completed Physician/Provider Consults Routine Cons 08/10/19 07:00 Ordered Diabetic Diet Diet 08/09/19 22:53 Completed NPO Diet 08/09/19 22:53 Active CHEST-2 VIEWS [RAD] Stat Exams 08/09/19 19:50 Completed FOOT COMPLETE RIGHT [RAD] Stat Exams 08/09/19 16:56 Completed BLOOD CULTURE [BLDCUL] Stat Lab 08/09/19 20:35 Results CBC WITH DIFF [HEME] Routine Lab 08/10/19 06:00 Ordered CBC WITH ELECTRONIC DIFF [HEME] Stat Lab 08/09/19 20:21 Completed COMPREHENSIVE METABOLIC PANEL [CHEM] Routine Lab 08/10/19 06:00 Ordered COMPREHENSIVE METABOLIC PANEL [CHEM] Stat Lab 08/09/19 20:21 Completed CRP HIGH SENSITIVITY Stat Lab 08/09/19 20:21 Completed INFLUENZA SCREEN A/B Stat Lab 08/09/19 23:12 Completed LACTATE, PLASMA [CHEM] Stat Lab 08/09/19 20:50 Completed MAGNESIUM [CHEM] Routine Lab 08/10/19 06:00 Ordered SED RATE [HEME] Stat Lab 08/09/19 20:21 Completed URINALYSIS W/POSS RFLX CULT [URINALYSIS] Stat Lab 08/09/19 19:50 Uncollected URINE CULTURE [RM] Stat Lab 08/09/19 19:50 Uncollected Acetaminophen [Tylenol] Med 08/09/19 22:53 Active 650 mg PO Q6H PRN PRN Levofloxacin [Levaquin] 500 mg Med 08/11/19 08:00 Active 0.9% Sodium Chloride Inj [Ns] 100 ml IV AFTER DIALYSIS Morphine Med 08/09/19 22:53 Active 2 mg IV Q3H PRN PRN Morphine Med 08/09/19 19:58 Discontinued 4 mg IV NOW ONE Ondansetron [Zofran] Med 08/09/19 19:58 Discontinued 4 mg IV NOW ONE Ondansetron [Zofran] Med 08/09/19 22:53 Active 4 mg IV Q4H PRN PRN Pharmacy Order [Vancomycin IV Per Pharmacy] Med 08/09/19 22:53 Ordered 1 each MISC DIRECTED Piperacillin/Tazobactam [Zosyn] 3.375 gm Med 08/09/19 19:51 Discontinued 0.9% Sodium Chloride Inj [Ns] 50 ml IV NOW Telemetry [OM.EQ] Routine Oth 08/09/19 22:53 Active Transfer/Admit Order [TRANSFER] Routine Transfer 08/09/19 21:24 Completed Patient with XR showing osteo and WBC to 22k. Wound is foul smelling. Will admit. SPoke to Dr Tello sap solution manager consultant for hospitalist who accepted patient for admission with likely surgery consult. Further orders to be placed by their team. Result Diagrams: 08/09/19 20:21 08/09/19 20:21 - XRAY 1 XRAY Study: Chest (CHEST-2 VIEWS - 08/09/2019 INDICATION: fever COMPARISON: 03/18/2019 FINDINGS: There is a stable right-sided dialysis catheter in good position. Stable sternotomy wires. Stable cardiomegaly. Pulmonary vascularity appears normal. No infiltrates or edema. No pneumothorax or pleural effusion. IMPRESSION: Cardiomegaly. Electronically signed by Shimon Yan 08/09/2019 9:29 PM) 2 XRAY Study: Foot (OOT COMPLETE RIGHT - 08/09/2019 INDICATION: possible infection TECHNIQUE: Three views COMPARISON: 07/11/2019 FINDINGS: There is worsening soft tissue swelling over the base of the great toe. There is worsening ill-defined erosion at the first metatarsophalangeal joint. There is new soft tissue gas at the plantar surface of the fourth and fifth toes. There is new bony erosion at the fourth metatarsophalangeal joint. No radiodense foreign body. There is significant dorsal pedal edema that has worsened since prior. IMPRESSION: Worsening cellulitis with osteomyelitis at the base of the first and fourth toes. Electronically signed by Shimon Yan 08/09/2019 6:36 PM 08/09/19 [id number]) Departure - Departure Date of Disposition Decision: 08/09/19 Time of Disposition Decision: 21:09 DIAGNOSIS: ESRD (end stage renal disease), Wound of foot Osteomyelitis Qualifiers: Osteomyelitis location: foot Laterality: right Disposition: ADMITTED INPATIENT 09 Certified Medical Emergency: Emergent Condition: Stable - Critical Care Note This patient required my direct & personal management of CC.: No Attestation - Physician/ DAVID Attestation Patient care was provided by Advanced Practice Provider:: No The physician spent face to face time with patient:: Yes Advanced Practice Provider documentation review:: Supervising physician onsite and consulted in the evaluation and care of this patient. The physician did have a face to face encounter with the patient. This chart was documented by the indicated scribe, (Danyelle Dwyer, [place]) and accurately reflects the services I performed and decisions made by me, Maday Hurd MD, as attested by the provider's signature.
[2019-08-09 21:22] LABS: ALB/GLOB RATIO 0.7; ALBUMIN 3.9 g/dL (3.5-5.0); CALCIUM 8.3 mg/dL (8.8-10.2); CREATININE 6.5 mg/dL (0.7-1.2); POTASSIUM 3.6 mmol/L (3.5-5.1); TOTAL BILIRUBIN 1.48 mg/dL (0.20-1.00); TOTAL PROTEIN 9.2 g/dL (6.3-8.3)
--- NOTE | 2019-08-09 21:31 | Diag Imaging Result Doc PS360 ---
CHEST-2 VIEWS - 08/09/2019 INDICATION: fever COMPARISON: 03/18/2019 FINDINGS: There is a stable right-sided dialysis catheter in good position. Stable sternotomy wires. Stable cardiomegaly. Pulmonary vascularity appears normal. No infiltrates or edema. No pneumothorax or pleural effusion. IMPRESSION: Cardiomegaly. Electronically signed by Shimon Yan 08/09/2019 9:29 PM
[2019-08-09 21:35] LABS: SED RATE 127 mm/hr (0-15)
[2019-08-09] MEDS ORDERED: ZOFRAN IV PRN (22:53)
[2019-08-09] MEDS ORDERED: TYLENOL PO PRN (22:53)
[2019-08-09] MEDS ORDERED: VANCOMYCIN IV PER PHARMACY MISC SCH (22:53)
--- NOTE | 2019-08-09 23:07 | HISTORY AND PHYSICAL ---
PRIMARY CARE PROVIDER: None. EVENT EXECUTIVE: Dr. Benitez. GENERAL SURGEON: Dr. Sweeney. HISTORY OF PRESENT ILLNESS: Mr. Coats is a 39-year-old male who is well known to our service, with a history of endstage renal disease, on hemodialysis Wednesday, Wednesday and Wednesday; hypertension; diabetes mellitus type 2; coronary artery disease; right diabetic foot infection that has recently been treated by Dr. Sweeney for the past 2 weeks. He reports today he went to his normal scheduled dialysis session. He finished the whole session, when he was evaluated by Dr. Benitez. He spoke with Dr. Sweeney about his right foot, and the patient was referred to the ED for further evaluation and treatment. Workup in the ED showed a worsening cellulitis with osteomyelitis at the base of the 1st, 2nd and 4th toes. He did report some intermittent fevers as high as 100 degrees today in dialysis. Chest x-ray just shows cardiomegaly. There is no headache, chest pain, shortness of breath, nausea, vomiting, diarrhea or abdominal pain. No reports of any hematemesis or bright red or dark tarry stools. He will be admitted and started on IV antibiotics for his cellulitis and osteomyelitis of the right foot. PAST MEDICAL HISTORY: 1. Endstage renal disease, on hemodialysis Wednesday, Wednesday, Wednesday. 2. Hypertension. 3. Diabetes mellitus type 2. 4. Hyperlipidemia. 5. Coronary artery disease. PAST SURGICAL HISTORY: 1. CABG. 2. Right toe amputation. ALLERGIES: No known drug allergies. MEDICATIONS: Home medications are currently being compiled. SOCIAL HISTORY: No smoking, alcohol or illicit drug use. FAMILY HISTORY: No coronary disease. REVIEW OF SYSTEMS: Twelve-point review of systems was completed and negative except for those mentioned in HPI. PHYSICAL EXAMINATION: VITAL SIGNS: Temperature 98.7 degrees, heart rate 121, respirations 18, blood pressure 142/88, O2 is 96% on room air. GENERAL: Mr. Coats is a pleasant 39-year-old male, who is sitting up in the stretcher in no acute distress. HEENT: Atraumatic, normocephalic. PERRL. NECK: Supple. Trachea midline. CARDIOVASCULAR: S1, S2 appreciated. Rhythm was tachycardic, but no murmurs, gallops or rubs noted. RESPIRATORY: Lung sounds relatively clear bilaterally, maybe decreased in the bases. GASTROINTESTINAL: Soft, nontender, nondistended. Positive bowel sounds x4 quadrants. EXTREMITIES: Lower extremities negative for edema. He does have an open wound on the bottom side of his foot that is putting off an odor and appears to be wet. We will have that cultured. NEUROLOGIC: No focal deficits noted. DIAGNOSTIC DATA: Per HPI. LABORATORY DATA: White count 21, hemoglobin and hematocrit 11 and 33, platelet count is 236,000. Sodium 132, chloride 89, BUN 26, creatinine 6.5, blood glucose was 113, total bilirubin 1.48. C- reactive protein was greater than 10,000. Plasma lactate 2.2. ASSESSMENT AND PLAN: 1. Worsening cellulitis with osteomyelitis at the base of the right 1st and 4th toes. He has been followed by Dr. Sweeney. He has had a debridement recently, I believe in the office with Dr. Sweeney. He was given vancomycin and Zosyn in the emergency department. His latest cultures on the right side grew out Escherichia coli, which was most susceptible to Levaquin. We will reculture and continue him on vancomycin, and start Levaquin after his hemodialysis session. Consult Dr. Sweeney and wound care. The patient may need further debridement/amputation. We will consult Dr. [place] if need be. 2. Endstage renal disease, on hemodialysis Wednesday, Wednesday, Wednesday. He did sit through his full session today. He is not complaining of any shortness of breath. We will consult Dr. Benitez to help with any medical management. Continue on his regular scheduled hemodialysis, as well as any electrolyte imbalances. 3. Coronary artery disease, status post coronary artery bypass graft. He does not complain of any chest pain. 4. Diabetes mellitus type 2. We will place him on sliding scale and pattern blood sugars. 5. Hyperlipidemia. 6. Further recommendations to follow physician evaluation, laboratory and diagnostic data. Dictated by YFN Cole for Kahlil Tello MD I have performed a face to face diagnostic evaluation. Labs/xrays- reviewed. Exam- Chest- clear, CV- regular. Ext- Rt foot erythema on toes. A/P- Rt foot cellulitis/wound - Admit, IV ABX, General surgery consult. Dr. Tello cc: Kahlil Omer, MD TyroneMD Remington Hinkle MD [facility]
[2019-08-10] MEDS ORDERED: VANCOMYCIN 1 GM/NS 1 GM/250 ML IVPB IV ONE (01:00)
[2019-08-10] MEDS: MORPHINE IV PRN ×6 (01:03→23:28)
[2019-08-10] MEDS ORDERED: VANCOMYCIN 1 GM/NS 1 GM/250 ML IVPB IV SCH (06:15)
[2019-08-10] MEDS: HUMALOG SUBQ SCH ×4 (06:46→23:27)
[2019-08-10 07:49] LABS: BASO# 0.03 X1000 (0.0-0.2); BASO% 0.2 % (0.0-0.8); EOS% 1.7 % (0.0-10.0); HEMATOCRIT 27.9 % (42.0-52.0); HEMOGLOBIN 9.6 g/dL (14.0-18.0); IMM GRAN# 0.06 X1000 (0.0-0.04); IMM GRAN% 0.3 % (0.0-0.5); LYMPH# 1.26 X1000 (1.2-3.4); LYMPH% 7.2 % (20.5-51.1); MCHC 34.4 g/dL (33-37); MONO# 1.91 X1000 (0.11-0.59); MONO% 10.9 % (1.7-9.3); MPV 8.9 FL (7.4-10.4); NEUT# 13.98 X1000 (1.4-6.5); NEUT% 79.7 % (42.2-75.2); PLT 222 X1000 (130-400); RDW 14.4 % (11.5-14.5); WBC 17.54 X1000 (4.8-10.8)
[2019-08-10 08:09] LABS: BANDS 6 % (0-1); LYMPHS 8 % (21-51); SEGS 78 % (42-75)
[2019-08-10 08:37] LABS: ALB/GLOB RATIO 0.7; ALBUMIN 3.4 g/dL (3.5-5.0); CALCIUM 8.4 mg/dL (8.8-10.2); POTASSIUM 3.8 mmol/L (3.5-5.1); TOTAL BILIRUBIN 1.4 mg/dL (0.20-1.00)
[2019-08-10 08:41] LABS: CREATININE 7.7 mg/dL (0.7-1.2)
[2019-08-10] MEDS: NORVASC PO SCH (14:33)
--- NOTE | 2019-08-10 14:44 | NEPHROLOGY PROGRESS NOTE ---
DATE: 08/10/2019 Chief complaint: I had a sore come up on my foot that got debride and the infection just got worse. HPI: mr. Coats is a 39-year-old -[place] male who is now in our service with chronic kidney disease stage 5D on hemodialysis Wednesday and Wednesday. He also has a past medical history of hypertension, diabetes mellitus type two, coronary artery disease, and nonhealing right diabetic foot ulcer. He voices stopping his home medications a few months ago and says his blood pressure and glucose levels have remained in target. Hes being followed by Dr. Sweeney for the past two weeks. Hes had 2 debridements to his right foot ulcer. Dr. Benitez was making rounds yesterday at the clinic and noticed an increase in odor and drainage. He spoke with Dr. Sweeney and it was determined that he needed to come to the emergency department for further evaluation and treatment. He complains of fever, chills, and nausea. He denies shortness of breath or chest pain. Past medical history: chronic kidney disease stage 5D with hemodialysis on Wednesday, Wednesday, and Wednesday, hypertension, diabetes mellitus type two, hyperlipidemia, coronary artery disease, and nonhealing right foot ulcer. Past surgical history: coronary artery bypass graft, right toe amputation, right tunnel placement. Social history: he lives at home with his . He denies smoking, alcohol abuse, or illicit drug use. Family history: Father had kidney disease, hypertension, and diabetes. Allergies: none Home medications: none Review of systems: neurological: denies any altered mental status or confusion. Eyes: denies blurriness, dryness, or change in visual acuity. ENT: denies tinnitus or change in hearing. Integumentary: denies color change, rash or itch. Respiratory: denies shortness of breath orthopnea. Cardiovascular: denies palpitations or chest pain. GI: admits to nausea without vomiting or abdominal tenderness. : denies any color change amount or odor in urine. Endocrine: denies excessive thirst or hunger. Musculoskeletal: admits to increased pain to right foot with increased drainage and odor. Labs: WBC 17.54, hemoglobin 9.6, hematocrit 27.9, platelet count 222, sodium 133, potassium 3.8, chloride 92, carbon dioxide 19, anion gap 22, BUN 32, creatinine 7.7, calcium 8.4, albumin 3.4, plasma lactate 2.2, intake zero, output zero, Imaging: foot x-ray compared to last x-ray shows worsening cellulitis with osteomyelitis at the base of the first and fourth toes. Chest x-ray stable cardiomegaly. Physical Exam: vitals. 99.6, pulse 112, respirations 18, blood pressure 153/77, 02 sat 92% on room air. General: this is a middle-aged black male lying in bed no acute distress watching television. HEENT: normocephalic a traumatic. Mucous membranes moist. Trachea midline. Skin: warm, weeping also noted to right foot. Neck:Supple, no JVD observed. Cardiovascular: tachycardic rate regular rhythm. No murmurs or gallops noted. Respiratory: lungs clear bilaterally with equal excursion. Abdomen: soft nontender and nondistended. Bowel sounds present. : non-inspected Extremities: One plus pitting Edema in the right leg. Neurological: alert, oriented to person place and time. Assessment and plan: Chronic kidney disease stage 5D patients creatinine today 7.7. He will continue his routine hemodialysis tomorrow. Electrolytes and acid base balance. Stable. anemia. Hemoglobin 9.6. This is stable. blood pressure 153/77. Slightly above target. He has recently stopped his home medications. Will start amlodipine 5mg. Osteomyelitis of the right foot. Patient plans on having surgery today per Dr. Sweeney. cc: Remington Benitez MD MTDD
--- NOTE | 2019-08-10 19:06 | GENERAL SURGERY CONSULTATION ---
DATE: 08/10/2019 REASON FOR CONSULTATION: Osteomyelitis of the right foot and nonhealing foot ulcers. HISTORY OF PRESENT ILLNESS: This is a 39-year-old male known to me with poorly-controlled diabetes and a chronic foot ulcer with peripheral vascular disease. I have been seeing him as an outpatient for the foot ulcer and previously had not drained any pus or had much odor to it. There was no definite exposed bone; however, a plain x-ray revealed some probable chronic osteomyelitis at the first metatarsophalangeal joint. Interestingly, this was not where his wound is. Rather his wound is more laterally over the 4th and 5th toes. In the interim, I had planned for him to see Dr. Barrett for a peripheral vascular evaluation prior to considering a possible transmetatarsal amputation or toe amputation. He has now developed fever, worsening pain and swelling, foul drainage and odor from the wound on the plantar lateral surface of the foot. He has been admitted for antibiotics and further evaluation. There are no worsening or exacerbating factors. PAST MEDICAL HISTORY: Diabetes, peripheral arterial disease, end-stage renal disease, hypertension, hyperlipidemia, coronary artery disease. PAST SURGICAL HISTORY: Right left brachial cephalic AV fistula, left radiocephalic AV fistula, tunneled dialysis catheter, right superficial femoral artery atherectomy and balloon angioplasty, right 2nd and 3rd toe transmetatarsal amputations, incision and drainage of abscesses on the back. ALLERGIES: No known drug allergies. HOME MEDICATIONS: Aspirin, Neurontin, Lantus, Norvasc, Coreg, isosorbide mononitrate, Cozaar, Percocet. FAMILY HISTORY: Reviewed and noncontributory. SOCIAL HISTORY: No tobacco, alcohol or illicit drug use. REVIEW OF SYSTEMS: Ten systems reviewed and negative except as noted above. PHYSICAL EXAMINATION: Vital Signs: Temperature 100.5 degrees yesterday, 99.6 today, pulse 112, blood pressure 153/77, O2 saturation 92%. General: Well-developed male in no distress who looks his stated age but appears chronically ill. HEENT: Normocephalic, atraumatic. Extraocular muscles intact. Pupils equal, round, reactive to light. Sclerae anicteric. Moist mucous membranes. Neck: Supple. No thyromegaly. Cardiovascular: Tachycardic and regular. Respiratory: Bilateral breath sounds. No work of breathing. Gastrointestinal: Soft, nontender, nondistended. No organomegaly or mass. Musculoskeletal: Moves all extremities equally and well. Extremities: No clubbing. There is some cyanosis or skin ischemia of the right distal foot involving the 4th and 5th toes. There is significant edema of the right foot. Skin: There is a draining sinus with foul odor and purulent appearing drainage from a plantar ulcer on the right foot. This new sinus tract is now coming out on the dorsal aspect of the foot below the 4th and 5th toes. LABORATORY DATA: White blood cell count 21,000 yesterday, 17,000 today, hemoglobin 9.6, hematocrit 27.9. Electrolytes reviewed and unremarkable. IMAGING: Right foot x-ray shows worsening cellulitis with osteomyelitis at the base of the 1st and 4th toes. ASSESSMENT AND PLAN: A 39-year-old male with acute on chronic osteomyelitis of the right foot involving multiple metatarsal joints. He has had previous osteomyelitis at metatarsal joints requiring previous toe amputations. He has peripheral vascular disease. I do not see any feasible way to salvage this foot. A transmetatarsal amputation I think would be inadequate and would probably not heal. We will get lower extremity arterial studies today for anticipation of either a below-knee or above knee amputation this admission. I have discussed this with the patient. He understands and agrees. The timing of surgery is pending his vascular status and the OR schedule. Continue the current antibiotics that he is on now. cc: Tyrone Sweeney MD
[2019-08-10] MEDS ORDERED: COREG PO ONE (19:12)
--- NOTE | 2019-08-10 21:21 | PROGRESS NOTE ---
DATE: 08/10/2019 SUBJECTIVE: Patient has no major complaints except his toe discomfort. OBJECTIVE: Blood pressure 145/85, heart rate of 109, respiratory rate of 99, temperature 99.7 degrees.Cardiovascular: Regular rate and rhythm. Pulmonary: Bilateral breath sounds, clear to auscultation. GI: Soft, nontender, nondistended. Bowel sounds are positive. PROBLEM LIST: 1. Right small toe cellulitis first and fourth toes. He has already had amputation. Right toe looks necrotic or at least it looks like gangrene and it has got a strong odor. It is already growing out gram-negative rods, which it has grown out Escherichia coli before which was relatively sensitive. He is currently on vancomycin and Zosyn. Surgery is evaluating for next steps in this situation. I think they want to establish a good vascular supply first before we decide about amputation and most likely will look like a below knee amputation or above knee amputation, but depending on his arterial studies which have been obtained, but I do not have the results. 2. End-stage renal. He is on dialysis per Dr. Benitez. We will continue to monitor. He is somewhat tachycardic, but he is not reportedly on any home medications, which I just do not understand. I am going to start some Coreg and we will continue to follow. 3. Diabetes is in terrible control. Check an A1c and follow closely. He is not on any maintenance medications. Again, I do not believe but nothing is documented that he has any outpatient medications, which I think is unlikely. cc: Chevy Powell MD
[2019-08-11] MEDS ORDERED: HEPARIN IV PRN (06:41)
[2019-08-11] MEDS ORDERED: NS 2,000 ML MISC PRN (06:41)
[2019-08-11] MEDS ORDERED: TIGHT: 0.2 ML/HR FOR DIALYSIS MISC PRN (06:41)
[2019-08-11] MEDS: MORPHINE IV PRN ×5 (06:43→22:39)
[2019-08-11] MEDS: HUMALOG SUBQ SCH ×4 (07:36→21:19)
[2019-08-11 07:50] LABS: HEMOGLOBIN A1C 5.1 % (4.8-6.0)
[2019-08-11] MEDS ORDERED: LEVAQUIN 500 MG in NS 100 ML IV SCH (08:00)
[2019-08-11] MEDS: COREG PO SCH ×2 (10:30→21:19)
[2019-08-11] MEDS: NORVASC PO SCH (10:30)
--- NOTE | 2019-08-11 12:02 | NEPHROLOGY PROGRESS NOTE ---
DATE: 08/11/2019 SUBJECTIVE: He has a planned BKA today. No shortness of breath, chest discomfort, nausea, vomiting, etc. OBJECTIVE: Vital Signs: Blood pressure 149/88, heart rate 109, respirations 20, afebrile. General: No acute distress. Skin: Warm and dry. HEENT: Conjunctivae are pink. Heart: Regular with a gallop. Lungs: Equal. No crackles. Abdomen: Soft. Extremities: Minimal edema. IMPRESSION: Chronic kidney disease 5D. Today is his routine dialysis day. He has plans for the operating room this afternoon. We will hold his dialysis until tomorrow. He is euvolemic on exam and his potassium is 4.1. cc: Remington Benitez MD
--- NOTE | 2019-08-11 12:26 | GENERAL SURGERY PROGRESS NOTE ---
DATE: 08/11/2019 SUBJECTIVE: The patient has had no acute changes overnight. He still complains of right foot pain, swelling and drainage and odor. OBJECTIVE: Vital signs: T-max 100 degrees, current temperature 98.3 degrees, pulse 111, respirations 18, blood pressure 140/75, O2 saturation 94%. General: Well-developed male in no distress. He looks his stated age. Extremities: The right foot remains swollen with foul smelling drainage and purulence from a plantar to dorsal ulcer on the lateral side of his right foot. LABORATORY DATA: None today. Wound culture is positive for gram-negative rods. IMAGING: His lower extremity arterial study yesterday was reviewed and appears to show disease below the knee but probable adequate flow for a below-knee amputation. He has severe disease in the foot. ASSESSMENT AND PLAN: A 39-year-old male with right foot diabetic foot infection and osteomyelitis with nonhealing ulcer. He has severe peripheral arterial disease, especially in the ankle and foot area. The foot does not appear to be salvageable. We are planning right below-knee amputation today. I have discussed the risks, benefits and alternatives with him including bleeding, infection, wound dehiscence, perioperative DVT, pneumonia, and other imponderables. He understands and agrees to proceed. cc: Tyrone Sweeney MD
[2019-08-11 12:41] LABS: BASO# 0.06 X1000 (0.0-0.2); BASO% 0.4 % (0.0-0.8); EOS# 0.42 X1000 (0.0-0.7); EOS% 2.5 % (0.0-10.0); HEMATOCRIT 28.6 % (42.0-52.0); HEMOGLOBIN 9.8 g/dL (14.0-18.0); IMM GRAN# 0.08 X1000 (0.0-0.04); IMM GRAN% 0.5 % (0.0-0.5); LYMPH# 0.93 X1000 (1.2-3.4); LYMPH% 5.5 % (20.5-51.1); MCH 31.9 PG (27-31); MCHC 34.3 g/dL (33-37); MCV 93.2 FL (81-99); MONO# 1.86 X1000 (0.11-0.59); MPV 8.8 FL (7.4-10.4); NEUT% 80.1 % (42.2-75.2); PLT 239 X1000 (130-400); RBC 3.07 XMIL (4.7-6.1); RDW 14.6 % (11.5-14.5); WBC 16.95 X1000 (4.8-10.8)
[2019-08-11 12:54] LABS: BANDS 4 % (0-1); LYMPHS 2 % (21-51); MONO 8 % (1-9); SEGS 86 % (42-75)
[2019-08-11 12:56] LABS: CALCIUM 8.2 mg/dL (8.8-10.2)
[2019-08-11 13:22] LABS: CREATININE 10.7 mg/dL (0.7-1.2)
[2019-08-11] MEDS ORDERED: LEVAQUIN 500 MG in NS 100 ML IV ONE (15:00)
[2019-08-11] MEDS ORDERED: VANCOMYCIN 1 GM/NS 1 GM/250 ML IVPB IV ONE (16:00)
[2019-08-11] MEDS ORDERED: DIPRIVAN 1% ONE (16:08)
[2019-08-11] MEDS ORDERED: SUFENTA ONE (16:13)
[2019-08-11] MEDS ORDERED: QUELICIN (DOSE) ONE (16:15)
[2019-08-11] MEDS ORDERED: PEPCID ONE (16:30)
[2019-08-11] MEDS ORDERED: REGLAN ONE (16:30)
--- NOTE | 2019-08-11 17:14 | VASCULAR LAB ---
PROCEDURE NAME: Arterial Bilateral Legs - 08/10/2019 COST ESTIMATING MANAGER: Miguelina REQUESTING PHYSICIAN: Tyrone Sweeney MD INDICATION: Nonhealing foot ulcer and poor pedal pulses. EXAM FOR COMPARISON: 01/05/2017. FINDINGS: Brachial on the right is 143, high thigh on the right is 172, left 104, low thigh on the right is 141, left 82. Calf on the right is 115, left 90, DP on the right 60, left 85, PT on the right is 103, not obtained on the left. Toe pressure on the right is 20 and left 36. AMANDA on the right is 0.72, on the left 0.59. Toe brachial indices on the right 0.20 and left 0.25. IMPRESSION: In the right lower extremity, waveforms in the proximal thigh do appear normal; however, they begin to depress as you progress distally to the ankle, and there is compressed waveform that would suggest popliteal or tibial disease in the moderate range on the right. In he left, there is blunting noted throughout with more severe depression of 0.59 on the left compared to the right. Compared this to the prior study from December 04. The left AMANDA is slightly better but stable for the most part, as well as the right. RECOMMENDATIONS: Correlation angiography is indicated. cc: MD Tyrone Mackenzie MD
--- NOTE | 2019-08-11 20:06 | PROGRESS NOTE ---
DATE: 08/11/2019 SUBJECTIVE: He is seen postop. OBJECTIVE: Vital Signs: Last blood pressure 155/96, heart rate 108, respiratory rate 20, temperature 97 degrees. Cardiovascular: Regular rate and rhythm. Pulmonary: Bilateral breath sounds. Clear to auscultation. Gastrointestinal: Abdomen was soft, nontender, nondistended. Bowel sounds are positive. T-max was 100.5. LABORATORY DATA: White count 16, hemoglobin and hematocrit 9 and 28, platelets 239,000. Sodium 132, creatinine 10.7. PROBLEM LIST: 1. Right small toe cellulitis and osteomyelitis 1st and 4th toes. He underwent amputation today I think per Dr. Sweeney. Seen postop. He is still seems somewhat sedated. He just came out and he is getting a [id number] amputation. We will continue treatment and follow. 2. End-stage renal disease. He is on dialysis per Dr. Benitez. They did dialysis today. I think they are going to dialyze tomorrow. 3. Type 2 diabetes. We are going to continue to follow. He has not been very well controlled previously. His A1c though is only 5.1, his sugars have actually been pretty good. We will have to look at his diabetic regimen and follow because right now his blood sugars are pretty stable. It does not clearly look like he has diabetes. We will continue to follow closely. 4. He is not getting antibiotics at this point. I am not entirely sure if this can be discontinued considering he has had amputations so there should not be any further infection. We will continue to monitor closely. cc: Chevy Powell MD
[2019-08-11] MEDS: NORCO-10 PO PRN (21:17)
--- NOTE | 2019-08-11 21:47 | OPERATIVE NOTE ---
PROCEDURE DATE: 08/11/2019 PREOPERATIVE DIAGNOSES: 1. Right diabetic foot ulcer. 2. Right diabetic foot infection. 3. Right foot osteomyelitis. 4. Peripheral arterial disease. 5. End-stage renal disease. POSTOP DIAGNOSIS: 1. Right diabetic foot ulcer. 2. Right diabetic foot infection. 3. Right foot osteomyelitis. 4. Peripheral arterial disease. 5. End-stage renal disease. PROCEDURE: Right below-knee amputation. SURGEON: Tyrone Sweeney MD. ANESTHESIA: General. ESTIMATED BLOOD LOSS: 200 mL. COMPLICATIONS: None apparent. SPECIMENS: Right foot and lower leg. FINDINGS: The right below-knee amputation stump had adequate blood flow. TECHNIQUE: The patient was brought to the operating room and placed supine on the table. General anesthesia was induced. He was prepped and draped in usual sterile fashion. Incision was made 1 handsbreadth below the tibial tuberosity of the right leg and carried down through the dermis sharply with the knife. Cautery was used to continue dividing the medial and lateral muscular attachments obtaining hemostasis along the way with cautery or with 3-0 silk ties on subcutaneous and perforating bleeders. When I reached the peroneal vessels, they were clamped individually proximally and distally, divided with scissors and ligated with 2-0 silk stick tie. The fibula was cleaned off of its muscular attachments with a periosteal elevator and the bone was divided with a power saw. Posterior skin flaps were created with a knife. The tibia was then cleaned off of its periosteum and muscle with periosteal elevator. The Gigli saw was used to divide the tibia at least 2 cm proximal to the edge of the skin. The anterior and posterior tibial vessels were clamped proximally and distally in between. They were divided. The soft tissue attachments were divided with amputation knife and the specimen was passed off the field. Perforating vessels of the posterior muscle flap were ligated with 3-0 and 2-0 silk ties. The tibial vessels were ligated with 2-0 silk stick ties. The nerve was divided proximally with a knife. The flap was brought up in approximation to the anterior skin. There was good approximation with coverage of the bone. The wound was irrigated with saline. Hemostasis was achieved. The fascia was then reapproximated with interrupted [id number] 0 Vicryl. The skin was closed with skin clips. A sterile dressing was applied. There were no apparent complications. He was awakened in stable condition and transferred to the recovery room. cc: Tyrone Sweeney MD
[2019-08-12] MEDS: MORPHINE IV PRN ×5 (01:39→22:15)
[2019-08-12] MEDS: NORCO-10 PO PRN ×2 (04:41→16:45)
[2019-08-12] MEDS: HEPARIN SUBQ SCH ×3 (06:03→20:59)
[2019-08-12] MEDS: HUMALOG SUBQ SCH ×3 (06:53→16:34)
[2019-08-12 07:28] LABS: BASO# 0.05 X1000 (0.0-0.2); BASO% 0.3 % (0.0-0.8); EOS# 0.23 X1000 (0.0-0.7); EOS% 1.5 % (0.0-10.0); HEMATOCRIT 26.7 % (42.0-52.0); IMM GRAN# 0.23 X1000 (0.0-0.04); IMM GRAN% 1.5 % (0.0-0.5); LYMPH% 8.6 % (20.5-51.1); MCH 31.1 PG (27-31); MCHC 33.7 g/dL (33-37); MCV 92.4 FL (81-99); MONO# 1.54 X1000 (0.11-0.59); MONO% 10.2 % (1.7-9.3); MPV 8.8 FL (7.4-10.4); NEUT% 77.9 % (42.2-75.2); PLT 293 X1000 (130-400); RBC 2.89 XMIL (4.7-6.1); RDW 14.5 % (11.5-14.5); WBC 15.15 X1000 (4.8-10.8)
[2019-08-12] MEDS ORDERED: NS 2,000 ML MISC PRN (07:30)
[2019-08-12 07:57] LABS: CALCIUM 8.8 mg/dL (8.8-10.2)
[2019-08-12 08:03] LABS: CREATININE 12.1 mg/dL (0.7-1.2)
[2019-08-12 08:07] LABS: LYMPHS 8 % (21-51); MONO 10 % (1-9); SEGS 80 % (42-75)
[2019-08-12 08:08] LABS: HYPOCHROM 1+
[2019-08-12] MEDS ORDERED: HEPARIN IV PRN (09:52)
--- NOTE | 2019-08-12 12:10 | NEPHROLOGY PROGRESS NOTE ---
DATE: 08/12/2019 SUBJECTIVE: He states he is doing okay. Pain control is acceptable. OBJECTIVE: Vital Signs: Blood pressure 189/106, heart rate 102, respirations 20, and afebrile. General: No acute distress. Skin: Warm and dry. Heart: Regular with a gallop. Lungs: Equal. No crackles. Abdomen: Benign. Extremities: Minimal edema. Right BKA IMPRESSION: CKD 5D. He is currently undergoing his routine dialysis. He does have moderate hyponatremia that will be addressed with his treatment. We will also address his blood pressure by means of his volume status. No other changes. cc: Remington Benitez MD
[2019-08-12] MEDS: NORVASC PO SCH (13:09)
[2019-08-12] MEDS: COREG PO SCH ×2 (13:09→20:59)
--- NOTE | 2019-08-12 13:48 | GENERAL SURGERY PROGRESS NOTE ---
DATE: 08/12/2019 SUBJECTIVE: The patient says he feels better. OBJECTIVE: Vital Signs: He is afebrile. Vital signs are stable. General: He is awake, alert, oriented x3. In no acute distress. Extremities: The right BKA stump was examined. The dressing is clean and dry. LABORATORY: Laboratory reviewed. ASSESSMENT AND PLAN: A 39-year-old male status post right BKA. He is healing appropriately. We will keep the wound wrapped up for a couple of days and make plans for either discharge to home with home health or rehab. cc: Tyrone Sweeney MD
[2019-08-12] MEDS ORDERED: LEVAQUIN 500 MG in NS 100 ML IV ONE (17:00)
--- NOTE | 2019-08-12 17:55 | PROGRESS NOTE ---
DATE: 08/12/2019 SUBJECTIVE: Patient has no major complaints. OBJECTIVE: Blood pressure 150/90, heart rate of 104, respiratory rate of 20, temperature 99.2 degrees, 96% on room air.Cardiovascular: Regular rate and rhythm. Pulmonary: Bilateral breath sounds. Clear to auscultation. Gastrointestinal: Soft, nontender, nondistended. Bowel sounds are positive. LABORATORY DATA: White count is 15, hemoglobin and hematocrit 9 and 26, platelets of 293,000. Sodium is 127, which is a big drop. BUN and creatinine of 56 and 12.1. I do not think he got dialysis until today. PROBLEM LIST: 1. Severe cellulitis, osteo, and peripheral vascular disease, status post right [id number] amputation. He is doing well. Dr. Sweeney is following. We will continue to monitor. 2. End-stage renal. He is on dialysis per Dr. Benitez, which I think he was dialyzed today. We will continue to monitor his electrolytes. 3. Type 2 diabetes. He is not on any medications. His A1c is 4. His sugars have been all pretty tolerable. So, I am not entirely sure, he may have had a diagnosis of diabetes, but with current issues, I think we will just kind have to see how things go. Antibiotic alejandra, I am not sure if we still need to do antibiotics since he has had the BKA. I will discuss with Dr. Sweeney, but I am going to go ahead and stop them. DISPOSITION: Per Surgery when they feel he is able to get up and around. I do not know with a fresh BKA, if there are things we can do from that standpoint. He is on Norvasc and Coreg currently for hypertension. We will continue those for the time being. cc: Chevy Powell MD
[2019-08-12] MEDS ORDERED: VANCOMYCIN 1 GM/NS 1 GM/250 ML IVPB IV ONE (18:00)
[2019-08-12] MEDS: HUMULIN R SUBQ SCH (22:16)
[2019-08-12 23:21] LABS: URINE SOURCE CLEAN CATCH
[2019-08-12 23:36] LABS: BILIRUBIN URINE SMALL (NEGATIVE); BLOOD URINE MODERATE (NEGATIVE); COLOR YELLOW; GLUCOSE URINE NEGATIVE (NEGATIVE); KETONE URINE NEGATIVE (NEGATIVE); LEUKOCYTES URINE NEGATIVE (NEGATIVE); NITRITE URINE NEGATIVE (NEGATIVE); PROTEIN URINE 600 mg/dL (NEGATIVE); SP GRAVITY URINE 1.018; TURBIDITY URINE HAZY (CLEAR); UROBILINOGEN URINE 2 mg/dL (NORMAL)
[2019-08-12 23:37] LABS: UR EPITHELIAL CELLS >10 /HPF (<10); URINE BACTERIA NEGATIVE /HPF; URINE RBC <10 /HPF (<10)
[2019-08-13] MEDS: HEPARIN SUBQ SCH ×3 (06:21→21:53)
[2019-08-13] MEDS: MORPHINE IV PRN ×3 (06:50→22:20)
[2019-08-13] MEDS: HUMULIN R SUBQ SCH ×4 (06:51→21:44)
[2019-08-13 07:01] LABS: ALBUMIN 2.9 g/dL (3.5-5.0); CALCIUM 7.7 mg/dL (8.8-10.2); PHOSPHORUS 5.1 mg/dL (2.7-4.5); POTASSIUM 3.8 mmol/L (3.5-5.1)
[2019-08-13 07:04] LABS: BASO# 0.03 X1000 (0.0-0.2); BASO% 0.3 % (0.0-0.8); EOS# 0.41 X1000 (0.0-0.7); EOS% 3.9 % (0.0-10.0); HEMATOCRIT 23.5 % (42.0-52.0); HEMOGLOBIN 7.8 g/dL (14.0-18.0); IMM GRAN# 0.17 X1000 (0.0-0.04); IMM GRAN% 1.6 % (0.0-0.5); LYMPH# 0.86 X1000 (1.2-3.4); LYMPH% 8.2 % (20.5-51.1); MCH 30.8 PG (27-31); MCHC 33.2 g/dL (33-37); MCV 92.9 FL (81-99); MONO# 1.73 X1000 (0.11-0.59); MONO% 16.5 % (1.7-9.3); MPV 8.8 FL (7.4-10.4); NEUT# 7.28 X1000 (1.4-6.5); NEUT% 69.5 % (42.2-75.2); PLT 259 X1000 (130-400); RBC 2.53 XMIL (4.7-6.1); RDW 14.4 % (11.5-14.5); WBC 10.48 X1000 (4.8-10.8)
[2019-08-13] MEDS: COREG PO SCH ×2 (08:50→22:21)
[2019-08-13] MEDS: NORVASC PO SCH (08:50)
--- NOTE | 2019-08-13 17:09 | PROGRESS NOTE ---
DATE: 08/13/2019 SUBJECTIVE: Patient has no major complaints. OBJECTIVE: Vitals: Blood pressure 152/84, heart rate 93, respiratory rate 20, temperature 98.1 degrees. Cardiovascular: Regular rate and rhythm. Pulmonary: Bilateral breath sounds, clear to auscultation. GI: Soft, nontender, nondistended. Bowel sounds are positive. Extremities: No clubbing or cyanosis. Lymphatics: No peripheral edema. Neurological: Nonfocal. LABORATORY DATA: White count 10, hemoglobin and hematocrit 7 and 23, platelets 259,000. Basic was normal except for BUN and creatinine of 40 and 9, which is end-stage renal. IMPRESSION: 1. Severe cellulitis, osteomyelitis, status post [id number] amputation. He is doing well. I am not entirely sure what our disposition plan will be, but it will be per Surgery obviously. 2. End-stage renal. He is on dialysis per Dr. Benitez. Resume Wednesday, Wednesday, Wednesday tomorrow. 3. History of diabetes. His blood sugars seem pretty stable so that should not really hurt his healing. I documented incorrectly on admission that he had poorly controlled diabetes. That may have been the case at some point, but not now. His A1c is 4. 4. Disposition. Per surgery. Awaiting their recommendations. cc: Chevy Powell MD
[2019-08-13] MEDS: NORCO-10 PO PRN (17:23)
--- NOTE | 2019-08-13 18:45 | GENERAL SURGERY PROGRESS NOTE ---
DATE: 08/13/2019 SUBJECTIVE: The patient is doing okay today. He has some pain in his right BKA stump, but it is manageable. OBJECTIVE: Vital signs: He is afebrile. Vital signs are stable. General: He is awake, alert, oriented x3. No acute distress. Extremities: The right BKA stump dressing was examined. It is clean and dry. There does not appear to be severe swelling. LABORATORY: CBC and metabolic profile reviewed and unremarkable. ASSESSMENT AND PLAN: A 39-year-old male postoperative day 2, right below-knee amputation. We will examine the wound tomorrow and begin arrangements hopefully for discharge to rehab. cc: Tyrone Sweeney MD
[2019-08-14] MEDS: MORPHINE IV PRN ×3 (03:32→21:59)
[2019-08-14] MEDS: HEPARIN SUBQ SCH ×3 (06:27→20:27)
[2019-08-14] MEDS ORDERED: NS 2,000 ML MISC PRN (06:32)
[2019-08-14] MEDS ORDERED: HEPARIN IV PRN (06:32)
[2019-08-14] MEDS ORDERED: TIGHT: 0.2 ML/HR FOR DIALYSIS MISC PRN (06:32)
[2019-08-14 07:05] LABS: HEMOGLOBIN 7.7 g/dL (14.0-18.0); MCHC 33.5 g/dL (33-37); MCV 92.7 FL (81-99); MPV 8.5 FL (7.4-10.4); RBC 2.48 XMIL (4.7-6.1); RDW 14.4 % (11.5-14.5); WBC 11.01 X1000 (4.8-10.8)
[2019-08-14 07:34] LABS: ALBUMIN 3.1 g/dL (3.5-5.0); CALCIUM 7.3 mg/dL (8.8-10.2); PHOSPHORUS 6.2 mg/dL (2.7-4.5); POTASSIUM 4.4 mmol/L (3.5-5.1)
[2019-08-14] MEDS: HUMULIN R SUBQ SCH ×4 (08:05→21:34)
[2019-08-14 08:11] LABS: CREATININE 11.3 mg/dL (0.7-1.2)
[2019-08-14] MEDS ORDERED: NS 500 ML IV ONE (09:07)
--- NOTE | 2019-08-14 09:40 | NEPHROLOGY PROGRESS NOTE ---
DATE: 08/14/2019 SUBJECTIVE: He denies pain this morning. He has eaten without difficulty. No nausea or vomiting. OBJECTIVE: Vital Signs: Blood pressure 156/92, heart rate 94, respirations 18, afebrile. General: A healthy appearing man. No acute distress. Skin: Warm and dry. Conjunctivae are pink. Neck: Neck veins are not distended. Heart: PMI is enlarged. Auscultation demonstrates a regular rhythm with a gallop. Lungs: Equal. No crackles or wheezes. Abdomen: Soft, nontender. Bowel sounds present. Extremities: No edema, clubbing, or cyanosis. IMPRESSION: 1. Chronic kidney disease 5D. He will have his routine hemodialysis today. He does have modest hyponatremia and metabolic acidosis, both of which will be managed with dialysis today. 2. Anemia. Hemoglobin has trended downward. I will give him one unit of packed red blood cells today during dialysis. 3. Status post right below knee amputation. He is no longer on antibiotics. White blood cell count is 11 this morning. cc: Remington Benitez MD
[2019-08-14] MEDS: NORVASC PO SCH (12:27)
[2019-08-14] MEDS: COREG PO SCH ×2 (12:28→20:27)
[2019-08-14] MEDS: NORCO-10 PO PRN ×2 (13:06→20:27)
--- NOTE | 2019-08-14 15:03 | GENERAL SURGERY PROGRESS NOTE ---
DATE: 08/14/2019 SUBJECTIVE: The patient is doing well. He just finished dialysis. He has already worked with physical therapy yesterday. OBJECTIVE: Vital signs: He is afebrile. Vital signs are stable. Extremities: The right BKA stump was examined with the dressing off. It is clean, dry, and intact with mild edema. No erythema. ASSESSMENT AND PLAN: A 39-year-old male status post right below-knee amputation. The wound is healing appropriately. We are asking Social Service to arrange either home physical therapy or rehab placement at discharge. He will follow up with me in 7-10 days after discharge. cc: Tyrone Sweeney MD
--- NOTE | 2019-08-14 22:00 | PROGRESS NOTE ---
DATE: 08/14/2019 SUBJECTIVE: Patient has no major complaints. He seems to be doing well. OBJECTIVE: Vital Signs: Blood pressure is 123/80, heart rate 96, respiratory rate 16, temperature 97.9 degrees. Cardiovascular: Regular rate and rhythm. Pulmonary: Bilateral breath sounds. Clear to auscultation. GI: Soft, nontender, nondistended. Bowel sounds were positive. LABORATORY DATA: Unremarkable. White count was 11, hemoglobin and hematocrit 7 and 23, actually fairly anemic. BUN and creatinine 49 and 11.3. PROBLEM LIST: 1. Severe cellulitis, osteomyelitis, status post right below-knee amputation. He is getting surgical treatment wound care. He is currently on Zyvox per Dr. Washington. 2. End-stage renal. He is on dialysis Wednesday, Wednesday, Wednesday. 3. Symptomatic anemia. He is getting a unit of blood currently, and we will follow his hemoglobin and hematocrit. 4. History of diabetes. Blood sugars are stable. DISPOSITION: We are looking into rehab options for him because of his recent below-knee amputation. Will continue to follow. CBC and renal panel tomorrow and will continue to monitor closely. cc: Chevy Powell MD
[2019-08-15 06:28] LABS: ALBUMIN 2.9 g/dL (3.5-5.0); PHOSPHORUS 5.5 mg/dL (2.7-4.5); POTASSIUM 3.8 mmol/L (3.5-5.1)
[2019-08-15 06:31] LABS: CREATININE 8.8 mg/dL (0.7-1.2)
[2019-08-15] MEDS: HEPARIN SUBQ SCH ×2 (06:34→14:40)
[2019-08-15 06:45] LABS: HEMATOCRIT 23.7 % (42.0-52.0); HEMOGLOBIN 8.3 g/dL (14.0-18.0); MCH 32.8 PG (27-31); MCV 93.7 FL (81-99); MPV 8.6 FL (7.4-10.4); RBC 2.53 XMIL (4.7-6.1); RDW 15.2 % (11.5-14.5); WBC 11.43 X1000 (4.8-10.8)
[2019-08-15] MEDS: HUMULIN R SUBQ SCH ×2 (07:42→10:29)
[2019-08-15] MEDS: COREG PO SCH (08:09)
[2019-08-15] MEDS: NORVASC PO SCH (08:09)
[2019-08-15 11:39] VITALS: BP 147/86
--- NOTE | 2019-08-15 11:41 | DISCHARGE SUMMARY ---
ADMISSION DATE: 08/09/2019 DISCHARGE DATE: 08/15/2019 DISCHARGE DIAGNOSES: 1. Worsening cellulitis with osteomyelitis, status post right jmtku-vmu-tady amputation. 2. End-stage renal disease, on dialysis. 3. Coronary artery disease, status post coronary artery bypass graft. 4. Diabetes mellitus type 2. 5. Hyperlipidemia. CONSULTATIONS: 1. Dr. Sweeney from General Surgery. 2. Dr. Benitez from Nephrology. PROCEDURES: 1. Chest x-ray done on admission showed cardiomegaly. 2. Foot x-ray showed worsening cellulitis with osteomyelitis of the base of the first and fourth toes. 3. Right [id number]-[id number] amputation procedure performed by Dr. Sweeney. HOSPITAL COURSE: This is a 39-year-old male, well known to our service for history of end-stage renal disease, on dialysis. The patient has right diabetic foot infection that has been seen by Dr. Sweeney recently. He was sent to the ER from dialysis because the right foot looks not good, so he was admitted, evaluated by Surgery. They decided to do a right below- knee amputation. The patient is doing okay right now. The patient continue to receive dialysis as already scheduled. The patient is stable. He is going to [facility] facility today. He will not need any antibiotics at this time. DISCHARGE PHYSICAL EXAMINATION: Vital Signs: Temperature 97.8, heart rate 90, respiratory rate 18, blood pressure 154/81, O2 saturation 99% on room air. General: This is a 39-year-old male, lying in bed in no acute distress. Cardiovascular: S1, S2 heard. No murmurs, gallops, or rubs. Regular rate and rhythm. Respiratory: Clear bilaterally to auscultation. No work of breathing or using accessory muscles. Abdomen: Soft, nontender to palpation. Bowel sounds present. No organomegaly. Extremities: Right zwynt-evr-kkbh amputation. Neurological: The patient is alert and oriented x3. DISPOSITION: The patient is going to [facility] facility. DISCHARGE MEDICATIONS: 1. Morphine 2 mg every 3 hours p.r.n. pain. 2. Heparin 5000 units subcutaneously 3 times per day. 3. Tylenol 650 mg 1 tablet p.o. every 6 hours as needed. 4. Amlodipine 5 mg 1 tablet p.o. daily. 5. Carvedilol 6.25 mg 1 tablet p.o. twice daily. cc: Bryan Hameed MD
--- NOTE | 2019-08-15 12:11 | NEPHROLOGY PROGRESS NOTE ---
DATE: 08/15/2019 Subjective: patient lying in bed awake watching TV. Denies any uremic complaints. Voices adequate pain control with right below knee amputation. Objective: vitals. Temperature 97.8, pulse 90, respirations 18, blood pressure 154/81, 02 sat 99% on room air. General: Middle-aged black male lying in bed in no acute distress. HEENT: a traumatic, normocephalic. Trachea midline. Mucous membranes moist. skin: warm dry and intact skin Neck: supple, no JVD Cardiovascular: S1, S2, with a angélica. No murmur noted. Respiratory: lungs clear with equal air excursion Abdomen: soft, nontender and nondistended. Bowel sounds present. : none inspected. Extremities: recent right below knee amputation noted [place] clean and dry. No erythema noted. Right tunnel catheter to the upper chest wall. Neurological: alert and oriented to person, place, and time. Labs: wbc 11, hemoglobin 8.3, hematocrit 23.7, platelet count 261, sodium 133, potassium 3.8, chloride 93, carbon [id number], anion gap 15, BUN38, creatinine 8.8. intake 1070, output 2300. Impression: Chronic kidney disease 5D. He had his routine hemodialysis treatment yesterday with correction of metabolic acidosis. Continue current plan. Electrolytes. Sodium 131. Low but stable. Anemia. He was given one unit packed red blood cells yesterday his current hemoglobin is up to 8.3. Status post right below knee amputation. No longer on antibiotics, white blood cell count remains at 11. cc: Remington Benitez MD [facility]
== END 2019-08-15 14:48 | DRG 853 ==
LOC: ED 16:29 → 4N 22:03 → SUATTDRO 22:03
PROVIDERS: ATTEND Internal Medicine